=== PATIENT | female | born 1945 | race Caucasian/White ===

== ENCOUNTER 2018-09-18 11:55 | Day surgery (SDC) | payer OTHER ==
[2018-09-18] MEDS ORDERED: BUPIVACAINE 0.25% PF 30 ML VIAL ONE (12:20)
[2018-09-18] MEDS ORDERED: LIDOCAINE 2% MPF 5 ML VIAL ONE (12:20)
[2018-09-18] MEDS ORDERED: CYCLOPENTOLATE 1% OPTH 2 ML ONE (12:20)
[2018-09-18] MEDS ORDERED: TETRACAINE HCL 0.5% 2ML OPTH ONE (12:20)
[2018-09-18] MEDS ORDERED: NA CHLORIDE 0.9% 500 ML ONE (12:21)
[2018-09-18] MEDS ORDERED: PHENYLEPHRINE 10% OPTH 5ML ONE (12:21)
[2018-09-18] MEDS ORDERED: CYCLOPENTOLATE 1% OPTH 2 ML OPTH ONE ×2 (12:30→12:35)
[2018-09-18] MEDS ORDERED: PHENYLEPHRINE 10% OPTH 5ML OPTH ONE ×2 (12:30→12:35)
[2018-09-18] MEDS: BALANCED SALT IRRIG PLAIN 500 ML BTL IRR ONE ×2 (13:29→13:34)
[2018-09-18] MEDS: EPINEPHRINE/PF 1 MG/ML AMP ONE ×2 (13:29→13:34)
[2018-09-18] MEDS: DUOVISC 1 KIT OPTH ONE ×2 (13:30→13:34)
[2018-09-18] MEDS: MOXIFLOXACIN HCL 10 DROPS/ML **OR USE OPTH ONE ×2 (13:30→13:34)
--- NOTE | 2018-09-18 14:06 | P.BOP ---
Preoperative diagnosis: Nuclear sclerotic and anterior subcapsular cataract OD Postoperative diagnosis: Same Primary procedure: Phacoemulsification with IOL OD Estimated blood loss: None Anesthesia: Local (Subtenon's infusion with anesthesia for cataract surgery) Complications: None Implants: ZCB00 +22.0 Transferred to: Other (Day surgery) Condition: Good
[2018-09-18 14:16] VITALS: BP 165/77; TEMP 96.9; O2SAT 99
--- NOTE | 2018-09-19 01:32 | OP ---
Date of Procedure: 09/18/2018 Surgeon: Maureen Lancaster MD Anesthesiologist: Sol Monahan C.R.N.A. and Timoteo Reinoso M.D. Preoperative Diagnoses: Nuclear sclerotic and anterior subcapsular cataract, right eye. Operation Performed: Phacoemulsification with intraocular lens implant, right eye. Anesthesia: Per cataract surgery. Complications: None. Description Of Procedure: In day surgery, the patient was prepped with Betadine and draped. A conju nctival incision was made in the inferior nasal quadrant with Minerva scissors. A sub-Tenon block c onsisting of a 1:1 mixture of 2% Xylocaine and 0.25% bupivacaine was placed through the conjunctival incision with a blunt cannula. A Honan balloon was placed over the eye and the patient was transferr ed to the operating room. In the operating room the patient was prepped and draped in the usual sterile fashion for ophthalmic surgery. A lid speculum was placed in the right eye. Two paracentesis sites were made superiorly an d inferiorly in the limbal cornea. Viscoat was placed in the anterior chamber and a crescent blade w as used to make a corneal groove and tunnel, and a keratome was used to enter the anterior chamber. Provisc was placed in the anterior chamber and a 360 degree capsulotomy was performed with a cystitom e. The lens was hydrodissected with BSS and rotated freely. The lens was removed with a stop and ch op technique. 7.01 phaco CDE was used to remove the lens. Residual cortex was removed with the irri gation and aspiration. Provisc was placed in the capsular bag. A ZCB00 +22.0 lens was placed in the capsular bag without complications. Irrigation and aspiration were used to remove residual viscoela stic. The paracentesis sites were hydrated with BSS. The wound and paracentesis sites were inspecte d and found to be watertight. Vigamox 0.07 cc was placed intracamerally at the end of the procedure. The eye was irrigated with balanced salt solution. The eye was patched with a soft cotton patch an d Gupta metal shield. The patient was returned to day surgery in good condition. Comments: Discharge Instructions: Ms. Starks is discharged to home in good condition and is to follow up with Dr. Lancaster in the morning. JULIUS/RUTH ANN Voice ID: [id number] Report ID: [id number]
== END 2018-09-18 14:30 | disposition home or self-care (01) ==
LOC: OR 11:55
PROVIDERS: ATTEND Ophthalmology Retina Specialist
PROC: 08RJ3JZ Replacement of Right Lens with Synthetic Substitute, Percutaneous Approach (ICD-10-PCS; principal; 2018-09-18 11:45)
DX: H25.11 Age-related nuclear cataract, right eye (principal); H25.031 Anterior subcapsular polar age-related cataract, right eye; H04.123 Dry eye syndrome of bilateral lacrimal glands; I10 Essential (primary) hypertension; E78.00 Pure hypercholesterolemia, unspecified; Z79.899 Other long term (current) drug therapy
CPT/HCPCS: 66984; J0171; V2630

== ENCOUNTER 2018-10-30 06:52 | Day surgery (SDC) | payer OTHER ==
--- OUTSIDE RECORDS SUMMARY | 2018-10-30 07:01 | XMS REPORT | Clinical Summary ---
:1945 Author Organization [facility] Address [address] [place] [address] Care Team Providers Name Role Phone Brenton Holm MD Primary Care Provider Allergies No Known Allergies Medications Medication Sig Dispensed Refills Start Date End Date Status amLODIPine Take 10 mg by 0 Active (NORVASC) 10 mg mouth as needed. tablet fluticasone 2 sprays by Each 0 Active (FLONASE) 50 Nare route daily. mcg/actuation nasal spray estrogens, Take 0.625 mg by 0 Active conjugated, mouth daily. Take (PREMARIN) 0.625 MG daily for 21 days tablet then do not take for 7 days. aspirin (ECOTRIN) Take 81 mg by 0 Active 81 MG enteric mouth daily. coated tablet furosemide (LASIX) furosemide 20 mg 0 Active 20 mg tablet tablet as needed docosahexanoic Take by mouth. 0 Active acid/epa (FISH OIL ORAL) losartan (COZAAR) Take 1 tablet 90 tablet 3 10/16/2018 10/16/19 Active 100 MG (100 mg total) by 20 tabletIndications: mouth daily. Essential hypertension metoprolol Take 1 tablet 30 tablet 11 10/16/2018 10/16/19 Active succinate XL (100 mg total) by 20 (TOPROL XL) 100 mg mouth daily. 24 hr tabletIndications: Essential hypertension fenofibrate Take 1 tablet 90 tablet 3 10/16/2018 Active (TRICOR) 145 MG (145 mg total) by tablet mouth daily. metoprolol Take 1 tablet (50 90 tablet 3 10/16/2018 Active succinate XL mg total) by (TOPROL-XL) 50 mg mouth daily. 24 hr tablet ALPRAZolam (XANAX) Take 0.125 mg by 0 11/22/19 Discontinued 0.25 MG tablet mouth 2 (two) 18 times a day. cycloSPORINE 1 drop 2 (two) 0 08/08/20 Discontinued (RESTASIS) 0.05 % times a day. 18 ophthalmic emulsion irbesartan (AVAPRO) Take 300 mg by 0 11/22/19 Discontinued 300 MG tablet mouth nightly. 18 metoprolol Take 50 mg by 0 10/16/19 Discontinued succinate XL mouth daily. 19 (TOPROL-XL) 50 mg 24 hr tablet minocycline Take 100 mg by 0 11/22/19 Discontinued (MINOCIN,DYNACIN) mouth 2 (two) 18 50 MG capsule times a day. nitrofurantoin, Take 100 mg by 0 11/22/19 Discontinued macrocrystal-monohy mouth 2 (two) 18 drate, (MACROBID) times a day. 100 MG capsule torsemide (DEMADEX) Take 10 mg by 0 11/22/19 Discontinued 10 MG tablet mouth daily. 18 fenofibrate Take 130 mg by 0 10/16/19 Discontinued (TRICOR) 145 MG mouth daily. 19 tablet omega-3 acid ethyl Take 1,200 mg by 0 08/08/20 Discontinued esters (LOVAZA) 1 mouth daily. 18 gram capsule cetirizine (ZyrTEC) Take 1 tablet (5 30 tablet 0 11/23/2017 12/24/19 5 MG tablet mg total) by 18 mouth daily for 30 days. irbesartan (AVAPRO) Take 0.5 tablets 30 tablet 0 11/22/2017 12/23/19 300 MG tablet (150 mg total) by 18 mouth nightly for 30 days. guaiFENesin Take 1 tablet 60 tablet 0 11/22/2017 12/23/19 (MUCINEX) 600 mg (600 mg total) by 18 tablet extended mouth 2 (two) release 12hr times a day for 30 days. montelukast Take 1 tablet (10 30 tablet 0 11/22/2017 12/23/19 (SINGULAIR) 10 mg mg total) by 18 tablet mouth nightly for 30 days. furosemide (LASIX) Take 1 tablet (40 30 tablet 0 11/23/2017 12/24/19 40 mg tablet mg total) by 18 mouth daily for 30 days. magnesium oxide Take 1 tablet 30 tablet 0 11/23/2017 12/24/19 (MAG-OX) 400 mg (400 mg total) by 18 tablet mouth daily for 30 days. ascorbic acid, Take 3 tablets 90 tablet 0 11/22/2017 12/23/19 vitamin C, (VITAMIN (1,500 mg total) 18 C) 500 MG tablet by mouth daily for 30 days. cholecalciferol, Take 1 tablet 30 tablet 0 11/22/2017 12/23/19 vitamin D3, (2,000 Units 18 (VITAMIN D3) 2,000 total) by mouth unit tablet daily for 30 days. budesonide Take 2 mL (0.5 mg 120 mL 0 11/22/2017 12/23/19 (PULMICORT) 0.5 total) by 18 mg/2 mL nebulizer nebulization 2 solution (two) times a day for 30 days. ALPRAZolam (XANAX) Take 0.5 tablets 0 11/22/2017 12/06/19 0.25 MG tablet (0.125 mg total) 18 by mouth as needed for anxiety for up to 14 days. metoprolol Take 1 tablet 30 tablet 11 08/08/2018 10/16/19 Discontinued succinate XL (100 mg total) by 19 (TOPROL XL) 100 mg mouth daily. 24 hr tabletIndications: Essential hypertension losartan (COZAAR) Take 1 tablet 30 tablet 0 08/10/2018 09/15/20 Discontinued 100 MG (100 mg total) by 18 tabletIndications: mouth daily. Essential hypertension losartan (COZAAR) Take 1 tablet 90 tablet 0 09/15/2018 09/20/20 Discontinued 100 MG (100 mg total) by 18 tabletIndications: mouth daily. Essential hypertension losartan (COZAAR) Take 1 tablet 90 tablet 3 09/20/2018 10/16/19 Discontinued 100 MG (100 mg total) by 19 tabletIndications: mouth daily. Essential hypertension Active Problems Problem Noted Date Cardiac pacemaker in situ 08/08/2018 Carotid bruit 08/08/2018 Delirium 11/10/2017 Pancreatitis, acute 10/23/2017 Renal failure, acute 10/23/2017 Arrhythmia, sinus node 10/20/2017 Heart block 10/20/2017 Essential hypertension 10/20/2017 Fall 10/20/2017 Dizziness 10/20/2017 Cardiac dysrhythmia 10/20/2017 Complete heart block 10/20/2017 Encounters Date Type Specialty Care Team Description 10/16/2018 Orders Only Cardiology Dez Chowdhury MA Essential hypertension 09/20/2018 Telephone Cardiology Manjit [place] [facility] Refill ALVAREZ 09/15/2018 Refill Cardiology [facility] Refill ALVAREZ [place] 09/07/2018 Telephone Cardiology Gem, carotid results ALVAREZ [place] 08/10/2018 Telephone Cardiology Dez Chowdhury MA Hypertension 08/10/2018 Orders Only Cardiology Dez Chowdhury MA Essential hypertension (Primary Dx) 08/09/2018 Orders Only Cardiology Rayna Huang MD 08/08/2018 Office Visit Cardiology Rayna Huang Essential hypertension ( Primary Dx); MD Azar Carotid bruit, unspecified laterality; Complete heart block (HCC); Cardiac pacemaker in situ 11/18/2017 Surgery Procedural [facility]ign[facility] Baker Ep ppi [93081 (CPT)] Cardiology MD Kristin 11/04/2017 Anesthesia Event Cardiology Gregory Mc MD 11/04/2017 Surgery General Surgery Victor Manuel Sanchez MD CHOLECYSTECTOMY 10/20/2017 - Hospital Encounter Cardiology Digna Baker Altered mental status, unspecified altered mental status type (Primary Dx); 11/22/2017 MD Kristin Arrhythmia, sinus node; Griffin Rodríguez Acute on chronic respiratory failure with hypoxia and hypercapnia; MD Otilio Septic shock; Heart block; Essential hypertension; Dizziness; Cardiac arrhythmia, unspecified cardiac arrhythmia type; Complete heart block; Gallstone pancreatitis after 10/29/2017 Social History Tobacco Use Types Packs/Day Years Used Date Former Smoker Sex Assigned at Date Recorded Not on file Job Start Date Occupation Industry Not on file Not on file Not on file Travel History Travel Start Travel End No recent travel history available. Last Filed Vital Signs Vital Sign Reading Time Taken Blood Pressure 186/86 08/08/2018 1:07 PM CDT Pulse 80 08/08/2018 1:07 PM CDT Temperature 35.7 C (96.3 F) 11/22/2017 12:18 PM [employer] Respiratory Rate 18 11/22/2017 1:00 PM [employer] Oxygen Saturation 96% 11/22/2017 1:00 PM [employer] Inhaled Oxygen Concentration - - Weight 55.3 kg (122 lb) 08/08/2018 1:07 PM CDT Height 154.9 cm (5' 1") 08/08/2018 1:07 PM CDT Body Mass Index 23.05 08/08/2018 1:07 PM CDT Plan of Treatment Health Maintenance Due Date Last Done Comments BREAST CANCER SCREENING 1993 COLON CANCER SCREENING 1993 SHINGLES VACCINES (1 of 2) 1993 PNEUMOCOCCAL POLYSACCHARIDE VACCINE AGE 65 AND OVER 2008 PNEUMOCOCCAL-13 2008 INFLUENZA VACCINE 05/10/2018 Implants Implanted Type Area Vocational Nursing Instructor Device Shelf Model / Identifier Expiration Serial / Date Lot Pacemaker Dredge Pipe Operator Dr Macias 2chmbr W/ Is-1 Uni/Bi Conn Advisa - [id number] Cardiac N /A: [employer] 12/21/2017 [id number] / Implanted: 11/18/2017 (Quantity not on file) Pacemaker N/A CARDIAC RHYTHM [id number] / Generators DISEASE MGMT [id number] Lead, Bipolar Active Fixation Atrial Steroid Eluting 45 Cm Capsure Fix Novus System - [id number] Cardiac Pacing N/A: [employer]TR[employer]IC [facility] 08/12/2019 [id number] / Implanted: 11/18/2017 (Quantity not on file) Leads or N/A [employer] [id number] / Electrodes or [id number] Accessories Lead, Pacemaker Bipolar Fix Forming Atrial And Ventricular Steroid Eluting 52 Centimeter Capsure Fix Novus - [id number] Cardiac Pacing N/A: [employer] [facility] 08/22/2019 [id number] / Implanted: 11/18/2017 (Quantity not on file) Leads or N/A [employer] [id number] / Electrodes or [id number] Accessories Particle [facility] [place] 5gm Mph - [id number] Surgical N/A: [employer] [id number] / Implanted: Qty: 1 on 11/04/2017 by Victor Manuel Sanchez MD Implants; N/A / Expanders; Extenders; Surgical Wires Procedures Procedure Name Priority Date/Time Associated Comments Diagnosis US CAROTID DUPLEX Routine 08/29/2018 12:00 Carotid bruit, Results for this BILATERAL PM [employer] unspecified procedure are in laterality the results section. GENERAL SURGERY Routine 08/09/2018 TRANSFUSE RED BLOOD Routine 06/14/2018 5:47 CELLS PM CDT TRANSFUSE RED BLOOD Routine 06/14/2018 5:47 CELLS PM CDT XR CHEST 1 VW PORTABLE Routine 11/22/2017 9:12 Results for this AM [employer] procedure are in the results section. ZZESTIMATED GFR Routine 11/22/2017 4:00 Results for this AM [employer] procedure are in the results section. PHOSPHORUS LEVEL Routine 11/22/2017 4:00 Results for this AM [employer] procedure are in the results section. MAGNESIUM LEVEL Routine 11/22/2017 4:00 Results for this AM [employer] procedure are in the results section. BASIC METABOLIC PANEL Routine 11/22/2017 4:00 Results for this AM [employer] procedure are in the results section. RESPIRATORY PATHOGEN Routine 11/21/2017 9:35 Results for this PANEL AM [employer] procedure are in the results section. ZZESTIMATED GFR Routine 11/21/2017 4:00 Results for this AM [employer] procedure are in the results section. PHOSPHORUS LEVEL Routine 11/21/2017 4:00 Results for this AM [employer] procedure are in the results section. MAGNESIUM LEVEL Routine 11/21/2017 4:00 Results for this AM [employer] procedure are in the results section. BASIC METABOLIC PANEL Routine 11/21/2017 4:00 Results for this AM [employer] procedure are in the results section. US DUPLEX VENOUS UPPER Routine 11/20/2017 12:12 Results for this EXTREMITY LEFT PM [employer] procedure are in the results section. ZZESTIMATED GFR Routine 11/20/2017 4:00 Results for this AM [employer] procedure are in the results section. PHOSPHORUS LEVEL Routine 11/20/2017 4:00 Results for this AM [employer] procedure are in the results section. MAGNESIUM LEVEL Routine 11/20/2017 4:00 Results for this AM [employer] procedure are in the results section. BASIC METABOLIC PANEL Routine 11/20/2017 4:00 Results for this AM [employer] procedure are in the results section. ECG PRE/POST OP Routine 11/19/2017 8:53 Results for this PM [employer] procedure are in the results section. ZZESTIMATED GFR Routine 11/19/2017 4:00 Results for this AM [employer] procedure are in the results section. PHOSPHORUS LEVEL Routine 11/19/2017 4:00 Results for this AM [employer] procedure are in the results section. MAGNESIUM LEVEL Routine 11/19/2017 4:00 Results for this AM [employer] procedure are in the results section. BASIC METABOLIC PANEL Routine 11/19/2017 4:00 Results for this AM [employer] procedure are in the results section. XR CHEST 1 VW PORTABLE Routine 11/18/2017 1:06 Results for this PM [employer] procedure are in the results section. XR CHEST 1 VW PORTABLE Routine 11/18/2017 10:11 Results for this AM [employer] procedure are in the results section. ECG PRE/POST OP STAT 11/18/2017 9:28 Results for this AM [employer] procedure are in the results section. ZZ PPI Routine 11/18/2017 9:06 Results for this AM [employer] procedure are in the results section. ZZESTIMATED GFR Routine 11/18/2017 4:00 Results for this AM [employer] procedure are in the results section. PHOSPHORUS LEVEL Routine 11/18/2017 4:00 Results for this AM [employer] procedure are in the results section. MAGNESIUM LEVEL Routine 11/18/2017 4:00 Results for this AM [employer] procedure are in the results section. BASIC METABOLIC PANEL Routine 11/18/2017 4:00 Results for this AM [employer] procedure are in the results section. HC COMPLETE BLD COUNT Routine 11/17/2017 4:30 Results for this W/AUTO DIFF AM [employer] procedure are in the results section. ZZESTIMATED GFR Routine 11/17/2017 4:00 Results for this AM [employer] procedure are in the results section. PHOSPHORUS LEVEL Routine 11/17/2017 4:00 Results for this AM [employer] procedure are in the results section. MAGNESIUM LEVEL Routine 11/17/2017 4:00 Results for this AM [employer] procedure are in the results section. BASIC METABOLIC PANEL Routine 11/17/2017 4:00 Results for this AM [employer] procedure are in the results section. POC GLUCOSE Routine 11/16/2017 9:40 Results for this PM [employer] procedure are in the results section. CLOSTRIDIUM DIFFICILE Routine 11/16/2017 8:40 Results for this TOXIN PM [employer] procedure are in the results section. POC GLUCOSE Routine 11/16/2017 5:12 Results for this PM [employer] procedure are in the results section. XR CHEST 2 VW Routine 11/16/2017 3:29 Results for this PM [employer] procedure are in the results section. ZZESTIMATED GFR Routine 11/16/2017 4:00 Results for this AM [employer] procedure are in the results section. PHOSPHORUS LEVEL Routine 11/16/2017 4:00 Results for this AM [employer] procedure are in the results section. MAGNESIUM LEVEL Routine 11/16/2017 4:00 Results for this AM [employer] procedure are in the results section. BASIC METABOLIC PANEL Routine 11/16/2017 4:00 Results for this AM [employer] procedure are in the results section. POC GLUCOSE Routine 11/16/2017 3:38 Results for this AM [employer] procedure are in the results section. POC GLUCOSE Routine 11/15/2017 11:53 Results for this PM [employer] procedure are in the results section. POC GLUCOSE Routine 11/15/2017 8:41 Results for this PM [employer] procedure are in the results section. POC GLUCOSE Routine 11/15/2017 5:32 Results for this PM [employer] procedure are in the results section. POC GLUCOSE Routine 11/15/2017 1:01 Results for this PM [employer] procedure are in the results section. POC GLUCOSE Routine 11/15/2017 8:41 Results for this AM [employer] procedure are in the results section. ZZESTIMATED GFR Routine 11/15/2017 4:00 Results for this AM [employer] procedure are in the results section. PHOSPHORUS LEVEL Routine 11/15/2017 4:00 Results for this AM [employer] procedure are in the results section. MAGNESIUM LEVEL Routine 11/15/2017 4:00 Results for this AM [employer] procedure are in the results section. BASIC METABOLIC PANEL Routine 11/15/2017 4:00 Results for this AM [employer] procedure are in the results section. POC GLUCOSE Routine 11/15/2017 3:59 Results for this AM [employer] procedure are in the results section. POC GLUCOSE Routine 11/15/2017 12:13 Results for this AM [employer] procedure are in the results section. POC GLUCOSE Routine 11/14/2017 7:40 Results for this PM [employer] procedure are in the results section. POC GLUCOSE Routine 11/14/2017 5:30 Results for this AM [employer] procedure are in the results section. ZZESTIMATED GFR Routine 11/14/2017 4:00 Results for this AM [employer] procedure are in the results section. PHOSPHORUS LEVEL Routine 11/14/2017 4:00 Results for this AM [employer] procedure are in the results section. MAGNESIUM LEVEL Routine 11/14/2017 4:00 Results for this AM [employer] procedure are in the results section. BASIC METABOLIC PANEL Routine 11/14/2017 4:00 Results for this AM [employer] procedure are in the results section. POC GLUCOSE Routine 11/13/2017 11:28 Results for this PM [employer] procedure are in the results section. POC GLUCOSE Routine 11/13/2017 9:09 Results for this PM [employer] procedure are in the results section. POC GLUCOSE Routine 11/13/2017 11:07 Results for this AM [employer] procedure are in the results section. POC GLUCOSE Routine 11/13/2017 8:12 Results for this AM [employer] procedure are in the results section. POC GLUCOSE Routine 11/13/2017 4:35 Results for this AM [employer] procedure are in the results section. HC COMPLETE BLD COUNT Routine 11/13/2017 4:04 Results for this W/AUTO DIFF AM [employer] procedure are in the results section. ZZESTIMATED GFR Routine 11/13/2017 4:00 Results for this AM [employer] procedure are in the results section. PHOSPHORUS LEVEL Routine 11/13/2017 4:00 Results for this AM [employer] procedure are in the results section. MAGNESIUM LEVEL Routine 11/13/2017 4:00 Results for this AM [employer] procedure are in the results section. BASIC METABOLIC PANEL Routine 11/13/2017 4:00 Results for this AM [employer] procedure are in the results section. VANCOMYCIN LEVEL, Timed 11/13/2017 2:30 Results for this TROUGH AM [employer] procedure are in the results section. POC GLUCOSE Routine 11/13/2017 12:02 Results for this AM [employer] procedure are in the results section. POC GLUCOSE Routine 11/12/2017 7:34 Results for this PM [employer] procedure are in the results section. POC GLUCOSE Routine 11/12/2017 4:38 Results for this PM [employer] procedure are in the results section. POC GLUCOSE Routine 11/12/2017 11:34 Results for this AM [employer] procedure are in the results section. POC GLUCOSE Routine 11/12/2017 10:08 Results for this AM [employer] procedure are in the results section. POC GLUCOSE Routine 11/12/2017 8:47 Results for this AM [employer] procedure are in the results section. POC GLUCOSE Routine 11/12/2017 8:47 Results for this AM [employer] procedure are in the results section. ZZESTIMATED GFR Routine 11/12/2017 4:00 Results for this AM [employer] procedure are in the results section. PHOSPHORUS LEVEL Routine 11/12/2017 4:00 Results for this AM [employer] procedure are in the results section. MAGNESIUM LEVEL Routine 11/12/2017 4:00 Results for this AM [employer] procedure are in the results section. BASIC METABOLIC PANEL Routine 11/12/2017 4:00 Results for this AM [employer] procedure are in the results section. XR ABDOMEN AP AND STAT 11/11/2017 4:18 Results for this DECUBITUS PM [employer] procedure are in the results section. POC GLUCOSE Routine 11/11/2017 12:00 Results for this PM [employer] procedure are in the results section. XR CHEST 1 VW PORTABLE Routine 11/11/2017 11:27 Results for this AM [employer] procedure are in the results section. POC GLUCOSE Routine 11/11/2017 8:38 Results for this AM [employer] procedure are in the results section. ZZESTIMATED GFR Routine 11/11/2017 3:15 Results for this AM [employer] procedure are in the results section. PHOSPHORUS LEVEL Routine 11/11/2017 3:15 Results for this AM [employer] procedure are in the results section. MAGNESIUM LEVEL Routine 11/11/2017 3:15 Results for this AM [employer] procedure are in the results section. BASIC METABOLIC PANEL Routine 11/11/2017 3:15 Results for this AM [employer] procedure are in the results section. POC GLUCOSE Routine 11/10/2017 11:16 Results for this PM [employer] procedure are in the results section. CLOSTRIDIUM DIFFICILE Routine 11/10/2017 7:20 Results for this TOXIN PM [employer] procedure are in the results section. XR CHEST 1 VW PORTABLE Routine 11/10/2017 10:08 Results for this AM [employer] procedure are in the results section. HC COMPLETE BLD COUNT Routine 11/10/2017 4:46 Results for this W/AUTO DIFF AM [employer] procedure are in the results section. ZZESTIMATED GFR Routine 11/10/2017 4:00 Results for this AM [employer] procedure are in the results section. COMPREHENSIVE METABOLIC Routine 11/10/2017 4:00 Results for this PANEL AM [employer] procedure are in the results section. PHOSPHORUS LEVEL Routine 11/10/2017 4:00 Results for this AM [employer] procedure are in the results section. MAGNESIUM LEVEL Routine 11/10/2017 4:00 Results for this AM [employer] procedure are in the results section. XR CHEST 1 VW STAT 11/09/2017 6:16 Results for this PM [employer] procedure are in the results section. FL GI NG OR OG TUBE Routine 11/09/2017 5:57 Results for this PLACEMENT PM [employer] procedure are in the results section. XR CHEST 1 VW STAT 11/09/2017 5:44 Results for this PM [employer] procedure are in the results section. URINALYSIS, AUTOMATED Routine 11/09/2017 3:45 Results for this WITH MICROSCOPY PM [employer] procedure are in the results section. VANCOMYCIN LEVEL, STAT 11/09/2017 3:23 Results for this RANDOM PM [employer] procedure are in the results section. XR ABDOMEN 1 VW STAT 11/09/2017 2:18 Results for this PORTABLE PM [employer] procedure are in the results section. XR CHEST 1 VW PORTABLE Routine 11/09/2017 9:50 Results for this AM [employer] procedure are in the results section. HC COMPLETE BLD COUNT Routine 11/09/2017 5:40 Results for this W/AUTO DIFF AM [employer] procedure are in the results section. ZZESTIMATED GFR Routine 11/09/2017 4:00 Results for this AM [employer] procedure are in the results section. ALBUMIN LEVEL Routine 11/09/2017 4:00 Results for this AM [employer] procedure are in the results section. PHOSPHORUS LEVEL Routine 11/09/2017 4:00 Results for this AM [employer] procedure are in the results section. MAGNESIUM LEVEL Routine 11/09/2017 4:00 Results for this AM [employer] procedure are in the results section. BASIC METABOLIC PANEL Routine 11/09/2017 4:00 Results for this AM [employer] procedure are in the results section. ZZESTIMATED GFR Routine 11/08/2017 3:13 Results for this AM [employer] procedure are in the results section. PHOSPHORUS LEVEL Routine 11/08/2017 3:13 Results for this AM [employer] procedure are in the results section. MAGNESIUM LEVEL Routine 11/08/2017 3:13 Results for this AM [employer] procedure are in the results section. BASIC METABOLIC PANEL Routine 11/08/2017 3:13 Results for this AM [employer] procedure are in the results section. VANCOMYCIN LEVEL, Timed 11/08/2017 3:00 Results for this TROUGH AM [employer] procedure are in the results section. HC COMPLETE BLD COUNT Routine 11/07/2017 4:05 Results for this W/AUTO DIFF AM [employer] procedure are in the results section. ZZESTIMATED GFR Routine 11/07/2017 4:00 Results for this AM [employer] procedure are in the results section. T4, FREE Routine 11/07/2017 4:00 Results for this AM [employer] procedure are in the results section. THYROID STIMULATING Routine 11/07/2017 4:00 Results for this HORMONE AM [employer] procedure are in the results section. PHOSPHORUS LEVEL Routine 11/07/2017 4:00 Results for this AM [employer] procedure are in the results section. MAGNESIUM LEVEL Routine 11/07/2017 4:00 Results for this AM [employer] procedure are in the results section. BASIC METABOLIC PANEL Routine 11/07/2017 4:00 Results for this AM [employer] procedure are in the results section. BLOOD CULTURE, AEROBIC Routine 11/06/2017 7:02 Results for this & ANAEROBIC PM [employer] procedure are in the results section. BLOOD CULTURE, AEROBIC Routine 11/06/2017 6:50 Results for this & ANAEROBIC PM [employer] procedure are in the results section. ZZESTIMATED GFR STAT 11/06/2017 6:07 Results for this PM [employer] procedure are in the results section. BETA HYDROXYBUTYRATE STAT 11/06/2017 6:07 Results for this PM [employer] procedure are in the results section. LACTIC ACID LEVEL STAT 11/06/2017 6:07 Results for this PM [employer] procedure are in the results section. BASIC METABOLIC PANEL STAT 11/06/2017 6:07 Results for this PM [employer] procedure are in the results section. PREALBUMIN LEVEL Routine 11/06/2017 6:07 Results for this PM [employer] procedure are in the results section. PROTHROMBIN TIME WITH Routine 11/06/2017 5:00 Results for this INR AM [employer] procedure are in the results section. HC COMPLETE BLD COUNT Routine 11/06/2017 5:00 Results for this W/AUTO DIFF AM [employer] procedure are in the results section. IONIZED CALCIUM, Routine 11/06/2017 4:00 Results for this ARTERIAL AM CURTAIN WORKER procedure are in the results section. ZZESTIMATED GFR Routine 11/06/2017 4:00 Results for this AM CURTAIN WORKER procedure are in the results section. ARTERIAL BLOOD GAS Routine 11/06/2017 4:00 Results for this AM CURTAIN WORKER procedure are in the results section. PHOSPHORUS LEVEL Routine 11/06/2017 4:00 Results for this AM CURTAIN WORKER procedure are in the results section. MAGNESIUM LEVEL Routine 11/06/2017 4:00 Results for this AM CURTAIN WORKER procedure are in the results section. BASIC METABOLIC PANEL Routine 11/06/2017 4:00 Results for this AM CURTAIN WORKER procedure are in the results section. HEPATIC FUNCTION PANEL Routine 11/06/2017 4:00 Results for this AM CURTAIN WORKER procedure are in the results section. ZINC LEVEL, SERUM Routine 11/05/2017 10:05 Results for this PM CURTAIN WORKER procedure are in the results section. HEMATOCRIT Routine 11/05/2017 10:05 Results for this PM CURTAIN WORKER procedure are in the results section. HEMOGLOBIN Routine 11/05/2017 10:05 Results for this PM CURTAIN WORKER procedure are in the results section. XR CHEST 2 VW Routine 11/05/2017 9:07 Results for this PM CURTAIN WORKER procedure are in the results section. URINALYSIS SCREEN AND STAT 11/05/2017 1:30 Results for this MICROSCOPY, WITH REFLEX PM CURTAIN WORKER procedure are in TO CULTURE the results section. URINE CULTURE STAT 11/05/2017 1:30 Results for this PM CURTAIN WORKER procedure are in the results section. HEMOGLOBIN & HEMATOCRIT Routine 11/05/2017 11:51 Results for this AM CURTAIN WORKER procedure are in the results section. CT HEAD WO CONTRAST STAT 11/05/2017 8:53 Results for this AM CURTAIN WORKER procedure are in the results section. POC BLOOD GAS, ARTERIAL Routine 11/05/2017 8:36 AM CURTAIN WORKER LACTIC ACID, I-STAT, Routine 11/05/2017 8:36 Results for this ARTERIAL AM CURTAIN WORKER procedure are in the results section. ZZESTIMATED GFR STAT 11/05/2017 8:25 Results for this AM CURTAIN WORKER procedure are in the results section. PROTHROMBIN TIME WITH STAT 11/05/2017 8:25 Results for this INR AM CURTAIN WORKER procedure are in the results section. TROPONIN STAT 11/05/2017 8:25 Results for this AM CURTAIN WORKER procedure are in the results section. AMMONIA LEVEL STAT 11/05/2017 8:25 Results for this AM CURTAIN WORKER procedure are in the results section. PHOSPHORUS LEVEL STAT 11/05/2017 8:25 Results for this AM CURTAIN WORKER procedure are in the results section. MAGNESIUM LEVEL STAT 11/05/2017 8:25 Results for this AM CURTAIN WORKER procedure are in the results section. COMPREHENSIVE METABOLIC STAT 11/05/2017 8:25 Results for this PANEL AM CURTAIN WORKER procedure are in the results section. ECG 12-LEAD STAT 11/05/2017 8:07 Results for this AM CURTAIN WORKER procedure are in the results section. POC GLUCOSE Routine 11/05/2017 7:59 Results for this AM CURTAIN WORKER procedure are in the results section. ZZESTIMATED GFR Routine 11/05/2017 4:45 Results for this AM CURTAIN WORKER procedure are in the results section. VITAMIN C LEVEL, PLASMA Routine 11/05/2017 4:45 Results for this AM CURTAIN WORKER procedure are in the results section. VITAMIN B12 LEVEL Routine 11/05/2017 4:45 Results for this AM CURTAIN WORKER procedure are in the results section. IONIZED CALCIUM Routine 11/05/2017 4:45 Results for this AM CURTAIN WORKER procedure are in the results section. PROTHROMBIN TIME WITH Routine 11/05/2017 4:45 Results for this INR AM CURTAIN WORKER procedure are in the results section. HEPATIC FUNCTION PANEL Routine 11/05/2017 4:45 Results for this AM CURTAIN WORKER procedure are in the results section. CBC WITH PLATELET AND Routine 11/05/2017 4:45 Results for this DIFFERENTIAL AM CURTAIN WORKER procedure are in the results section. PHOSPHORUS LEVEL Routine 11/05/2017 4:45 Results for this AM CURTAIN WORKER procedure are in the results section. MAGNESIUM LEVEL Routine 11/05/2017 4:45 Results for this AM CURTAIN WORKER procedure are in the results section. BASIC METABOLIC PANEL Routine 11/05/2017 4:45 Results for this AM CURTAIN WORKER procedure are in the results section. HC COMPLETE BLD COUNT Timed 11/04/2017 3:00 Results for this W/AUTO DIFF PM CURTAIN WORKER procedure are in the results section. SURGICAL PATHOLOGY Routine 11/04/2017 11:26 Results for this REQUEST AM CURTAIN WORKER procedure are in the results section. MO AN ELECTIVE Routine 11/04/2017 8:26 ENDOTRACHEAL AIRWAY AM CURTAIN WORKER Procedure Note - Ken Haque CRNA - 11/04/2017 8:24 AM CURTAIN WORKER Airway Date/Time: 11/04/2017 7:48 AM Performed by: KEN HAQUE Authorized by: GREGORY MC Location: OR Urgency: Elective Difficult Airway: No Performed by: resident/CRANE HOIST OR LIFT OPERATOR/AA Preoxygenated with 100% O2: Yes C-spine Precautions Maintained Throughout: Yes Mask Ventilation: Easy mask Final Airway Type: Endotracheal airway Final Endotracheal Airway: ETT Cuffed: Yes Technique Used: Direct laryngoscopy Devices/Methods Used in Placement: Intubating stylet Insertion Site: Oral Blade Type: Julius Laryngoscope Blade/Videolaryngoscope Blade Size: 3 ETT Size (mm): 7.0 Cuff at minimum occlusion pressure: Yes Measured from: Lips ETT to Lips (cm): 21 Placement Verified by: CO2 detection, direct visualization and equal breath sounds Laryngoscopic view: Grade IIb - view of arytenoids or posterior of glottis only Rapid Sequence Induction (RSI): No Modified RSI: No Number of Attempts at Approach: 1 EYES TAPED AFTER LOC, TEETH PROTECTED. ATRAUMATIC INTUBATION BY KATIE PEMBERTON. ORAL STRUCTURES INTACT AND UNCHANGED. CHOLECYSTECTOMY, 11/04/2017 7:30 Gallstone LAPAROSCOPIC AM CURTAIN WORKER pancreatitis ZZESTIMATED GFR Routine 11/04/2017 4:00 Results for this AM CURTAIN WORKER procedure are in the results section. IONIZED CALCIUM Routine 11/04/2017 4:00 Results for this AM CURTAIN WORKER procedure are in the results section. HEPATIC FUNCTION PANEL Routine 11/04/2017 4:00 Results for this AM CURTAIN WORKER procedure are in the results section. PHOSPHORUS LEVEL Routine 11/04/2017 4:00 Results for this AM CURTAIN WORKER procedure are in the results section. MAGNESIUM LEVEL Routine 11/04/2017 4:00 Results for this AM CURTAIN WORKER procedure are in the results section. BASIC METABOLIC PANEL Routine 11/04/2017 4:00 Results for this AM CURTAIN WORKER procedure are in the results section. PREPARE RBC Timed 11/04/2017 3:30 Results for this AM CURTAIN WORKER procedure are in the results section. PROTHROMBIN TIME WITH Routine 11/04/2017 3:30 Results for this INR AM CURTAIN WORKER procedure are in the results section. HC COMPLETE BLD COUNT Routine 11/04/2017 3:30 Results for this W/AUTO DIFF AM CURTAIN WORKER procedure are in the results section. TYPE AND SCREEN Routine 11/04/2017 3:30 Results for this AM CURTAIN WORKER procedure are in the results section. ZZESTIMATED GFR Routine 11/03/2017 4:50 Results for this AM CURTAIN WORKER procedure are in the results section. LIPASE LEVEL Routine 11/03/2017 4:50 Results for this AM CURTAIN WORKER procedure are in the results section. AMYLASE LEVEL Routine 11/03/2017 4:50 Results for this AM CURTAIN WORKER procedure are in the results section. HEPATIC FUNCTION PANEL Routine 11/03/2017 4:50 Results for this AM CURTAIN WORKER procedure are in the results section. HC COMPLETE BLD COUNT Routine 11/03/2017 4:50 Results for this W/AUTO DIFF AM CURTAIN WORKER procedure are in the results section. PROTHROMBIN TIME WITH Routine 11/03/2017 4:50 Results for this INR AM CURTAIN WORKER procedure are in the results section. PHOSPHORUS LEVEL Routine 11/03/2017 4:50 Results for this AM CURTAIN WORKER procedure are in the results section. MAGNESIUM LEVEL Routine 11/03/2017 4:50 Results for this AM CURTAIN WORKER procedure are in the results section. BASIC METABOLIC PANEL Routine 11/03/2017 4:50 Results for this AM CURTAIN WORKER procedure are in the results section. XR CHEST 1 VW PORTABLE Routine 11/02/2017 4:16 Results for this PM CURTAIN WORKER procedure are in the results section. ZZESTIMATED GFR Routine 11/02/2017 4:00 Results for this AM CURTAIN WORKER procedure are in the results section. PHOSPHORUS LEVEL Routine 11/02/2017 4:00 Results for this AM CURTAIN WORKER procedure are in the results section. MAGNESIUM LEVEL Routine 11/02/2017 4:00 Results for this AM CURTAIN WORKER procedure are in the results section. BASIC METABOLIC PANEL Routine 11/02/2017 4:00 Results for this AM CURTAIN WORKER procedure are in the results section. NM MYOCARDIAL PERFUSION Routine 11/01/2017 3:01 Results for this STRESS ONLY PM CURTAIN WORKER procedure are in the results section. CV STRESS TEST NUCLEAR Routine 11/01/2017 3:01 Results for this CARDIO PM CURTAIN WORKER procedure are in the results section. CBC WITH PLATELET AND Routine 11/01/2017 5:40 Results for this DIFFERENTIAL AM CURTAIN WORKER procedure are in the results section. LIPASE LEVEL Routine 11/01/2017 5:40 Results for this AM CURTAIN WORKER procedure are in the results section. AMYLASE LEVEL Routine 11/01/2017 5:40 Results for this AM CURTAIN WORKER procedure are in the results section. HEPATIC FUNCTION PANEL Routine 11/01/2017 5:40 Results for this AM CURTAIN WORKER procedure are in the results section. ZZESTIMATED GFR Routine 11/01/2017 5:40 Results for this AM CURTAIN WORKER procedure are in the results section. PHOSPHORUS LEVEL Routine 11/01/2017 5:40 Results for this AM CURTAIN WORKER procedure are in the results section. MAGNESIUM LEVEL Routine 11/01/2017 5:40 Results for this AM CURTAIN WORKER procedure are in the results section. BASIC METABOLIC PANEL Routine 11/01/2017 5:40 Results for this AM CURTAIN WORKER procedure are in the results section. ZZESTIMATED GFR STAT 10/31/2017 10:48 Results for this AM CURTAIN WORKER procedure are in the results section. PHOSPHORUS LEVEL STAT 10/31/2017 10:48 Results for this AM CURTAIN WORKER procedure are in the results section. MAGNESIUM LEVEL STAT 10/31/2017 10:48 Results for this AM CURTAIN WORKER procedure are in the results section. BASIC METABOLIC PANEL STAT 10/31/2017 10:48 Results for this AM CURTAIN WORKER procedure are in the results section. URIC ACID LEVEL Routine 10/30/2017 11:48 Results for this AM CURTAIN WORKER procedure are in the results section. ZZESTIMATED GFR Routine 10/30/2017 4:00 Results for this AM CURTAIN WORKER procedure are in the results section. PHOSPHORUS LEVEL Routine 10/30/2017 4:00 Results for this AM CURTAIN WORKER procedure are in the results section. MAGNESIUM LEVEL Routine 10/30/2017 4:00 Results for this AM CURTAIN WORKER procedure are in the results section. BASIC METABOLIC PANEL Routine 10/30/2017 4:00 Results for this AM CURTAIN WORKER procedure are in the results section. ZZESTIMATED GFR Routine 10/29/2017 4:00 Results for this AM CURTAIN WORKER procedure are in the results section. PHOSPHORUS LEVEL Routine 10/29/2017 4:00 Results for this AM CURTAIN WORKER procedure are in the results section. MAGNESIUM LEVEL Routine 10/29/2017 4:00 Results for this AM CURTAIN WORKER procedure are in the results section. BASIC METABOLIC PANEL Routine 10/29/2017 4:00 Results for this AM CURTAIN WORKER procedure are in the results section. after 10/29/2017 Results Us carotid duplex (08/29/2018 12:00 PM CURTAIN WORKER) Narrative Performed At [facility] Carotid Artery Ultrasound Report Pat.Name:Kyaw KAMINSKI.ID:[id number] .Date: 08/29/2018Refer.MD:RAYNA HUANG MD Exam Time: 11:15:00 AM Study Type:Carotid DOBAge:1945,73YSex: FEMALE Sonogrphr: Danielle Leroy RVT Pat. Stat.:[facility] - 4: 30060 Echo Event ID:[id number] Order ID:[id number] Reason for Study:Carotid bruit, PMH of complete heart block, Arrythmia, S/P pacemaker placement, Essential HTN. Procedures:Colorflow, Grayscale/2D, Pulsed wave Doppler Race:C SUMMARY: PHYSICAL ASSESSMENT BloodPulsesCarotid Pressure Carotid TemporalBruit Right 167/78 ++0 Left 162/72 ++0 CAROTID ARTERY SCAN RIGHT:There is smooth intimal lining in the common carotid ,bulb, internal and external carotid artery. Colorflow is normal. LEFT:There is smooth intimal lining in the common carotid artery. There is hardplaque noted in the bulb. The internal and external carotid artery is clear. Colorflow is normal. PRELIMINARY FINDINGS 1. Normal carotid duplex exam on the right. 2. Non stenotic minimal hard plaque seen in the left carotid bulb. 3. Vertebral artery is antegrade, bilaterally. PHYSICIAN INTERPRETATION Bilateral carotid artery duplex exam demonstrates minimal atherosclerotic plaque changes in the left bulb with <50% stenosis. Normal on the right. Vertebral artery is antegrade, bilaterally. Triphasic Doppler signals noted in the subclavian artery, bilaterally. Carotid Findings:RightLeft Verteb.Flw AntegradeAntegrade Subclavian TriphasicTriphasic MEASUREMENTS: DOPPLER Right CCA Dist CCA Dist PSV77.2 cm/sCCA Dist EDV17.6 cm/s Right CCA Mid CCA Mid PSV 65.6 cm/sCCA Mid EDV 13.1 cm/s Right CCA Prox CCA Prox PSV75.5 cm/sCCA Prox EDV13.1 cm/s Right Bulb Bulb PSV65 cm/sBulb EDV14.4 cm/s Right ECA ECA PSV 78.4 cm/sECA EDV 7.22 cm/s Right ICA Dist ICA Dist PSV74.6 cm/Randy Dist EDV16.6 cm/s Right ICA Mid ICA Mid PSV 85.3 cm/Randy Mid EDV 23 cm/s Right ICA Prox ICA Prox PSV68.9 cm/Randy Prox EDV14.2 cm/s Right Subclavian Subclavian PSV68.7 cm/s Left CCA Dist CCA Dist PSV72.7 cm/sCCA Dist EDV13.9 cm/s Left CCA Mid CCA Mid PSV 86.6 cm/sCCA Mid EDV 15.5 cm/s Left CCA Prox CCA Prox PSV 107 cm/sCCA Prox EDV12.4 cm/s Left Bulb Bulb PSV60.3 cm/sBulb EDV12.4 cm/s Left ECA ECA PSV 60.3 cm/sECA EDV 7.74 cm/s Left ICA Dist ICA Dist PSV98.3 cm/Randy Dist EDV21.5 cm/s Left ICA Mid ICA Mid PSV 74.3 cm/Randy Mid EDV 20.1 cm/s Left ICA Prox ICA Prox PSV82 cm/Randy Prox EDV12.4 cm/s Left Subclavian Subclavian PSV 101 cm/s Left Vertebral Vertebral PSV 86 cm/sVertebral EDV 16.9 cm/s Right ICA/CCA Ratio ICA/CCA PSV 1.05 Left ICA/CCA Ratio ICA/CCA PSV0.947 Right ECA Prox ECA Prox PSV78 cm/sECA Prox EDV 7 cm/s Left ECA Prox ECA Prox PSV60 cm/sECA Prox EDV 8 cm/s Right Vertebral Vertebral PSV 39 cm/s Signed 09/03/2018 06:03 PM Rayna Huang MD Procedure Note Interface, Radiology Results In - 09/03/2018 6:04 PM CURTAIN WORKER [facility] Carotid Artery Ultrasound Report Pat.Name: GENEVA KAMINSKI Pat.ID: [id number] St.Date: 08/29/2018 Refer.MD: RAYNA HUANG MD Exam Time: 11:15:00 AM Study Type:Carotid Age: 8 1945,73Y Sex: FEMALE Sonogrphr: Danielle Leroy RVT Pat. Stat.:Outpatient Room: [facility] Vol: SD, CPT - 4: 05204 Echo Event ID:[id number] Order ID: [id number] Reason for Study:Carotid bruit, PMH of complete heart block, Arrythmia, S/P pacemaker placement, Essential HTN. Procedures:Colorflow, Grayscale/2D, Pulsed wave Doppler Race: C SUMMARY: PHYSICAL ASSESSMENT Blood Pulses Carotid Pressure Carotid Temporal Bruit Right 167/78 + + 0 Left 162/72 + + 0 CAROTID ARTERY SCAN RIGHT: There is smooth intimal lining in the common carotid ,bulb, internal and external carotid artery. Colorflow is normal. LEFT: There is smooth intimal lining in the common carotid artery. There is hardplaque noted in the bulb. The internal and external carotid artery is clear. Colorflow is normal. PRELIMINARY FINDINGS 1. Normal carotid duplex exam on the right. 2. Non stenotic minimal hard plaque seen in the left carotid bulb. 3. Vertebral artery is antegrade, bilaterally. PHYSICIAN INTERPRETATION Bilateral carotid artery duplex exam demonstrates minimal atherosclerotic plaque changes in the left bulb with <50% stenosis. Normal on the right. Vertebral artery is antegrade, bilaterally. Triphasic Doppler signals noted in the subclavian artery, bilaterally. Carotid Findings: Right Left Verteb.Flw Antegrade Antegrade Subclavian Triphasic Triphasic MEASUREMENTS: DOPPLER Right CCA Dist CCA Dist PSV 77.2 cm/s CCA Dist EDV 17.6 cm/s Right CCA Mid CCA Mid PSV 65.6 cm/s CCA Mid EDV 13.1 cm/s Right CCA Prox CCA Prox PSV 75.5 cm/s CCA Prox EDV 13.1 cm/s Right Bulb Bulb PSV 65 cm/s Bulb EDV 14.4 cm/s Right ECA ECA PSV 78.4 cm/s ECA EDV 7.22 cm/s Right ICA Dist ICA Dist PSV 74.6 cm/s ICA Dist EDV 16.6 cm/s Right ICA Mid ICA Mid PSV 85.3 cm/s ICA Mid EDV 23 cm/s Right ICA Prox ICA Prox PSV 68.9 cm/s ICA Prox EDV 14.2 cm/s Right Subclavian Subclavian PSV 68.7 cm/s Left CCA Dist CCA Dist PSV 72.7 cm/s CCA Dist EDV 13.9 cm/s Left CCA Mid CCA Mid PSV 86.6 cm/s CCA Mid EDV 15.5 cm/s Left CCA Prox CCA Prox PSV 107 cm/s CCA Prox EDV 12.4 cm/s Left Bulb Bulb PSV 60.3 cm/s Bulb EDV 12.4 cm/s Left ECA ECA PSV 60.3 cm/s ECA EDV 7.74 cm/s Left ICA Dist ICA Dist PSV 98.3 cm/s ICA Dist EDV 21.5 cm/s Left ICA Mid ICA Mid PSV 74.3 cm/s ICA Mid EDV 20.1 cm/s Left ICA Prox ICA Prox PSV 82 cm/s ICA Prox EDV 12.4 cm/s Left Subclavian Subclavian PSV 101 cm/s Left Vertebral Vertebral PSV 86 cm/s Vertebral EDV 16.9 cm/s Right ICA/CCA Ratio ICA/CCA PSV 1.05 Left ICA/CCA Ratio ICA/CCA PSV 0.947 Right ECA Prox ECA Prox PSV 78 cm/s ECA Prox EDV 7 cm/s Left ECA Prox ECA Prox PSV 60 cm/s ECA Prox EDV 8 cm/s Right Vertebral Vertebral PSV 39 cm/s Signed 09/03/2018 06:03 PM Rayna Huang MD Performing Organization Address [facility] Phone Number [facility] [id number] [place] [address] General surgery (08/09/2018) Narrative Performed At [facility] (06/14/2018 5:47 PM CDT)Only the most recent of2 resultswithin the time period is included.XR Chest 1 Vw Portable (11/22/2017 9:12 AM CURTAIN WORKER) Only the most recent of7 resultswithin the time period is included. Narrative Performed At EXAMINATION:XR CHEST 1 VW PORTABLE [facility] CLINICAL HISTORY:SHORTNESS OF BREATH COMPARISON:Most Recent IMPRESSION: Support lines and device again noted. Heart and mediastinum stable. Pulmonary vascular congestion and small left effusion with basilar atelectasis again noted, compatible with edema. [facility]-[id number] Procedure Note Interface, Radiology Results Incoming - 11/22/2017 9:26 AM CURTAIN WORKER EXAMINATION: XR CHEST 1 VW PORTABLE CLINICAL HISTORY: SHORTNESS OF BREATH COMPARISON: Most Recent IMPRESSION: Support lines and device again noted. Heart and mediastinum stable. Pulmonary vascular congestion and small left effusion with basilar atelectasis again noted, compatible with edema. [id number] Performing Organization Address [facility]ode Phone Number [facility] [address] [place] [address] Estimated GFR (11/22/2017 4:00 AM CURTAIN WORKER)Only the most recent of27 resultswithin the time period is included. GFR Non Af Amer 40 (A) mL/min/1.73 m2 [facility] DEPARTMENT OF PATHOLOGY AND GENOMIC MEDICINE GFR Af Amer 48 (A) mL/min/1.73 m2 [facility] DEPARTMENT OF Comment: PATHOLOGY AND GENOMIC Chronic kidney disease: <60 mL/min/1.73m2 MEDICINE Kidney failure: <15 mL/min/1.73m2 The estimated GFR is calculated from the IDMS-traceable Modification of Diet in Renal Disease Equation. The accuracy of the calculation is poor when the creatinine is normal. Calculated values >90 mL/min/1.73m2 are not reported. This equation has not been validated in children (<18 years), women, the elderly (>70 years), or ethnic groups other than Caucasians and Americans. Specimen Plasma specimen Performing Organization Address City/State/Zipcode Phone Number [facility] DEPARTMENT OF PATHOLOGY AND [address] [place] [address] Phosphorus level (11/22/2017 4:00 AM CURTAIN WORKER)Only the most recent of26 resultswithin the time period is included. Phosphorus 4.5 2.4 - 4.5 mg/dL [facility] DEPARTMENT OF PATHOLOGY AND GENOMIC MEDICINE Specimen Plasma specimen Performing Organization Address City/[facility] Cent[facility]ode Phone Number [facility] DEPARTMENT OF PATHOLOGY AND [address] [place] [address] Magnesium level (11/22/2017 4:00 AM CURTAIN WORKER)Only the most recent of26 resultswithin the time period is included. Magnesium 2.4 1.6 - 2.4 mg/dL [facility] DEPARTMENT OF PATHOLOGY AND GENOMIC MEDICINE Specimen Plasma specimen Performing Organization Address City/[facility] Phone Number [facility] DEPARTMENT OF PATHOLOGY AND [address] [place] [address] Basic metabolic panel (11/22/2017 4:00 AM CURTAIN WORKER)Only the most recent of25 resultswithin the time period is included. Sodium 143 135 - 148 mEq/L [facility] DEPARTMENT OF PATHOLOGY AND GENOMIC MEDICINE Potassium 3.9 3.5 - 5.0 mEq/L [facility] DEPARTMENT OF PATHOLOGY AND GENOMIC MEDICINE Chloride 102 98 - 112 mEq/L [facility] DEPARTMENT OF PATHOLOGY AND GENOMIC MEDICINE CO2 27 24 - 31 mEq/L [facility] DEPARTMENT OF PATHOLOGY AND GENOMIC MEDICINE Anion gap 14 7 - 15 mEq/L [facility] DEPARTMENT OF PATHOLOGY Comment: AND [facility] Starting from January , anion gap calculation no longer incorporates potassium. Please note the change. BUN 17 8 - 23 mg/dL [facility] DEPARTMENT OF PATHOLOGY AND GENOMIC MEDICINE Creatinine 1.3 (H) 0.5 - 0.9 mg/dL [facility] DEPARTMENT OF PATHOLOGY AND GENOMIC MEDICINE Glucose 58 (L) 65 - 99 mg/dL [facility] DEPARTMENT OF PATHOLOGY AND GENOMIC MEDICINE Calcium 9.9 8.8 - 10.2 mg/dL [facility] DEPARTMENT OF PATHOLOGY AND GENOMIC MEDICINE Specimen Plasma specimen Performing Organization Address [facility] Phone Number [facility] DEPARTMENT OF PATHOLOGY AND [address] [place] [address] MEDICINE Respiratory pathogen panel (11/21/2017 9:35 AM CURTAIN WORKER) Respiratory pathogen Negative for all pathogens tested: [facility] DEPARTMENT OF panel Negative for Adenovirus PATHOLOGY AND GENOMIC Negative for Coronavirus HKU1 MEDICINE Negative for Coronavirus NL63 Negative for Coronavirus 229E Negative for Coronavirus OC43 Negative for Human Metapneumovirus Negative for Rhinovirus/Enterovirus Negative for Influenza A Negative for Influenza A/H1 Negative for Influenza A/H3 Negative for Influenza A/H1-2009 Negative for Influenza B Negative for Parainfluenza Virus 1 Negative for Parainfluenza Virus 2 Negative for Parainfluenza Virus 3 Negative for Parainfluenza Virus 4 Negative for Respiratory Syncytial Virus Negative for Bordetella pertussis Negative for Chlamydophila pneumoniae Negative for Mycoplasma pneumoniae This real-time PCR assay detects the presence of nucleic acids (RNA or DNA) for the respiratory pathogens listed. A result of "Not-detected" does not exclude the possibility of the presence of one or more pathogens at concentrations less than the detectable limits of the assay. Comment: Specimen Information Specimen Source: Nares Specimen Site: Not specified Specimen Nares - Not specified Performing Organization Address [facility] Phone Number [facility] DEPARTMENT OF PATHOLOGY AND [address] [place] [address] Pv duplex venous upper extremity (11/20/2017 12:12 PM CURTAIN WORKER) Narrative Performed At [facility] Vascular Ultrasound Laboratory Upper Extremity Venous Report [address] [place] [address].Name:Kyaw KAMINSKI.ID:[id number] .Date: 11/20/2017 Refer.MD:DIGNA BAKER MD Exam Time: 11:48:00 AM Study Type:UE Venous DOBAge:1945,72YSex: FEMALE Sonogrphr: Ruiz Vi, RVTPat. Stat.:Inpatient Room:[id number] TapeVol: , CPT - 4: 69884 Echo Event ID:[id number] Order ID:[id number] Reason for Study:Left arm pain and swelling. History of arrhythmia, fall, dizziness, complete heart block. Race:C SUMMARY: DUPLEX SCAN OBSERVATIONS Right Left IJ Normal SubclavianNormal Normal Axillary Normal Brachial Normal Basilic Normal Cephalic Normal RIGHT: There is normal compressibility and no evidence of echogenic material noted within the lumen of the subclavian vein. Colorflow and Doppler signals are normal. There is a catheter seen in the subclavian vein. LEFT: There is normal compressibility and no evidence of echogenic material noted within the lumen of the visualized veins. Colorflow and Doppler signals are normal. There is a pacemaker wire seen in the subclavian vein. PRELIMINARY FINDINGS 1. No evidence of venous thrombosis seen in the visualized veins. PHYSICIAN INTERPRETATION Venous examination of the left upper extremity and neck demonstrated no evidence of venous thrombosis. Wires/catherters seen in the subclavian veins bilaterally. Signed 11/20/2017 02:42 PM Mitul Jenkins MD, RPVI Procedure Note Interface, Radiology Results In - 11/20/2017 2:44 PM [facility] Vascular Ultrasound Laboratory Upper Extremity Venous Report [address] [place] [address] Pat.Name: GENEVA KAMINSKI Pat.ID: [id number] .Date: 11/20/2017 Refer.MD: DIGNA BAKER MD Exam Time: 11:48:00 AM Study Type:UE Venous Age: 8 1945,72Y Sex: FEMALE Sonogrphr: Joseph Ibanez RVT Pat. Stat.:Inpatient Room: J26G-7143-N Tape Vol: , CPT - 4: 15999 Echo Event ID:[id number] Order ID: [id number] Reason for Study:Left arm pain and swelling. History of arrhythmia, fall, dizziness, complete heart block. Race: C SUMMARY: DUPLEX SCAN OBSERVATIONS Right Left IJ Normal Subclavian Normal Normal Axillary Normal Brachial Normal Basilic Normal Cephalic Normal RIGHT: There is normal compressibility and no evidence of echogenic material noted within the lumen of the subclavian vein. Colorflow and Doppler signals are normal. There is a catheter seen in the subclavian vein. LEFT: There is normal compressibility and no evidence of echogenic material noted within the lumen of the visualized veins. Colorflow and Doppler signals are normal. There is a pacemaker wire seen in the subclavian vein. PRELIMINARY FINDINGS 1. No evidence of venous thrombosis seen in the visualized veins. PHYSICIAN INTERPRETATION Venous examination of the left upper extremity and neck demonstrated no evidence of venous thrombosis. Wires/catherters seen in the subclavian veins bilaterally. Signed 11/20/2017 02:42 PM Mitul Jenkins MD, RPVI Performing Organization Address [facility] Phone Number [facility] [address] [place] [address] ECG Pre/Post Op-Tomorrow (11/19/2017 8:53 PM CURTAIN WORKER)Only the most recent of2 resultswithin the time period is included. Ventricular rate 88 [facility] Atrial rate 88 [facility] MO interval 214 [facility] QRSD interval 70 [facility] QT interval 384 [facility] QTC interval 464 [facility] P axis 1 46 [facility] QRS axis 1 37 [facility] T wave axis 114 [facility] EKG impression Sinus rhythm with 1st degree AV block-Nonspecific T wave abnormality-Abnormal ECG-In automated comparison with ECG of 18-NOV-2017 09:28,- premature atrial complexes are no longer present-QT has lengthene [facility]USE d- Performing Organization Address [facility] Phone Number [facility] MUSE [address] [place] [address] Cv electrophysiology procedure (11/18/2017 9:06 AM CURTAIN WORKER) Narrative Performed At TITLE OF THE PROCEDURE: HM CANDIID Dual chamber pacemaker placement. PREOPERATIVE DIAGNOSES: 1.Sinus node arrest. 2.Pauses, multiple longest 12 seconds. 3.Possible obstructive sleep apnea. 4.Symptomatic sinus bradycardia. 5.Recent cholecystectomy. 6.Recent pancreatitis. PROCEDURES PERFORMED: 1.Insertion of dual chamber pacemaker. 2.Left upper extremity venogram. 3.Cardiac fluoroscopy. 4.IV conscious sedation. BRIEF HISTORY AND CLINICAL BACKGROUND: This is a 72-year-old woman who is originally transferred to [facility] for ongoing treatment of multiple medical problems including acute pancreatitis. When she was at the transferring institution, she also had documented severe sinus node dysfunction and pauses.When she came to [facility], we assessed those telemetries and initially believed that this could have been due to obstructive sleep apnea as most of the pauses were nocturnal.During her at time here at [facility], she has been on continuous telemetry and we have noted her to have periods of sinus node dysfunction with sinus arrest often occurring at night, but other times occurring during the day, but we could not confirm When during thesse pauses and periods of bradycardia whether the patient was asleep or not.Recent continuous oxygen monitoring did not reveal specific correlation between oxygen desaturation and the pauses.The night before last, she had a pause of approximately 12 seconds in duration.Yesterday morning, she had severe sinus bradycardia at approximately 7:50 a.m. but she did not recall if she was wake or sleep, but she does admit to be chronically tired, fatigued, and occasionally dizzy. Consequent to the inability to make specific correlation and given the severity of her pauses both at night, during the daytime and unable to correlate whether these are occurred during sleep, but in association with chronic fatigue and dizziness (which may be multifactorial).I clothing pattern preparer that it is in her best medical interest to receive a pacemaker to avoid these prolong pauses and significant bradycardia as well as to avoid the potential for bradycardia dependant lethal ventricular arrhythmias.I have discussed this in detail with the patient as well as her daughter.The patient has consented and now comes for the procedure. PROCEDURE IN DETAIL: Informed consent was obtained.Intravenous antibiotics were infused appropriately.The chest was prepped and draped in the usual sterile fashion and local anesthesia was achieved with 1% lidocaine.An upper extremity venogram was performed to identify the location of the axillary and subclavian vein and access was achieved.Guide wires were introduced under fluoroscopic guidance and advanced into the inferior vena cava. Using a sharp knife, cautery, and blunt dissection, a pocket was formed below the plane of the pectoralis fascia.The RV and atrial leads were placed into the venous system using standard technique.The RV pace/sense lead was placed into the RV apex and tested.After the thresholds were deemed adequate the lead was anchored in place.Maximum output pacing was performed to ensure that there was no diaphragmatic stimulation, and none was seen.The lead was anchored in place using 0-Ethibond sutures around the lead collar. A bipolar screw-in lead was affixed into the right atrium.Sensing and pacing thresholds were then performed.After they were found to be adequate, maximum output pacing was performed to ensure that there was no diaphragmatic stimulation, and none was seen.The lead was anchored in place using 0-Ethibond sutures around the lead collar. Fluoroscopy was repeated to ensure proper lead placement.The pacemaker pocket was visually, manually, and radiographically inspected to ensure there were no gauze or sponges in the pocket.It was then washed using antibiotic solution. Gloves and drapes were changed as needed.The pacemaker generator packet was then opened and was attached to the leads and the set screws were tightened. Each lead was gently tugged upon to ensure it was affixed within the header. After proper pacemaker function was confirmed, the lead slack and pacemaker were placed in the pocket.The pacemaker was anchored to the pectoralis muscle using 0-Ethibond suture.The skin incision was then closed in layers using 0-Vicryl sutures.Final skin closure was achieved with stainless steel shellie and skin adhesive. COMPLICATIONS: None. FINDINGS: 1.The right ventricular apical pacing lead is a Medtronic 5076, serial #[id number].Measured R-wave 5 mV, pacing threshold 1.2 V, impedance 874 ohms. 2.The atrial lead is a Medtronic 5076, serial #[id number].Measured P-wave 2.8 mV, pacing threshold 0.6 V, impedance 614 ohms. 3.The pacemaker is a Medtronic Advisa, model A2DR01, serial #[id number]. 4.Estimated blood loss than 10 mL. CONCLUSIONS: Successful dual chamber pacemaker placement. RECOMMENDATIONS: Transferred the patient [place] [facility] to observation for postanesthesia eval and then to [place] [address] for post-pacemaker implant management. Performing Organization Address City/State/Zipcode Phone Number [facility] [address] [place] [address] CBC with platelet and differential (11/17/2017 4:30 AM CURTAIN WORKER)Only the most recent of11 resultswithin the time period is included. WBC 6.16 4.50 - 11.00 k/uL [facility] DEPARTMENT OF PATHOLOGY AND GENOMIC MEDICINE RBC 3.25 (L) 4.20 - 5.50 m/uL [facility] DEPARTMENT OF PATHOLOGY AND GENOMIC MEDICINE HGB 9.4 (L) 12.0 - 16.0 g/dL [facility] DEPARTMENT OF PATHOLOGY AND GENOMIC MEDICINE HCT 29.5 (L) 37.0 - 47.0 % [facility] DEPARTMENT OF PATHOLOGY AND GENOMIC MEDICINE MCV 90.8 82.0 - 100.0 fL [facility] DEPARTMENT OF PATHOLOGY AND GENOMIC MEDICINE MCH 28.9 27.0 - 34.0 pg [facility] DEPARTMENT OF PATHOLOGY AND GENOMIC MEDICINE MCHC 31.9 31.0 - 37.0 g/dL [facility] DEPARTMENT OF PATHOLOGY AND GENOMIC MEDICINE RDW - SD 57.2 (H) 37.0 - 55.0 fL [facility] DEPARTMENT OF PATHOLOGY AND GENOMIC MEDICINE MPV 13.2 8.8 - 13.2 fL [facility] DEPARTMENT OF PATHOLOGY AND GENOMIC MEDICINE Platelet count 132 (L) 150 - 400 k/uL [facility] DEPARTMENT OF PATHOLOGY AND GENOMIC MEDICINE Nucleated RBC 0.50 /100 WBC [facility] DEPARTMENT OF PATHOLOGY AND GENOMIC MEDICINE Neutrophils 61.3 39.0 - 69.0 % [facility] DEPARTMENT OF PATHOLOGY AND GENOMIC MEDICINE Lymphocytes 22.6 (L) 25.0 - 45.0 % [facility] DEPARTMENT OF PATHOLOGY AND GENOMIC MEDICINE Monocytes 10.1 (H) 0.0 - 10.0 % [facility] DEPARTMENT OF PATHOLOGY AND GENOMIC MEDICINE Eosinophils 4.4 0.0 - 5.0 % [facility] DEPARTMENT OF PATHOLOGY AND GENOMIC MEDICINE Basophils 1.0 0.0 - 1.0 % [facility] DEPARTMENT OF PATHOLOGY AND GENOMIC MEDICINE Immature granulocytes 0.6Comment: 0.0 - 1.0 % [facility] DEPARTMENT OF "Immature PATHOLOGY AND GENOMIC granulocytes" MEDICINE (promyelocytes, myelocytes, metamyelocytes) Specimen Blood Performing Organization Address City/State/Zipcode Phone Number [facility] DEPARTMENT OF PATHOLOGY AND [address] [place] [address] POC glucose (11/16/2017 9:40 PM CURTAIN WORKER)Only the most recent of28 resultswithin the time period is included. POC glucose 70 65 - 99 mg/dL [facility] DEPARTMENT OF PATHOLOGY AND Comment: [facility] Notified RN Meter ID: [id number] Accounting Auditor: James Mirlandeyair Performing Organization Address City/[facility] Phone Number [facility] DEPARTMENT OF PATHOLOGY AND [address] [place] [address] C difficile toxin (11/16/2017 8:40 PM CURTAIN WORKER)Only the most recent of2 resultswithin the time period is included. Clostridium difficile No Clostridium difficle toxin present [facility] DEPARTMENT OF toxin Comment: PATHOLOGY AND GENOMIC Specimen Information MEDICINE Specimen Source: Stool Specimen Site: Nonpreserved Specimen Stool - Nonpreserved Performing Organization Address City/[facility] Phone Number [facility] DEPARTMENT OF PATHOLOGY AND [address] [place] [address] XR Chest 2 Vw (11/16/2017 3:29 PM CURTAIN WORKER)Only the most recent of2 resultswithin the time period is included. Narrative Performed At Examination:XR CHEST 2 VW [facility] Clinical History: Pleural Effusions Comparison: November 11, 2017 Technique: Frontal and lateral views of the chest Impression: Small to moderate bilateral pleural effusions, left slightly greater than right, are probably slightly improved from prior. There is likely underlying atelectasis in the lung bases. Perihilar vascular congestion similar to prior. The heart is within normal in size. Right PICC line and Dobbhoff tube are in place. NG tube has been removed. [id number] Procedure Note Hm Interface, Radiology Results Incoming - 11/16/2017 3:39 PM CURTAIN WORKER Examination: XR CHEST 2 VW Clinical History: Pleural Effusions Comparison: November 11, 2017 Technique: Frontal and lateral views of the chest Impression: Small to moderate bilateral pleural effusions, left slightly greater than right , are probably slightly improved from prior. There is likely underlying atelectasis in the lung bases. Perihilar vascular congestion similar to prior. The heart is within normal in size. Right PICC line and Dobbhoff tube are in place. NG tube has been removed. [id number] Performing Organization Address [facility] Cent[facility] Phone Number [facility] [address] [place] [address] Vancomycin level, trough (11/13/2017 2:30 AM CURTAIN WORKER)Only the most recent of2 resultswithin the time period is included. Vancomycin, trough 18.4 10.0 - 20.0 ug/mL [facility] DEPARTMENT OF Comment: PATHOLOGY AND GENOMIC Therapeutic Ranges: MEDICINE Peak 30.0 - 40.0 ug/mL Lqmfoo67.0 - 20.0 ug/mL Specimen Serum Performing Organization Address [facility] Phone Number [facility] DEPARTMENT OF PATHOLOGY AND [address] [place] [address] GENOMIC MEDICINE XR Abdomen Ap And Decubitus (11/11/2017 4:18 PM CURTAIN WORKER) Narrative Performed At EXAMINATION:XR ABDOMEN AP AND DECUBITUS [facility] CLINICAL HISTORY:Distention COMPARISON:Abdomen plain films 11/09/2017 FINDINGS: The bowel gas pattern is nonspecific. No pathologic masses or calcifications are identified. There is fluid and atelectasis in the retrocardiac region. Regional skeletal structures are within normal limits. IMPRESSION: A Dobbhoff catheter tip is located in the mid left jejunum. A second transesophageal gastric tube is located in the body of the stomach. Hemostasis clips are located in the region of the gallbladder. There is no free air on the decubitus view. [facility]-[id number] Procedure Note Interface, Radiology Results Incoming - 11/11/2017 4:44 PM CURTAIN WORKER EXAMINATION: XR ABDOMEN AP AND DECUBITUS CLINICAL HISTORY: Distention COMPARISON: Abdomen plain films 11/09/2017 FINDINGS: The bowel gas pattern is nonspecific. No pathologic masses or calcifications are identified. There is fluid and atelectasis in the retrocardiac region. Regional skeletal structures are within normal limits. IMPRESSION: A Dobbhoff catheter tip is located in the mid left jejunum. A second transesophageal gastric tube is located in the body of the stomach. Hemostasis clips are located in the region of the gallbladder. There is no free air on the decubitus view. [facility]-[id number] Performing Organization Address [facility] Cent[facility] Phone Number [facility] [address] [place] [address] Comprehensive metabolic panel (11/10/2017 4:00 AM CURTAIN WORKER)Only the most recent of2 resultswithin the time period is included. Sodium 147 135 - 148 mEq/L [facility] DEPARTMENT OF PATHOLOGY AND GENOMIC MEDICINE Potassium 3.4 (L) 3.5 - 5.0 mEq/L [facility] DEPARTMENT OF PATHOLOGY AND GENOMIC MEDICINE Chloride 110 98 - 112 mEq/L [facility] DEPARTMENT OF PATHOLOGY AND GENOMIC MEDICINE CO2 20 (L) 24 - 31 mEq/L [facility] DEPARTMENT OF PATHOLOGY AND GENOMIC MEDICINE Anion gap 17 (H) 7 - 15 mEq/L [facility] DEPARTMENT OF Comment: PATHOLOGY AND GENOMIC Starting from January , anion gap calculation MEDICINE no longer incorporates potassium. Please note the change. BUN 17 8 - 23 mg/dL [facility] DEPARTMENT OF PATHOLOGY AND GENOMIC MEDICINE Creatinine 1.9 (H) 0.5 - 0.9 mg/dL [facility] DEPARTMENT OF PATHOLOGY AND GENOMIC MEDICINE Glucose 150 (H) 65 - 99 mg/dL [facility] DEPARTMENT OF PATHOLOGY AND GENOMIC MEDICINE Calcium 8.8 8.8 - 10.2 mg/dL [facility] DEPARTMENT OF PATHOLOGY AND GENOMIC MEDICINE Protein 5.4 (L) 6.3 - 8.3 g/dL [facility] DEPARTMENT OF Comment: PATHOLOGY AND GENOMIC [place] 4.6-7.0 g/dL MEDICINE 1 week 4.4-7.6 g/dL 7 months-1year5.1-7.3 g/dL 1-2 years5.6-7.5 g/dL >3 years6.0-8.0 g/dL 18-150 6.3-8.3 g/dL Albumin 2.4 (L) 3.5 - 5.0 g/dL [facility] DEPARTMENT OF PATHOLOGY AND GENOMIC MEDICINE A/G ratio 0.8 0.7 - 3.8 [facility] DEPARTMENT OF PATHOLOGY AND GENOMIC MEDICINE Alkaline phosphatase 90 35 - 104 U/L [facility] DEPARTMENT OF PATHOLOGY AND GENOMIC MEDICINE AST 23 10 - 35 U/L [facility] DEPARTMENT OF PATHOLOGY AND GENOMIC MEDICINE ALT 9 5 - 50 U/L [facility] DEPARTMENT OF PATHOLOGY AND GENOMIC MEDICINE Total bilirubin 0.3 0.0 - 1.2 mg/dL [facility] DEPARTMENT OF PATHOLOGY AND GENOMIC MEDICINE Specimen Plasma specimen Performing Organization Address City/State/Zipcode Phone Number [facility] DEPARTMENT OF PATHOLOGY AND [address] [place] [address] [employer] MEDICINE XR Chest 1 Vw (11/09/2017 6:16 PM CURTAIN WORKER)Only the most recent of2 resultswithin the time period is included. Narrative Performed At EXAMINATION:XR CHEST 1 VW [facility] CLINICAL HISTORY:72 years Female post feeding tube repositioning [facility] COMPARISON:11/09/2017 IMPRESSION: 1.Right-sided PICC line remains in satisfactory position. Nasogastric tube terminates in the expected region of the cardia of the stomach. Its side port is probably in the distal esophagus. It could be advanced slightly. Dobbhoff tube has been repositioned and now goes below the level of the diaphragms. 2.There are bibasilar opacities, slightly increased suggestive of small effusions with bibasilar atelectasis and/or consolidation. No pneumothorax, but follow-up is recommended. 3.Cardiomediastinal silhouette is stable. Central vasculature is normal [facility]-[id number] Procedure Note Interface, Radiology Results Incoming - 11/09/2017 6:23 PM CURTAIN WORKER EXAMINATION: XR CHEST 1 VW CLINICAL HISTORY:72 years Female post feeding tube repositioning [facility] COMPARISON: 11/09/2017 IMPRESSION: 1. Right-sided PICC line remains in satisfactory position. Nasogastric tube terminates in the expected region of the cardia of the stomach. Its side port is probably in the distal esophagus. It could be advanced slightly. Dobbhoff tube has been repositioned and now goes below the level of the diaphragms. 2. There are bibasilar opacities, slightly increased suggestive of small effusions with bibasilar atelectasis and/or consolidation. No pneumothorax, but follow-up is recommended. 3. Cardiomediastinal silhouette is stable. Central vasculature is normal [facility]-[id number] Performing Organization Address City/State/Zipcode Phone Number [facility] [address] [place] [address] [place] GI NG or OG Tube Placement (11/09/2017 5:57 PM CURTAIN WORKER) Narrative Performed At Study:FL GI NG OR OG TUBE PLACEMENT [facility] History:feeding to prevent aspiration risk COMPARISON:Chest x-ray same date IMPRESSION: Initial fluoroscopy of the chest shows the prior placed Dobbhoff tube enters the right mainstem bronchus loops in the distal lung and tip in the right midlung. Under fluoroscopy, this Dobbhoff tube was gently withdrawn until tip was in the pharynx. Under fluoroscopy, the tip was then gently advanced into the esophagus, stomach, and into the proximal jejunum. The wire was then removed and a small amount of Gastrografin contrast was injected into the Dobbhoff tube confirming the location of the tip in the proximal jejunum. The tube was then flushed with normal saline and secured to the nose with tape. The patient tolerated the procedure well without any immediate complications. The Dobbhoff tube is ready for use. Fluoroscopy time 4.4 minutes, 1 image obtained. [facility]-[id number] Procedure Note Interface, Radiology Results Incoming - 11/09/2017 6:14 PM CURTAIN WORKER Study:FL GI NG OR OG TUBE PLACEMENT History:feeding to prevent aspiration risk COMPARISON:Chest x-ray same date IMPRESSION: Initial fluoroscopy of the chest shows the prior placed Dobbhoff tube enters the right mainstem bronchus loops in the distal lung and tip in the right midlung. Under fluoroscopy, this Dobbhoff tube was gently withdrawn until tip was in the pharynx. Under fluoroscopy, the tip was then gently advanced into the esophagus, stomach, and into the proximal jejunum. The wire was then removed and a small amount of Gastrografin contrast was injected into the Dobbhoff tube confirming the location of the tip in the proximal jejunum. The tube was then flushed with normal saline and secured to the nose with tape. The patient tolerated the procedure well without any immediate complications. The Dobbhoff tube is ready for use. Fluoroscopy time 4.4 minutes, 1 image obtained. [facility]-[id number] Performing Organization Address City/State/Zipcode Phone Number [facility] [address] [place] [address] Urinalysis, automated with microscopy (11/09/2017 3:45 PM CURTAIN WORKER) Color, UA Yellow [facility] DEPARTMENT OF PATHOLOGY AND GENOMIC MEDICINE Appearance, UA Hazy [facility] DEPARTMENT OF PATHOLOGY AND GENOMIC MEDICINE Specific gravity, UA 1.017 1.001 - 1.035 [facility] DEPARTMENT OF PATHOLOGY AND GENOMIC MEDICINE pH, UA 5.0 5.0 - 8.5 [facility] DEPARTMENT OF PATHOLOGY AND GENOMIC MEDICINE Protein, UA Negative Negative [facility] DEPARTMENT OF PATHOLOGY AND GENOMIC MEDICINE Glucose, UA Negative Negative [facility] DEPARTMENT OF PATHOLOGY AND GENOMIC MEDICINE Ketones, UA Trace (A) Negative [facility] DEPARTMENT OF PATHOLOGY AND GENOMIC MEDICINE Bilirubin, UA Negative Negative [facility] DEPARTMENT OF PATHOLOGY AND GENOMIC MEDICINE Blood, UA Small (A) Negative [facility] DEPARTMENT OF PATHOLOGY AND GENOMIC MEDICINE Nitrite, UA Negative Negative [facility] DEPARTMENT OF PATHOLOGY AND GENOMIC MEDICINE Urobilinogen, UA <2.0 <2.0 [facility] DEPARTMENT OF PATHOLOGY AND GENOMIC MEDICINE Leukocyte esterase, UA Small (A) Negative [facility] DEPARTMENT OF PATHOLOGY AND GENOMIC MEDICINE Epithelial cells, UA 2 /HPF [facility] DEPARTMENT OF PATHOLOGY AND GENOMIC MEDICINE WBC, UA 10 (H) 0 - 4 /HPF [facility] DEPARTMENT OF PATHOLOGY AND GENOMIC MEDICINE RBC, UA 5 (H) 0 - 2 /HPF [facility] DEPARTMENT OF PATHOLOGY AND GENOMIC MEDICINE Bacteria, UA Few None seen [facility] DEPARTMENT OF PATHOLOGY AND GENOMIC MEDICINE Hyaline casts, UA 3 /LPF [facility] DEPARTMENT OF PATHOLOGY AND GENOMIC MEDICINE Yeast, UA Few (A) [facility] DEPARTMENT OF PATHOLOGY AND GENOMIC MEDICINE Yeast with pseudohyphae, UA None seen [facility] DEPARTMENT OF PATHOLOGY AND GENOMIC MEDICINE Specimen Urine Performing Organization Address City/State/Zipcode Phone Number [facility] DEPARTMENT OF PATHOLOGY AND [address] [place] [address] Vancomycin level, random (11/09/2017 3:23 PM CURTAIN WORKER) Vancomycin, random 17.8 ug/mL [facility] DEPARTMENT OF PATHOLOGY AND GENOMIC MEDICINE Specimen Serum Performing Organization Address City/State/Zipcode Phone Number [facility] DEPARTMENT OF PATHOLOGY AND [address] [place], [place] [id number] [facility] XR Abdomen 1 Vw Portable (11/09/2017 2:18 PM CURTAIN WORKER) Narrative Performed At EXAMINATION:XR ABDOMEN 1 VW PORTABLE [facility] CLINICAL HISTORY:Check dobhoff placement COMPARISON:To a previous examination from 10/24/2017. FINDINGS: Surgical clips are present in the right upper quadrant. A feeding tube is present in the lower thoracic esophagus. This should be repositioned further distally. No bowel distention is appreciated. IMPRESSION: Unremarkable abdominal radiograph. [facility]-[id number] Procedure Note Hm Interface, Radiology Results Incoming - 11/09/2017 2:29 PM CURTAIN WORKER EXAMINATION: XR ABDOMEN 1 VW PORTABLE CLINICAL HISTORY: Check dobhoff placement COMPARISON: To a previous examination from 10/24/2017. FINDINGS: Surgical clips are present in the right upper quadrant. A feeding tube is present in the lower thoracic esophagus. This should be repositioned further distally. No bowel distention is appreciated. IMPRESSION: Unremarkable abdominal radiograph. [facility]-[id number] Performing Organization Address [facility]/Zipcode Phone Number [facility] [address] [place] [phone] Albumin level (11/09/2017 4:00 AM CURTAIN WORKER) Albumin 2.5 (L) 3.5 - 5.0 g/dL [facility] DEPARTMENT OF PATHOLOGY AND GENOMIC MEDICINE Specimen Plasma specimen Performing Organization Address [facility] Phone Number [facility] DEPARTMENT OF PATHOLOGY AND [address] [place] [address] Thyroid stimulating hormone (11/07/2017 4:00 AM CURTAIN WORKER) TSH 6.09 (H) 0.27 - 4.20 uIU/mL [facility] DEPARTMENT OF PATHOLOGY AND GENOMIC MEDICINE Specimen Plasma specimen Performing Organization Address [facility] Phone Number [facility] DEPARTMENT OF PATHOLOGY AND [address] [place] [address] T4, free (11/07/2017 4:00 AM CURTAIN WORKER) T4, free 0.9 0.9 - 1.7 ng/dL [facility] DEPARTMENT OF PATHOLOGY AND GENOMIC MEDICINE Specimen Plasma specimen Performing Organization Address [facility] Phone Number [facility] DEPARTMENT OF PATHOLOGY AND [address] [place] [address] Blood culture, aerobic & anaerobic (11/06/2017 7:02 PM CURTAIN WORKER)Only the most recent of2 resultswithin the time period is included. Blood culture isolate No growth after 5 days of incubation. [facility] DEPARTMENT OF Comment: PATHOLOGY AND GENOMIC Specimen Information MEDICINE Specimen Source: Blood Specimen Site: Peripheral Forearm Left Specimen Blood Performing Organization Address [facility] Phone Number [facility] DEPARTMENT OF PATHOLOGY AND [address] [place] [address] Beta hydroxybutyrate (11/06/2017 6:07 PM CURTAIN WORKER) Beta hydroxybutyrate 0.33 (H) 0.02 - 0.27 mmol/L [facility] DEPARTMENT OF PATHOLOGY AND GENOMIC MEDICINE Specimen Serum Performing Organization Address [facility] Phone Number [facility] DEPARTMENT OF PATHOLOGY AND [address] [place], [place] [phone] [facility] Prealbumin level (11/06/2017 6:07 PM CURTAIN WORKER) Prealbumin 13 (L) 16 - 32 mg/dL [facility] DEPARTMENT OF PATHOLOGY AND GENOMIC MEDICINE Specimen Serum Performing Organization Address [facility] Phone Number [facility] DEPARTMENT OF PATHOLOGY AND [address] [place] [address] Lactic acid level (11/06/2017 6:07 PM CURTAIN WORKER) Lactic acid 1.2 0.5 - 2.2 mmol/L [facility] DEPARTMENT OF PATHOLOGY AND GENOMIC MEDICINE Specimen Plasma specimen Performing Organization Address [facility] Phone Number [facility] DEPARTMENT OF PATHOLOGY AND [address] [place] [address] Prothrombin time with INR (11/06/2017 5:00 AM CURTAIN WORKER)Only the most recent of5 resultswithin the time period is included. Prothrombin time 16.7 (H) 12.0 - 15.0 sec [facility] DEPARTMENT OF PATHOLOGY AND GENOMIC MEDICINE INR 1.3 [facility] DEPARTMENT OF Comment: PATHOLOGY AND GENOMIC The International Normalized Ratio (INR) is a therapeutic MEDICINE monitoring tool for patients who are stable on oral anticoagulant therapy. An INR of 2.0-3.0 is suggested for deep vein thrombosis/pulmonary embolism. Specimen Blood Performing Organization Address [facility] Phone Number [facility] DEPARTMENT OF PATHOLOGY AND [address] [place] [address] Ionized calcium, arterial (11/06/2017 4:00 AM CURTAIN WORKER) Ionized calcium, arterial 1.10 (L) 1.11 - 1.32 mmol/L [facility] DEPARTMENT OF PATHOLOGY AND GENOMIC MEDICINE Specimen Blood Performing Organization Address [facility] Phone Number [facility] DEPARTMENT OF PATHOLOGY AND [address] [place] [address] Arterial blood gas (11/06/2017 4:00 AM CURTAIN WORKER) pH, arterial 7.42 7.35 - 7.45 [facility] DEPARTMENT OF PATHOLOGY AND GENOMIC MEDICINE pCO2, arterial 34 (L) 35 - 45 mmHg [facility] DEPARTMENT OF PATHOLOGY AND GENOMIC MEDICINE pO2, arterial 71 (L) 80 - 90 mmHg [facility] DEPARTMENT OF PATHOLOGY AND GENOMIC MEDICINE Bicarbonate, arterial 21.8 21.0 - 28.0 mmol/L [facility] DEPARTMENT OF PATHOLOGY AND GENOMIC MEDICINE Base excess, arterial -2 -2 - 2 mEq/L [facility] DEPARTMENT OF PATHOLOGY AND GENOMIC MEDICINE O2 saturation, arterial 94 (L) 95 - 100 % [facility] DEPARTMENT OF PATHOLOGY AND GENOMIC MEDICINE Specimen Blood Performing Organization Address [facility] Phone Number [facility] DEPARTMENT OF PATHOLOGY AND [address] [place] [address] [facility] MEDICINE Hepatic function panel (11/06/2017 4:00 AM CURTAIN WORKER)Only the most recent of5 resultswithin the time period is included. Albumin 2.0 (L) 3.5 - 5.0 g/dL [facility] DEPARTMENT OF PATHOLOGY AND GENOMIC MEDICINE Total bilirubin <0.2 0.0 - 1.2 mg/dL [facility] DEPARTMENT OF PATHOLOGY AND GENOMIC MEDICINE Bilirubin direct <0.2 0.0 - 0.3 mg/dL [facility] DEPARTMENT OF PATHOLOGY AND GENOMIC MEDICINE Alkaline phosphatase 115 (H) 35 - 104 U/L [facility] DEPARTMENT OF PATHOLOGY AND GENOMIC MEDICINE Protein 4.8 (L) 6.3 - 8.3 g/dL [facility] DEPARTMENT OF Comment: PATHOLOGY AND GENOMIC [place] 4.6-7.0 g/dL MEDICINE 1 week 4.4-7.6 g/dL 7 months-1year5.1-7.3 g/dL 1-2 years5.6-7.5 g/dL >3 years6.0-8.0 g/dL 18-150 6.3-8.3 g/dL ALT 15 5 - 50 U/L [facility] DEPARTMENT OF PATHOLOGY AND GENOMIC MEDICINE AST 50 (H) 10 - 35 U/L [facility] DEPARTMENT OF PATHOLOGY AND GENOMIC MEDICINE Specimen Plasma specimen Performing Organization Address City/[facility] Centercode Phone Number [facility] DEPARTMENT OF PATHOLOGY AND [address] [place] [address] [facility] Zinc level, serum (11/05/2017 10:05 PM CURTAIN WORKER) Zinc 83 60 - 120 ug/dL [facility] Comment: INTERPRETIVE INFORMATION: Zinc, Serum or Plasma Circulating zinc concentrations are dependent on albumin status and are depressed with malnutrition. Zinc may also be lowered with infection, inflammation, stress, oral contraceptives, and . Zinc may be elevated with zinc supplementation or fasting. Elevated zinc concentrations may interfere with copper absorption. Test developed and characteristics determined by [facility]. See Compliance Statement B: [employer]/CS Performed by [facility], [address] [place] [id number] www.[facility] Jose A Nieves MD - Lab. Director Specimen Blood Performing Organization Address City/State/Zipcode Phone Number [facility] [address] [place] [address] Hemoglobin (11/05/2017 10:05 PM CURTAIN WORKER) HGB 10.6 (L) 12.0 - 16.0 g/dL [facility] DEPARTMENT OF PATHOLOGY AND GENOMIC MEDICINE Performing Organization Address City/[facility]/Zipcode Phone Number [facility] DEPARTMENT OF PATHOLOGY AND [address] [place] [address] [facility] Hematocrit (11/05/2017 10:05 PM CURTAIN WORKER) HCT 31.8 (L) 37.0 - 47.0 % [facility] DEPARTMENT PATHOLOGY AND GENOMIC MEDICINE Performing Organization Address City/[facility] Centercode Phone Number [facility] DEPARTMENT OF PATHOLOGY AND [address] [place] [phone] [facility] Urinalysis screen and microscopy, with reflex to culture (11/05/2017 1:30 PM CURTAIN WORKER) Specimen site Clean catch [facility] DEPARTMENT OF PATHOLOGY AND GENOMIC MEDICINE Color, UA Yellow [facility] DEPARTMENT OF PATHOLOGY AND GENOMIC MEDICINE Appearance, UA Clear [facility] DEPARTMENT OF PATHOLOGY AND GENOMIC MEDICINE Specific gravity, UA 1.006 1.001 - 1.035 [facility] DEPARTMENT OF PATHOLOGY AND GENOMIC MEDICINE pH, UA 5.0 5.0 - 8.5 [facility] DEPARTMENT OF PATHOLOGY AND GENOMIC MEDICINE Protein, UA Negative Negative [facility] DEPARTMENT OF PATHOLOGY AND GENOMIC MEDICINE Glucose, UA Negative Negative [facility] DEPARTMENT OF PATHOLOGY AND GENOMIC MEDICINE Ketones, UA Negative Negative [facility] DEPARTMENT OF PATHOLOGY AND GENOMIC MEDICINE Bilirubin, UA Negative Negative [facility] DEPARTMENT OF PATHOLOGY AND GENOMIC MEDICINE Blood, UA Negative Negative [facility] DEPARTMENT OF PATHOLOGY AND GENOMIC MEDICINE Nitrite, UA Negative Negative [facility] DEPARTMENT OF PATHOLOGY AND GENOMIC MEDICINE Urobilinogen, UA <2.0 <2.0 [facility] DEPARTMENT OF PATHOLOGY AND GENOMIC MEDICINE Leukocyte esterase, UA Negative Negative [facility] DEPARTMENT OF PATHOLOGY AND GENOMIC MEDICINE Round epithelial cells, UA 1 0 - 1 /HPF [facility] DEPARTMENT OF PATHOLOGY AND GENOMIC MEDICINE WBC, UA <1 0 - 4 /HPF [facility] DEPARTMENT OF PATHOLOGY AND GENOMIC MEDICINE RBC, UA <1 0 - 2 /HPF [facility] DEPARTMENT OF PATHOLOGY AND GENOMIC MEDICINE Bacteria, UA Few None seen [facility] DEPARTMENT OF PATHOLOGY AND GENOMIC MEDICINE Yeast, UA None seen [facility] DEPARTMENT OF PATHOLOGY AND GENOMIC MEDICINE Yeast with pseudohyphae, UA None seen [facility] DEPARTMENT OF PATHOLOGY AND GENOMIC MEDICINE Hyaline casts, UA 6 /LPF [facility] DEPARTMENT OF PATHOLOGY AND GENOMIC MEDICINE Specimen Urine Performing Organization Address [facility] Phone Number [facility] DEPARTMENT OF PATHOLOGY AND [address] [place], [place] [phone] [facility] Urine culture (11/05/2017 1:30 PM CURTAIN WORKER) Urine culture SEE COMMENTComment: Bacteriuria [facility] DEPARTMENT OF PATHOLOGY screen negative. AND GENOMIC MEDICINE Performing Organization Address [facility] Centercode Phone Number [facility] DEPARTMENT OF PATHOLOGY AND [address] [place] [address] Hemoglobin & hematocrit (11/05/2017 11:51 AM CURTAIN WORKER) HGB 7.1 (L) 12.0 - 16.0 g/dL [facility] DEPARTMENT OF PATHOLOGY AND GENOMIC MEDICINE HCT 21.5 (L) 37.0 - 47.0 % [facility] DEPARTMENT OF PATHOLOGY AND GENOMIC MEDICINE Specimen Blood Performing Organization Address [facility] Phone Number [facility] DEPARTMENT OF PATHOLOGY AND [address] [place] [address] CT Head Wo Contrast (11/05/2017 8:53 AM CURTAIN WORKER) Narrative Performed At EXAMINATION:CT HEAD WO CONTRAST [facility] CLINICAL HISTORY:rule out acute stroke COMPARISON:October 22, 2017 TECHNIQUE: CT imaging was performed with iterative reconstruction technique and/or automated exposure control to reduce radiation dose. Findings: No intracranial hemorrhage, acute transcortical ischemia, extra-axial fluid collections or parenchymal mass lesions. No skull fractures or aggressive bony lesions. Mild to moderate chronic ischemic small vessel white matter changes. Intracranial vascular calcifications. Visualized paranasal sinuses and mastoid air cells are clear. IMPRESSION: No acute intracranial abnormalities. [facility]-[id number] Procedure Note Hm Interface, Radiology Results Incoming - 11/05/2017 9:11 AM CURTAIN WORKER EXAMINATION: CT HEAD WO CONTRAST CLINICAL HISTORY: rule out acute stroke COMPARISON: October 22, 2017 TECHNIQUE: CT imaging was performed with iterative reconstruction technique and /or automated exposure control to reduce radiation dose. Findings: No intracranial hemorrhage, acute transcortical ischemia, extra-axial fluid collections or parenchymal mass lesions. No skull fractures or aggressive bony lesions. Mild to moderate chronic ischemic small vessel white matter changes. Intracranial vascular calcifications. Visualized paranasal sinuses and mastoid air cells are clear. IMPRESSION: No acute intracranial abnormalities. [facility]-[id number] Performing Organization Address [facility]/Zipcode Phone Number [facility] [address] [place] [phone] Lactic acid, I-Stat, arterial (11/05/2017 8:36 AM CURTAIN WORKER) Lactic acid, I-Stat, arterial 0.63 0.36 - 1.25 mmol/L [facility] DEPARTMENT OF PATHOLOGY AND GENOMIC MEDICINE Specimen Blood Performing Organization Address [facility]/Zipcode Phone Number [facility] DEPARTMENT OF PATHOLOGY AND [address] [place] [address] Troponin (11/05/2017 8:25 AM CURTAIN WORKER) Troponin <0.30 0.00 - 0.30 ng/mL [facility] DEPARTMENT OF PATHOLOGY Comment: AND GENOMIC MEDICINE 0.30 - 1.49 ng/mlMay indicate increased risk of acute coronary syndrome. >=1.5 ng/mlConsistent with acute myocardial infarction. The diagnostic value of a single normal or non-diagnostic result is questionable.Serial samples at 2-6 hour intervals are required to rule out acute myocardial injury. Specimen Plasma specimen Performing Organization Address [facility] Phone Number [facility] DEPARTMENT OF PATHOLOGY AND [address] [place] [address] Ammonia level (11/05/2017 8:25 AM CURTAIN WORKER) Ammonia <10 (L) 11 - 51 umol/L [facility] DEPARTMENT OF PATHOLOGY AND GENOMIC MEDICINE Specimen Blood Performing Organization Address [facility] Phone Number [facility] DEPARTMENT OF PATHOLOGY AND [address] [place] [address] ECG 12 lead (11/05/2017 8:07 AM CURTAIN WORKER) Ventricular rate 97 [facility] Atrial rate 97 [facility] MUSE MO interval 180 [facility] QRSD interval 86 [facility] QT interval 380 [facility] QTC interval 482 [facility] MUSE P axis 1 25 [facility] QRS axis 1 43 [facility] T wave axis 65 [facility] EKG impression Sinus rhythm with premature atrial complexes-Nonspecific ST abnormality-Abnormal ECG-In automated comparison with ECG of 20-OCT-2017 22:17,- premature atrial complexes are now present-ST no longer depressed in Inferior leads-ST no longer depressed in [facility] MUSE Anterolateral leads-T wave inversion no longer evident in Inferior leads-T wave inversion no longer evident in Anterolateral leads-QT has lengthened- Performing Organization Address City/[facility]/Zipcode Phone Number [facility] MUSE [address] [place] [address] Vitamin C level, plasma (11/05/2017 4:45 AM CURTAIN WORKER) Vitamin C, plasma <5 (L) 23 - 114 umol/L [facility] Comment: INTERPRETIVE DATA: Vitamin C (Ascorbic Acid), Plasma Vitamin C concentrations lower than 11 umol/L indicate deficiency. Concentrations between 11 and 23 umol/L are consistent with a moderate risk of deficiency due to inadequate tissue stores. Vitamin C concentration is reported as micromoles per liter (umol/L). To convert concentration to milligrams per deciliter (mg/dL), multiply the result by 0.0176. Test developed and characteristics determined by [facility]. See Compliance Statement B: [employer] [facility] [employer]CS Performed by [facility], [address] [place] [address] www.[facility] Jose A Nieves MD - Lab. Director Specimen Plasma specimen Performing Organization Address [facility] Centercode Phone Number [facility] [address] [place] [address] Vitamin B12 level (11/05/2017 4:45 AM CURTAIN WORKER) Vitamin B12 >1600 (H) 211 - 946 pg/mL [facility] DEPARTMENT OF PATHOLOGY Comment: AND GENOMIC MEDICINE Significant overlap exists between normal and deficiency states. However, most patients with deficiencies will have Serum B12 <200 pg/mL. Specimen Serum Performing Organization Address [facility] Centercode Phone Number [facility] DEPARTMENT OF PATHOLOGY AND [address] [place] [phone] [facility] Ionized calcium (11/05/2017 4:45 AM CURTAIN WORKER)Only the most recent of2 resultswithin the time period is included. pH 7.36 [facility] DEPARTMENT OF PATHOLOGY AND GENOMIC MEDICINE Ionized calcium 1.24 1.11 - 1.32 mmol/L [facility] DEPARTMENT OF PATHOLOGY AND GENOMIC MEDICINE Specimen Plasma specimen Performing Organization Address City/[facility]/Zipcode Phone Number [facility] DEPARTMENT OF PATHOLOGY AND [address] [place] [phone] [facility] MEDICINE Surgical pathology request (11/04/2017 11:26 AM CURTAIN WORKER) [facility] DEPARTMENT OF PATHOLOGY AND GENOMIC MEDICINE Surgical pathology report See link below for PDF [facility] DEPARTMENT OF Lab Report PATHOLOGY AND GENOMIC MEDICINE Result status This is Final Report to [facility] DEPARTMENT OF [id number] PATHOLOGY AND GENOMIC MEDICINE Performing Organization Address City/[facility] Phone Number [facility] DEPARTMENT OF PATHOLOGY AND [address] [place] [address] [employer] [facility] Prepare RBC, 2 Units (11/04/2017 3:30 AM CURTAIN WORKER) Product name Red Blood Cells -1, [facility] DEPARTMENT OF Leukored PATHOLOGY AND GENOMIC MEDICINE Unit number [id number] [facility] DEPARTMENT OF PATHOLOGY AND GENOMIC MEDICINE Product code [id number] [facility] DEPARTMENT OF PATHOLOGY AND GENOMIC MEDICINE Dispense status Transfused [facility] DEPARTMENT OF PATHOLOGY AND GENOMIC MEDICINE Blood expiration date [id number] [facility] DEPARTMENT OF PATHOLOGY AND GENOMIC MEDICINE Blood type code 5100 [facility] DEPARTMENT OF PATHOLOGY AND GENOMIC MEDICINE Blood type O POSITIVE [facility] DEPARTMENT OF PATHOLOGY AND GENOMIC MEDICINE Product name Apheresis Red Cell AS3 #2 [facility] DEPARTMENT OF LR PATHOLOGY AND GENOMIC MEDICINE Unit number [id number] [facility] DEPARTMENT OF PATHOLOGY AND GENOMIC MEDICINE Product code [id number] [facility] DEPARTMENT OF PATHOLOGY AND GENOMIC MEDICINE Dispense status Transfused [facility] DEPARTMENT OF PATHOLOGY AND GENOMIC MEDICINE Blood expiration date [id number] [facility] DEPARTMENT OF PATHOLOGY AND GENOMIC MEDICINE Blood type code 5100 [facility] DEPARTMENT OF PATHOLOGY AND GENOMIC MEDICINE Blood type O POSITIVE [facility] DEPARTMENT OF PATHOLOGY AND GENOMIC MEDICINE Performing Organization Address [facility] Phone Number [facility] DEPARTMENT OF PATHOLOGY AND [address] [place] [address] GENOMIC MEDICINE Type and screen (11/04/2017 3:30 AM CURTAIN WORKER) ABO grouping O [facility] DEPARTMENT OF PATHOLOGY AND GENOMIC MEDICINE Rh type POS [facility] DEPARTMENT OF PATHOLOGY AND GENOMIC MEDICINE Antibody screen (gel) NEG [facility] DEPARTMENT OF PATHOLOGY AND GENOMIC MEDICINE Specimen Blood Performing Organization Address City/[facility]/Zipcode Phone Number [facility] DEPARTMENT OF PATHOLOGY AND [address] [place] [address] GENOMIC MEDICINE Lipase level (11/03/2017 4:50 AM CURTAIN WORKER)Only the most recent of2 resultswithin the time period is included. Lipase 163 (H) 13 - 60 U/L [facility] DEPARTMENT OF PATHOLOGY AND GENOMIC MEDICINE Specimen Plasma specimen Performing Organization Address [facility] Phone Number [facility] DEPARTMENT OF PATHOLOGY AND [address] Amylase level (11/03/2017 4:50 AM CURTAIN WORKER)Only the most recent of2 resultswithin the time period is included. Amylase 98 28 - 100 U/L [facility] DEPARTMENT OF PATHOLOGY AND [facility] Specimen Plasma specimen Performing Organization Address [facility] Phone Number [facility] DEPARTMENT OF PATHOLOGY AND [address] [place] [address] CV stress test (11/01/2017 3:01 PM CURTAIN WORKER) Resting HR 90 [facility] MUSE Resting BP 158 [facility] MUSE Peak MET Achieved 1.0 [facility] [facility] Protocol Name [facility] Time in Exercise Phase 00:01:00 [facility] Max Systolic BP 173 [facility] Max Diastolic BP 85 [facility] Max Heart Rate 115 [facility] Max Predicted Heart Rate 146 [facility] Target HR Formula (220 - Age)*100% [facility] Test Indication Pre-Op Evaluation [facility] Stress Test Impression -Waveform interpreted in report [facility] associated with image study. No interpretation is provided as part of this Stress ECG report.-Electronically Signed By Alexsander VILLAGOMEZ, David Corral ([id number]), purchasing expeditor David Wisdom ([id number]) on 11/01/2017 1:50:58 PM Target HR 124.10 bpm [facility] Performing Organization Address [facility] Phone Number [facility] [address] [place] [address] Cv myocardial perfusion (11/01/2017 3:01 PM CURTAIN WORKER) Narrative Performed At [facility] Nuclear Cardiology and Cardiac CT [address] [place] [address] Myocardial Perfusion Imaging Report Stress ECG tracings are available in MUSE, EPIC and CV Web All ECG interpretations are included in this report Pat.Name:Kyaw KAMINSKI.ID:[id number] .Date: 11/01/2017 Refer.MD:DIGNA BAKER MD Exam Time: 1:38:00 PM Study Type:Myocardial Perfusion Imaging Height:61inWeight: 129lb BSA: 1.57 m2 DOBAge:1945,72Y Sex: FEMALEBP:158/96 HR:90 bpmHCT: 27.6 % Nuclear Tech:TAISHA Caldwell/ TAISHA Oliveira, ARRT Pat. Stat.:Inpatient Room:[id number] Event ID:[id number] Order ID:[id number] Reason for Study:Pre-op, CHD risk History / Clinical:Hypertension, Renal insufficiency/failure, Family History of CAD and Heat attack, CVA Procedures:Stress only Race: Risk Factors:Cardiovascular Disease, Hypertension, Family history of cardiovascular disease, History of CVA Clinical Symptoms:Regadenoson Physical Exam:S1, S2 Surgery: Serum K+ Date,40.0 on 11/01/17/, Troponin I Date, 1)Negative on 10/20/17/ 2)/ 3)/, Other pertinent lab results, Hgb 9.2 on 11/01/17 Medications:Flagyl, Zosyn, K phos, Protonix, Lasix SUMMARY: SCINTIGRAPHIC RESULTS Perfusion Defect Size (% LV) 0 % Total 0 % Ischemia 0 % Scar Left Ventricular Perfusion Results There is normal tracer distribution throughout the myocardium during stress and prone imaging. Gated SPECT Results The post-stress left ventricular ejection fraction is 86 % with normal regional wall motion and left ventricular thickening.Left ventricular end-diastolic volume is 56 ml; end-systolic volume is8 ml. The left ventricle is of normal size at stress.The right ventricle is of normal size with normal wall motion. Conclusion Normal regadenoson Tc-99m tetrofosmin myocardial perfusion study. The left ventricular ejection fraction is normal. Comments Patients with a normal stress myocardial perfusion study have a low (< 1%) annual risk of cardiac or nonfatal myocardial infarction. Study Quality/Artifacts The study quality is good. The mild reduction in inferoapical wall counts is probably due to breast attenuation artifact rather than coronary artery disease which resolves with prone imaging. Comparison to Previous Study None available. STRESS: Baseline Vital Signs:Intervention: Regadenoson 0.4mg/5ml IV over 10 seconds followed by radiotracer injection and 5ml saline flush ECG: Normal Sinus Rhythm HR:90 BP:158/96 Rhythm:ST/T abnormality, non-specific Stress Test Results: Target HR: 124 Symptoms and Complications: Arrhythmias: None Terminated: As per Regadenoson protocol Symptoms:Shortness of breath Complications: None Conclusions: Normal heart rate response to pharmacological stress, Normal blood pressure response to pharmacological stress Stress ECG Interp: No ischemic ST segment change occurred with stress. Signed 11/02/2017 01:11 PM David Beltre MD Procedure Note Interface, Radiology Results In - 11/02/2017 1:12 PM [facility] Nuclear Cardiology and Cardiac CT [address] [place] [address] Myocardial Perfusion Imaging Report Stress ECG tracings are available in [employer], [employer] and [employer] All ECG interpretations are included in this report Pat.Name: GENEVA KAMINSKI Pat.ID: [id number] St.Date: 11/01/2017 Refer.MD: DIGNA BAKER MD Exam Time: 1:38:00 PM Study Type:Myocardial Perfusion Imaging Height: 61in Weight: 129lb BSA: 1.57 m2 Age: 8 1945,72Y Sex: FEMALE BP: 158/96 HR: 90 bpm HCT: 27.6 % Nuclear Tech:TAISHA Caldwell/ TAISHA Oliveira, ARRT Pat. Stat.:Inpatient Room: [id number] Nuclear Event ID:[id number] Order ID: [id number] Reason for Study:Pre-op, CHD risk History / Clinical:Hypertension, Renal insufficiency/failure, Family History of CAD and Heat attack, CVA Procedures:Stress only Race: Risk Factors:Cardiovascular Disease, Hypertension, Family history of cardiovascular disease, History of CVA Clinical Symptoms:Regadenoson Physical Exam:S1, S2 Surgery: Serum K+ Date, 40.0 on 11/01/17/, Troponin I Date, 1)Negative on 10/20/17/ 2)/ 3)/, Other pertinent lab results, Hgb 9.2 on 11/01/17 Medications:Flagyl, Zosyn, K phos, Protonix, Lasix SUMMARY: SCINTIGRAPHIC RESULTS Perfusion Defect Size (% LV) 0 % Total 0 % Ischemia 0 % Scar Left Ventricular Perfusion Results There is normal tracer distribution throughout the myocardium during stress and prone imaging. Gated SPECT Results The post-stress left ventricular ejection fraction is 86 % with normal regional wall motion and left ventricular thickening. Left ventricular end-diastolic volume is 56 ml; end-systolic volume is 8 ml. The left ventricle is of normal size at stress. The right ventricle is of normal size with normal wall motion. Conclusion Normal regadenoson Tc-99m tetrofosmin myocardial perfusion study. The left ventricular ejection fraction is normal. Comments Patients with a normal stress myocardial perfusion study have a low (< 1%) annual risk of cardiac or nonfatal myocardial infarction. Study Quality/Artifacts The study quality is good. The mild reduction in inferoapical wall counts is probably due to breast attenuation artifact rather than coronary artery disease which resolves with prone imaging. Comparison to Previous Study None available. STRESS: Baseline Vital Signs: Intervention: Regadenoson 0.4mg/5ml IV over 10 seconds followed by radiotracer injection and 5ml saline flush ECG: Normal Sinus Rhythm HR: 90 BP: 158/96 Rhythm: ST/T abnormality, non-specific Stress Test Results: Target HR: 124 Symptoms and Complications: Arrhythmias: None Terminated: As per Regadenoson protocol Symptoms: Shortness of breath Complications: None Conclusions: Normal heart rate response to pharmacological stress, Normal blood pressure response to pharmacological stress Stress ECG Interp: No ischemic ST segment change occurred with stress. Signed 11/02/2017 01:11 PM David Beltre MD Performing Organization Address City/[facility]/Zipcode Phone Number [facility] [address] [place] [address] Uric acid level (10/30/2017 11:48 AM CURTAIN WORKER) Uric acid 3.4 2.4 - 5.7 mg/dL [facility] DEPARTMENT OF PATHOLOGY AND GENOMIC MEDICINE Specimen Plasma specimen Performing Organization Address [facility] Phone Number [facility] DEPARTMENT OF PATHOLOGY AND [address] [place] [address] GENOMIC MEDICINE after 10/29/2017 Insurance Payer Benefit Plan / Group Subscriber ID Type Phone Address HUMANA MEDICARE HUMANA MEDICARE PPO/PFFS/ERS MCR xxxxxxxxx PPO Advance Directives Patient has advance care planning documents, and code status on file. For more information, please contact:Krishan [address] [place] [address] Code Status Date Activated Date Inactivated Comments Full Code 10/20/2017 8:58 PM 11/22/2017 8:14 PM Code Status decision reached by: Patient Full Code 10/20/2017 8:36 PM 10/20/2017 8:58 PM Code Status decision reached by: Patient
[2018-10-30] MEDS ORDERED: BUPIVACAINE 0.25% PF 10 ML VIAL ONE (07:25)
[2018-10-30] MEDS ORDERED: LIDOCAINE 2% MPF 5 ML VIAL ONE ×2 (07:25→08:27)
[2018-10-30] MEDS ORDERED: TETRACAINE HCL 0.5% 2ML OPTH ONE (07:25)
[2018-10-30] MEDS ORDERED: NA CHLORIDE 0.9% 500 ML ONE (07:26)
[2018-10-30] MEDS: PHENYLEPHRINE 10% OPTH 5ML ONE ×3 (07:30→07:40)
[2018-10-30] MEDS: CYCLOPENTOLATE 1% OPTH 2 ML ONE ×3 (07:30→07:40)
[2018-10-30] MEDS ORDERED: EPINEPHRINE/PF 1 MG/ML AMP ONE (08:18)
[2018-10-30] MEDS ORDERED: NS 0.9% VIAL 10 ML ONE (08:18)
[2018-10-30] MEDS ORDERED: BALANCED SALT IRRIG PLAIN 500 ML BTL IRR ONE (08:19)
[2018-10-30] MEDS ORDERED: DUOVISC 1 KIT OPTH ONE (08:20)
[2018-10-30] MEDS ORDERED: MOXIFLOXACIN HCL 10 DROPS/ML **OR USE OPTH ONE (08:20)
[2018-10-30] MEDS ORDERED: PROPOFOL 200 MG/20 ML VIAL IV ONE (08:27)
--- NOTE | 2018-10-30 09:04 | P.BOP ---
Preoperative diagnosis: Nuclear sclerotic and anterior subcapsular cataract OS Postoperative diagnosis: Same Primary procedure: Phacoemulsification with IOL OS Estimated blood loss: None Anesthesia: Local (Subtenon's infusion with anesthesia for cataract surgery) Complications: None Implants: ZCB00 +22.5 Transferred to: Other (Day surgery) Condition: Good
[2018-10-30 09:17] VITALS: BP 175/73; TEMP 96.9; O2SAT 98
--- NOTE | 2018-10-30 20:41 | OP ---
Date of Procedure: 10/30/2018 Surgeon: Maureen Lancaster MD Anesthesiologist: Dr. Sandy Diop CRNA and Ronnie Jones MD. Preoperative Diagnosis: Nuclear sclerotic and anterior subcapsular cataract OS (left eye). Operation Performed: Phacoemulsification with intraocular lens implant, dilated left eye. Anesthesia: Per cataract surgery. Complications: None. Description Of Procedure: In day surgery, the patient was prepped with Betadine and draped. A conju nctival incision was made in the inferior nasal quadrant with Minerva scissors. A sub-Tenon block c onsisting of a 1:1 mixture of 2% Xylocaine and 0.25% bupivacaine was placed through the conjunctival incision with a blunt cannula. A Honan balloon was placed over the eye and the patient was transferr ed to the operating room. In the operating room the patient was prepped and draped in the usual sterile fashion for ophthalmic surgery. A lid speculum was placed in the left eye. Two paracentesis sites were made superiorly and inferiorly in the limbal cornea. Viscoat was placed in the anterior chamber and a crescent blade wa s used to make a corneal groove and tunnel, and a keratome was used to enter the anterior chamber. P rovisc was placed in the anterior chamber and a 360 degree capsulotomy was performed with a cystitome . The lens was hydrodissected with BSS and rotated freely. The lens was removed with a stop and cho p technique. A 5.06 Phaco CDE was used to remove the lens. Residual cortex was removed with the irr igation and aspiration. Provisc was placed in the capsular bag. A ZCB00 +22.5 lens was placed in th e capsular bag without complications. Irrigation and aspiration was used to remove residual viscoela stic. The paracentesis sites were hydrated with BSS. The wound and paracentesis sites were inspecte d and found to be watertight. Vigamox 0.07 cc was placed intracamerally at the end of the procedure. The eye was irrigated with balanced salt solution. The eye was patched with a soft cotton patch an d Gupta metal shield. The patient was returned to day surgery in good condition. Discharge Instructions: Ms. Starks was discharged to home in good condition and is to follow with Dr Francis Lancaster in the morning. JULIUS/MODL Voice ID: [id number] Report ID: [id number]
== END 2018-10-30 09:41 | disposition home or self-care (01) ==
LOC: OR 06:52
PROVIDERS: ATTEND Ophthalmology Retina Specialist
PROC: 08RK3JZ Replacement of Left Lens with Synthetic Substitute, Percutaneous Approach (ICD-10-PCS; principal; 2018-10-30 08:30)
DX: H25.12 Age-related nuclear cataract, left eye (principal); H25.032 Anterior subcapsular polar age-related cataract, left eye; I10 Essential (primary) hypertension; E78.00 Pure hypercholesterolemia, unspecified; Z88.6 Allergy status to analgesic agent; Z80.9 Family history of malignant neoplasm, unspecified
CPT/HCPCS: 66984; J0171; J2704

== ENCOUNTER 2020-09-28 01:53 | Inpatient (IN) | payer OTHER ==
--- OUTSIDE RECORDS SUMMARY | 2020-09-28 01:55 | XMS REPORT | Clinical Summary ---
:1945 Author Organization [facility] Address [address] [place] [address] Care Team Providers Name Role Phone Brenton Holm MD Primary Care Provider Allergies No Known Active Allergies Medications Medication Sig Dispensed Refills Start End Date Status Date amLODIPine Take 10 mg by 0 Activ e (NORVASC) 10 mg mouth as tablet needed. estrogens, Take 0.625 mg 0 Activ e conjugated, by mouth daily. (PREMARIN) 0.625 MG Take daily for tablet 21 days then do not take for 7 days. aspirin (ECOTRIN) Take 81 mg by 0 Active 81 MG enteric mouth daily. coated tablet furosemide (LASIX) furosemide 20 0 Active 20 mg tablet mg tablet as needed metoprolol Take 1 tablet 90 tablet 3 Activ e succinate XL (50 mg total) 9 (TOPROL-XL) 50 mg by mouth daily. 24 hr tablet fenofibrate TAKE 1 90 tablet 3 Active (TRICOR) 145 MG TABLET(145 MG) 0 tablet BY MOUTH DAILY metoprolol TAKE 1 30 tablet 11 Active succinate XL TABLET(100 MG) 0 (TOPROL-XL) 100 mg BY MOUTH DAILY 24 hr tabletIndications: Essential hypertension losartan (COZAAR) TAKE 1 TABLET 90 tablet 0 Active 100 MG BY MOUTH DAILY 0 tabletIndications: Essential hypertension metoprolol Take 1 tablet 30 tablet 11 10/26/19 Disco ntinued succinate XL (100 mg total) 9 20 (TOPROL XL) 100 mg by mouth daily. 24 hr tabletIndications: Essential hypertension fenofibrate Take 1 tablet 90 tablet 3 10/15/19 Disc ontinued (TRICOR) 145 MG (145 mg total) 9 20 tablet by mouth daily. losartan (COZAAR) Take 1 tablet 90 tablet 0 12/10/19 Discontinued 100 MG (100 mg total) 9 20 tabletIndications: by mouth daily. Essential hypertension spironolactone Take 1 tablet 90 tablet 0 11/02/19 D iscontinued (ALDACTONE) 25 MG (25 mg total) 9 20 tablet by mouth daily. spironolactone TAKE 1 90 tablet 0 01/28/20 Disco ntinued (ALDACTONE) 25 MG TABLET(25 MG) 0 20 tablet BY MOUTH DAILY losartan (COZAAR) TAKE 1 TABLET 90 tablet 0 03/04/20 Discontinued 100 MG BY MOUTH DAILY 0 20 tabletIndications: Essential hypertension spironolactone TAKE 1 90 tablet 0 04/21/20 Disco ntinued (ALDACTONE) 25 MG TABLET(25 MG) 0 20 tablet BY MOUTH DAILY losartan (COZAAR) TAKE 1 TABLET 90 tablet 0 06/02/20 Discontinued 100 MG BY MOUTH DAILY 0 20 tabletIndications: Essential hypertension spironolactone TAKE 1 90 tablet 0 06/10/20 Disco ntinued (ALDACTONE) 25 MG TABLET(25 MG) 0 20 (Formulary tablet BY MOUTH DAILY flores juliet) Active Problems Problem Noted Date Cardiac pacemaker in situ 08/08/2018 Carotid bruit 08/08/2018 Delirium 11/10/2017 Pancreatitis, acute 10/23/2017 Renal failure, acute 10/23/2017 Arrhythmia, sinus node 10/20/2017 Heart block 10/20/2017 Essential hypertension 10/20/2017 Fall 10/20/2017 Dizziness 10/20/2017 Cardiac dysrhythmia 10/20/2017 Complete heart block 10/20/2017 Encounters Date Type Specialty Care Team Description 06/10/2020 Office Visit Cardiology Yossi Dominguez MD [facility] l hypertension (Primary Dx); Cardiac pacemak er in situ 06/10/2020 Travel 06/02/2020 Refill Cardiology Yossi Dominguez MD [facility] 05/19/2020 Travel 04/19/2020 Refill Cardiology Yossi Dominguez MD Med Refi ll 03/03/2020 Refill Cardiology Yossi Dominguez MD Med Refi ll 01/28/2020 Refill Cardiology Yossi oDminguez MD Med Refi ll 12/09/2019 Refill Cardiology Yossi Dominguez MD Med Refi ll 11/02/2019 Refill Cardiology Yossi Dominguez MD Med Refi ll 10/26/2019 Refill Cardiology Yossi Dominguez MD Med Refi ll 10/13/2019 Refill Cardiology Yossi Dominguez MD Med Refi ll after 09/28/2019 Surgical History Surgery Date Site/Laterality Comments CHOLECYSTECTOMY, LAPAROSCOPIC 11/04/2017 Abdomen/N/A Pr ocedure: LAPAROSCOPIC CHOLECYSTECTOMY; Surgeon: Victor Manuel henry MD; Location: [facility] OR; Service: General ; Laterality: N/A; Medical devices from this surgery are in t he Implants section. CARDIAC ELECTROPHYSIOLOGY 11/18/2017 N/A Proced ure: Ep ppi; PROCEDURE Surgeon: Tasneem tidwell Jr., MD; Location: [facility] Equipment Operator Invasive Locatio n; Service: Cardiov ascular; Laterality: N/A; Medical devices from this surgery are in t he Implants section. INSERT / REPLACE / REMOVE Medtro renee PACEMAKER Medical History Medical History Date Comments Hypertension Renal insufficiency Stroke (HCC) Pacemaker Medtronic Social History Tobacco Use Types Packs/Day Years Used Date Former Smoker Sex Assigned at Date Recorded Not on file Last Filed Vital Signs Vital Sign Reading Time Taken Comments Blood Pressure 147/65 06/10/2020 3:03 PM CDT Pulse 80 06/10/2020 3:03 PM CDT Temperature - - Respiratory Rate - - Oxygen Saturation - - Inhaled Oxygen Concentration - - Weight 57.6 kg (127 lb) 06/10/2020 3:03 PM CDT Height - - Body Mass Index 24 07/10/2019 2:14 PM CDT Plan of Treatment Date Type Specialty Care Team Description 06/09/2021 Office Visit [facility]iology [facility] [address] [place], [place] [address] [phone] Health Maintenance Due Date Last Done Comments COVID-19 VACCINE (#1) 1959 SHINGLES VACCINES (#1) 1993 65+ PNEUMOCOCCAL VACCINE (1 of 1 - PPSV23) 2008 INFLUENZA VACCINE 05/10/2020 Implants Implanted Type Area Histology Teacher Device Shelf Model / Identifier Expiration Serial / Date Lot Pacemaker Convention Services Manager Dr Macias 2chmbr W/ Is-1 Uni/Bi Conn Advisa - [id number] Cardiac N/A: MEDTRONIC 12/21/2017 [id number] / Implanted: 11/18/2017 at [facility] (Quantity not on file) Pac emaker N/A CARDIAC RHYTHM [id number] / Generators DISEASE MGMT [id number] Lead, Bipolar Active Fixation Atrial Abimael roid Eluting 45 Cm Capsure Fix Novus System - [id number] Cardiac Pacing N/A: MEDTRONIC [facility] 9 [id number] / Implanted: 11/18/2017 at [facility] (Quantity not on file) Sandy ds or N/A [employer] [id number] / Electrodes or [id number] Accessories Lead, Pacemaker Bipolar Fix Forming Atri al And Ventricular Steroid Eluting 52 Centimeter Capsure Fix Novus - [id number] Cardiac Pacing N/A: [employer] [facility] 08/22/2019 [id number] / Implanted: 11/18/2017 at [facility] (Quantity not on file) Sandy ds or N/A [employer] [id number] / Electrodes or [id number] Accessories Particle [facility] Absrbl Wero 5gm Mph - [id number] Surgical N/A: M EDAFOR [id number] / Implanted: Qty: 1 on 11/04/2017 by Victor Manuel Sanchez MD at [facility] Implants; N/A / Expanders; Extenders; Surgical Wires Procedures Procedure Name Priority Date/Time Associated Diagnosis Comme nts ECG 12-LEAD Routine 06/10/2020 2:00 PM Essential hypertensio n Results for this CDT procedure are i n the results section. after 09/28/2019 Results ECG 12 lead (06/10/2020 2:00 PM CDT) Pathologist Sig nature Ventricular rate 72 [facility] Atrial rate 72 [facility] VA interval 210 [facility] QRSD interval 80 [facility] QT interval 360 [facility] QTC interval 394 [facility] P axis 1 37 [facility] QRS axis 1 63 [facility] T wave axis 82 [facility] EKG impression Sinus rhythm with 1st degree AV block-Otherwise normal ECG-In automated comparison with ECG of 19-NOV-2017 20:53,-Nonspecific T wave abnormality no longer evident in Inferior leads-Nonspecific T wave ab [facility] MUSE normality, improved in Anterolateral leads-QT has shortened-Electronically Sig jo-ann By Daisy VILLAGOMEZ, Keiko ([id number]) on 06/10/2020 6:08:30 PM Specimen Narrative Performed At This result has an attachment that is no t available. Performing Organization Address City/State/ZIP Code Phon e Number [facility] MUSE [address] [place] [address] after 09/28/2019 Insurance Payer Benefit Plan / Subscriber ID Effective Dates Phone Addre ss Type Group HUMANA MEDICARE HUMANA MEDICARE [id number] 2016-Present PPO PPO/PFFS/ERS [facility] Advance Directives For more information, please contact: [phone] Type Date Recorded Patient Tariff Expert Explanati on Advance Directives, Living Will and Medical Power of Outside Machinist Supervisor Code Status Date Activated Date Inactivated Comments Full Code 10/20/2017 8:58 PM 11/22/2017 8:14 PM Code Status decision reached by: Patient Full Code 10/20/2017 8:36 PM 10/20/2017 8:58 PM Code Status decision reached by: Patient
--- OUTSIDE RECORDS SUMMARY | 2020-09-28 01:56 | XMS REPORT | Continuity of Care Document ---
:1945 Author Organization [facility] [place] Information Exchange Care Team Providers Name Role Phone [facility] Information Exchange Unavailable Un available Problems Problem Status Onset Classification Date Comments Sourc e Date Reported [facility]ED [facility] HYPERKALEMIA, Active [facility] NEAR SYNCOPE 0 [facility] SY[facility] AND Active [facility] COLLAPSE [place] Medications Medication Details Route Status Patient Ordering Order Source Instructions Provider Date [facility] Notes: (Same No Longer as: Norvasc) Active 2019 [place] metoprolol Notes: (Same Inactive tartrate as: Lopressor) 2019 [place] amLODIPine 5 mg 10 mg = 2 tab, Active H oral tablet PO, Daily, # 60 2019 [place] tab, 0 Refill(s), Pharmacy: [facility] #[id number], 152.4, cm, 05/17/20 18:35:00 CDT, Height, 60.085, kg, 05/17/20 18:35:00 CDT, Weight cephalexin 250 mg 250 mg = 1 cap, Active oral capsule PO, BID, X 3 2019, # 6 cap, 0 Refill(s), Pharmacy: [facility] #[id number], 152.4, cm, 05/17/20 18:35:00 CDT, Height, 60.085, kg, 05/17/20 18:35:00 CDT, Weight Estrogens, 0.625 mg = 1 Active Conjugated (ALF) tab, PO, Daily, 2019 [place] 0.625 MG Oral # 30 tab, 0 Tablet [Premarin] Refill(s) metoprolol 150 mg = 1.5 Active succinate 100 mg cap, PO, Daily, 2019 [place] oral capsule, 0 Refill(s) extended release Water 1000 MG/ML Notes: (sodium No Longer Injectable bicarb 8.4% (1 Active 2019 [place] Solution mEq/ml) 50 ml VL) montelukast Notes: (Same No Longer as:Singulair) Active 2020 [place] Mupirocin 0.02 1 appl, Route: No Longer MG/MG Topical TOP, TID, Drug Active 2019 [place] Ointment form: OINT, Start date: 05/17/20 17:00:00 CDT, Duration: 30 day, Stop date: 06/16/20 13:00:00 CDT, 0 [place] Notes: (Same No Longer Sulfadiazine 10 as: Silvadene) Active 2019 [place] MG/ML Topical WASTE: F/P - Cream Black; E - Municipal Trash Bin Cephalexin Notes: Take on No Longer empty stomach. Active 2020 [place] (Same As: Keflex) NS 1,000 mL 1,000 mL, Rate: Inactive 75 ml/hr, 2020 [place] Infuse over: 13.3 hr, Route: IV, Dosing Weight 58.636 kg, Total Volume: 1,000, Start date: 05/17/20 15:40:00 CDT, Duration: 30 day, Stop date: 06/16/20 15:39:00 CDT, 1.68, m2, 0 Dextrose 50% 12.5 gm, 25 mL, No Longer /08/ H Syringe (D50W) Route: IVP, Active 2019 [place] and Drug Form: INJ, Dosing Weight 58.636, kg, PRN, PRN Blood Glucose Results, Start date: 05/17/20 15:39:00 CDT, Duration: 30 day, Stop date: 06/16/20 15:38:00 CDT, 0 Glucagon 1 mg, Route: No Longer IM, Drug form: Active 2020 [place] PDR/INJ, PRN, Dosing Weight 58.636, kg, PRN Blood Glucose Results, Start date: 05/17/20 15:39:00 CDT, Duration: 30 day, Stop date: 06/16/20 15:38:00 CDT, 0 Acetaminophen Notes: Do not No Longer exceed 4 Active 2020 [place] gm/day. (Same as: Tylenol) Silver 1 appl, TOP, Active Sulfadiazine 10 BID, # 20 gm, 0 2020 [place] MG/ML Topical Refill(s) Cream [SSD] Fenofibrate 145 MG 145 mg = 1 tab, No Longer Oral Tablet PO, Daily, # 30 Active 2020 [place] tab, 0 Refill(s) spironolactone 25 25 mg = 1 tab, No Longer 05/17 mg oral tablet PO, Daily, # 30 Active 2020 [place] tab, 3 Refill(s) Metoprolol 100 mg = 1 tab, No Longer Succinate ER 100 PO, Daily, # 30 Active 2020 [place] mg oral tablet, tab, 0 extended release Refill(s) losartan 100 mg 100 mg = 1 tab, No Longer oral tablet PO, Daily, # 30 Active 2020 [place] tab, 0 Refill(s) Sulfamethoxazole 1 tab, PO, BID, No Longer 05/17 800 MG / # 6 tab, 0 Active 2020 [place] Trimethoprim 160 Refill(s) MG Oral Tablet montelukast 10 mg 10 mg = 1 tab, Active oral tablet PO, Bedtime, # 2020 [place] and 30 tab, 0 Refill(s) Mupirocin 0.02 1 appl, TOP, Active MG/MG Topical TID, # 15 gm, 0 2020 [place] Ointment Refill(s) NS (Bolus) IV 1,000 mL, 1,000 Inactive H ml/hr, Infuse 2020 [place] Over: 1 hr, Route: IV, 1,000, Drug form: INJ, ONCE, Priority: STAT, Dosing Weight 58.636 kg, Start date: 05/17/20 14:59:00 CDT, Stop date: 05/17/20 14:59:00 CDT, 0 Albuterol 0.83 Notes: SEE RT Inactive MG/ML Inhalant DOCUMENTATION 2019 [place] Solution (Same as: Proventil) Kayexalate Notes: (sodium Inactive polystyrene 2020 [place] sulfonate 15 gm/60 ml ALICIA) Shake well before use. (Same as: Kayexalate, SPS) Dextrose 50% 25 gm, 50 mL, Inactive Syringe (D50W) Route: IVP, 2020 [place] and Drug Form: INJ, Dosing Weight 58.636, kg, ONCE, STAT, Start date: 05/17/20 14:57:00 CDT, Stop date: 05/17/20 14:57:00 CDT, 0 Insulin regular Notes: (Same Inactive as: Humulin R) 2019 [place] Roll in palms of hands gently; Do not shake vigorously. WASTE: F/P - Black; E - Municipal Trash Bin Stable for 31 days at room temperature Expires in days from D ate Calcium Gluconate Notes: WASTE: Inactive F/P - Sink; E - 2019 [place] [facility] Saline Flush 0.9% Notes: No Longer preservative Active 2019 [place] free. Sodium Chloride 1,000 mL, 1000 Inactive 0.9% (Bolus) IV ml/hr, Infuse 2020 [facility] Over: 1 hr, Route: IV, 1,000, Drug form: INJ, ONCE, Priority: STAT, Dosing Weight 58.636 kg, Start date: 05/17/20 12:53:00 CDT, Stop date: 05/17/20 12:53:00 CDT, 0 Allergies, Adverse Reactions, Alerts Substance Category Reaction Severity Reaction Status Date Comments S ource type Reported No Known Assertion Drug MH Medication allergy [place] and Allergies Immunizations No Data Provided for This Section Results Order Name Results Value Reference Date Interpretation Comments Nerissa rce Range CARDIAC Troponin-I <0.02 0.00 - 08 ENZYMES 0.40 [place] CARDIAC Troponin-I <0.02 0.00 - 05/18 ENZYMES 0.40 [place] CHEM PANEL Glucose Lvl 96 70 - 99 05/18 [place] CHEM PANEL BUN 27 7 - 22 05/18 [place] CHEM PANEL Creatinine 1.58 0.50 - 08 Lvl 1.40 [place] CHEM PANEL Sodium Lvl 139 135 - 145 05/18 [place] CHEM PANEL Potassium 4.8 3.5 - 5.1 08/09 MH Lvl /2020 [place] CHEM PANEL Chloride Lvl 116 95 - 109 08/09 MH /2020 [place] CHEM PANEL CO2 16 24 - 32 08/09 MH /2020 [place] CHEM PANEL AGAP 11.8 10.0 - 08/09 MH 20.0 /2020 [place] CHEM PANEL Calcium Lvl 9.1 8.5 - 10.5 08/09 MH /2020 [place] CHEM PANEL B/C Ratio 17 6 - 25 08/09 MH /2020 [place] CHEM PANEL Total 5.8 6.4 - 8.4 08/09 MH Protein /2020 [place] CHEM PANEL Albumin Lvl 2.5 3.5 - 5.0 08/09 MH /2020 [place] CHEM PANEL Globulin 3.3 2.7 - 4.2 08/09 MH /2020 [place] CHEM PANEL A/G Ratio 0.8 0.7 - 1.6 08/09 MH /2020 [place] CHEM PANEL ALT 17 0 - 65 08/09 MH /2020 [place] CHEM PANEL AST 25 0 - 37 08/09 MH /2020 [place] CHEM PANEL Alk Phos 45 39 - 136 08/09 MH /2020 [place] CHEM PANEL Bili Total 0.1 0.2 - 1.3 08/09 MH /2020 [place] CHEM PANEL eGFR 31 08/09 Result Comment: The [place] eGFR is calculated using the CKD-EPI formula. In most young, healthy individuals the eGFR will be >90 mL/min/1.73m2 . The eGFR declines with age. An eGFR of 60-89 may be normal in some populations, particularly the elderly, for whom the CKD-EPI formula has not been extensively validated. Use of the eGFR is not recommended in the following populations:< br/>
[place] viduals with unstable creatinine concentration s, including patients and those with serious co-morbid conditions.<b r/>
Patie nts with extremes in muscle mass or diet.

The data above are obtained from the National Kidney Disease Education Program (NKDEP) which additionally recommends that when the eGFR is used in patients with extremes of body mass index for purposes of drug dosing, the eGFR should be multiplied by the estimated BMI. ELECTROLYTE Potassium 4.8 3.5 - 5.1 08/09 MH S Lvl /2020 [place] CHEM PANEL Glucose Lvl 138 70 - 99 08/09 MH /2020 [place] CHEM PANEL BUN 30 7 - 22 05/18 [place] CHEM PANEL Creatinine 1.77 0.50 - 05/18 MH Lvl 1.40 [place] CHEM PANEL Sodium Lvl 140 135 - 145 05/18 [place] CHEM PANEL Potassium 4.9 3.5 - 5.1 / MH Lvl /2019 [place] CHEM PANEL Chloride Lvl 116 95 - 109 05/18 [place] CHEM PANEL CO2 17 24 - 32 05/18 [place] CHEM PANEL AGAP 11.9 10.0 - 08 MH 20.0 [place] CHEM PANEL Calcium Lvl 9.6 8.5 - 10.5 05/18 [place] CHEM PANEL eGFR 27 05/18 Result Comment: The [place] eGFR is calculated using the CKD-EPI formula. In most young, healthy individuals the eGFR will be >90 mL/min/1.73m2 . The eGFR declines with age. An eGFR of 60-89 may be normal in some populations, particularly the elderly, for whom the CKD-EPI formula has not been extensively validated. Use of the eGFR is not recommended in the following populations:< br/>
[place] viduals with unstable creatinine concentration s, including patients and those with serious co-morbid conditions.<b r/>
Patie nts with extremes in muscle mass or diet.

The data above are obtained from the National Kidney Disease Education Program (NKDEP) which additionally recommends that when the eGFR is used in patients with extremes of body mass index for purposes of drug dosing, the eGFR should be multiplied by the estimated BMI. URINE AND UA Color Yellow Yellow 05/17 STOOL *NA* /2019 [place] (05/17/20 3:29 PM) URINE AND UA Turbidity Slight Clear 05/17 STOOL *ABN* [place] (05/17/20 3:29 PM) URINE AND UA Spec Grav 1.014 <=1.030 05/17 STOOL /2019 [place] URINE AND UA pH 5.0 5.0 - 8.0 05/17 STOOL [place] URINE AND UA Protein Negative Negative 05/17 STOOL mg/dL mg/dL [place] URINE AND UA Glucose Negative Negative 05/17 STOOL mg/dL mg/dL [place] URINE AND UA Ketones Negative Negative 05/17 STOOL mg/dL mg/dL [place] URINE AND UA Bili Negative Negative 05/17 STOOL *NA* /2019 [place] (05/17/20 3:29 PM) URINE AND UA Blood Negative Negative 05/17 STOOL (05/17/20 3:29 PM) [place] URINE AND UA Nitrite Negative Negative 05/17 STOOL (05/17/20 3:29 PM) /2019 [place] URINE AND UA Leuk Est Negative Negative 05/17 STOOL (05/17/20 3:29 PM) /2019 [place] URINE AND UA Sq Epi Few /LPF Few /LPF 05/17 STOOL /2019 [place] URINE AND UA WBC <1 0 - 5 05/17 STOOL /2019 [place] URINE AND UA RBC <1 0 - 2 05/17 STOOL /2019 [place] URINE AND UA Bacteria Occasional None Seen 05/17 STOOL /HPF /HPF [place] URINE AND UA Mucus Few /LPF None Seen 05/17 MH STOOL /LPF /2019 [place] URINE AND UA Hyal Cast 3 0 - 2 05/17 STOOL /2019 [place] URINE AND UA Browning Yeast Occasional None Seen 05/17 STOOL /HPF /HPF [place] URINE AND UA <=1.0 0.1 - 1.0 05/17 STOOL Urobilinogen mg/dL [place] BLOOD BANK ABO/Rh O POS 05/17 RESULTS /2019 [place] BLOOD BANK Antibody Negative 05/17 RESULTS Scrn (05/17/20 1:33 PM) /2019 [place] CARDIAC Troponin-I <0.02 0.00 - 05/17 ENZYMES 0.40 [place] CHEM PANEL Glucose Lvl 94 70 - 99 05/17 [place] CHEM PANEL BUN 40 7 - 22 05/17 [place] CHEM PANEL Creatinine 2.43 0.50 - 05/17 Lvl 1.40 [place] CHEM PANEL Sodium Lvl 134 135 - 145 05/17 [place] CHEM PANEL Chloride Lvl 109 95 - 109 05/17 [place] CHEM PANEL CO2 17 24 - 32 05/17 [place] CHEM PANEL AGAP 14.5 10.0 - 08 MH 20.0 /2019 [place] CHEM PANEL Calcium Lvl 9.5 8.5 - 10.5 08/ [place] CHEM PANEL eGFR 19 08/08 Result Comment: The [place] eGFR is calculated using the CKD-EPI formula. In most young, healthy individuals the eGFR will be >90 mL/min/1.73m2 . The eGFR declines with age. An eGFR of 60-89 may be normal in some populations, particularly the elderly, for whom the CKD-EPI formula has not been extensively validated. Use of the eGFR is not recommended in the following populations:< br/>
[place] viduals with unstable creatinine concentration s, including patients and those with serious co-morbid conditions.<b r/>
Patie nts with extremes in muscle mass or diet.

The data above are obtained from the National Kidney Disease Education Program (NKDEP) which additionally recommends that when the eGFR is used in patients with extremes of body mass index for purposes of drug dosing, the eGFR should be multiplied by the estimated BMI. HEMATOLOGY WBC 8.7 3.7 - 10.4 08/08 MH /2019 [place] HEMATOLOGY RBC 3.54 4.20 - 08/08 MH 5.40 /2019 [place] HEMATOLOGY Hgb 9.2 12.0 - 08/08 MH 16.0 [place] HEMATOLOGY Hct 29.4 36.0 - 08/08 MH 48.0 [place] HEMATOLOGY MCV 82.9 80.0 - 08/08 MH 98.0 [place] HEMATOLOGY MCH 26.1 27.0 - 08/08 MH 31.0 [place] HEMATOLOGY MCHC 31.5 32.0 - 08/08 MH 36.0 [place] HEMATOLOGY RDW 16.1 11.5 - 08/08 MH 14.5 [place] HEMATOLOGY Platelet 304 133 - 450 08/08 MH [place] HEMATOLOGY MPV 8.9 7.4 - 10.4 08/08 MH /2019 [place] HEMATOLOGY PT 13.4 12.0 - 08/08 MH 14.7 [place] HEMATOLOGY INR 1.02 0.85 - 08/08 MH 1.17 [place] HEMATOLOGY PTT 28.1 22.9 - 08/08 MH 35.8 [place] HEMATOLOGY Segs 78.5 45.0 - 08/08 MH 75.0 /2020 [place] HEMATOLOGY Lymphocytes 14.2 20.0 - 08/08 MH 40.0 /2020 [place] HEMATOLOGY Monocytes 5.8 2.0 - 12.0 08/08 MH /2019 [place] HEMATOLOGY Eosinophils 1.1 0.0 - 4.0 08/08 MH /2019 [place] HEMATOLOGY Basophils 0.4 0.0 - 1.0 08/08 MH /2019 [place] HEMATOLOGY Neutrophils 6.8 1.5 - 8.1 08/08 MH # /2020 [place] HEMATOLOGY Lymphocytes 1.2 1.0 - 5.5 08/08 MH # /2020 [place] HEMATOLOGY Monocytes # 0.5 0.0 - 0.8 08/08 MH /2019 [place] HEMATOLOGY Eosinophils 0.1 0.0 - 0.5 08/08 MH # /2019 [place] Pathology Reports No Data Provided for This Section Diagnostic Reports Report Value Date Source Chest 1view DX PROCEDURE INFORMATION: 05/17/2020 [facility] Exam: XR Chest, 1 View Exam date and time: 05/17/2020 12:58 PM Age: 75 years old Clinical indication: /near syncope TECHNIQUE: Imaging protocol: XR of the chest Views: 1 view. COMPARISON: No relevant prior studies available. FINDINGS: Lungs: Mild decreased lung volumes. No consolida tion. Pleural space: Unremarkable. No pleural effusion . No pneumothorax. Heart/Mediastinum: Heart size is mildly enlarged . Calcification of mitral annulus. Vasculature is unre markable. Left pectoral implantable cardiac device. Bones/joints: Unremarkable. IMPRESSION: Mild cardiomegaly without acute decompensation. Merrill Kent MD On 05/17/2020 13:25:48; [facility] [id number] Consultation Notes No Data Provided for This Section Discharge Summaries No Data Provided for This Section History and Physicals No Data Provided for This Section Vital Signs Vital Sign Value Date Comments Source Temperature Oral (F) 97.8 F 05/18/2020 [facility] Heart Rate 87 05/18/2020 [facility] Respitory Rate 16 05/18/2020 [facility] Systolic (mm Hg) 164 05/18/2020 [facility] Diastolic (mm Hg) 89 05/18/2020 [facility] d Temperature Oral (F) 97.3 F 05/18/2020 [facility] Heart Rate 83 05/18/2020 [facility] Respitory Rate 16 05/18/2020 [facility] Systolic (mm Hg) 140 05/18/2020 [facility] Diastolic (mm Hg) 72 05/18/2020 [place] Temperature Oral (F) 97.4 F 05/18/2020 [facility] Heart Rate 97 05/18/2020 [facility] Respitory Rate 16 05/18/2020 [facility] Systolic (mm Hg) 140 05/18/2020 [facility] Diastolic (mm Hg) 74 05/18/2020 [place] Height 152.4 cm 05/17/2020 [facility] Weight 60.085 05/17/2020 [facility] BMI Calculated 25.87 05/17/2020 [facility] Height 172.72 cm 05/17/2020 [facility] BMI Calculated 19.66 05/17/2020 [facility] Weight 58.636 05/17/2020 [facility] Encounters Location Location Encounter Encounter Reason Attending ADM DC Stat us Source Details Type Number For Provider Date Date Visit [facility] Inpatient [id number] Earle 05/17 05/18 [place] Phelps /2019 [facility] Procedures No Data Provided for This Section Assessment and Plan Assessment and Plan Date Source Extracted from:Title: History and Physical 05/18/2020 [facility] Author: Earle Bond MD Date: 05/17/20 1.Syncope(R55) Likely secondary to arrhythmiafrom hyper kalemia with possible component of dehydration Correct potassium Echo, cardiac enzymes to rule out cardiac etiology Ordered: Admit/Condition, 05/17/20 15:14:00 CDT, Status: Inpatient, Telemetry Capable Location, Expected LOS: 2 Midnights, Earle Bond MD, uEsebio [facility] Review/Approve Yes, Hyperkalemia | Near syncope 2.Hyperkalemia(E87.5) Likely secondary to polypharmacy from Bactrim, losartan, spi ronolactone DC all the above-mentioned medication She received albuterol, calciumgluconate, insulin D50 in ER Repeat potassium level and consult nephrology if hyperkalemi a persists Ordered: Admit/Condition, 05/17/20 15:14:00 CDT, Status: Inpatient, Telemetry Capable Location, Expected LOS: 2 Midnights, Earle Bond MD, Eusebio VILLAGOME[facility] Review/Approve Yes, Hyperkalemia | Near syncope 3.DAVIE (acute kidney injury)(N17.9) Likely prerenal IV fluids 4.HTN (hypertension)(I10) Blood pressure stable now Start Norvasc if she becomes hypertensive 5.Dyslipidemia(E78.5) Resume fenofibrate once DAVIE resolves SCDs, no chemical prophylaxis till hyperkalemia resolves expect 1-2 midnight stay for now Plan of Care No Data Provided for This Section Social History Social History Date Source Social History TypeResponse 05/17/2020 [facility] Smoking Status Former smoker; Exposure to Tobacco Smoke None; Cigarette Smoking Last 365 Days No; Reg Smoking Cessation Counseling No entered on: 05/17/20 Family History No Data Provided for This Section Advance Directives No Data Provided for This Section Functional Status No Data Provided for This Section"
--- OUTSIDE RECORDS SUMMARY | 2020-09-28 01:57 | XMS REPORT | Continuity of Care Document ---
:1945 Author Organization [facility] t Address [address] [place] [address] Care Team Providers Name Role Phone Mihai VILLAGOMEZ Primary Care Physician Azar Dominguez MD Attending Clinician Varun Attending Clinician Varun Admitting Clinician Payers Payer Name Policy Type Policy Effective Date Expiration Date Sour ce Number HUMANA [id number] 2016 [facility] MEDICAREHUMANA 00:00:00 [facility] MEDICARE PPO/PFFS/ERS [id number] 2016 -PresentPPO Problems Condition Condition Condition Status Onset Resolution Last Treating Co mments Source Name Details Category Date Date Treatment Clinician Date FAINTED Diagnosis Active 2020-05-17 Me moria 05-17 13:13:00 l FAINTED 00:00: Randall 00 Active 05/17/2020 [facility] HYPERKALEM Diagnosis Active 2020-05-19 Memoria [place], NEAR 05-17 10:52:00 l SYNCOPE 00:00: [place] HYPERKALEM 00 IA, NEAR SYNCOPE Active 05/17/2020 [facility] Cardiac Cardiac Disease Active 2017-10 [facility] pacemaker pacemaker 0-30 Meth [place]ret in situ in situ 00:00: st 00 Carotid Carotid Disease Active 2017-10 Amasa bruit bruit 0-30 Methodi 00:00: st 00 Delirium Delirium Disease Active [place] 11-10 Methodi 00:00: st 00 Pancreatit Pancreatit Disease Active [place] is, acute is, acute 1-14 Meth garret 00:00: st 00 Renal Renal Disease Active [facility]asa failure, failure, 14 Method i acute acute 00:00: st 00 Arrhythmia Arrhythmia Disease Active [place] , sinus , sinus 10-20 Methodi node node 00:00: st 00 Heart Heart Disease Active Amasa block block 10-20 Methodi 00:00: st 00 Essential Essential Disease Active Christopher gutierrez hypertensi hypertensi -11 Me thodi on on 00:00: st 00 Fall Fall Disease Active [place] 11 Methodi 00:00: st 00 Dizziness Dizziness Disease Active Christopher ston 10-20 Methodi 00:00: st 00 Cardiac Cardiac Disease Active Amasa dysrhythmi dysrhythmi 10-20 Me thodi a a 00:00: st 00 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 10-20 Methodi block block 00:00: st 00 HYPERKALEM Diagnosis Active 2020-05-19 Memoria IA 10:52:00 l [place] HYPERKALEM IA Active [facility] SYNCOPE Diagnosis Active 2020-05-19 Me moria AND 10:52:00 l COLLAPSE SYNCOPE Jasmin nn AND COLLAPSE Active [facility] Allergies, Adverse Reactions, Alerts Allergy Allergy Status Severity Reaction(s) Onset Inactive Treating Comm ents Source Name Type Date Date Clinician No Known No Known Active Memori a Medicati Medicati l on on [place] Allergie Allergie s s Social History Social Habit Start Date Stop Date Quantity Comments Source Sex Assigned At Christopher [place] Smoking Status Start Date Stop Date Source Social History 2020-05-17 17:30:11 2020-05-17 17:30:11 [facility] Medications Ordered Filled Start Stop Current Ordering Indication Dosage Frequency Signature Comments Components Source Medication Medication Date Date Medication? Clinician (SIG) Name Name losartan Yes Essential TAKE 1 Ho saumya (COZAAR) 8-24 hypertensio TABLET BY Methodi 100 MG 00:00: n MOUTH st tablet 00 DAILY Norvasc No Notes: Memoria 8-10 (Same as: l 14:00: Norvasc) metoprolol No Notes: Memor ia tartrate 8-10 (Same as: l 02:00: Lopressor) amLODIPine Yes 10 mg = 2 Me moria 5 mg oral 09 tab, PO, l tablet 16:46: Daily, # Randall 00 60 tab, 0 Refill(s), Pharmacy: [facility] #[id number], 152.4, cm, 05/17/20 18:35:00 CDT, Height, 60.085, kg, 05/17/20 18:35:00 CDT, Weight cephalexin Yes 250 mg = 1 M emoria 250 mg oral 05-18 cap, PO, l capsule 16:46: BID, X 3 Ricco n 00 day, # 6 cap, 0 Refill(s), Pharmacy: [facility] #[id number], 152.4, cm, 05/17/20 18:35:00 CDT, Height, 60.085, kg, 05/17/20 18:35:00 CDT, Weight Estrogens, 0 Yes 0.625 mg = M emoria Conjugated 05-18 1 tab, PO, l (FPC) 0.625 15:24: Daily, # He rmann MG Oral 00 30 tab, 0 Tablet Refill(s) [Premarin] metoprolol Yes 150 mg = Mem oria succinate 05-18 1.5 cap, l 100 mg oral 15:23: PO, Daily, [place] capsule, 00 0 extended Refill(s) release Water 1000 No Notes: Memor ia MG/ML 05-18 (sodium l Injectable 03:45: bicarb Jasmin nn Solution 00 8.4% (1 mEq/ml) 50 ml VL) montelukast 0 No Notes: Delano chavez 05-18 (Same l 02:00: as:Singula Randall 00 ir) Mupirocin No 1 appl, Memor ia 0.02 MG/MG 05-17 Route: l Topical 22:00: TOP, TID, Jasmin nn Ointment 00 Drug form: OINT, Start date: 05/17/20 17:00:00 CDT, Duration: 30 day, Stop date: 06/16/20 13:00:00 CDT, 0 Silver 2019-0 No Notes: Memoria Sulfadiazin 05-17 (Same as: l e 10 MG/ML 22:00: Silvadene) H erm Topical WASTE: Cream F/P - Black; E - Municipal Trash Bin Cephalexin 2019-0 No Notes: Memor ia 05-17 Take on l 22:00: empty stomach. (Same As: Keflex) NS 1,000 mL 2020-0 No 1,000 mL, Umesh emoria 05-17 Rate: 75 l 20:40: ml/hr, Infuse over: 13.3 hr, Route: IV, Dosing Weight 58.636 kg, Total Volume: 1,000, Start date: 05/17/20 15:40:00 CDT, Duration: 30 day, Stop date: 06/16/20 15:39:00 CDT, 1.68, m2, 0 Dextrose 2020-0 No 12.5 gm, Memor ia 50% Syringe 05-17 25 mL, l (D50W) 20:39: Route: IVP, Drug Form: INJ, Dosing Weight 58.636, kg, PRN, PRN Blood Glucose Results, Start date: 05/17/20 15:39:00 CDT, Duration: 30 day, Stop date: 06/16/20 15:38:00 CDT, 0 Glucagon 2020-0 No 1 mg, Memoria 05-17 Route: IM, l 20:39: Drug form: PDR/INJ, PRN, Dosing Weight 58.636, kg, PRN Blood Glucose Results, Start date: 05/17/20 15:39:00 CDT, Duration: 30 day, Stop date: 06/16/20 15:38:00 CDT, 0 Acetaminoph 2020-0 No Notes: Do Umesh emoria en 05-17 not exceed l 20:39: 4 gm/day. (Same as: Tylenol) Silver 2019-0 Yes 1 appl, Memoria Sulfadiazin 05-17 TOP, BID, l e 10 MG/ML 20:36: # 20 gm, 0 H erm Topical Refill(s) Cream [SSD] Fenofibrate 2020-0 No 145 mg = 1 Memoria 145 MG Oral 05-17 tab, PO, l Tablet 20:36: Daily, # 30 tab, 0 Refill(s) spironolact 2020-0 No 25 mg = 1 M emoria one 25 mg 8-08 tab, PO, l oral tablet 20:36: Daily, # He rmann 00 30 tab, 3 Refill(s) Metoprolol 2020-0 No 100 mg = 1 M emoria Succinate 8-08 tab, PO, l ER 100 mg 20:36: Daily, # Herm isma oral 00 30 tab, 0 tablet, Refill(s) extended release losartan 20200 No 100 mg = 1 Mem oria 100 mg oral 8-08 tab, PO, l tablet 20:36: Daily, # Randall 00 30 tab, 0 Refill(s) Sulfamethox 2020-0 No 1 tab, PO, Memoria azole 800 8-08 BID, # 6 l MG / 20:36: tab, 0 [place] Trimethopri 00 Refill(s) m 160 MG Oral Tablet montelukast 0 Yes 10 mg = 1 M emoria 10 mg oral 05-17 tab, PO, l tablet 20:36: Bedtime, # Jasmin nn 00 30 tab, 0 Refill(s) Mupirocin 0 Yes 1 appl, Memor ia 0.02 MG/MG 05-17 TOP, TID, l Topical 20:36: # 15 gm, 0 Herm isma Ointment 00 Refill(s) NS (Bolus) 0 No 1,000 mL, Me moria IV 05-17 1,000 l 19:59: ml/hr, Randall 00 Infuse Over: 1 hr, Route: IV, 1,000, Drug form: INJ, ONCE, Priority: STAT, Dosing Weight 58.636 kg, Start date: 05/17/20 14:59:00 CDT, Stop date: 05/17/20 14:59:00 CDT, 0 Albuterol 2019-0 No Notes: SEE Me moria 0.83 MG/ML 05-17 RT l Inhalant 19:58: DOCUMENTAT Her dale Solution 00 ION (Same as: Proventil) Kayexalate 0 No Notes: Memor ia 05-17 (sodium l 19:58: polystyren [place] 00 e sulfonate 15 gm/60 ml ALICIA) Shake well before use. (Same as: Kayexalate , SPS) Dextrose 2019-0 No 25 gm, 50 Delano chavez 50% Syringe 8-08 mL, Route: l (D50W) 19:57: IVP, Drug Ricco n 00 Form: INJ, Dosing Weight 58.636, kg, ONCE, STAT, Start date: 05/17/20 14:57:00 CDT, Stop date: 05/17/20 14:57:00 CDT, 0 Insulin 2020-0 No Notes: Memoria regular 05-17 (Same as: l 19:57: Humulin R) Randall 00 Roll in palms of hands gently; Do not shake vigorously . WASTE: F/P - Black; E - Municipal Trash Bin Stable for 31 days at room temperatur e Expires in days from ____Date Calcium 2019-0 No Notes: Memoria Gluconate 05-17 WASTE: F/P l 19:57: - Sink; E [place] 00 - Municipal Trash Bin Saline No Notes: Memoria Flush 0.9% 05-17 preservati l 17:53: ve free. Randall 00 Sodium 2019-0 No 1,000 mL, Memori a Chloride 05-17 1000 l 0.9% 17:53: ml/hr, Randall (Bolus) IV 00 Infuse Over: 1 hr, Route: IV, 1,000, Drug form: INJ, ONCE, Priority: STAT, Dosing Weight 58.636 kg, Start date: 05/17/20 12:53:00 CDT, Stop date: 05/17/20 12:53:00 CDT, 0 spironolact 2019-0 2020- No TAKE 1 Christopher ston one 7-13 09- TABLET(25 [facility]i (ALDACTONE) 00:00: 00:00 MG) BY st 25 MG 00 :00 MOUTH tablet DAILY losartan 2019-0 2020- No Essential TAKE 1 [place] (COZAAR) 5-26 08-24 hypertensio TABLET BY Methodi 100 MG 00:00: 00:[address] tablet 00 :00 DAILY spironolact 2019-0 2020- No TAKE 1 Christopher ston one 4-20 07-13 TABLET(25 [facility] (ALDACTONE) 00:00: 00:00 MG) BY st 25 MG 00 :00 MOUTH tablet DAILY losartan 2019-0 2020- No Essential TAKE 1 [place] (COZAAR) 3- 05-26 hypertensio TABLET BY Methodi 100 MG 00:00: 00:[address] tablet 00 :00 DAILY spironolact 2019- No TAKE 1 Christopher ston one 1-24 04-20 TABLET(25 [facility] (ALDACTONE) 00:00: 00:00 MG) BY st 25 MG 00 :00 MOUTH tablet DAILY metoprolol Yes Essential TAKE 1 [place] succinate 1-17 hypertensio TABLET(100 Methodi XL 00:00: n MG) BY st (TOPROL-XL) 00 MOUTH 100 mg 24 DAILY hr tablet fenofibrate Yes TAKE 1 [place] (TRICOR) 1-06 TABLET(145 Metho di 145 MG 00:00: MG) BY st tablet 00 MOUTH DAILY spironolact 2018-10 2020- No 25mg QD Take 1 Christopher ston one 0-31 01-24 tablet (25 [facility] (ALDACTONE) 00:00: 00:00 mg total) st 25 MG 00 :00 by mouth tablet daily. amLODIPine 2018-10 Yes 10mg Take 10 mg [place] (NORVASC) 0-01 by mouth Method i 10 mg 14:16: as needed. st tablet 50 estrogens, 2018-10 Yes .625mg QD Take 0.625 [place] conjugated, 0-01 mg by [facility] (PREMARIN) 14:16: mouth st 0.625 MG 50 daily. tablet Take daily for 21 days then do not take for 7 days. aspirin 2018-10 Yes 81mg QD Take 81 mg [place] (ECOTRIN) 0-01 by mouth Method i 81 MG 14:16: daily. st enteric 50 coated tablet furosemide 2018-10 Yes furosemide [place] (LASIX) 20 0-01 20 mg [facility] mg tablet 14:16: tablet as st 50 needed losartan 2019- No Essential 100mg QD Take 1 [place] (COZAAR) 6 03-02 hypertensio tablet M ethodi 100 MG 00:00: 00:00 n ([address] tablet 00 :00 total) by mouth daily. metoprolol Yes 50mg QD Take 1 [place] succinate 1-07 tablet (50 Meth [place] XL 00:00: mg total) st (TOPROL-XL) 00 by mouth 50 mg 24 hr daily. tablet metoprolol 2019- No Essential 100mg QD Take 1 [place] succinate 10-16 hypertensio tablet Methodi XL (TOPROL 00:00: 00:00 n ([address] XL) 100 mg 00 :00 total) by 24 hr mouth tablet daily. fenofibrate 2019- No 145mg QD Take 1 Nikc kerns (TRICOR) 10-16 tablet Methodi 145 MG 00:00: 00:00 ([address] tablet 00 :00 total) by mouth daily. Vital Signs Vital Name Observation Time Observation Value Comments Source Systolic blood 2020-06-10 15:03:00 147 mm[Hg] Jadto n [facility] pressure Diastolic blood 2020-06-10 15:03:00 65 mm[Hg] Ghislaine on [facility] pressure Heart rate 2020-06-10 15:03:00 80 /min [facility] Body weight 2020-06-10 15:03:[address] [facility] BMI 2020-06-10 15:03:00 24.00 kg/m2 [facility] Temperature Oral (F) 2020-05-18 13:00:00 97.8 F [facility] [place] Heart Rate 2020-05-18 13:00:00 [facility] [place] Respitory Rate 2020-05-18 13:00:00 Memori al [place] Systolic (mm Hg) 2020-05-18 13:00:00 Delano rial [place] Diastolic (mm Hg) 2020-05-18 13:00:00 Mem orial [place] Temperature Oral (F) 2020-05-18 09:00:00 97.3 F [facility] [place] Heart Rate 2020-05-18 09:00:00 [facility] [place] Respitory Rate 2020-05-18 09:00:00 Memori al [place] Systolic (mm Hg) 2020-05-18 09:00:00 Delano rial [place] Diastolic (mm Hg) 2020-05-18 09:00:00 Mem orial [place] Temperature Oral (F) 2020-05-18 05:00:00 97.4 F [facility] [place] Heart Rate 2020-05-18 05:00:00 [facility] [place] Respitory Rate 2020-05-18 05:00:00 Memori al [place] Systolic (mm Hg) 2020-05-18 05:00:00 Delano rial [place] Diastolic (mm Hg) 2020-05-18 05:00:00 Mem orial [place] Height 2020-05-17 23:35:00 152.4 cm [facility] [place] Weight 2020-05-17 23:35:00 [facility] [place] BMI Calculated 2020-05-17 23:35:00 Suman al [place] Height 2020-05-17 17:15:00 172.72 cm [facility] [place] BMI Calculated 2020-05-17 17:15:00 Suman al [place] Weight 2020-05-17 17:15:00 [facility] Procedures Procedure Date / Time Performed Performing Clinician Sourc e ECG 12-LEAD 2020-06-10 14:00:04 Rayna Dominguez Meth odist Plan of Care Planned Activity Planned Date Details Comments Source Future Scheduled 2020-05-10 INFLUENZA VACCINE [place] [facility] Test 00:00:00 [code = INFLUENZA VACCINE] Future Scheduled 2008 65+ PNEUMOCOCCAL [place] [facility] Test 00:00:00 VACCINE (1 of 1 - PPSV23) [code = 65+ PNEUMOCOCCAL VACCINE (1 of 1 - PPSV23)] Future Scheduled 1993 SHINGLES VACCINES (#1) [place] [facility] Test 00:00:00 [code = SHINGLES VACCINES (#1)] Future Scheduled 1959 COVID-19 VACCINE (#1) [place] [facility] Test 00:00:00 [code = COVID-19 VACCINE (#1)] Encounters Start End Encounter Admission Attending Care Care Encounter Source Date/Time Date/Time Type Type Clinicians Facility Department ID 2020-06-10 2020-06-10 Outpatient REINA [facility] [id number] 006 Krishan 00:00:00 00:00:00 RAYNA [address] 2020-05-17 2020-05-18 Outpatient Sajja, [facility] [id number] 975 12:13:02 13:30:00 Earle 00 2020-05-17 2020-05-17 Inpatient E [facility]BL MED 7500 [facility]BL 15:14:00 12:13:00 Results Test Description Test Time Test Comments Results Result Comments Source ECG 12 lead 2020-06-10 18:08:32 Test Item Value Reference Range Interpretation Comme nts Ventricular rate (test code = 253) 72 Atrial rate (test code = 255) 72 FL interval (test code = 266) 210 QRSD interval (test code = 260) 80 QT interval (test code = 264) 360 QTC interval (test code = 265) 394 P axis 1 (test code = 267) 37 QRS axis 1 (test code = 268) 63 T wave axis (test code = 270) 82 EKG impression (test code = 273) Sinus rhythm with 1st degree AV block-Otherwise normal ECG-In automated comparison with ECG of 19-NOV-2017 20:53,-Nonspecific T wave abnormality no longer evident in Inferior leads-Nonspecific T wave abnormality, improved in Anterolateral leads-QT has shortened- [facility]asa MethodistCARDIAC [id number] 13:09:00<0.02[facility] CARDIAC [id number] 07:33:00<0.02[facility] HermannCHEM [id number] 07:33:0096[facility]annCHEM [id number] 07:33:0027[facility] HermannCHEM [id number] 07:33:001.58[facility]annCHEM [id number] 07:33:69569 [facility] [id number] 07:33:004.8[facility] HermannCHEM PANEL 2020-05-18 07:33:11909Beeyrmsm HermannCHEM [id number] 07:33:0016[facility] HermannCHEM [id number] 07:33:0011.8[facility]annCHEM [id number] 07:33:009.1[facility]annCHEM [id number] 07:33:00 Test Item Value Reference Range Interpretation Comments B/C Ratio (test code = B/C Ratio) 17 1 6-25 [facility]annCHEM [id number] 07:33:005.8[facility] HermannCHEM PANEL 2020-05-18 07:33:002.5[facility]annCHEM [id number] 07:33:003.3[facility]annCHEM [id number] 07:33:00 Test Item Value Reference Range Interpretation Comments A/G Ratio (test code = A/G Ratio) 0.8 1 0.7-1.6 [facility]CHE[facility] [id number] 07:33:0017[facility] HermannCHEM PANEL 2020-05-18 07:33:0025[facility] HermannCHEM [id number] 07:33:0045[facility] HermannCHEM [id number] 07:33:000.1[facility]annCHEM [id number] 07:33:0031[facility] PvmsrodOSHJGMHPRJNU5697-72-51 07:33:004.8[facility] HermannCHEM [id number] 03:01:14944Ujuiupdh HermannCHEM [id number] 03:01:0030 [facility] [id number] 03:01:001.77[facility] HermannCHEM PANEL 2020-05-18 03:01:74281Vtnfhaee HermannCHEM [id number] 03:01:004.9[facility]annCHEM [id number] 03:01:35130Owgjlggh HermannCHEM [id number] 03:01:0017[facility]annCHEM [id number] 03:01:0011.9[facility]annCHEM [id number] 03:01:009.6[facility]annCHEM [id number] 03:01:0027 [facility] AND [id number] 20:29:00Yellow *NA*(05/17/20 3:29 PM) [facility] [id number] 20:29:00Slight *ABN*(05/17/20 3:29 PM) [facility] [id number] 20:29:00 Test Item Value Reference Range Interpretation Comments UA Spec Grav (test code = UA Spec 1.014 1 Grav) [facility] [id number] 20:29:00 Test Item Value Reference Range Interpretation Comments UA pH (test code = UA pH) 5.0 1 5.0-8.0 [facility] [id number] 20:29:00Negative *NA*(05/17/20 3:29 PM) [facility] [id number] 20:29:00Negative (05/17/20 3:29 PM) [facility] [id number] 20:29:00Negative (05/17/20 3:29 PM) [facility] [id number] 20:29:00Negative (05/17/20 3:29 PM) [facility] [id number] 20:29:00<1[facility] AND [id number] 20:29:00<1[facility] AND [id number] 20:29:003 [facility]annBLOOD BANK [id number] 18:33:00Negative (05/17/20 1:33 PM) [facility]annCARDIAC [id number] 18:33:00<0.02[facility] HermannCHEM [id number] 18:33:0094[facility] HermannCHEM [id number] 18:33:0040 [facility]annCHEM [id number] 18:33:002.43[facility] HermannCHEM PANEL 2020-05-17 18:33:40005Zwmworfr HermannCHEM [id number] 18:33:00774Uafnrxbi HermannCHEM [id number] 18:33:0017[facility] HermannCHEM [id number] 18:33:0014.5[facility] HermannCHEM [id number] 18:33:009.5[facility] HermannCHEM [id number] 18:33:0019[facility] HyzsdrdHFRZCJIQXT0642-53-56 18:33:008.7 Memorial CdvtvbqNXGFCIRYRE6560-34-48 18:33:003.54[facility] HermannHEMATOLOGY 2020-05-17 18:33:009.2[facility] [id number] 18:33:0029.4[facility] IduqmgvFCLAVKDQIS0184-34-07 18:33:0082.9[facility] [id number] 18:33:00 Test Item Value Reference Range Interpretation Comments MCH (test code = MCH) 26.1 pg 27.0-31.0 Memorial [id number] 18:33:0031.5[facility] HermannHEMATOLOGY 2020-05-17 18:33:0016.1[facility] XdpwwamQUTPSQQWCW7424-48-22 18:33:97897Hrbfxfnr KohopfnGFRBNIECDF9055-18-08 18:33:008.9[facility] QpvvksbAIVGZBZXAZ7569-01-36 18:33:00 Test Item Value Reference Range Interpretation Comments PT (test code = PT) 13.4 s 12.0-14.7 Memorial VrdsdmxRRPDYMWLBV9547-29-10 18:33:00 Test Item Value Reference Range Interpretation Comments INR (test code = INR) 1.02 1 0.85-1.17 Memorial [id number] 18:33:00 Test Item Value Reference Range Interpretation Comments PTT (test code = PTT) 28.1 s 22.9-35.8 [facility] [id number] 18:33:0078.5[facility] HermannHEMATOLOGY 2020-05-17 18:33:0014.2[facility] FwvttyiUCCWQDSOWS9764-24-74 18:33:005.8[facility] InkjijhEACJHFKBJN8379-76-84 18:33:001.1[facility] JfaqwciILYVTCIXZX1562-49-87 18:33:000.4[facility] LkmdwlpPOPVNDHXOD9895-57-61 18:33:006.8[facility] [place] [id number] 18:33:001.2[facility] ElehadgSMQBEFKNSZ5926-12-52 18:33:000.5 [facility] GsyrsziNRZNDLDWTB3324-43-49 18:33:000.1[facility] [place]
[2020-09-28] MEDS ORDERED: MORPHINE 2 MG/ML SYR ONE ×2 (02:57→07:06)
[2020-09-28] MEDS ORDERED: FAMOTIDINE 20 MG/2 ML VIAL IV ONE (02:57)
[2020-09-28] MEDS ORDERED: ONDANSETRON 4 MG/2 ML VIAL ONE ×2 (02:57→05:06)
[2020-09-28] MEDS ORDERED: NA CHLORIDE 0.9% 1,000 ML ONE ×3 (02:57→12:17)
[2020-09-28 03:28] LABS: Absolute Lymphocytes (CBC) 0.4 K/uL (0.7-4.9); Basophils % 0.1 % (0-1.3); Hematocrit 27.8 % (36.0-45.0); Lymphocytes % 3.3 % (15.3-44.8); MPV 9.8 fL (7.6-11.3); RBC Red Blood Cell Count 3.91 M/uL (3.86-4.86)
[2020-09-28 04:01] LABS: ALT/SGPT 30 U/L (12-78); AST/SGOT 46 U/L (15-37); Albumin 3.1 g/dL (3.4-5.0); Alkaline Phosphatase 84 U/L (45-117); BUN Blood Urea Nitrogen 39 mg/dL (7-18); Bicarbonate 23 mmol/L (21-32); Bilirubin Direct < 0.1 mg/dL (0-0.2); Bilirubin Total 0.3 mg/dL (0.2-1.0); Glucose Level 152 mg/dL (74-106); Lipase 23098 U/L (73-393); Potassium 4.1 mmol/L (3.5-5.1); Protein, Total 6.9 g/dL (6.4-8.2); Sodium Level 143 mmol/L (136-145)
--- NOTE | 2020-09-28 05:14 | ER ---
Nurse's Notes [facility] Name: Geneva Starks Age: 75 yrs Sex: Female : 1945 Arrival Date: 09/28/2020 Time: 01:55 Bed 7 Private MD: Diagnosis: Acute Pancreatitis Presentation: 09/28 02:18 Chief complaint: Patient states: abdominal pain and vomiting started about 1000 dm5 09/27/20, pt states that pain is rated at 10/10 and that she has vomited x 6. Coronavirus screen: Client denies travel out of the [place] in the last 14 days. nausea, vomiting. Client presents with at least one sign or symptom that may indicate coronavirus-19. Standard/surgical mask placed on the client. Ebola Screen: Patient negative for fever greater than or equal to 101.5 degrees Fahrenheit, and additional compatible Ebola Virus Disease symptoms Patient denies exposure to infectious person. Patient denies travel to an Ebola-affected area in the 21 days before illness onset. No symptoms or risks identified at this time. Initial Sepsis Screen: Does the patient meet any 2 criteria? No. Patient's initial sepsis screen is negative. Does the patient have a suspected source of infection? Yes: Acute abdominal pain. Risk Assessment: Do you want to hurt yourself or someone else? Patient reports no desire to harm self or others. Onset of symptoms was September 27, 2020. 02:18 Method Of Arrival: Ambulatory dm5 02:18 Acuity: ROSALIND 3 dm5 Historical: - Allergies: 02:24 Spironolactone; dm5 - Home Meds: 02:24 amlodipine 5 mg oral tab [Active]; fenofibrate 145 mg Oral [Active]; metoprolol dm5 succinate 150 mg Oral Tb24 [Active]; Premarin 0.625 mg Oral tab [Active]; montelukast 10 mg oral tab [Active]; furosemide 20 mg oral tab [Active]; - PMHx: 02:24 Hypertension; dm5 - Immunization history:: Adult Immunizations up to date. - Social history:: Smoking status: Patient denies any tobacco usage or history of. Screenin:24 Abuse screen: Denies threats or abuse. Denies injuries from another. Nutritional lp1 screening: No deficits noted. Tuberculosis screening: No symptoms or risk factors identified. Fall Risk Total Mckeon Fall Scale indicates High Risk Score (45 or more points). Fall prevention measures have been instituted. Side Rails Up X 2 Family Present and informed to notify staff if the need to leave the bedside As available patient and family educated on Fall Prevention Program and Strategies. Assessment: 02:23 General: Appears uncomfortable, Behavior is appropriate for age. Pain: Complains of lp1 pain in epigastric area and umbilical area Pain currently is 10 out of 10 on a pain scale. Quality of pain is described as aching. Neuro: Level of Consciousness is awake, alert, obeys commands, Oriented to person, place, time, situation. Cardiovascular: Patient's skin is warm and dry. Respiratory: Respiratory effort is even, unlabored. GI: Abdomen is non-distended, Bowel sounds present X 4 quads. Abdomen is tender to palpation in umbilical area Reports nausea, vomiting, Patient currently denies diarrhea. : Denies burning with urination. EENT: No signs and/or symptoms were reported regarding the EENT system. Derm: Skin is fragile, is thin, Skin is dry, Skin is flushed. Musculoskeletal: No deficits noted. 04:15 Reassessment: Patient reports continued nausea at this time. lp1 04:45 Reassessment: Dr. Vogt at bedside to discuss plan of care with patient. lp1 04:53 Reassessment: Verbal order per Provider for Zofran 4mg IV now, and NS 1 L bolus IV. lp1 05:07 Reassessment: amylase > 1302 candy from laboratory called, ED provider aware. rr5 05:10 Reassessment: Dr. Newman at bedside to discuss plan of care with patient and lp1 patient's daughter. 06:15 Reassessment: Patient and daughter aware of waiting for COVID results prior to transfer lp1 to floor; reports decreased nausea at this time. 06:50 Reassessment: Patient reports abdominal pain increased at this time; Aware of COVID lp1 negative results. 07:10 Reassessment: Attempted to call report, nurse unavailable. sv Vital Signs: 02:18 BP 144 / 69; Pulse 66; Resp 22; Pulse Ox 99% on R/A; Weight 56.7 kg; Height 5 ft. 1 in. dm5 (154.94 cm); Pain 10/10; 03:00 BP 129 / 77; Pulse 66; Resp 16; Temp 96.8(TE); Pulse Ox 100% on R/A; lp1 03:45 BP 140 / 76; Pulse 65; Resp 15; Pulse Ox 98% on R/A; lp1 04:30 BP 156 / 72; Pulse 65; Resp 16; Pulse Ox 96% on R/A; lp1 05:15 BP 148 / 68; Pulse 65; Resp 16; Pulse Ox 97% on R/A; lp1 06:00 BP 136 / 80; Pulse 67; Resp 15; Pulse Ox 97% on R/A; lp1 07:02 BP 120 / 72; Pulse 72; Resp 16; Pulse Ox 95% on R/A; Pain 9/10; lp1 02:18 Body Mass Index 23.62 (56.70 kg, 154.94 cm) dm5 02:18 tried oral temp and it would not take, will retake temp. pt states that she normally dm5 runs around 97.0 ED Course: 01:55 Patient arrived in ED. cl3 02:13 Ester Pickett, RN is Primary Nurse. lp1 02:16 Tae Vogt MD is Attending Physician. mh7 02:22 Triage completed. dm5 02:24 Arm band placed on Patient placed on a stretcher. dm5 02:45 Patient has correct armband on for positive identification. Placed in gown. Bed in low lp1 position. Call light in reach. nuclear monitoring technician on. Pulse ox on. NIBP on. 03:00 Initial lab(s) drawn, by [facility], sent to lab. Inserted saline lock: 20 gauge in right lp1 antecubital area, using aseptic technique. Blood collected. 04:26 CT Abd/Pelvis - IV Contrast Only In Process Unspecified. EDMS 04:50 No provider procedures requiring assistance completed. lp1 05:12 Anurag Newman MD is Hospitalizing Provider. mh7 05:18 Patient admitted, IV remains in place. lp1 06:00 COVID swab sent to lab. mg2 07:27 Primary Nurse role handed off by Ester Pickett, RN lp1 Administered Medications: 03:00 Drug: morphine 2 mg Route: IVP; Site: right antecubital; lp1 04:00 Follow up: Response: No adverse reaction lp1 03:00 Drug: Zofran (Ondansetron) 4 mg Route: IVP; Site: right antecubital; lp1 04:30 Follow up: Response: Nausea unchanged lp1 03:00 Drug: Pepcid 20 mg Route: IVP; Site: right wrist; lp1 04:00 Follow up: Response: No adverse reaction lp1 03:00 Drug: NS 0.9% 1000 ml Route: IV; Rate: 1000 ml; Site: right antecubital; lp1 05:00 Follow up: IV Status: Completed infusion; IV Intake: 1000ml lp1 04:59 Drug: NS 0.9% 1000 ml Route: IV; Rate: 1000 ml; Site: right antecubital; lp1 05:00 Drug: Zofran (Ondansetron) 4 mg Route: IVP; Site: right antecubital; lp1 06:28 Follow up: Response: Nausea is decreased lp1 06:54 Drug: morphine 2 mg Route: IVP; Site: right antecubital; lp1 07:30 Follow up: Response: No adverse reaction; RASS: Alert and Calm (0) sv Intake: 05:00 IV: 1000ml; Total: 1000ml. lp1 Outcome: 05:13 Decision to Hospitalize by Provider. [facility] [place] 05:18 Condition: stable lp1 05:18 Instructed on the need for admit. 07:46 Admitted to Med/surg accompanied by tech, via wheelchair, room 204, Report called to henry Dutton RN 07:52 Patient left the ED. Signatures: Dispatcher [employer] EDFL Lolis Chinchilla RN RN dm5 Verde, Stephanie, RN RN sv Pena, Laura, RN RN lp1 Cedric Ortiz, Dariusz Ayers RN, RN RN [id number] Ellen Rousseau3 Tae Vogt MD MD [facility] [place]
--- NOTE | 2020-09-28 05:14 | EDPHYS ---
Physician Documentation [facility] Name: Geneva Starks Age: 75 yrs Sex: Female : 1945 Arrival Date: 09/28/2020 Time: 01:55 Bed 7 Private MD: ED Physician Tae Vogt HPI: 09/28 03:04 This 75 yrs old Female presents to ER via Ambulatory with complaints of mh7 Abdominal Pain, Vomiting. 03:04 The patient presents with abdominal pain in the upper abdomen. Onset: The mh7 symptoms/episode began/occurred yesterday. The symptoms do not radiate. Associated signs and symptoms: Pertinent positives: nausea and vomiting, Pertinent negatives: anorexia, blood in stools, chest pain, constipation, diarrhea, dysuria, fever, headache, hematuria, palpitations, shortness of breath, vaginal discharge, vomiting blood. The symptoms are described as intermittent, vague, waxing/waning. Modifying factors: The symptoms are alleviated by nothing, the symptoms are aggravated by nothing. Severity of pain: At its worst the pain was moderate yesterday, in the emergency department the pain is unchanged. Historical: - Allergies: 02:24 Spironolactone; dm5 - Home Meds: 02:24 amlodipine 5 mg oral tab [Active]; fenofibrate 145 mg Oral [Active]; metoprolol dm5 succinate 150 mg Oral Tb24 [Active]; Premarin 0.625 mg Oral tab [Active]; montelukast 10 mg oral tab [Active]; furosemide 20 mg oral tab [Active]; - PMHx: 02:24 Hypertension; dm5 - Immunization history:: Adult Immunizations up to date. - Social history:: Smoking status: Patient denies any tobacco usage or history of. ROS: 03:04 Constitutional: Negative for fever, chills, and weight loss, Eyes: Negative for injury, mh7 pain, redness, and discharge, ENT: Negative for injury, pain, and discharge, Neck: Negative for injury, pain, and swelling, Cardiovascular: Negative for chest pain, palpitations, and edema, Respiratory: Negative for shortness of breath, cough, wheezing, and pleuritic chest pain, Back: Negative for injury and pain, : Negative for injury, bleeding, discharge, and swelling, MS/Extremity: Negative for injury and deformity, Skin: Negative for injury, rash, and discoloration, Neuro: Negative for headache, weakness, numbness, tingling, and seizure, Psych: Negative for depression, anxiety, suicide ideation, homicidal ideation, and hallucinations, Allergy/Immunology: Negative for hives, rash, and allergies, Endocrine: Negative for neck swelling, polydipsia, polyuria, polyphagia, and marked weight changes, Hematologic/Lymphatic: Negative for swollen nodes, abnormal bleeding, and unusual bruising. Exam: 03:04 Head/Face: Normocephalic, atraumatic. Eyes: Pupils equal round and reactive to light, mh7 extra-ocular motions intact. Lids and lashes normal. Conjunctiva and sclera are non-icteric and not injected. Cornea within normal limits. Periorbital areas with no swelling, redness, or edema. Neck: Trachea midline, no thyromegaly or masses palpated, and no cervical lymphadenopathy. Supple, full range of motion without nuchal rigidity, or vertebral point tenderness. No Meningismus. Chest/axilla: Normal chest wall appearance and motion. Nontender with no deformity. No lesions are appreciated. Cardiovascular: Regular rate and rhythm with a normal S1 and S2. No gallops, murmurs, or rubs. Normal PMI, no JVD. No pulse deficits. Respiratory: Lungs have equal breath sounds bilaterally, clear to auscultation and percussion. No rales, rhonchi or wheezes noted. No increased work of breathing, no retractions or nasal flaring. 03:04 Back: No spinal tenderness. No costovertebral tenderness. Full range of motion. Skin: Warm, dry with normal turgor. Normal color with no rashes, no lesions, and no evidence of cellulitis. MS/ Extremity: Pulses equal, no cyanosis. Neurovascular intact. Full, normal range of motion. Neuro: Awake and alert, GCS 15, oriented to person, place, time, and situation. Cranial nerves II-XII grossly intact. Motor strength 5/5 in all extremities. Sensory grossly intact. Cerebellar exam normal. Normal gait. Psych: Awake, alert, with orientation to person, place and time. Behavior, mood, and affect are within normal limits. 03:04 Constitutional: The patient appears in no acute distress, alert, awake, uncomfortable. 03:04 Abdomen/GI: Inspection: abdomen appears normal, Bowel sounds: normal, in all quadrants, Palpation: moderate abdominal tenderness, in all quadrants, Rectal exam: the exam is deferred, because of patient request, Indicators: McBurney's point is not tender, Hough's sign is negative, Rovsing's sign is negative, Obturator sign is negative, Psoas sign is negative, Liver: no appreciated palpable abnormalities, Hernia: not appreciated. Vital Signs: 02:18 BP 144 / 69; Pulse 66; Resp 22; Pulse Ox 99% on R/A; Weight 56.7 kg; Height 5 ft. 1 in. dm5 (154.94 cm); Pain 10/10; 03:00 BP 129 / 77; Pulse 66; Resp 16; Temp 96.8(TE); Pulse Ox 100% on R/A; lp1 03:45 BP 140 / 76; Pulse 65; Resp 15; Pulse Ox 98% on R/A; lp1 04:30 BP 156 / 72; Pulse 65; Resp 16; Pulse Ox 96% on R/A; lp1 05:15 BP 148 / 68; Pulse 65; Resp 16; Pulse Ox 97% on R/A; lp1 06:00 BP 136 / 80; Pulse 67; Resp 15; Pulse Ox 97% on R/A; lp1 07:02 BP 120 / 72; Pulse 72; Resp 16; Pulse Ox 95% on R/A; Pain 9/10; lp1 02:18 Body Mass Index 23.62 (56.70 kg, 154.94 cm) dm5 02:18 tried oral temp and it would not take, will retake temp. pt states that she normally dm5 runs around 97.0 MDM: 05:10 Differential diagnosis: appendicitis, bowel obstruction, diverticulitis, gastritis, mh7 gastroesophageal reflux disease, non-specific abd pain, pancreatitis, Peptic Ulcer Disease. Data reviewed: vital signs, nurses notes, old medical records, lab test result(s), CBC, electrolytes, urinalysis, EKG, radiologic studies, CT scan. Data interpreted: Pulse oximetry: on room air is 99 %. Interpretation: normal. Counseling: I had a detailed discussion with the patient and/or guardian regarding: the historical points, exam findings, and any diagnostic results supporting the discharge/admit diagnosis, the presence of at least one elevated blood pressure reading (>120/80) during this emergency department visit, lab results, radiology results, the need for further work-up and treatment in the hospital. Response to treatment: the patient's symptoms have mildly improved after treatment. Physician consultation: Brenton Holm MD regarding patient's condition, would like admission per Dr. Anurag Newman MD. 05:13 Patient medically screened. [facility] 09/28 02:39 Order name: Basic Metabolic Panel; Complete Time: 04:02 [facility] 09/28 02:39 Order name: CBC with Diff; Complete Time: 03:45 [facility] 09/28 02:39 Order name: Hepatic Function; Complete Time: 04:02 [facility] 09/28 02:39 Order name: Lipase; Complete Time: 04:02 [facility] 09/28 04:02 Order name: Amylase, Serum [facility] 09/28 05:30 Order name: Lipid Profile [facility] 09/28 05:31 Order name: CBC with Automated Diff [facility] 09/28 05:31 Order name: CBC with Automated Diff [facility] 09/28 05:31 Order name: Comprehensive Metabolic Panel [facility] 09/28 05:31 Order name: Comprehensive Metabolic Panel [facility] 09/28 05:31 Order name: Lipase [facility] 09/28 05:31 Order name: Lipase [facility] 09/28 05:44 Order name: COVID-19 mg2 09/28 05:54 Order name: CORONAVIRUS [facility] 09/28 02:39 Order name: IV Saline Lock; Complete Time: 03:18 [facility] 09/28 02:39 Order name: Labs collected and sent; Complete Time: 03:18 [facility] 09/28 02:39 Order name: EKG - Nurse/Tech; Complete Time: 03:46 [facility] 09/28 02:40 Order name: CT Abd/Pelvis - IV Contrast Only [facility] 09/28 05:30 Order name: CONS Pharmacy Consult [facility] 09/28 05:30 Order name: CONS Physician Consult [facility] 09/28 05:30 Order name: CONS Physician Consult [facility] 09/28 05:30 Order name: NPO [facility] 09/28 06:47 Order name: SARS-COV-2 RT PCR EDMS Administered Medications: 03:00 Drug: morphine 2 mg Route: IVP; Site: right antecubital; lp1 04:00 Follow up: Response: No adverse reaction lp1 03:00 Drug: Zofran (Ondansetron) 4 mg Route: IVP; Site: right antecubital; lp1 04:30 Follow up: Response: Nausea unchanged lp1 03:00 Drug: Pepcid 20 mg Route: IVP; Site: right wrist; lp1 04:00 Follow up: Response: No adverse reaction lp1 03:00 Drug: NS 0.9% 1000 ml Route: IV; Rate: 1000 ml; Site: right antecubital; lp1 05:00 Follow up: IV Status: Completed infusion; IV Intake: 1000ml lp1 04:59 Drug: NS 0.9% 1000 ml Route: IV; Rate: 1000 ml; Site: right antecubital; lp1 05:00 Drug: Zofran (Ondansetron) 4 mg Route: IVP; Site: right antecubital; lp1 06:28 Follow up: Response: Nausea is decreased lp1 06:54 Drug: morphine 2 mg Route: IVP; Site: right antecubital; lp1 07:30 Follow up: Response: No adverse reaction; RASS: Alert and Calm (0) sv Disposition: 09/28/20 05:13 Hospitalization ordered by Anurag Newman for Observation. Preliminary diagnosis is Acute Pancreatitis. - Bed requested for Telemetry/MedSurg (observation). - Status is Observation. sv - Condition is Stable. - Problem is an acute exacerbation. - Symptoms have improved. Signatures: Dispatcher [employer] EDMS Lolis Chinchilla RN RN dm5 Verde, Stephanie, RN RN sv Webb, Martha, RN RN mw Pena, Laura, RN RN 1 Tae Vogt MD MD 7 Corrections: (The following items were deleted from the chart) 05:43 05:13 Hospitalization Ordered by Anurag Newman MD for Observation. Preliminary mw diagnosis is Acute Pancreatitis. Bed requested for Telemetry/MedSurg (observation). Status is Observation. Condition is Stable. Problem is an acute exacerbation. Symptoms have improved. mh7 07:52 05:43 09/28/2020 05:13 Hospitalization Ordered by Anurag Newman MD for Observation. sv Preliminary diagnosis is Acute Pancreatitis. Bed requested for Telemetry/MedSurg (observation). Status is Observation. Condition is Stable. Problem is an acute exacerbation. Symptoms have improved. mw
[2020-09-28] MEDS ORDERED: ONDANSETRON 4 MG/2 ML VIAL IV PRN (05:24)
[2020-09-28] MEDS ORDERED: MORPHINE 2 MG/ML SYR IV PRN (05:24)
[2020-09-28] MEDS ORDERED: HYDRALAZINE HCL 20 MG/ML VIAL IV PRN (05:26)
[2020-09-28] MEDS ORDERED: ALBUTEROL 2.5 MG/3 ML NEB SOL NEB PRN ×2 (05:26→12:00)
--- NOTE | 2020-09-28 05:37 | P.HP ---
Certification for Inpatient With expected LOS: >2 Midnights Patient will require the following post-hospital care: None Practitioner: I am a practitioner with admitting privileges, knowledge of patient current condition, hospital course, and medical plan of care. Services: Services provided to patient in accordance with Admission requirements found in Title 42 Section 412.3 of the Code of Federal Regulations Patient History Date of Service: 09/28/20 Reason for admission: abdominal pain History of Present Illness: 75 yr old female with HTN , prior history of acute pancreatitis complicated with acute resp failure requiring transfer from here to [facility] , intubation and vent use , cardiac arrhythmias requiring pacemaker placement and subsequent cholecystectomy past extubation 3 years ago, Fluid retention ? diastolic CHF requiring daily diuretics- previously on spironolactone but changed to Lasix qod after hyperkalemia 4 months ago : presented today for recurrent nausea, vomiting and abdominal pain . Her pain is located in epigastric area, crampy , unable to keep liquids down . No diarrhea , no fever or chills, She admit to transient headache that has resolved now In the ER , CT abdomen shows acute pancreatitis without cyst or necrosis , also noted cholecystectomy with no evidence of cholelithiasis.No hx of alcohol use , no recent meds change .Daughter at bedside helping with history Allergies morphine Adverse Reaction (Verified 10/27/18 11:12) Nausea/Vomiting Home Medications: Fenofibrate,Micronized [Antara] 130 mg PO DAILY 05/21/15 Fish Oil/Dha/Epa [Fish Oil 1,200 mg Fish Oil] 1 each PO DAILY 05/21/15 Metoprolol Succinate [Toprol Xl*] 150 mg PO [id number] 05/21/15 Cyclosporine [Restasis] 1 drop EACH EYE BID 10/18/17 Aspirin [Aspirin EC 81 MG] 81 mg PO DAILY 09/15/18 Estrogens, Conjugated [Premarin] 0.625 mg PO DAILY 09/15/18 Furosemide [Lasix*] 20 mg PO EVERY 3RD DAY PRN 09/15/18 Losartan Potassium 100 mg PO [id number] 09/15/18 - Past Medical/Surgical History Diabetic: No -: HTN -: small CVA -: bladder suspension -: hysterectomy -: cholecystectomy -: PPM placement - Family History Father -: Hypertension Notes: [place], HTN Mother -: Cancer Notes: ovarian cancer - Social History Smoking Status: Never smoker Smoking therapy provided: No Patient receptive to therapy: No Alcohol use: No Caffeine use: Yes Place of Residence: Home Review of Systems 10-point ROS is otherwise unremarkable Physical Examination - Physical Exam General: Alert, Oriented x3, Cooperative, Obese HEENT: Atraumatic, Normocephalic Neck: Supple, 2+ carotid pulse no bruit, JVD not distended Respiratory: Clear to auscultation bilaterally, Normal air movement Cardiovascular: No edema, Normal pulses, Regular rate/rhythm, Normal S1 S2 Gastrointestinal: Normal bowel sounds, Soft and benign, Non-distended, No rebound, No guarding, Tenderness Musculoskeletal: No clubbing, No swelling Neurological: Normal gait, Normal speech, Normal strength at 5/5 x4 extr - Studies Laboratory Data (last 24 hrs) 09/28/20 03:00: Amylase > 1302 H* 09/28/20 03:00: WBC 12.6 H, Hgb 8.3 L, Hct 27.8 L, Plt Count 281 09/28/20 03:00: Sodium 143, Potassium 4.1, BUN 39 H, Creatinine 1.58 H, Glucose 152 H, Total Bilirubin 0.3, AST 46 H, ALT 30, Alkaline Phosphatase 84, Lipase 52767 H Assessment and Plan - Problems (Diagnosis) (1) Acute pancreatitis Current Visit: Yes Status: Acute (2) HTN (hypertension) Current Visit: Yes Status: Acute (3) Acute kidney failure Onset Date: 10/19/17 Current Visit: No Status: Acute - Advance Directives Does patient have a Living Will: No Does patient have a Durable POA for Healthcare: No Physician Review: Patient Assessed, Agree with Above Assessment and Plan Physician Review Additional Text: # Acute Pancreatitis - likely severe given marked elevated lipase of > 23 k - will place on NPO -GI consult - will start IV zofran for antiemitics and pain regime - gentle IVF with D5NS -start insulin slidin scale - will cover with empirical abx with meropenem since prior sever pancreatitis with complicated course -trend lipase levels daily -obtain lipid penal -Hold fenofibrate for now #ARF - may be due to above - hold diuretics - Renal eval - renally dose all meds #HTN - resume Toprol - follow telemetry # s/p PPM - in sinus rhthym now , follow #DVT prop- sc heparin # Advance directive - discussed , pt and daugter wishes full code # Dispo- possible > 72 hrs Time Spent Managing Pts Care (In Minutes): 70
[2020-09-28] MEDS ORDERED: D5 0.9 NS 1,000 ML IV SCH (06:00)
[2020-09-28] MEDS: INSULIN -REGULAR HUMAN 50 UNIT/0.5 ML ML SQ SCH ×4 (07:30→20:54)
[2020-09-28 08:30] VITALS: BMI 23.6
[2020-09-28] MEDS: [UNRECOGNIZED DRUG - OTHER] OPTH SCH ×2 (08:48→21:00)
[2020-09-28] MEDS: CYCLOSPORINE OPTH SCH ×2 (08:48→21:00)
[2020-09-28] MEDS: ASPIRIN EC 81 MG TAB PO SCH (08:59)
[2020-09-28] MEDS ORDERED: Meropenem 500 MG VIAL IV SCH (09:00)
[2020-09-28] MEDS: HEPARIN 5000 UNIT/ML 1 ML VIAL SQ SCH ×2 (09:00→20:54)
[2020-09-28] MEDS: METOPROLOL XL 100 MG TAB PO SCH (09:00)
[2020-09-28] MEDS: Meropenem 500 MG in NA CHLORIDE 0.9% 100 ML IV SCH ×3 (09:00→16:34)
[2020-09-28] MEDS: FAMOTIDINE 20 MG/2 ML VIAL IV SCH ×2 (09:01→20:54)
[2020-09-28] MEDS: NA CHLORIDE 0.9% 1,000 ML IV SCH ×2 (12:02→22:00)
[2020-09-28] MEDS ORDERED: SODIUM CHLORIDE 0.9% 10ML INJ IV PRN (12:55)
[2020-09-28] MEDS: PANTOPRAZOLE 40 MG INJ IVP SCH ×2 (13:01→20:54)
--- NOTE | 2020-09-28 18:10 | RAD REPORT ---
EXAM DESCRIPTION: CT Abdomen and Pelvis With Intravenous Contrast CLINICAL HISTORY: The patient is 75 years old and is Female; ABD PAIN TECHNIQUE: Axial computed tomography images of the abdomen and pelvis with intravenous contrast. S agittal and coronal reformatted images were created and reviewed. This CT exam was performed using one or more of the following dose reduction techniques: automated exposure control, adjustment of t he mA and/or kV according to patient size, and/or use of iterative reconstruction technique. COMPARISON: CT abdomen and pelvis without contrast October 19, 2017. FINDINGS: Lung bases: Unremarkable. No mass. No consolidation. Mediastinum: Moderately sized hiatal hernia. ABDOMEN: Liver: 2.8 cm hypodense lesion in the posterior medial right hepatic lobe. Hounsfield units are c onsistent with cyst. No follow-up imaging recommended. Gallbladder and bile ducts: Cholecystectomy without choledocholithiasis visualized. No ductal dilation. Pancreas: Pancreatic edema with peripancreatic fluid. No pancreatic duct dilatation. Spleen: Unremarkable. No splenomegaly. Adrenals: Unremarkable. No mass. Kidneys and ureters: No nephrolithiasis, hydronephrosis or ureter stone. Stomach and bowel: Colonic diverticulosis. No small bowel dilatation or obstruction. No mucosal thickening. PELVIS: Appendix: No findings to suggest acute appendicitis. Bladder: Unremarkable. No mass. Reproductive: Hysterectomy. ABDOMEN and PELVIS: Intraperitoneal space: Unremarkable. No free air. No significant fluid collection. Bones/joints: Degenerative changes in the spine. Scoliosis with concavity to the left. No acute fracture. No dislocation. Soft tissues: Unremarkable. Vasculature: Unremarkable. No abdominal aortic aneurysm. Lymph nodes: No pathologically enlarged lymph nodes. Tubes, lines and devices: Intracardiac pacer leads. IMPRESSION: 1. Findings are consistent with acute pancreatitis. 2. Cholecystectomy without choledocholithiasis visualized. 3. Colonic diverticulosis. 4. Moderately sized hiatal hernia. 5. Additional non-emergent findings as above. 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 The interpreting radiologist is fully responsible for the content of the report.
--- NOTE | 2020-09-28 18:57 | CON ---
Date of Consultation: 09/28/2020 Reason For Consultation: Acute pancreatitis. History Of Present Illness: The patient is a 75-year-old white female with history of hypertension, stroke, pacemaker placement, congestive heart failure, bladder suspension, cholecystectomy. The messi ent presented to the hospital due to severe generalized abdominal pain, 10/10 maximum, now down to 5/ 10 with p.r.n. pain medicines and antiemetics. The patient also reported nausea, vomiting, chills, b ut denied any fever, change in bowel habits, melena, hematochezia. CT scan revealed pancreatitis wit h a lipase level of 23,098 and lipase greater than 1302, AST slightly elevated at 46, ALT normal at 3 0, alkaline phosphatase 84, triglycerides normal at 207. Of note, the patient has a history of it ap pears a pancreatitis with a laparoscopic cholecystectomy in the past in the [facility] where she presented with a history of pancreatitis with acute respiratory failure requiring transfer to the [facility] where she was intubated with mechanical ventilation, cardiac arrhythmias requiring pacema ker placement, subsequent cholecystectomy after extubation, and this all occurred about 3 years ago. She is unsure if she had ERCP at that time. Past Medical History: Significant for pancreatitis in the past leading to acute respiratory failure, transferred to [facility] with mechanical ventilation and cardiac arrhythmias, requiring pacemak er placement, cholecystectomy. Possible diastolic congestive heart failure by chart review, hyperten april, stroke, pacemaker placement, bladder resuspension, hysterectomy, cholecystectomy. Medicines: Include Antara, fish oil, Toprol, Restasis, aspirin, Premarin, Lasix, losartan. Allergies: MORPHINE. Social History: She is a . Two children. No tobacco. No alcohol. Family History: Father in a water accident in the [place] in [place]. He had hypertension and po ssible silent [place] during this water accident. Mother of ovarian cancer. Review of Systems: The patient has generalized abdominal pain, 10/10, now down to 5/10; nausea; vomiting; chills. She d enies any fever, change in bowel habits, melena, hematochezia, hematemesis, coffee-grounds emesis, se izure, syncope, muscle aches, joint aches, backaches, depression, anxiety, or joint aches. Physical Examination: Vital Signs: The patient is 5 feet 1 inches, 125 pounds, BMI 23.6 kg/m2. Temperature 95.8 degrees F ahrenheit, pulse 60, respirations 17, blood pressure 150/70, O2 saturation 97%. General: She is an elderly female, lying in bed, in no acute distress. HEENT: Normocephalic, atraumatic. Anicteric. Pupils equal, round, and reactive to light. Extraocu lar movements are intact. Oropharynx is clear. Neck: Supple. No masses. Respirations: Clear to auscultation bilaterally. Cardiac: Regular rate and rhythm. No gallops or rubs. Abdomen: Positive bowel sounds. Soft, nondistended. Some tenderness is generalized. No peritoneal or Hough sign. Mild guarding. Extremities: No clubbing or cyanosis. Maybe some slight edema in lower extremities. Neurologic: Alert and oriented to time, person, place. She is able to move all extremities well. Laboratory Data: The patient has a sodium of 143, potassium 4.1, chloride 110, bicarb 23, BUN of 39, creatinine of 1.58, glucose 152, calcium 9.9, total bilirubin 0.3, direct bilirubin less than 0.1, A ST 46, ALT 30, alkaline phosphatase 84, total protein 6.0, albumin 3.1, triglycerides 207, cholestero l 123, LDL is 228, HDL 54, amylase greater than 1302, lipase 82802. White count of 12.6 with polys o f 90%, lymphocytes 3%, monocytes 7%, hemoglobin 8.3, hematocrit 27.8, MCV of 71, platelet count 281. COVID test is negative. CT abdomen and pelvis reveals an acute pancreatitis by verbal report, final reports not in computer. Impression: 1.Acute pancreatitis. She has abdominal pain, 10/10, now down to 5/10 with p.r.n. pain medications and antiemetics. The patient has a history of nausea, vomiting, and chills, but no fever, melena, he matochezia, change in bowel habits, or other. CT scan reveals pancreatitis by verbal report. Lipase is elevated at 23,098, amylase elevated greater than 1302, AST is slightly elevated at 46 with jacobo l AST of 30, alkaline phosphatase of 84, triglycerides slightly elevated at 207. 2.Sepsis, white count of 12.6, probably associated with pancreatitis. Need chest x-ray if not done and urinalysis with elevated white count. Recommendations: 1.Continue IV fluids. 2.Continue p.r.n. pain medications and antiemetics. 3.Monitor labs. 4.Try to obtain prior pancreatitis and surgery records for possible ERCP done at that time. 5.Check chest x-ray and urinalysis with white count elevated at 12.6. SHILPA/RUTH ANN Voice ID: [id number] Report ID: [id number]
--- NOTE | 2020-09-28 20:15 | RAD REPORT ---
EXAM DESCRIPTION: RAD - Chest Single View - 09/28/2020 6:52 pm CLINICAL HISTORY: sepsis unexplained Chest pain. COMPARISON: Chest Single View dated 10/18/2017; Chest Single View dated 08/07/2017; Chest Pa And Lat ( 2 Views) dated 11/24/2016; CHEST PA AND LAT 2 VIEW dated 05/01/2014; Abdomen Pelvis W Contrast dated 09/28/2020 FINDINGS: Portable technique limits examination quality. The lungs are grossly clear. Moderate hiatal hernia suspected. The heart is mildly prominent with siomara l lead pacer device. No displaced fractures. IMPRESSION: No acute intrathoracic process suspected.
--- NOTE | 2020-09-28 22:48 | CON ---
Date of Consultation: 09/28/2020 Chief Complaint: Acute on chronic kidney injury secondary to renal hypoperfusion, non-oliguric ATN in setting of acute pancreatitis and hypovolemia. History Of Present Illness: The patient has multiple medical problems. She is 75-year-old female with history of hypertension, CVA, pacemaker replacement, congestive heart failure, bladder suspension, cholecystectomy, previous history of acute pancreatitis. The patient presented to the hospital due to severe generalized abdominal pain, maximum of 10/10, improved to 5/10 with p.r.n. medication and antiemetics. The patient was complaining of nausea, vomiting, chills, but denied fever. She denied melena, hematuria or dysuria. The patient previously was treated with laparoscopic cholecystectomy when she developed acute pancreatitis. She was transferred to [facility]. The patient at this time was intubated, on mechanical ventilation. Had cardiac arrhythmias and required pacemaker placement. Subsequently, she has cholecystectomy done previously. Review of Systems: Constitutional: Denies PND, orthopnea. Eyes: Denies vision changes. Ears, Nose, Mouth and Throat: Denies sore throat, earache. Respiratory: Denies cough, hemoptysis. GI: Was complaining of abdominal pain. Denies melena, hematemesis. She had vomiting, had chills. Denies fever. All other systems reviewed and all are negative. Past Medical History: Acute pancreatitis, acute respiratory failure, mechanical ventilation for acute respiratory failure, cardiac arrhythmia, congestive heart failure, diastolic dysfunction, hypertension, CVA, pacemaker, cholecystectomy, hysterectomy, bladder suspension, chronic kidney stage 3. Family History: Father because of water accident, hypertension and possible silent [place] in her father. Mother of ovarian cancer. Social History: Denies tobacco, alcohol, illicit drugs. Physical Examination: General: The patient is awake, alert, follows commands. She is somewhat confused. Vital Signs: Blood pressure 150/70, O2 saturation 97, heart rate 60. Eyes: Anicteric sclerae. EOMI. Ears, Nose and Throat: Oral mucosa moist. No pallor. Neck: Supple. No bruits. Lungs: Diminished breath sounds at bases. Heart: S1, S2. No pericardial friction rub. ABDOMEN: Soft, generalized tenderness. No rebound. No guarding. Extremities: No cyanosis. No clubbing. Neurologic: Moving extremities. Cranial nerves intact. Laboratory Data: Sodium 143, potassium 4.1, chloride 110, bicarbonate 23, BUN 39, creatinine 1.58, glucose 152, calcium 9.9, total [place] 0[place] [address]. White count 12.6, hemoglobin 8.3. CT of the abdomen and pelvis without contrast reveal acute pancreatitis. There is no hydronephrosis. No ureteral stone. No nephrolithiasis. Impression: 1. Acute on chronic kidney injury secondary to prerenal azotemia, non-oliguric acute tubular necrosis. The patient was started on IV fluids. Continue to monitor fluid balance. 2. Hypertension. Avoid angiotensin receptor roxana in view of acute kidney injury. 3. Severe leukocytosis secondary to pancreatitis. Cultures were obtained and pending. 4. Benign nephrosclerosis. Avoid nephrotoxic medication. 5. Anemia. Workup per primary team. 6. Acute on chronic kidney injury secondary to acute pancreatitis. The patient previously underwent cholecystectomy. The patient may need ERCP and this will be addressed by Gastroenterology. RUTHANN/RUTH ANN Voice ID: [id number] Report ID: [id number] YESI
[2020-09-29] MEDS: NA CHLORIDE 0.9% 1,000 ML IV SCH ×4 (00:01→17:49)
[2020-09-29] MEDS: Meropenem 500 MG in NA CHLORIDE 0.9% 100 ML IV SCH ×3 (00:02→16:04)
[2020-09-29 05:53] LABS: Absolute Lymphocytes (CBC) 0.7 K/uL (0.7-4.9); Basophils % 0.3 % (0-1.3); Lymphocytes % 8.4 % (15.3-44.8); MPV 9.6 fL (7.6-11.3)
[2020-09-29] MEDS: METOPROLOL XL 100 MG TAB PO SCH (05:59)
[2020-09-29 06:10] LABS: Albumin 2.8 g/dL (3.4-5.0); Bilirubin Total 0.2 mg/dL (0.2-1.0); Potassium 4.8 mmol/L (3.5-5.1); Protein, Total 5.7 g/dL (6.4-8.2)
[2020-09-29 07:19] LABS: Anisocytosis 1+; Blood Morphology Comment NOTED (NOT SEEN); Hypochromasia 1+; Platelet Estimate ADEQ; White Blood Cell Scan OK (OK)
[2020-09-29] MEDS: INSULIN -REGULAR HUMAN 50 UNIT/0.5 ML ML SQ SCH ×4 (07:30→21:00)
[2020-09-29] MEDS: ASPIRIN EC 81 MG TAB PO SCH (08:24)
[2020-09-29] MEDS: PANTOPRAZOLE 40 MG INJ IVP SCH ×2 (08:24→20:31)
[2020-09-29] MEDS: FAMOTIDINE 20 MG/2 ML VIAL IV SCH ×2 (08:24→20:31)
[2020-09-29] MEDS: CYCLOSPORINE OPTH SCH ×2 (08:25→21:00)
[2020-09-29] MEDS: [UNRECOGNIZED DRUG - OTHER] OPTH SCH ×2 (08:25→21:00)
[2020-09-29] MEDS: HEPARIN 5000 UNIT/ML 1 ML VIAL SQ SCH ×2 (08:26→20:31)
[2020-09-29 12:32] LABS: Ferritin 21.8 ng/mL (8-388)
[2020-09-29 12:47] LABS: Hematocrit 25.2 % (36.0-45.0)
--- NOTE | 2020-09-29 16:22 | P.PN ---
Subjective Date of Service: 09/29/20 Chief Complaint: general abdominal pain, pancreatitis Subjective: Improving (Lipase is decreasing from 23K to 13K. She has h/o pancreatitis with anemia, resp failure / mech vent, ARF in past with lap eh in [place], [place]. Unclear if prior ERCP or if gallstones present in past. CT now negative for biliary dilatation / stones; unable to do MRCP due to pacemaker.) Physical Examination - Vital Signs Temperature: 96.2 F Blood Pressure: 138/72 Pulse: 66 Respirations: 18 Pulse Ox (%): 93 Assessment And Plan - Current Problems (Diagnosis) (1) Acute pancreatitis Current Visit: Yes Status: Acute (2) Acute kidney failure Onset Date: 10/19/17 Current Visit: No Status: Acute (3) Generalized abdominal pain Current Visit: Yes Status: Acute (4) Nausea & vomiting Current Visit: Yes Status: Acute (5) HTN (hypertension) Current Visit: Yes Status: Acute (6) Dehydration Onset Date: 10/19/17 Current Visit: No Status: Acute - Plan REC: 1) continue IVFs 2) continue prn pain medications & anti-emetics 3) check U/S abdomen to better evaluate biliary system 4) monitor labs Physician Review: Patient Assessed, Agree with Above Assessment and Plan Physician Review Additional Text: # Acute Pancreatitis - likely severe given marked elevated lipase of > 23 k - will place on NPO -GI consult - will start IV zofran for antiemitics and pain regime - gentle IVF with D5NS -start insulin slidin scale - will cover with empirical abx with meropenem since prior sever pancreatitis with complicated course -trend lipase levels daily -obtain lipid penal -Hold fenofibrate for now #ARF - may be due to above - hold diuretics - Renal eval - renally dose all meds #HTN - resume Toprol - follow telemetry # s/p PPM - in sinus rhthym now , follow #DVT prop- sc heparin # Advance directive - discussed , pt and daugter wishes full code # Dispo- possible > 72 hrs
[2020-09-29] MEDS ORDERED: NA CHLORIDE 0.9% 250 ML ONE (17:10)
--- NOTE | 2020-09-29 18:25 | PN ---
Date of Progress Note: 09/29/2020 The patient states she is not having any pain at present. On physical exam, her abdomen is soft and nontender. Her lipase has dropped almost half in 25,000 and 12,000 range. Remainder of her blood wo rk is at baseline for her with slightly elevated creatinine. Her intake has been minimal. However, her hemoglobin has dropped to 7.5. In view of this, I feel it is being justified in giving her at le ast 1 unit of blood. This is somewhat of a similar pattern of 3 or 4 years ago; however, the last ti me, she developed pneumonitis and actually had to be intubated. She also required a pacemaker. This illness does not seem quite as severe and the sudden onset and the presentation is not toxic. She i s still slightly confused, however. We will discuss further with Dr. Quinones in regard to an ERCP. I have no indication that she has had this in the past. In fact between the episodes, she has done qu ite well with a hospitalization approximately 6 months ago for a potassium problem, which has been re solved. Continue present regimen in addition of the blood and depending on the pathway of her pancre atitis, determine the next treatment scenario in regard to her ERCP. HR/MODL Voice ID: [id number] Report ID: [id number]
[2020-09-29 18:42] LABS: Urine Appearance CLEAR; Urine Bilirubin NEGATIVE (NEG); Urine Blood NEGATIVE (NEG); Urine Color YELLOW; Urine Glucose NEGATIVE (NEG); Urine Protein 1+ (NEG); Urine Urobilinogen 0.2 mg/dL (0.2-1.0); Urine pH 5.5 (5.0-7.0)
--- NOTE | 2020-09-29 18:53 | RAD REPORT ---
EXAM DESCRIPTION: US - Abdomen Exam Limited - 09/29/2020 6:34 pm CLINICAL HISTORY: possible stone in biliary tree Abdominal pain COMPARISON: Renal Ultrasound-Complete dated 08/19/2017 FINDINGS: The gallbladder is surgically absent. The common bile duct is mildly enlarged measuring 8 mm. The liver demonstrates no findings of intrahepatic biliary dilatation. IMPRESSION: Common bile duct is enlarged measuring 8 mm without visible stone. If there is continue d concern for choledocholithiasis, consider followup MRCP.
[2020-09-29 19:15] LABS: Urine Bacteria <20 /HPF (<20); Urine Microscopic Reflex ORDER UMIC; Urine RBC <5 /HPF (NONE SEEN)
[2020-09-29 19:16] LABS: Urine Mucus 1+ /HPF (NONE SEEN)
--- NOTE | 2020-09-29 21:40 | PN ---
Date of Progress Note: 09/29/2020 Chief Complaint: Acute on chronic kidney injury secondary to renal hypoperfusion, non-oliguric ATN in the setting of acute pancreatitis and hypovolemia. History Of Present Illness: Patient has had poor p.o. intake. Patient developed acute pancreatitis. Previously, she was transferred to [facility] for cholecystectomy when she had acute pancreatitis bout. Patient has multiple medical problems including CVA, pacemaker, congestive heart failure, bladder suspension, and hypertension. Patient was complaining of abdominal pain. On admission today, she denied pain, although her p.o. intake has not improved. She does not have appetite. She is on IV fluids to prevent renal hypoperfusion to treat hypokalemia. Review of Systems: Denies PND, orthopnea. Physical Examination: Lungs: Diminished breath sounds at bases. Heart: S1, S2. Abdomen: Soft, benign. Extremities: No edema. Impression And Plan: Acute on chronic kidney injury secondary to non-oliguric acute tubular necrosis. Continue IV fluids to prevent renal hypoperfusion. Patient had severe pancreatitis. Lipase level was 23,098. Patient was found to have leukocytosis, likely secondary to pancreatitis. Cultures pending. Patient has chronic kidney disease with benign nephrosclerosis. Plan is to continue IV hydration and monitor fluid balance. Avoid nephrotoxic medication. Monitor blood pressure and avoid angiotensin receptor roxana. I spent total 36 min including 24 min to coordinate care plan. RUTHANN/RUTH ANN Voice ID: [id number] Report ID: [id number] YESI
[2020-09-29 23:39] LABS: Hematocrit 30.3 % (36.0-45.0)
[2020-09-30] MEDS: Meropenem 500 MG in NA CHLORIDE 0.9% 100 ML IV SCH ×2 (00:21→10:59)
[2020-09-30] MEDS: NA CHLORIDE 0.9% 1,000 ML IV SCH ×2 (04:00→11:01)
[2020-09-30 04:36] LABS: Absolute Lymphocytes (CBC) 0.8 K/uL (0.7-4.9); Basophils % 0.4 % (0-1.3); Hematocrit 30.1 % (36.0-45.0); Lymphocytes % 6.7 % (15.3-44.8); MPV 9.6 fL (7.6-11.3); RBC Red Blood Cell Count 4.11 M/uL (3.86-4.86)
[2020-09-30 05:15] LABS: Albumin 2.6 g/dL (3.4-5.0); Bilirubin Total 0.2 mg/dL (0.2-1.0); Potassium 4.4 mmol/L (3.5-5.1); Protein, Total 6.2 g/dL (6.4-8.2)
[2020-09-30] MEDS: METOPROLOL XL 100 MG TAB PO SCH (06:00)
[2020-09-30] MEDS: INSULIN -REGULAR HUMAN 50 UNIT/0.5 ML ML SQ SCH ×4 (07:30→21:00)
[2020-09-30] MEDS ORDERED: D50W 25 GM/50 ML SYRINGE IV PRN (07:44)
[2020-09-30] MEDS: [UNRECOGNIZED DRUG - OTHER] OPTH SCH ×2 (09:00→19:57)
[2020-09-30] MEDS: CYCLOSPORINE OPTH SCH ×2 (09:00→19:57)
[2020-09-30] MEDS: FAMOTIDINE 20 MG/2 ML VIAL IV SCH ×2 (10:02→19:58)
[2020-09-30] MEDS: HEPARIN 5000 UNIT/ML 1 ML VIAL SQ SCH ×2 (10:02→19:57)
[2020-09-30] MEDS: ASPIRIN EC 81 MG TAB PO SCH (10:02)
[2020-09-30] MEDS: PANTOPRAZOLE 40 MG INJ IVP SCH ×2 (11:05→19:57)
[2020-09-30] MEDS ORDERED: NA CHLORIDE 0.9% 1,000 ML IV SCH (11:38)
--- NOTE | 2020-09-30 11:51 | P.PN ---
Subjective Date of Service: 09/30/20 Chief Complaint: general abdominal pain, pancreatitis Subjective Pt with Hx of pancreatisit , CHF S/P AICD , pt hax of pancreatitis in the past and was transferred for cholecystecomy Today wheezing, will reduce IVF and order CXR will start IV iron lipase trending down Physical exam general: Awake and alert , NAD Neck; Supple, No elevated JVD hear: RRR, normal S1,2 no murmur or rub Chest: diffuse wheezes Abdomen: Soft , Nt Extremities trace edema, A/P DAVIE cr stable now renal dose meds will reduce IVF rate ACute pancreatitis lipase trending down liquid diet GI on Board DI will start IV Iron Hx of CHF with AICD off diuretics will order CXR cont to hold diuretics total time spent 25min Physical Examination - Vital Signs Temperature: 95.8 F Blood Pressure: 177/83 Pulse: 75 Respirations: 20 Pulse Ox (%): 92 Assessment And Plan Physician Review: Patient Assessed, Agree with Above Assessment and Plan
--- NOTE | 2020-09-30 13:26 | RAD REPORT ---
EXAM DESCRIPTION: Shiv Single View09/30/2020 1:14 pm CLINICAL HISTORY: Chest pain COMPARISON: September 2020 FINDINGS: The lungs appear clear of acute infiltrate. The heart is mildly enlarged. A moderate hiatal hernia. Pacemaker leads in place
[2020-09-30] MEDS ORDERED: D5 0.9 NS 1,000 ML IV SCH (15:00)
[2020-09-30] MEDS: SOD FERRIC GLUC COMPLX/SUCROSE 125 MG in NA CHLORIDE 0.9% 100 ML IV SCH (15:51)
[2020-09-30] MEDS: AMLODIPINE 5 MG TAB PO SCH (15:52)
[2020-09-30] MEDS: ALBUTEROL 2.5 MG/3 ML NEB SOL NEB SCH ×2 (16:14→20:00)
[2020-09-30 16:30] LABS: Hematocrit 31.2 % (36.0-45.0)
--- NOTE | 2020-09-30 17:10 | RAD REPORT ---
EXAM DESCRIPTION: CT - Head Brain Wo Cont - 09/30/2020 4:48 pm CLINICAL HISTORY: altered mental status COMPARISON: Head Brain Wo Cont dated 08/07/2017 TECHNIQUE: Axial 5 mm thick images of the head were obtained without IV contrast. All CT scans are performed using dose optimization technique as appropriate and may include automated exposure control or mA/KV adjustment according to patient size. FINDINGS: No intracranial hemorrhage, mass, edema or shift of mid-line structures. No acute infarcti on changes seen. No cortical edema or sulcal effacement. Moderate atrophy and moderate chronic ischem ic changes are present matching prior study. Ventricles are in proportion to volume loss. Mastoid air cells and visualized portions of the paranasal sinuses are clear. No acute bony findings. IMPRESSION: Negative non-contrast CT head examination for acute finding. Atrophy chronic ischemic changes are present matching 2017 imaging.
--- NOTE | 2020-09-30 18:32 | P.PN ---
Subjective Date of Service: 09/30/20 Chief Complaint: general abdominal pain, pancreatitis Subjective: Improving (Lipase continues to decline from 13k to 5k today. Hgb 7.5 to 9.7 after PRBCs. No blood seen by patient / family / RNs.) Physical Examination - Vital Signs Temperature: 96.4 F Blood Pressure: 168/86 Pulse: 73 Respirations: 20 Pulse Ox (%): 93 Assessment And Plan - Current Problems (Diagnosis) (1) Acute pancreatitis Current Visit: Yes Status: Acute (2) Acute kidney failure Onset Date: 10/19/17 Current Visit: No Status: Acute (3) Generalized abdominal pain Current Visit: Yes Status: Acute (4) Nausea & vomiting Current Visit: Yes Status: Acute (5) HTN (hypertension) Current Visit: Yes Status: Acute (6) Dehydration Onset Date: 10/19/17 Current Visit: No Status: Acute (7) Anemia Current Visit: Yes Status: Acute - Plan REC: 1) continue IVFs 2) continue prn pain medications & anti-emetics 3) check U/S abdomen to better evaluate biliary system 4) monitor labs Physician Review: Patient Assessed, Agree with Above Assessment and Plan Physician Review Additional Text: # Acute Pancreatitis - likely severe given marked elevated lipase of > 23 k - will place on NPO -GI consult - will start IV zofran for antiemitics and pain regime - gentle IVF with D5NS -start insulin slidin scale - will cover with empirical abx with meropenem since prior sever pancreatitis with complicated course -trend lipase levels daily -obtain lipid penal -Hold fenofibrate for now #ARF - may be due to above - hold diuretics - Renal eval - renally dose all meds #HTN - resume Toprol - follow telemetry # s/p PPM - in sinus rhthym now , follow #DVT prop- sc heparin # Advance directive - discussed , pt and daugter wishes full code # Dispo- possible > 72 hrs
[2020-10-01] MEDS: METOPROLOL XL 100 MG TAB PO SCH (06:00)
[2020-10-01 06:33] LABS: Absolute Lymphocytes (CBC) 0.7 K/uL (0.7-4.9); Basophils % 0.3 % (0-1.3); Lymphocytes % 4.9 % (15.3-44.8); MPV 9.5 fL (7.6-11.3); RBC Red Blood Cell Count 4.15 M/uL (3.86-4.86)
[2020-10-01 06:56] LABS: Albumin 2.6 g/dL (3.4-5.0); Bilirubin Total 0.2 mg/dL (0.2-1.0); Magnesium 2.2 mg/dL (1.8-2.4); Protein, Total 6.2 g/dL (6.4-8.2)
[2020-10-01] MEDS: INSULIN -REGULAR HUMAN 50 UNIT/0.5 ML ML SQ SCH ×4 (07:30→21:00)
[2020-10-01] MEDS ORDERED: FUROSEMIDE 20 MG/ 2ML VIAL IV ONE (07:41)
[2020-10-01] MEDS: ALBUTEROL 2.5 MG/3 ML NEB SOL NEB SCH ×4 (08:26→19:45)
[2020-10-01 08:36] LABS: Platelet Estimate ADEQ
[2020-10-01 08:37] LABS: Anisocytosis 2+; Blood Morphology Comment NOTED (NOT SEEN); Hypochromasia 1+
[2020-10-01] MEDS: [UNRECOGNIZED DRUG - OTHER] OPTH SCH ×2 (09:00→21:00)
[2020-10-01] MEDS: CYCLOSPORINE OPTH SCH ×2 (09:00→21:00)
[2020-10-01] MEDS ORDERED: SOD FERRIC GLUC COMPLX/SUCROSE 125 MG in NA CHLORIDE 0.9% 100 ML IV SCH (09:00)
[2020-10-01] MEDS: PANTOPRAZOLE 40 MG INJ IVP SCH ×2 (09:09→21:24)
[2020-10-01] MEDS: AMLODIPINE 5 MG TAB PO SCH (09:09)
[2020-10-01] MEDS: HEPARIN 5000 UNIT/ML 1 ML VIAL SQ SCH ×2 (09:09→21:21)
[2020-10-01] MEDS: ASPIRIN EC 81 MG TAB PO SCH (09:09)
[2020-10-01] MEDS: FAMOTIDINE 20 MG/2 ML VIAL IV SCH ×2 (09:09→21:21)
[2020-10-01] MEDS: SOD FERRIC GLUC COMPLX/SUCROSE 125 MG in NA CHLORIDE 0.9% 100 ML IV SCH (10:18)
--- NOTE | 2020-10-01 10:35 | RAD REPORT ---
EXAM DESCRIPTION: CT - , shortness of breath - 10/01/2020 9:43 am CLINICAL HISTORY: r/o pe COMPARISON: Abdomen Pelvis W Contrast dated 09/28/2020; Chest Single View dated 09/30/2020 TECHNIQUE: Dynamically enhanced 3 mm thick images of the chest were obtained during administration o f approximately 150mL Isovue 370 IV contrast. Coronal and oblique MIP reconstruction images were gene rated and reviewed. Exam utilizes a protocol to evaluate the pulmonary arterial tree. All CT scans are performed using dose optimization technique as appropriate and may include automated exposure control or mA/KV adjustment according to patient size. FINDINGS: No pulmonary emboli are identified. The aorta as imaged shows no acute or suspicious finding. No pericardial thickening or effusion. Moderately large bilateral pleural effusions are present with partial atelectasis of each lower lobe. Very minimal amounts of ground-glass opacification present in the upper lobes favored to be atelecta sis or edema. No pneumothorax. No pleural based mass. No mediastinal or hilar suspicious masses. No chest wall masses or abnormal axillary lymphadenopathy. IMPRESSION: No pulmonary emboli identified. Moderately large bilateral pleural effusions with partial atelectasis of each lower lobe.
--- NOTE | 2020-10-01 11:35 | P.PN ---
Subjective Date of Service: 10/01/20 Chief Complaint: general abdominal pain, pancreatitis Subjective Pt with Hx of pancreatisit , CHF S/P AICD , pt hax of pancreatitis in the past and was transferred for cholecystecomy Today Chest CT with moderate B/l effusion agree to change fluid to D5w will give extra lasix will start inhaler will consider to DC IVF tomorrow if lipase <1000 Physical exam general: Awake and alert , NAD Neck; Supple, No elevated JVD hear: RRR, normal S1,2 no murmur or rub Chest: diffuse wheezes Abdomen: Soft , Nt Extremities trace edema, A/P DAVIE normalized renal dose meds cont gentle hydration ACute pancreatitis lipase trending down liquid diet GI on Board DI cont IV Iron Hx of CHF AICD now have B/l effusion will start inhlaers lasix X1 today will consider to Dc IVF by tomorrow total time spent 25min Physical Examination - Vital Signs Temperature: 96.9 F Blood Pressure: 146/68 Pulse: 86 Respirations: 22 Pulse Ox (%): 94 Assessment And Plan Physician Review: Patient Assessed, Agree with Above Assessment and Plan
[2020-10-01] MEDS: D5W 1,000 ML IV SCH (13:47)
[2020-10-01] MEDS ORDERED: FUROSEMIDE 40 MG/4 ML VIAL IV ONE (14:00)
--- NOTE | 2020-10-01 14:44 | P.CNS ---
Date of Consult: 10/01/20 Reason for Consult: Acute pancreatitis wheezing Chief Complaint: Shortness of breath History of Present Illness: Patient is 75 years of age admitted with acute pancreatitis the she developed some confusion altered mental status in the past 2 days daughter at the bedside prior to that she is very independent patient in lives by herself history of pancreatitis she develops see this complications including respiratory distress and had to be placed on a ventilator status post cholecystectomy no prior history of cardiopulmonary problems does have a pacemaker in place Allergies No Known Allergies Allergy (Unverified 09/28/20 15:57) Home Medications: Metoprolol Succinate [Toprol Xl*] 150 mg PO LDCLN3PH 05/21/15 Estrogens, Conjugated [Premarin] 0.625 mg PO DAILY 09/15/18 Furosemide [Lasix*] 20 mg PO DIRECTED PRN 09/15/18 Amlodipine [Norvasc] 10 mg PO DAILY 09/28/20 Fenofibrate [Tricor] 145 mg PO DAILY 09/28/20 Levocetirizine Dihydrochloride [Xyzal] 5 mg PO DAILY 09/28/20 Montelukast [Singulair] 10 mg PO DAILY PRN 09/28/20 - Past Medical/Surgical History Diabetic: No -: HTN -: small CVA -: pacemaker (medtronic) -: History of pancreatitis -: bladder suspension -: hysterectomy -: cholecystectomy -: PPM placement - Family History Father Medical History: Hypertension Notes: [place], HTN Mother Medical History: Cancer Notes: ovarian cancer - Social History Alcohol use: No CD- Drugs: No Caffeine use: Yes Place of Residence: Home Review of Systems is unable to be obtained Physical Examination Temp Pulse Resp BP Pulse Ox 96.7 F L 88 24 H 179/77 H 97 10/01/20 12:00 10/01/20 13:45 10/01/20 12:00 10/01/20 13:45 10/01/20 12:00 General: Unresponsive Respiratory: Clear to auscultation bilaterally Cardiovascular: No edema, Normal S1 S2 Gastrointestinal: Normal bowel sounds, Soft and benign - Problems (1) Shortness of breath Current Visit: Yes Status: Acute Plan: Patient is 35 years of age admitted with acute pancreatitis with lipase over 25,000 status post cholecystectomy in common bile duct was mildly dilated probably induced by gallstones he then developed altered mental status and some wheezing CT scan no pulmonary embolus she does have bilateral pleural effusions patient's lipase is declined to 1274 at count is mildly elevated patient's blood pressure is elevated most likely she has acute lung injury from her pancreatitis labs ordered for tomorrow continue with breathing treatments
[2020-10-01] MEDS ORDERED: HALOPERIDOL LACT 5 MG/ML INJ IV PRN (14:47)
--- NOTE | 2020-10-01 17:10 | CON ---
Reason For Consultation: Consultation called because of altered mental status. History Of Present Illness: Ms. Starks is a 75-year-old right-handed patient with hyperten apirl, who is admitted to [facility] with acute pancreatitis and was treated for that by prim barbara team. The patient's daughter was in the room and provided information. She said her mother has no cognitive issues, no confusion, no problems with regard to her thoughts and language, and after co brennon in to [facility], she reportedly received antibiotic and shortly after became disorient ed, would not answer questions appropriately, appeared to stare off, but she did not have any tonic o r clonic activity, and no asymmetry of the face, arm, or leg. This occurred yesterday. There was a code stroke called. Patient did have a CT scan that was negative for any acute ischemic or hemorrhag ic change. There was diffuse atrophy, which was matching the study from 2017. Her blood work showed an elevated white count of now 14.7 with neutrophils 86.6, hemoglobin slightly low at 9.3. It shoul d be noted that on the , she did have a hemoglobin down to 7.5, received 1 unit of packed red blo od cells, and hemoglobin increased to 9.3. Liver function studies are essentially unremarkable, exce pt AST elevated at 47, glucose range 70 to 121, creatinine 1.14. Her urinalysis was negative. Her c hest and thorax CT angiogram showed moderate to large bilateral pleural effusions and partial atelect asis of each lower lobe. At the time of my evaluation on the , patient was actually asleep, havi ng an EEG done. She did arouse and was appropriate for hospital, for the month and year, did not kno w the exact hospital floor. She followed instructions even across the midline from right to left [place]. Past Medical History: As indicated, in addition to hypertension, myocardial infarction, and stroke w ith good recovery. Past Surgical History: Bladder suspension, hysterectomy, cholecystectomy. Family History: Positive for hypertension, myocardial infarction in father. Ovarian cancer in mothe r. Social History: No alcohol, tobacco, or IV drug use, and she occasionally drinks coffee. Allergies: MORPHINE. Home Medications: 1.Antara 130 mg daily. 2.Fish oil 1200 mg daily. 3.Toprol 150 mg daily. 4.Restasis 1 drop each eye twice daily. 5.Aspirin 81 mg daily. 6.Premarin 0.625 mg daily. 7.Lasix 20 mg every third day as needed. 8.Losartan potassium 100 mg daily. Review of Systems: Aside from mentioned, she had no fevers or chills. No nausea or vomiting until prior to hospitalizat ion. No myalgias or arthralgias. No significant rash, headache, or other systemic complaints aside from mentioned and it should be noted that she did have some GI related complaints, which are for jeffy gnosis of acute pancreatitis. Physical Examination: Vital Signs: Blood pressure 160/70, pulse 88, respiratory rate 16 to 20, temperature 97, oxygen satu ration 93% on 2 L to 3 L of oxygen via nasal cannula. General: Ms. Starks is resting in bed, having an EEG done. HEENT: She is normocephalic, atraumatic. Sclerae are anicteric. Oropharynx is moist. Neck: Supple. Chest: Clear. Heart: Regular. Extremities: Show no edema, cyanosis, or clubbing. Neurological: She is alert and oriented to person, situation, and place. She follows commands witho ut difficulty. Cranial nerves show no deficits on 2 through 12. Motor examination: She is symmetri c in upper and lower extremities. Mild diffuse weakness around 4+/5 with no asymmetry. Coordination : Intact in upper and lower extremities. Reflexes: Depressed at 1 with trace in the upper and lowe r extremities. Gait: She will be evaluated by Physical Therapy with gait belt and a walker. Laboratory Data: Her EEG is currently being done. The preliminary review of the EEG shows a diffuse ly slow background, around 7 to 8 hertz with a poorly reactive occipital dominant rhythm; however, loki logan does have a good driving response and photic stimulation was done with eyes closed. She was mo stly asleep throughout the study with 3.5 to 4 hertz activity mixed with 6 to 7 hertz diffusely expre ssed. Assessment: Ms. Starks is a 75-year-old patient with likely multifactorial reasons for encephalopath y, which perhaps include mild vascular dementia, on top of metabolic derangements that would cause me tabolic encephalopathy. She has a negative COVID test. Blood cultures are pending. She is afebrile . She does have a slightly elevated neutrophil count of 86.6 with white blood cell count elevated to 14.7. Her chest and thorax CT angiogram suggest large bilateral pleural effusions and her oxygen sa turation done actually with an ABG to determine if there was mild hypoxia and hypercapnia. Plan: As indicated, an ABG to help determine if improved ventilation is required to help the patient as she likely has a mixed etiology for encephalopathy. At this point, there is no evidence of centr al nervous system infection, but there is a possibility of a pneumonia with elevated white count, lar ge pleural effusions, and neutrophils. We recommend continuing the aspirin 81 mg daily for stroke ri sk reduction. Continue DVT prophylaxis with heparin. Continue with antihypertensive medications. S he will likely benefit from physical, occupational, and speech therapy. DASH/RUTH ANN Voice ID: [id number] Report ID: [id number]
[2020-10-02] MEDS: D5W 1,000 ML IV SCH (04:00)
[2020-10-02] MEDS: METOPROLOL XL 100 MG TAB PO SCH (05:38)
[2020-10-02 06:20] LABS: Absolute Lymphocytes (CBC) 0.7 K/uL (0.7-4.9); Basophils % 0.3 % (0-1.3); Hematocrit 30.6 % (36.0-45.0); MPV 10.4 fL (7.6-11.3); RBC Red Blood Cell Count 4.29 M/uL (3.86-4.86)
[2020-10-02 06:39] LABS: Albumin 2.4 g/dL (3.4-5.0); Bilirubin Total 0.3 mg/dL (0.2-1.0); Potassium 3.2 mmol/L (3.5-5.1); Protein, Total 6.5 g/dL (6.4-8.2)
[2020-10-02] MEDS: INSULIN -REGULAR HUMAN 50 UNIT/0.5 ML ML SQ SCH ×4 (07:30→20:32)
[2020-10-02] MEDS: CYCLOSPORINE OPTH SCH ×2 (09:00→20:32)
[2020-10-02] MEDS: [UNRECOGNIZED DRUG - OTHER] OPTH SCH ×2 (09:00→20:32)
[2020-10-02] MEDS ORDERED: POTASSIUM CL SA 10 MEQ TAB PO ONE (09:00)
[2020-10-02] MEDS: ALBUTEROL 2.5 MG/3 ML NEB SOL NEB SCH (09:31)
[2020-10-02] MEDS: PANTOPRAZOLE 40 MG INJ IVP SCH (10:15)
[2020-10-02] MEDS: SOD FERRIC GLUC COMPLX/SUCROSE 125 MG in NA CHLORIDE 0.9% 100 ML IV SCH (10:16)
[2020-10-02] MEDS: HEPARIN 5000 UNIT/ML 1 ML VIAL SQ SCH ×2 (10:16→20:31)
[2020-10-02] MEDS: AMLODIPINE 5 MG TAB PO SCH (10:17)
[2020-10-02] MEDS: FAMOTIDINE 20 MG/2 ML VIAL IV SCH ×2 (10:17→20:32)
[2020-10-02] MEDS: ASPIRIN EC 81 MG TAB PO SCH (10:17)
--- NOTE | 2020-10-02 11:39 | P.PN ---
Subjective Date of Service: 10/02/20 Chief Complaint: Pancreatitis, general abdominal pain, shortness of breath Subjective: New changes (SOB improved from yesterday but has moderate b/pleural effusions. Mental status improved today as per daughter at bedside. Tolerating po diet without abdominal pain, N/V.) Review of Systems General: Weakness, Malaise Neurological: Weakness, Confusion (Improved. ) Physical Examination - Vital Signs Temperature: 97.2 F Blood Pressure: 162/91 Pulse: 91 Respirations: 16 Pulse Ox (%): 95 - Physical Exam General: Alert, In no apparent distress, Oriented x3, Cooperative HEENT: Atraumatic, Normocephalic, PERRLA, EOMI Neck: Supple Respiratory: Diminished, Crackles/rales, Inspiratory wheezes (SOB) Cardiovascular: Normal pulses Gastrointestinal: Soft and benign, No tenderness, No rebound, No guarding Neurological: Normal speech Assessment And Plan - Current Problems (Diagnosis) (1) Acute pancreatitis Current Visit: Yes Status: Acute (2) Acute kidney failure Onset Date: 10/19/17 Current Visit: No Status: Acute (3) Generalized abdominal pain Current Visit: Yes Status: Acute (4) Nausea & vomiting Current Visit: Yes Status: Acute (5) HTN (hypertension) Current Visit: Yes Status: Acute (6) Dehydration Onset Date: 10/19/17 Current Visit: No Status: Acute (7) Anemia Current Visit: Yes Status: Acute (8) Sepsis Current Visit: Yes Status: Acute (9) Shortness of breath Current Visit: Yes Status: Acute - Plan REC: 1) check CXR and U/A 2) continue prn pain medications & anti-emetics 3) antibiotics 4) monitor labs Physician Review: Patient Assessed, Agree with Above Assessment and Plan Physician Review Additional Text: # Acute Pancreatitis - likely severe given marked elevated lipase of > 23 k - will place on NPO -GI consult - will start IV zofran for antiemitics and pain regime - gentle IVF with D5NS -start insulin slidin scale - will cover with empirical abx with meropenem since prior sever pancreatitis with complicated course -trend lipase levels daily -obtain lipid penal -Hold fenofibrate for now #ARF - may be due to above - hold diuretics - Renal eval - renally dose all meds #HTN - resume Toprol - follow telemetry # s/p PPM - in sinus rhthym now , follow #DVT prop- sc heparin # Advance directive - discussed , pt and daugter wishes full code # Dispo- possible > 72 hrs
[2020-10-02] MEDS ORDERED: ALBUTEROL 2.5 MG/3 ML NEB SOL NEB PRN (11:43)
--- NOTE | 2020-10-02 11:50 | P.PN ---
Subjective Date of Service: 10/02/20 Chief Complaint: Pancreatitis Subjective: Improving (Patient is doing better abdominal pain has resolved for alert responsive) Review of Systems General: Weakness Physical Examination - Vital Signs Temperature: 97.2 F Blood Pressure: 162/91 Pulse: 91 Respirations: 16 Pulse Ox (%): 95 - Physical Exam General: Alert, Oriented x3 Respiratory: Clear to auscultation bilaterally Gastrointestinal: Normal bowel sounds, Soft and benign, Non-distended Assessment & Plan - Problems (Diagnosis) (1) Shortness of breath Current Visit: Yes Status: Acute Plan: Patient probably has acute lung injury from severe pancreatitis (2) Pancreatitis Current Visit: Yes Status: Acute Plan: Patient's lipase is increased slightly abdominal pain has resolved seen by a GI on antibiotics may be side effect of try cor which niece to be stopped continue with liquid diet blood pressure elevated add amlodipine Qualifiers: Chronicity: acute Pancreatitis type: biliary Physician Review: Patient Assessed, Agree with Above Assessment and Plan Physician Review Additional Text: # Acute Pancreatitis - likely severe given marked elevated lipase of > 23 k - will place on NPO -GI consult - will start IV zofran for antiemitics and pain regime - gentle IVF with D5NS -start insulin slidin scale - will cover with empirical abx with meropenem since prior sever pancreatitis with complicated course -trend lipase levels daily -obtain lipid penal -Hold fenofibrate for now #ARF - may be due to above - hold diuretics - Renal eval - renally dose all meds #HTN - resume Toprol - follow telemetry # s/p PPM - in sinus rhthym now , follow #DVT prop- sc heparin # Advance directive - discussed , pt and daugter wishes full code # Dispo- possible > 72 hrs
--- NOTE | 2020-10-02 13:05 | EEG ---
CHART: [id number] TEST ID#: [id number] DATE OF STUDY: 10/01/2020 THE EEG WAS RECORDED PORTABLE IN THE PATIENT'S ROOM ON A 17 CHANNEL MACHINE. ELECTRODES WERE APPLIED IN THE USUAL MANNER USING THE INTERNATIONAL 10-20 SYSTEM. THE WAKING BACKGROUND RHYTHM IN THIS RECORD CONSISTS OF FAIRLY WELL DEVELOPED AND FAIRLY WELL ORGANIZED WAVES OF 6-7 HZ., IN A WIDE DISTRIBUTION WHICH ATTENUATE POORLY WITH EYE OPENING. MODERATE VOLTAGE 1.5-3 HZ MIXED WITH 4-6 HZ ACTIVITY IS EXPRESSED IN THE FRONTAL AND CENTRAL REGIONS. LOW-VOLTAGE 15-18 HZ ACTIVITY IS EXPRESSEDTHROUGHOUT. THERE ARE NO FOCAL OR LATERALIZING FEATURES. NO EPILEPTIFORM ACTIVITY APPEARS. SLEEP OCCURRED NATURALLY. IN ADDITION NORMAL SLEEP PATTERNS ARE PRESENT. HYPERVENTILATION WAS NOT PERFORMED. PHOTIC STIMULATION PRODUCED FAIR DRIVING BILATERALLY. IMPRESSION: THIS IS A MILD TO MODERATELY ABNORMAL EEG DUE TO A MILD TO MODERATE SLOW BACKGROUND. THIS IS A NON-SPECIFIC FINDING INDICATING THE PRESENCE OF A MILD TO MODERATE DIFFUSE DYSFUNCTION IN VEREBRAL ACTIVITY.
--- NOTE | 2020-10-02 13:45 | RAD REPORT ---
EXAM DESCRIPTION: RAD - Chest Single View - 10/02/2020 1:38 pm CLINICAL HISTORY: cough and sepsis Chest pain. COMPARISON: Chest Single View dated 09/30/2020; Chest Single View dated 09/28/2020; Chest Single Vie w dated 10/18/2017; Chest Single View dated 08/07/2017; Chest For Pe Angio dated 10/01/2020 FINDINGS: Portable technique limits examination quality. Mild hazy opacities are present in both lung bases, slightly greater than on 09/30/2020 study. The he art is upper limit normal in size with dual lead pacer device present. Small hiatal hernia is present . IMPRESSION: Slight worsening in lung aeration is seen in the lung bases since prior study.
--- NOTE | 2020-10-02 13:52 | P.PN ---
Subjective Date of Service: 10/02/20 Chief Complaint: Pancreatitis Subjective Pt with Hx of pancreatisit , CHF S/P AICD , pt hax of pancreatitis in the past and was transferred for cholecystecomy Today Still wheezing, CXr with worsening findings started on inhalers will start on lasix IV Bid replace potassium as needed Physical exam general: Awake and alert , NAD Neck; Supple, No elevated JVD hear: RRR, normal S1,2 no murmur or rub Chest: expiratory wheezes Abdomen: Soft , Nt Extremities trace edema, A/P DAVIE likely due to vascular volume depletion +/- ATN normalized renal dose meds now pt with fluid overload , will start in lasix ACute pancreatitis lipase trending down liquid diet GI on Board DI cont IV Iron hypokalemia due to poor oral intake and lasix will replace as needed Hx of CHF AICD now have B/l effusion Cont inhlaers will start lasix total time spent 25min Physical Examination - Vital Signs Temperature: 97.2 F Blood Pressure: 162/91 Pulse: 91 Respirations: 16 Pulse Ox (%): 95 Assessment And Plan Physician Review: Patient Assessed, Agree with Above Assessment and Plan
[2020-10-02] MEDS: CEFEPIME/SWI 2gm 2 GM/20 ML SYR IV SCH (15:00)
--- NOTE | 2020-10-02 15:47 | PN ---
Date of Progress Note: 10/01/2020 The patient is still confused and disorientated. However, she is no longer restless. I feel this wa s probably secondary to the meropenem. Slight increase in white blood count. Chest x-ray shows bila teral pleural effusion, fairly significant, possibly the cause of the increased white count. Lipase continues to drop and appetite is still somewhat diminished. Encouraged fluids with Lasix to diurese considerably. Still has some facial edema. This has improved some since the Lasix was given. CT f or PE was negative, but did reveal bilateral pleural effusions. She was seen by GI and Pulmonary. W e will continue present regimen. I think it is going to be another few days before the patient pamela ates fluids enough to consider discharge. HR/MODL Voice ID: [id number] Report ID: [id number]
[2020-10-02] MEDS: FUROSEMIDE 40 MG/4 ML VIAL IV SCH ×2 (15:49→21:46)
--- NOTE | 2020-10-02 15:53 | PN ---
Date of Progress Note: 10/02/2020 The patient is much clearer mentally today, although some degree of confusion still persists. She is not near as agitated. However, white count has still gone up in a few 1000. We will therefore add a different antibiotic empirically in the form of cefepime. She does have some cough nonproductive fo r the most part. Denies shortness of breath. We will repeat the chest x-ray. Her appetite is still decreased. Encouraged fluids. Facial edema is back to baseline. We will continue to monitor in re derick to doing the ERCP. After talking to gastroenterology, I feels this should be placed on at least temporary hold. Her prior records were obtained from 2018 at which time, an MRCP was done obviously prior to the pacemaker and did reveal multiple stones in the gallbladder and mention any stones in t he duct, however, this is obviously a possibility. The other question is relationship to [employer]. The patient has been on this for a number of years, although will not be restarted. I think most likely possibility is still ductal disease and/or passed stone. HR/MODL Voice ID: [id number] Report ID: [id number]
[2020-10-02] MEDS: AMLODIPINE 10 MG TAB PO SCH (15:55)
[2020-10-02 16:08] LABS: Urine Appearance CLEAR; Urine Bilirubin NEGATIVE (NEG); Urine Blood NEGATIVE (NEG); Urine Color YELLOW; Urine Glucose NEGATIVE (NEG); Urine Protein 1+ (NEG); Urine Urobilinogen 0.2 mg/dL (0.2-1.0)
[2020-10-02 16:56] LABS: Urine Microscopic Reflex ORDER UMIC
[2020-10-02 17:46] LABS: Urine Bacteria <20 /HPF (<20); Urine RBC <5 /HPF (NONE SEEN); Urine Yeast PRESENT (NONE SEEN)
[2020-10-02] MEDS ORDERED: CEFEPIME 1 GM/VIAL IV SCH (21:00)
[2020-10-03] MEDS: METOPROLOL XL 100 MG TAB PO SCH (05:07)
[2020-10-03 06:02] LABS: Absolute Lymphocytes (CBC) 1.8 K/uL (0.7-4.9); Basophils % 0.5 % (0-1.3); Hematocrit 34.1 % (36.0-45.0); Lymphocytes % 12.3 % (15.3-44.8); MPV 10.1 fL (7.6-11.3); RBC Red Blood Cell Count 4.67 M/uL (3.86-4.86)
[2020-10-03 07:24] LABS: Albumin 2.2 g/dL (3.4-5.0); Bilirubin Total 0.3 mg/dL (0.2-1.0); Magnesium 1.8 mg/dL (1.8-2.4); Potassium 3.4 mmol/L (3.5-5.1); Protein, Total 6.4 g/dL (6.4-8.2); Thyroid Stimulating Hormone 3.58 uIU/mL (0.360-3.740)
[2020-10-03] MEDS: INSULIN -REGULAR HUMAN 50 UNIT/0.5 ML ML SQ SCH ×4 (07:30→20:51)
[2020-10-03] MEDS: ASPIRIN EC 81 MG TAB PO SCH (09:00)
[2020-10-03] MEDS: [UNRECOGNIZED DRUG - OTHER] OPTH SCH ×2 (09:00→20:51)
[2020-10-03] MEDS: HEPARIN 5000 UNIT/ML 1 ML VIAL SQ SCH ×2 (09:00→20:50)
[2020-10-03] MEDS: CYCLOSPORINE OPTH SCH ×2 (09:00→20:51)
[2020-10-03] MEDS: AMLODIPINE 10 MG TAB PO SCH (09:00)
[2020-10-03] MEDS: FUROSEMIDE 40 MG/4 ML VIAL IV SCH ×2 (09:00→20:50)
[2020-10-03] MEDS: FAMOTIDINE 20 MG/2 ML VIAL IV SCH ×2 (09:00→20:50)
[2020-10-03] MEDS: SOD FERRIC GLUC COMPLX/SUCROSE 125 MG in NA CHLORIDE 0.9% 100 ML IV SCH (09:00)
--- NOTE | 2020-10-03 10:57 | P.PN ---
Subjective Date of Service: 10/03/20 Chief Complaint: Pancreatitis Subjective Pt with Hx of pancreatisit , CHF S/P AICD , pt hax of pancreatitis in the past and was transferred for cholecystecomy Today not wheezes, participating in PT Amylase trending up will cont lasix Bid for today and reduce to once daily tomorrow replace potassium as needed Physical exam general: Awake and alert , NAD Neck; Supple, No elevated JVD hear: RRR, normal S1,2 no murmur or rub Chest: decreased air entry , no wheezes Abdomen: Soft , Nt Extremities trace edema, A/P DAVIE likely due to vascular volume depletion +/- ATN normalized renal dose meds cont lasix bis , will reduce to once daily tomorrow ACute pancreatitis monitor amylase liquid diet GI on Board DI cont IV Iron hypokalemia due to poor oral intake and lasix will replace as needed Hx of CHF AICD now have B/l effusion Cont inhlaers will start lasix total time spent 25min Physical Examination - Vital Signs Temperature: 97.6 F Blood Pressure: 128/72 Pulse: 80 Respirations: 18 Pulse Ox (%): 96 Assessment And Plan Physician Review: Patient Assessed, Agree with Above Assessment and Plan
[2020-10-03] MEDS: ALBUTEROL 2.5 MG/3 ML NEB SOL NEB SCH ×3 (12:48→20:05)
--- NOTE | 2020-10-03 12:50 | ECHO ---
HEIGHT: 5 ft 1 in WEIGHT: 125 lb 0 oz DATE OF STUDY: 10/01/[address]: Brenton Holm MD 2-DIMENSIONAL: YES M.MODE: YES DOPPLER: YES COLOR FLOW: YES TDS: YES PORTABLE: DEFINITY: BUBBLE STUDY: DIAGNOSIS: INCREASED WHEEZING, CONGESTIVE HEART FALIURE CARDIAC HISTORY: CATHERIZATION: NO SURGERY: NO PROSTHETIC VALVE: NO PACEMAKER: YES MEASUREMENTS (cm) DIASTOLIC (NORMALS) SYSTOLIC (NORMALS) IVSd 0.8 (0.6-1.2) LA Diam 3.2 (1.9-4.0) LVEF 86% LVIDd 4.3 (3.5-5.7) LVIDs 1.9 (2.0-3.5) %FS 56% LVPWd 0.9 (0.6-1.2) Ao Diam 2.5 (2.0-3.7) 2 DIMENSIONAL ASSESSMENT: RIGHT ATRIUM: NORMAL LEFT ATRIUM: NORMAL RIGHT VENTRICLE: NORMAL LEFT VENTRICLE: NORMAL TRICUSPID VALVE: MODERATE TO SEVERE TRICUSPID REGURGITATION MITRAL VALVE: NORMAL PULMONIC VALVE: NORMAL AORTIC VALVE: NORMAL PERICARDIAL EFFUSION: NONE AORTIC ROOT: NORMAL LEFT VENTRICULAR WALL MOTION: NORMAL DOPPLER/COLOR FLOW: COMMENTS: NORMAL LEFT VENTRICULAR EJECTION FRACTION 55-60% WITH NORMAL WALL MOTION. MODERATE TO SEVERE TRICUSPID REGURGITATION. PACEMAKER WIRE IN THE RIGHT VENTRICLE. PULMONARY HYPERTENSION WITH RIGHT VENTRICULAR SYSTOLIC PRESSURE OF 40-45 mmHg (MILD). TECHNOLOGIST: NATHALIE SUAREZ
--- NOTE | 2020-10-03 13:54 | PN ---
Date of Progress Note: 10/03/2020 The patient seems significantly better mentally today and orientation, slight confusion. However, he r lipase level since she started eating yesterday, which according to her daughter was not very much to begin with. She was therefore made n.p.o. She was seen by Pulmonology and Renal Services and oth erwise, we will keep her on the same regimen. However, chest x-ray did show decrease in aeration, so therefore her breathing treatments were placed on schedule and spirometry was also ordered. She was kept n.p.o. except for ice chips and will be re-evaluated as far as her diet is concerned depending o n the results of the blood test. HR/MODL Voice ID: [id number] Report ID: [id number]
[2020-10-03] MEDS: CEFEPIME/SWI 2gm 2 GM/20 ML SYR IV SCH (15:29)
[2020-10-03] MEDS: D5W 1,000 ML IV SCH ×2 (20:00)
[2020-10-04] MEDS: METOPROLOL XL 100 MG TAB PO SCH (05:45)
[2020-10-04] MEDS: INSULIN -REGULAR HUMAN 50 UNIT/0.5 ML ML SQ SCH ×3 (06:00→18:00)
[2020-10-04 07:29] LABS: Absolute Lymphocytes (CBC) 1.2 K/uL (0.7-4.9); Basophils % 0.4 % (0-1.3); MPV 9.9 fL (7.6-11.3); RBC Red Blood Cell Count 4.65 M/uL (3.86-4.86)
[2020-10-04 07:38] LABS: Albumin 2.3 g/dL (3.4-5.0); Bilirubin Total 0.3 mg/dL (0.2-1.0); Potassium 3.1 mmol/L (3.5-5.1); Protein, Total 6.7 g/dL (6.4-8.2)
[2020-10-04] MEDS: CYCLOSPORINE OPTH SCH ×2 (09:00→21:00)
[2020-10-04] MEDS: [UNRECOGNIZED DRUG - OTHER] OPTH SCH ×2 (09:00→21:00)
[2020-10-04] MEDS: ALBUTEROL 2.5 MG/3 ML NEB SOL NEB SCH ×4 (09:45→19:42)
[2020-10-04 09:49] LABS: Blood Morphology Comment NOTED (NOT SEEN); Platelet Estimate ADEQ; Platelets, Giant MODERATE; White Blood Cell Scan OK (OK)
[2020-10-04] MEDS: FUROSEMIDE 40 MG/4 ML VIAL IV SCH ×2 (10:11→17:17)
[2020-10-04] MEDS: ASPIRIN EC 81 MG TAB PO SCH (10:12)
[2020-10-04] MEDS: AMLODIPINE 10 MG TAB PO SCH (10:12)
[2020-10-04] MEDS: FAMOTIDINE 20 MG/2 ML VIAL IV SCH ×2 (10:13→21:20)
[2020-10-04] MEDS: D5W 1,000 ML IV SCH (10:13)
[2020-10-04] MEDS: SOD FERRIC GLUC COMPLX/SUCROSE 125 MG in NA CHLORIDE 0.9% 100 ML IV SCH (10:13)
[2020-10-04] MEDS: HEPARIN 5000 UNIT/ML 1 ML VIAL SQ SCH (10:14)
[2020-10-04] MEDS ORDERED: POTASSIUM CL SA 10 MEQ TAB PO ONE ×3 (14:00→21:32)
[2020-10-04] MEDS: D5 0.9 NS 1,000 ML IV SCH (14:16)
[2020-10-04] MEDS: CEFEPIME/SWI 2gm 2 GM/20 ML SYR IV SCH (14:18)
--- NOTE | 2020-10-04 14:44 | P.PN ---
Subjective Date of Service: 10/04/20 Chief Complaint: Pancreatitis Subjective Pt with Hx of pancreatisit , CHF S/P AICD , pt hax of pancreatitis in the past and was transferred for cholecystecomy Today Lipase trending up will change fluid to D5NS pt schedule for Abd/pelvic CT with contrast , IVF as above will consider TPN Physical exam general: Awake and alert , NAD Neck; Supple, No elevated JVD hear: RRR, normal S1,2 no murmur or rub Chest: decreased air entry , no wheezes Abdomen: Soft , Nt Extremities trace edema, A/P DAVIE likely due to vascular volume depletion +/- ATN normalized renal dose meds cont lasix bid ACute pancreatitis monitor amylase liquid diet GI on Board Lipase trending up will change fluid to D5NS pt schedule for Abd/pelvic CT with contrast , IVF as above DI cont IV Iron hypokalemia due to poor oral intake and lasix will replace as needed Hx of CHF AICD now have B/l effusion Cont inhlaers will start lasix total time spent 25min Physical Examination - Vital Signs Temperature: 97.3 F Blood Pressure: 132/63 Pulse: 84 Respirations: 18 Pulse Ox (%): 95 Assessment And Plan Physician Review: Patient Assessed, Agree with Above Assessment and Plan
--- NOTE | 2020-10-04 17:29 | RAD REPORT ---
EXAM DESCRIPTION: CTAbdomen Pelvis W Contrast - 10/04/2020 4:37 pm CLINICAL HISTORY: Abdominal pain. pancreatitis COMPARISON: Abdomen Pelvis W Contrast dated 09/28/2020 TECHNIQUE: Biphasic CT imaging of the abdomen and pelvis was performed with 100 ml non-ionic IV cont rast. All CT scans are performed using dose optimization technique as appropriate and may include automated exposure control or mA/KV adjustment according to patient size. FINDINGS: Small bilateral pleural effusions with atelectasis in both lung bases.Moderate hiatal hannah ia is present. The liver contains benign-appearing cysts, largest measuring 33 mm in the right lobe liver posteriorl y. No intra or extrahepatic biliary tree dilatation. Cholecystectomy clips. The spleen adrenal glands and kidneys are within normal limits. Mild inflammation is seen about the peripancreatic fat suggesting acute pancreatitis. No pseudocyst o r evidence of pancreatic necrosis. No bowel obstruction, free air, free fluid or abscess. Moderate stool is present throughout the colo n. Sigmoid diverticulosis coli without diverticulitis. No evidence of significant lymphadenopathy. Small air bubble is present in the urinary bladder. IMPRESSION: Peripancreatic fat is mildly inflamed suggesting acute pancreatitis. No pseudocyst or pa ncreatic necrosis. The gallbladder surgically absent. Small air bubble is present in the urinary bladder suggesting infection or prior instrumentation. Small bilateral pleural effusions with atelectasis in both lung bases.
--- NOTE | 2020-10-04 18:00 | PN ---
Date of Progress Note: 10/04/2020 Patient's mental status is stable. Slightly disorientated, but not back to normal as yet. However, no agitation. She is tolerating the antibiotic well. White count has gone down slightly. However, a lipase continues to increase somewhat. It has gone from the close in the 3000 to just over 5000 to day despite being n.p.o. within the last 12 hours or so. Therefore, we will repeat the CT scan for f urther evaluation. Depending on the results, further steps may be necessary. We will keep her on ic e chips until repeat of the enzymes tomorrow and the results of the CAT scan as well. Potassium will also be replaced in the protocol. LFTs and creatinine are back to normal level. HR/MODL Voice ID: [id number] Report ID: [id number]
[2020-10-04 21:06] LABS: Protime INR 1.11
[2020-10-05 05:43] LABS: Absolute Lymphocytes (CBC) 1.1 K/uL (0.7-4.9); Basophils % 0.3 % (0-1.3); Hematocrit 32.6 % (36.0-45.0); Lymphocytes % 8.1 % (15.3-44.8); MPV 9.5 fL (7.6-11.3); RBC Red Blood Cell Count 4.53 M/uL (3.86-4.86)
[2020-10-05] MEDS: INSULIN -REGULAR HUMAN 50 UNIT/0.5 ML ML SQ SCH ×4 (06:00→18:00)
[2020-10-05 06:01] LABS: Potassium 3.4 mmol/L (3.5-5.1)
[2020-10-05] MEDS: METOPROLOL XL 100 MG TAB PO SCH (06:20)
[2020-10-05] MEDS: D5 0.9 NS 1,000 ML IV SCH ×2 (06:20→11:28)
[2020-10-05] MEDS ORDERED: POTASSIUM CL SA 10 MEQ TAB PO ONE ×2 (08:00→21:00)
[2020-10-05] MEDS: ALBUTEROL 2.5 MG/3 ML NEB SOL NEB SCH ×4 (08:00→19:35)
[2020-10-05] MEDS: CYCLOSPORINE OPTH SCH ×2 (09:00→20:43)
[2020-10-05] MEDS: SOD FERRIC GLUC COMPLX/SUCROSE 125 MG in NA CHLORIDE 0.9% 100 ML IV SCH (09:00)
[2020-10-05] MEDS: [UNRECOGNIZED DRUG - OTHER] OPTH SCH ×2 (09:00→20:43)
[2020-10-05] MEDS: AMLODIPINE 10 MG TAB PO SCH (09:26)
[2020-10-05] MEDS: FAMOTIDINE 20 MG/2 ML VIAL IV SCH ×2 (09:26→20:42)
[2020-10-05] MEDS: ASPIRIN EC 81 MG TAB PO SCH (09:26)
[2020-10-05] MEDS: FUROSEMIDE 40 MG/4 ML VIAL IV SCH ×2 (09:26→16:38)
[2020-10-05 10:19] LABS: Blood Morphology Comment NOTED (NOT SEEN); Platelet Estimate ADEQ
[2020-10-05 10:20] LABS: Anisocytosis 1+
--- NOTE | 2020-10-05 11:16 | P.PN ---
Subjective Date of Service: 10/05/20 Chief Complaint: Pancreatitis Subjective: Improving (She denies abdominal pain, N/V, F/C. She is hungry and wants to eat. She refuses Dobhoff tube. WBC is down from 15k to 13K. Lipase is down from ~ 4k to 3K. CT abdomen/pelvis revealed pancreatitis again, no biliary duct abnormality, improved b/ pleural effusions, and possible cystitis.) Review of Systems General: Weakness (Improved.), Malaise (Improved.) Neurological: Confusion (Improved. None today.) Physical Examination - Vital Signs Temperature: 98.3 F Blood Pressure: 141/66 Pulse: 84 Respirations: 18 Pulse Ox (%): 96 - Physical Exam General: Alert, In no apparent distress, Oriented x3, Cooperative HEENT: Atraumatic, Normocephalic, PERRLA, EOMI Neck: Supple Respiratory: Diminished Cardiovascular: Normal pulses Gastrointestinal: Soft and benign, No tenderness, No rebound, No guarding Neurological: Normal speech Assessment And Plan - Current Problems (Diagnosis) (1) Acute pancreatitis Current Visit: Yes Status: Acute (2) Acute kidney failure Onset Date: 10/19/17 Current Visit: No Status: Acute (3) Generalized abdominal pain Current Visit: Yes Status: Acute Comment: None today. (4) Nausea & vomiting Current Visit: Yes Status: Acute Comment: None. (5) HTN (hypertension) Current Visit: Yes Status: Acute (6) Dehydration Onset Date: 10/19/17 Current Visit: No Status: Acute Comment: Improved. (7) Anemia Current Visit: Yes Status: Acute Comment: Improved. (8) Sepsis Current Visit: Yes Status: Acute Comment: Improved. (9) Shortness of breath Current Visit: Yes Status: Acute Comment: Improved. None today nor coughing. - Plan REC: 1) pancreatic enzymes po qac/qhs 2) full liquid diet 3) continue antibiotics 4) monitor labs 5) consider ERCP (but normal liver #s) Physician Review: Patient Assessed, Agree with Above Assessment and Plan Physician Review Additional Text: # Acute Pancreatitis - likely severe given marked elevated lipase of > 23 k - will place on NPO -GI consult - will start IV zofran for antiemitics and pain regime - gentle IVF with D5NS -start insulin slidin scale - will cover with empirical abx with meropenem since prior sever pancreatitis with complicated course -trend lipase levels daily -obtain lipid penal -Hold fenofibrate for now #ARF - may be due to above - hold diuretics - Renal eval - renally dose all meds #HTN - resume Toprol - follow telemetry # s/p PPM - in sinus rhthym now , follow #DVT prop- sc heparin # Advance directive - discussed , pt and daugter wishes full code # Dispo- possible > 72 hrs
--- NOTE | 2020-10-05 11:25 | P.PN ---
Subjective Date of Service: 10/05/20 Chief Complaint: Pancreatitis Subjective Pt with Hx of pancreatisit , CHF S/P AICD , pt hax of pancreatitis in the past and was transferred for cholecystecomy pt had DAVIE, improved on IVF, but pt developed large pleural effusion, now started on lasix and tolerating, she is also contined on IVF for pancreatitis Today Lipase improved today, will reduce IVF S/P CT with contrast Cont lasix , will consider to DC IVF tomorrow CT reviewed , pleural effusion much improved Physical exam general: Awake and alert , NAD Neck; Supple, No elevated JVD hear: RRR, normal S1,2 no murmur or rub Chest: decreased air entry , no wheezes Abdomen: Soft , Nt Extremities trace edema, A/P DAVIE likely due to vascular volume depletion +/- ATN normalized renal dose meds cont lasix bid ACute pancreatitis monitor amylase liquid diet GI on Board started on liquid diet today DI cont IV Iron hypokalemia due to poor oral intake and lasix will replace as needed Hx of CHF AICD B/l effusion Cont inhlaers cont lasix total time spent 25min Physical Examination - Vital Signs Temperature: 98.3 F Blood Pressure: 141/66 Pulse: 84 Respirations: 18 Pulse Ox (%): 96 Assessment And Plan Physician Review: Patient Assessed, Agree with Above Assessment and Plan
[2020-10-05] MEDS: AMYLASE/LIPASE/PROTEASE CAP PO SCH ×3 (11:27→20:42)
[2020-10-05] MEDS: CEFEPIME/SWI 2gm 2 GM/20 ML SYR IV SCH (15:32)
--- NOTE | 2020-10-05 15:38 | PN ---
Date of Progress Note: 10/05/2020 The patient states she feels hungry; however, was not comfortable with the food she was given, which is liquids. She states she has had some diarrhea when she drinks. Her CT scan did not show any necr osis or cirrhosis; however, continues to show pancreatitis. However, enzyme dropped in the 5000 to 3 000 range and if in fact, it continues with this drop, we may be advance her diet. Otherwise, there is a consideration for either feeding tube and/or PICC line. Encouraged to mobilize as well. Chemis tries are much better. Vital signs stable. HR/MODL Voice ID: [id number] Report ID: [id number]
[2020-10-06] MEDS: METOPROLOL XL 100 MG TAB PO SCH (05:29)
[2020-10-06] MEDS: INSULIN -REGULAR HUMAN 50 UNIT/0.5 ML ML SQ SCH ×2 (06:00)
[2020-10-06 06:03] LABS: Absolute Lymphocytes (CBC) 1.3 K/uL (0.7-4.9); Basophils % 0.5 % (0-1.3); Hematocrit 33.2 % (36.0-45.0); Lymphocytes % 7.9 % (15.3-44.8); MPV 9.4 fL (7.6-11.3)
[2020-10-06 06:29] LABS: ALT/SGPT 18 U/L (12-78); AST/SGOT 30 U/L (15-37); Albumin 2.2 g/dL (3.4-5.0); Alkaline Phosphatase 138 U/L (45-117); BUN Blood Urea Nitrogen 15 mg/dL (7-18); Bicarbonate 26 mmol/L (21-32); Bilirubin Direct < 0.1 mg/dL (0-0.2); Bilirubin Total 0.3 mg/dL (0.2-1.0); Glucose Level 106 mg/dL (74-106); Lipase 2386 U/L (73-393); Magnesium 1.6 mg/dL (1.8-2.4); Phosphorus 2.8 mg/dL (2.5-4.9); Potassium 3.7 mmol/L (3.5-5.1); Protein, Total 6.5 g/dL (6.4-8.2); Sodium Level 139 mmol/L (136-145)
[2020-10-06] MEDS: D5 0.9 NS 1,000 ML IV SCH ×2 (06:33→16:23)
[2020-10-06] MEDS: AMYLASE/LIPASE/PROTEASE CAP PO SCH ×4 (07:57→21:14)
[2020-10-06] MEDS: ASPIRIN EC 81 MG TAB PO SCH (07:57)
[2020-10-06] MEDS: AMLODIPINE 10 MG TAB PO SCH (07:58)
[2020-10-06] MEDS: FUROSEMIDE 40 MG/4 ML VIAL IV SCH ×2 (07:58→16:23)
[2020-10-06] MEDS: [UNRECOGNIZED DRUG - OTHER] OPTH SCH ×2 (07:59→21:00)
[2020-10-06] MEDS: CYCLOSPORINE OPTH SCH ×2 (07:59→21:00)
[2020-10-06] MEDS: FAMOTIDINE 20 MG/2 ML VIAL IV SCH ×2 (07:59→21:15)
[2020-10-06] MEDS: ALBUTEROL 2.5 MG/3 ML NEB SOL NEB SCH (08:00)
[2020-10-06] MEDS ORDERED: ALBUTEROL 2.5 MG/3 ML NEB SOL NEB PRN (08:01)
[2020-10-06] MEDS ORDERED: POTASSIUM 25 MEQ EFFERV TAB PO ONE (09:00)
[2020-10-06] MEDS: SOD FERRIC GLUC COMPLX/SUCROSE 125 MG in NA CHLORIDE 0.9% 100 ML IV SCH (09:24)
[2020-10-06 09:39] LABS: Anisocytosis 2+; Blood Morphology Comment NOTED (NOT SEEN); Platelet Estimate ADEQ
--- NOTE | 2020-10-06 13:24 | PN ---
Date of Progress Note: 10/06/2020 Subjective: The patient is much more alert today. She is eating a little bit more. States her appe tite seems to be coming back. Her lipase has dropped down into the 2300 range. We will advance her diet and if tolerated, perhaps could go home in the next day or so. HR/MODL Voice ID: [id number] Report ID: [id number]
[2020-10-06] MEDS ORDERED: ACETAMINOPHEN 500 MG TAB PO PRN (13:44)
[2020-10-06] MEDS: CEFEPIME/SWI 2gm 2 GM/20 ML SYR IV SCH (15:09)
[2020-10-06] MEDS ORDERED: MAGNESIUM SULFATE 1 gm IVPB 1 GM/100 ML BAG IV ONE (18:43)
--- NOTE | 2020-10-06 18:52 | CON ---
Date of Consultation: 10/06/2020 Reason For Consultation: CHF. History Of Present Illness: A 75-year-old female with history of hypertension, who presented to the hospital for hypertension, diastolic heart failure, presented to the hospital with some shortness of breath and was found to have acute pancreatitis, treated as such and the patient had an echocardiogra m showed normal ejection fraction. Evaluated by bedside, she is comfortable. No orthopnea. No lowe r extremity edema. No shortness of breath or chest pain. Past Medical History: As outlined above in the HPI. Medications: Refer to reconciliation sheet for detailed list. Allergies: NO KNOWN DRUG ALLERGIES. Family History: No premature coronary artery disease or cancer. Social History: Does not smoke or drink. Does not use any drugs. Review of Systems: All systems reviewed and they were negative except what mentioned in the HPI. Physical Examination: Vital Signs: Temperature is 98.5, pulse 89, breathing at 18, blood pressure is 116/61, saturating 96 % on room air. General: Pleasant, elderly female, in no apparent distress. Head and Neck: Pupils are equal, react to light. Intact eye movements. No JVD. No cervical lympha denopathy. Neck: Supple. Thyroid is not enlarged. Lungs: Clear to auscultation bilaterally. No rhonchi, rales, or crackles. No accessory muscle use. Heart: Regular rate and rhythm. No extra sounds. Abdomen: Soft, nontender. Bowel sounds positive. No organomegaly. No masses or hernia. No rigidi ty or rebound. Extremities: No edema, clubbing, or cyanosis. Intact pulses. SKIN: No rash noted. Neurologic: Alert, awake, oriented x3. No acute focal deficits appreciated. Investigations: Labs were reviewed. Echo showed normal EF with moderate to severe tricuspid valve r egurgitation with a pacemaker wire in place. Assessment And Plan: Diastolic congestive heart failure. She seems to be euvolemic at this point. Continue Lasix, at this point probably can be switched to oral 40 mg q.12 hours, and monitor clinical ly. Echo images were reviewed and the ejection fraction was normal with diastolic dysfunction and RV SP 40-45. SR/MODL Voice ID: [id number] Report ID: [id number]
--- NOTE | 2020-10-06 23:06 | PN ---
Date of Progress Note: 10/06/2020 Chief Complaint: Acute on chronic kidney injury, congestive heart failure, chronic cardiorenal syndrome, status post AICD. The patient previously had episode of severe pancreatitis. At that time, she required transfer to [facility] for cholecystectomy and complicated pancreatitis. During this admission, the patient was found to have pancreatitis and acute kidney injury and responded to IV fluids. Patient although developed left pleural effusion and is started currently on Lasix. The patient developed peripheral edema and IV fluids were tapered off. CT scan was done as well for further evaluation of acute pancreatitis. Review of Systems: Patient is feeling better. Physical Examination: Lungs: Diminished breath sounds at bases. Heart: S1, S2. Abdomen: Soft, benign. Extremities: No edema. Impression And Plan: 1. Acute kidney injury. Renal function is stabilizing. 2. History of congestive heart failure with automated implantable cardioverter-defibrillator. Continue Lasix and monitor fluid balance. 3. Hypertension. Blood pressure is currently controlled. 4. Acute pancreatitis, status post CT scan. Monitor renal panel. RUTHANN/RUTH ANN Voice ID: [id number] Report ID: [id number] YESI
[2020-10-07] MEDS: METOPROLOL XL 100 MG TAB PO SCH (05:31)
[2020-10-07 05:56] LABS: Potassium 3.5 mmol/L (3.5-5.1)
[2020-10-07 06:58] LABS: Magnesium 2.1 mg/dL (1.8-2.4)
[2020-10-07] MEDS: AMYLASE/LIPASE/PROTEASE CAP PO SCH ×4 (08:31→20:51)
[2020-10-07] MEDS: AMLODIPINE 10 MG TAB PO SCH (08:32)
[2020-10-07] MEDS: FUROSEMIDE 40 MG/4 ML VIAL IV SCH ×2 (08:32→16:51)
[2020-10-07] MEDS: FAMOTIDINE 20 MG/2 ML VIAL IV SCH ×2 (08:32→20:52)
[2020-10-07] MEDS: CYCLOSPORINE OPTH SCH ×2 (08:32→21:00)
[2020-10-07] MEDS: ASPIRIN EC 81 MG TAB PO SCH (08:32)
[2020-10-07] MEDS: [UNRECOGNIZED DRUG - OTHER] OPTH SCH ×2 (08:32→21:00)
[2020-10-07] MEDS ORDERED: POTASSIUM 25 MEQ EFFERV TAB PO ONE (09:00)
[2020-10-07] MEDS: SOD FERRIC GLUC COMPLX/SUCROSE 125 MG in NA CHLORIDE 0.9% 100 ML IV SCH (09:51)
--- NOTE | 2020-10-07 12:24 | P.PN ---
Subjective Date of Service: 10/07/20 Chief Complaint: Pancreatitis Subjective Pt with Hx of pancreatisit , CHF S/P AICD , pt hax of pancreatitis in the past and was transferred for cholecystecomy pt had DAVIE, improved on IVF, but pt developed large pleural effusion, now started on lasix and tolerating, she is also contined on IVF for pancreatitis Today Lipase trending down tolerating diet will dc IVF can be discharged from nephrology point of view Physical exam general: Awake and alert , NAD Neck; Supple, No elevated JVD hear: RRR, normal S1,2 no murmur or rub Chest: decreased air entry to the Rt base, Lt clear , no wheezes Abdomen: Soft , Nt Extremities trace edema, A/P DAVIE likely due to vascular volume depletion +/- ATN normalized renal dose meds cont lasix bid ACute pancreatitis monitor amylase liquid diet GI on Board started on liquid diet today DI cont IV Iron hypokalemia due to poor oral intake and lasix will replace as needed Hx of CHF AICD B/l effusion Cont inhlaers cont lasix total time spent 25min Physical Examination - Vital Signs Temperature: 97.0 F Blood Pressure: 144/68 Pulse: 79 Respirations: 18 Pulse Ox (%): 96 Assessment And Plan Physician Review: Patient Assessed, Agree with Above Assessment and Plan
[2020-10-07] MEDS: CEFEPIME/SWI 2gm 2 GM/20 ML SYR IV SCH (14:12)
--- NOTE | 2020-10-07 14:42 | PN ---
Date of Progress Note: 10/07/2020 Subjective: The patient seems better today both physically and mentally. She has been up some. [place] of a little discomfort in the right upper quadrant. Appetite is better. Tolerating most of h er fluids. She is eating a little more in the way of solids. Her lipase has dropped another couple of 100 points, however, still over 1999. I will discontinue the antibiotic IV and put her on full li quids for supper, repeat the blood work and then start her once again on her soft diet. If in fact s he handles this okay, her white count is okay, probably could be discharged tomorrow afternoon. HR/MODL Voice ID: [id number] Report ID: [id number]
--- NOTE | 2020-10-07 19:07 | P.PN ---
Subjective Date of Service: 10/07/20 Chief Complaint: Pancreatitis Subjective: Improving (Lipase decreasing to 2008 now. Tolerating FLs well. Had some GI upset / discomfort with GI soft diet. + stools.) Review of Systems 10-point ROS is otherwise unremarkable General: Weakness (Improved. ) Physical Examination - Vital Signs Temperature: 97.8 F Blood Pressure: 144/68 Pulse: 79 Respirations: 18 Pulse Ox (%): 98 - Physical Exam General: Alert, In no apparent distress, Oriented x3, Cooperative HEENT: Atraumatic, Normocephalic, EOMI Neck: Supple Respiratory: Diminished Cardiovascular: Normal pulses Gastrointestinal: No ascites, No rebound, No guarding, Tenderness (mild) Neurological: Normal speech Assessment And Plan - Current Problems (Diagnosis) (1) Acute pancreatitis Current Visit: Yes Status: Acute (2) Acute kidney failure Onset Date: 10/19/17 Current Visit: No Status: Acute (3) Generalized abdominal pain Current Visit: Yes Status: Acute (4) Nausea & vomiting Current Visit: Yes Status: Acute Comment: None. (5) HTN (hypertension) Current Visit: Yes Status: Acute (6) Dehydration Onset Date: 10/19/17 Current Visit: No Status: Acute Comment: Improved. (7) Anemia Current Visit: Yes Status: Acute Comment: Improved. (8) Sepsis Current Visit: Yes Status: Acute (9) Shortness of breath Current Visit: Yes Status: Acute Comment: Improved. None today nor coughing. - Plan REC: 1) pancreatic enzymes po qac/qhs 2) full liquid diet to low fat / low cholesterol diet 3) continue antibiotics 4) monitor labs 5) GI clinic f/u Physician Review: Patient Assessed, Agree with Above Assessment and Plan Physician Review Additional Text: # Acute Pancreatitis - likely severe given marked elevated lipase of > 23 k - will place on NPO -GI consult - will start IV zofran for antiemitics and pain regime - gentle IVF with D5NS -start insulin slidin scale - will cover with empirical abx with meropenem since prior sever pancreatitis with complicated course -trend lipase levels daily -obtain lipid penal -Hold fenofibrate for now #ARF - may be due to above - hold diuretics - Renal eval - renally dose all meds #HTN - resume Toprol - follow telemetry # s/p PPM - in sinus rhthym now , follow #DVT prop- sc heparin # Advance directive - discussed , pt and daugter wishes full code # Dispo- possible > 72 hrs
[2020-10-08] MEDS: METOPROLOL XL 100 MG TAB PO SCH (05:53)
[2020-10-08 06:04] LABS: Absolute Lymphocytes (CBC) 1.7 K/uL (0.7-4.9); Basophils % 0.7 % (0-1.3); Hematocrit 33.6 % (36.0-45.0); Lymphocytes % 12.5 % (15.3-44.8); MPV 9.4 fL (7.6-11.3); RBC Red Blood Cell Count 4.63 M/uL (3.86-4.86)
[2020-10-08 06:25] LABS: Albumin 2.1 g/dL (3.4-5.0); Bilirubin Total 0.3 mg/dL (0.2-1.0); Protein, Total 6.5 g/dL (6.4-8.2)
[2020-10-08 06:26] LABS: Potassium 3.6 mmol/L (3.5-5.1)
[2020-10-08] MEDS: ASPIRIN EC 81 MG TAB PO SCH (08:27)
[2020-10-08] MEDS: AMYLASE/LIPASE/PROTEASE CAP PO SCH ×2 (08:28→11:42)
[2020-10-08] MEDS: AMLODIPINE 10 MG TAB PO SCH (08:28)
[2020-10-08] MEDS: FAMOTIDINE 20 MG/2 ML VIAL IV SCH (08:28)
[2020-10-08] MEDS: FUROSEMIDE 40 MG/4 ML VIAL IV SCH (08:28)
[2020-10-08] MEDS: CYCLOSPORINE OPTH SCH (08:29)
[2020-10-08] MEDS: [UNRECOGNIZED DRUG - OTHER] OPTH SCH (08:29)
[2020-10-08 08:31] VITALS: BP 130/70
[2020-10-08 11:00] VITALS: TEMP 97.7
--- NOTE | 2020-10-08 12:02 | PN ---
Subjective: Mr. Bean has been followed for acute on chronic diastolic congestive heart failure. S he also has a history of hypertension. She was admitted with acute pancreatitis. Echocardiogram sarina wed she has moderate to severe tricuspid regurgitation with right ventricular systolic pressure of 40 to 45 mmHg. Echocardiogram was done on 10/01/2020. On 10/07/2020, she was seen. Her blood pressur e was 144/68. Her pulse was 79, sinus rhythm. She was afebrile with a respiratory rate of 18. Her I's and O's were adequate, 97% room air O2 saturations. Last white count was 14,000. Last creatinin e 1.08. She remains being treated mostly for acute pancreatitis. No cardiac issues at this point. I would continue her present regimen including the amlodipine, aspirin, furosemide, and metoprolol. We will sign off her case. We will be available for questions if the need arises. AYAD/RUTH ANN Voice ID: [id number] Report ID: [id number]
--- NOTE | 2020-10-08 13:56 | P.PN ---
Subjective Date of Service: 10/08/20 Chief Complaint: Pancreatitis Subjective: Improving (Lipase down to 1450 and less abdominal discomfort. She says she feels better and is ready to go home. Tolerating diet.) Review of Systems 10-point ROS is otherwise unremarkable General: Weakness (Improved.), Malaise (Improved.) Gastrointestinal: Abdominal Pain (Improved.) Physical Examination - Vital Signs Temperature: 97.7 F Blood Pressure: 130/70 Pulse: 90 Respirations: 18 Pulse Ox (%): 96 - Physical Exam General: Alert, In no apparent distress, Oriented x3 HEENT: Atraumatic, Normocephalic, PERRLA, EOMI Neck: Supple Respiratory: Diminished Cardiovascular: Normal pulses Gastrointestinal: No rebound, No guarding, Tenderness (Improved.) Neurological: Normal speech Assessment And Plan - Current Problems (Diagnosis) (1) Acute pancreatitis Current Visit: Yes Status: Acute (2) Acute kidney failure Onset Date: 10/19/17 Current Visit: No Status: Acute (3) Generalized abdominal pain Current Visit: Yes Status: Acute Comment: Improved. (4) Nausea & vomiting Current Visit: Yes Status: Acute Comment: None. (5) HTN (hypertension) Current Visit: Yes Status: Acute (6) Dehydration Onset Date: 10/19/17 Current Visit: No Status: Acute Comment: Improved. (7) Anemia Current Visit: Yes Status: Acute Comment: Improved. (8) Sepsis Current Visit: Yes Status: Acute (9) Shortness of breath Current Visit: Yes Status: Acute Comment: Improved. None today nor coughing. - Plan REC: 1) pancreatic enzymes po qac/qhs 2) full liquid diet to low fat / low cholesterol diet 3) continue antibiotics 4) monitor labs 5) GI clinic f/u Physician Review: Patient Assessed, Agree with Above Assessment and Plan Physician Review Additional Text: # Acute Pancreatitis - likely severe given marked elevated lipase of > 23 k - will place on NPO -GI consult - will start IV zofran for antiemitics and pain regime - gentle IVF with D5NS -start insulin slidin scale - will cover with empirical abx with meropenem since prior sever pancreatitis with complicated course -trend lipase levels daily -obtain lipid penal -Hold fenofibrate for now #ARF - may be due to above - hold diuretics - Renal eval - renally dose all meds #HTN - resume Toprol - follow telemetry # s/p PPM - in sinus rhthym now , follow #DVT prop- sc heparin # Advance directive - discussed , pt and daugter wishes full code # Dispo- possible > 72 hrs
--- NOTE | 2020-10-08 15:11 | PN ---
Date of Progress Note: 10/08/2020 Subjective: The patient continues to improve. Lipase continues to improve under 1500 now. Complain t of discomfort in the subcostal area on the right, probable secondary to pleural effusion. Tolerati ng fluids and diet. I think she could be discharged safely to continue on dietary restrictions and r epeat the lipase in the a.m. Still has a slightly elevated white count, however, down from past 2 da ys. Abdominal exam is negative. Should be followed up next week with her mentioned above blood test in the morning. Difference in the medication has been the Lasix on a regular basis rather than p.r. n., withholding the fenofibrate as well. HR/MODL Voice ID: [id number] Report ID: [id number]
[2020-10-08 15:22] VITALS: O2SAT 97
--- NOTE | 2020-10-08 22:38 | PN ---
Date of Progress Note: 10/08/2020 Chief Complaint: Acute kidney injury. History Of Present Illness: Patient has history of acute pancreatitis, history of congestive heart failure, cardiorenal syndrome, chronic kidney disease stage 3, status post AICD. Patient is admitted for pancreatitis. P.o. intake is improving. Previously, she developed severe pancreatitis, required cholecystectomy. During this admission, IV fluids were used to control hypovolemia and does provide treatment with IV fluids given pancreatitis. Review of Systems: patient denies PND or orthopnea. Physical Examination: LUNGS: Diminished breath sounds. HEART: S1, S2. ABDOMEN: Soft, benign. EXTREMITIES: Trace edema. Impression And Plan: 1. Acute kidney injury secondary to acute tubular necrosis, volume depletion. Renal function has improved to baseline. Continue Lasix twice a day. 2. Congestive heart failure, cardiorenal syndrome. 3. Acute pancreatitis. Monitor amylase. Patient is started on p.o. intake. Continue to monitor fluid balance. 4. Hypokalemia, replacement was ordered. Monitor potassium when patient is taking Lasix. 5. History of congestive heart failure, cardiorenal syndrome. Patient has had automatic implantable cardioverter-defibrillator. The patient will follow up with Logistics Director. 6. Bilateral pleural effusion was found and patient is started on Lasix. Continue low-sodium diet. EB/MODL Voice ID: [id number] Report ID: [id number] YESI
== END 2020-10-08 16:19 | disposition home or self-care (01) | DRG 438 ==
LOC: ER 01:53 → ERHOLD 05:35 → 2ND 07:42
PROVIDERS: ADMIT Family Medicine; ATTEND Family Medicine
DX: K85.10 Biliary acute pancreatitis without necrosis or infection (principal); I50.33 Acute on chronic diastolic (congestive) heart failure; N17.0 Acute kidney failure with tubular necrosis; G93.41 Metabolic encephalopathy; I13.0 Hypertensive heart and chronic kidney disease with heart failure and stage 1 through stage 4 chronic kidney disease, or unspecified chronic kidney disease; N18.30 Chronic kidney disease, stage 3 unspecified; E86.0 Dehydration; D50.9 Iron deficiency anemia, unspecified; F01.50 Vascular dementia, unspecified severity, without behavioral disturbance, psychotic disturbance, mood disturbance, and anxiety; E87.6 Hypokalemia; I25.2 Old myocardial infarction; Z88.8 Allergy status to other drugs, medicaments and biological substances; Z79.899 Other long term (current) drug therapy; Z90.49 Acquired absence of other specified parts of digestive tract; Z88.5 Allergy status to narcotic agent; Z79.82 Long term (current) use of aspirin; Z86.73 Personal history of transient ischemic attack (TIA), and cerebral infarction without residual deficits; Z90.710 Acquired absence of both cervix and uterus; Z95.0 Presence of cardiac pacemaker; Z20.828 Contact with and (suspected) exposure to other viral communicable diseases
CPT/HCPCS: 36415; 70450; 71045; 71275; 74177; 76705; 80048; 80053; 80061; 80076; 81003; 81015; 82150; 82728; 82947; 83540; 83690; 83735; 84100; 84132; 84443; 84466; 85014; 85018; 85025; 85610; 85730; 86301; 86850; 86900; 86901; 87040; 93005; 93306; 94010; 94640; 95819; 97112; 97116; 97161; 97530; 99285; C9113; J0692; J1644; J1940; J2270; J2405; J2916; J3475; J7030; J7042; J7050; P9016; Q9967; U0003

== ENCOUNTER 2020-12-11 17:45 | Inpatient (IN) | payer OTHER ==
--- OUTSIDE RECORDS SUMMARY | 2020-12-11 17:49 | XMS REPORT | Continuity of Care Document ---
:1945 Author Organization [facility] t Address [address] [place] [address] Care Team Providers Name Role Phone Mihai VILLAGOMEZ Primary Care Physician Azar Dominguez MD Attending Clinician Varun Attending Clinician Varun Admitting Clinician Payers Payer Name Policy Type Policy Effective Date Expiration Date Sour ce Number HUMANA [id number] 2016 [place] MEDICAREHUMANA 00:00:00 [employer] MEDICARE PPO/PFFS/ERS [id number] 2016 -PresentPPO Problems Condition Condition Condition Status Onset Resolution Last Treating Co mments Source Name Details Category Date Date Treatment Clinician Date FAINTED Diagnosis Active 2020-05-17 Me moria 05-17 13:13:00 l FAINTED 00:00: Randall 00 Active 05/17/2020 [facility] HYPERKALEM Diagnosis Active 2020-05-19 Memoria [place], NEAR 05-17 10:52:00 l SYNCOPE 00:00: Douglas HYPERKALEM 00 IA, NEAR SYNCOPE Active 05/17/2020 [facility] Cardiac Cardiac Disease Active 2017-10 [place] pacemaker pacemaker 0-30 Meth garret in situ in situ 00:00: st 00 Carotid Carotid Disease Active 2017-10 [place] bruit bruit 0-30 Methodi 00:00: st 00 Delirium Delirium Disease Active [place] 11-10 Methodi 00:00: st 00 Pancreatit Pancreatit Disease Active [place] is, acute is, acute 1-14 Meth garret 00:00: st 00 Renal Renal Disease Active [place] failure, failure, 14 Method i acute acute 00:00: st 00 Arrhythmia Arrhythmia Disease Active [place] , sinus , sinus 10-20 Method[facility] node node 00:00: st 00 Heart Heart Disease Active [place] block block 10-20 Methodi 00:00: st 00 Essential Essential Disease Active Christopher gutierrez hypertensi hypertensi 10-20 Me thodi on on 00:00: st 00 Fall Fall Disease Active [place] 10-20 Methodi 00:00: st 00 Dizziness Dizziness Disease Active Christopher ston 10-20 Methodi 00:00: st 00 Cardiac Cardiac Disease Active [place] dysrhythmi dysrhythmi 10-20 Me thodi a a 00:00: st 00 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 SYNCOPE Diagnosis Active 2020-05-19 Me moria AND 10:52:00 l COLLAPSE SYNCOPE Jasmin nn AND COLLAPSE Active [facility] Allergies, Adverse Reactions, Alerts Allergy Allergy Status Severity Reaction(s) Onset Inactive Treating Comm ents Source Name Type Date Date Clinician No Known No Known Active Memori a Medicati Medicati l on on Randall Allergie Allergie s s Social History Social Habit Start Date Stop Date Quantity Comments Source Sex Assigned At Christopher [place] Smoking Status Start Date Stop Date Source Former smoker 2018-08-08 00:00:2018-08-08 00:00:00 Krishan [place] Medications Ordered Filled Start Stop Current Ordering Indication Dosage Frequency Signature Comments Components Source Medication Medication Date Date Medication? Clinician (SIG) Name Name metoprolol Yes Essential TAKE 1 [place] succinate 10-13 hypertensio TABLET BY Methodi XL 00:00: n MOUTH st (TOPROL-XL) 00 EVERY DAY. 100 mg 24 hr tablet fenofibrate 2019-10 Yes TAKE 1 [place] (TRICOR) 2-24 TABLET(145 Metho di 145 MG 00:00: MG) BY st tablet 00 MOUTH DAILY losartan Yes Essential TAKE 1 [place] (COZAAR) 8-24 hypertensio TABLET BY Method[facility] 100 MG 00:00: n MOUTH st tablet 00 DAILY Norvasc No Notes: Memoria 05-19 (Same as: l 14:00: Norvasc) metoprolol No Notes: Memor ia tartrate 05-19 (Same as: l 02:00: Lopressor) amLODIPine Yes 10 mg = 2 Me moria 5 mg oral 05-18 tab, PO, l tablet 16:46: Daily, # Douglas 00 60 tab, 0 Refill(s), Pharmacy: [facility] #[id number], 152.4, cm, 05/17/20 18:35:00 CDT, Height, 60.085, kg, 05/17/20 18:35:00 CDT, Weight cephalexin Yes 250 mg = 1 M emoria 250 mg oral 05-18 cap, PO, l capsule 16:46: BID, X 3 Ricco n day, # 6 cap, 0 Refill(s), Pharmacy: [facility] #[id number], 152.4, cm, 05/17/20 18:35:00 CDT, Height, 60.085, kg, 05/17/20 18:35:00 CDT, Weight Estrogens, Yes 0.625 mg = M emoria Conjugated 05-18 1 tab, PO, l (LONGTERM) 0.625 15:24: Daily, # He rmann MG Oral 00 30 tab, 0 Tablet Refill(s) [Premarin] metoprolol Yes 150 mg = Mem oria succinate 05-18 1.5 cap, l 100 mg oral 15:23: PO, Daily, Randall capsule, 00 0 extended Refill(s) release Water 1000 No Notes: Memor ia MG/ML 05-18 (sodium l Injectable 03:45: bicarb Jasmin nn Solution 00 8.4% (1 mEq/ml) 50 ml VL) montelukast No Notes: Delano chavez 05-18 (Same l 02:00: as:Singula Douglas 00 ir) Mupirocin No 1 appl, Memor ia 0.02 MG/MG 05-17 Route: l Topical 22:00: TOP, TID, Jasmin nn Ointment 00 Drug form: OINT, Start date: 05/17/20 17:00:00 CDT, Duration: 30 day, Stop date: 06/16/20 13:00:00 CDT, 0 Silver 2020-0 No Notes: Memoria Sulfadiazin 05-17 (Same as: l e 10 MG/ML 22:00: Silvadene) [place] Topical WASTE: Cream F/P - Black; E - Municipal Trash Bin Cephalexin 2019-0 No Notes: Memor ia 05-17 Take on l 22:00: empty stomach. (Same As: Keflex) NS 1,000 mL 2020-0 No 1,000 mL, M emoria 05-17 Rate: 75 l 20:40: ml/hr, [...] CDT, 0 Acetaminoph 2020-0 No Notes: Do M emoria en 05-17 not exceed l 20:39: 4 gm/day. (Same as: Tylenol) Silver 2020-0 Yes 1 appl, Memoria Sulfadiazin 8-08 TOP, BID, l e 10 MG/ML 20:36: # 20 gm, 0 H [place] Topical 00 Refill(s) Cream [SSD] Fenofibrate 2020-0 No 145 mg = 1 Memoria 145 MG Oral 8-08 tab, PO, l Tablet 20:36: Daily, # Randall 00 30 tab, 0 Refill(s) spironolact 2020-0 No [...] tab, 0 tablet, Refill(s) extended release losartan 2020-0 No 100 mg = 1 Mem oria 100 mg oral 8-08 tab, PO, l tablet 20:36: Daily, # Douglas 00 30 tab, 0 Refill(s) Sulfamethox 2020-0 No 1 tab, PO, Memoria azole 800 8-08 BID, # 6 l MG / 20:36: tab, 0 Douglas Trimethopri 00 Refill(s) m 160 MG Oral Tablet montelukast 2020-0 Yes 10 mg = 1 M emoria 10 mg oral 8-08 tab, PO, l tablet 20:36: Bedtime, # Jasmin nn 00 30 tab, 0 Refill(s) Mupirocin 2020-0 Yes 1 appl, Memor ia 0.02 MG/MG 05-17 TOP, TID, l Topical 20:36: # 15 gm, 0 Herm isma Ointment 00 Refill(s) NS (Bolus) 2020-0 No 1,000 mL, Me moria IV 05-17 1,000 l 19:59: ml/hr, Douglas 00 Infuse Over: 1 hr, Route: IV, 1,000, Drug form: INJ, ONCE, Priority: STAT, Dosing Weight 58.636 kg, Start date: 05/17/20 14:59:00 CDT, Stop date: 05/17/20 14:59:00 CDT, 0 Albuterol 2020-0 No Notes: SEE Me moria 0.83 MG/ML 05-17 RT l Inhalant 19:58: DOCUMENTAT Her dale Solution 00 ION (Same as: Proventil) Kayexalate No Notes: Memor ia 05-17 (sodium l 19:58: polystyren Douglas 00 e sulfonate 15 gm/60 ml ALICIA) Shake well before use. (Same as: Kayexalate , SPS) Dextrose No 25 gm, 50 Delano chavez 50% Syringe 05-17 mL, Route: l (D50W) 19:57: IVP, Drug Ricco n 00 Form: INJ, Dosing Weight 58.636, kg, ONCE, STAT, Start date: 05/17/20 14:57:00 CDT, Stop date: 05/17/20 14:57:00 CDT, 0 Insulin No Notes: Memoria regular 05-17 (Same as: l 19:57: Humulin R) Randall 00 Roll in palms of hands gently; Do not shake vigorously . WASTE: F/P - Black; E - Municipal Trash Bin Stable for 31 days at room temperatur e Expires in days from ____Date Calcium No Notes: Memoria Gluconate 05-17 WASTE: F/P l 19:57: - Sink; E Randall 00 - Municipal Trash Bin Saline No Notes: Memoria Flush 0.9% 05-17 preservati l 17:53: ve free. Randall Sodium No 1,000 mL, Memori a Chloride 05-17 1000 l 0.9% 17:53: ml/hr, Randall (Bolus) IV 00 Infuse Over: 1 hr, Route: IV, 1,000, Drug form: INJ, ONCE, Priority: STAT, Dosing Weight 58.636 kg, Start date: 05/17/20 12:53:00 CDT, Stop date: 05/17/20 12:53:00 CDT, 0 spironolact 2020- No TAKE 1 Christopher ston one 04-21 TABLET(25 Methodi (ALDACTONE) 00:00: 00:00 MG) BY st 25 MG 00 :00 MOUTH tablet DAILY losartan 2020- No Essential TAKE 1 [place] (COZAAR) 5-26 08-24 hypertensio TABLET BY [facility] 100 MG 00:00: 00:[address] tablet 00 :00 DAILY spironolact 2019- No TAKE 1 Christopher ston one -20 07-13 TABLET(25 [facility] (ALDACTONE) 00:00: 00:00 MG) BY st 25 MG 00 :00 MOUTH tablet DAILY losartan 2019- No Essential TAKE 1 [place] (COZAAR) 12-09 05-26 hypertensio TABLET BY [facility] 100 MG 00:00: 00:[address] tablet 00 :00 DAILY spironolact 2019- No TAKE 1 Christopher ston one 24 04-20 TABLET(25 [facility] (ALDACTONE) 00:00: 00:00 MG) BY st 25 MG 00 :00 MOUTH tablet DAILY metoprolol 2020- No Essential TAKE 1 [place] succinate 17 01-04 hypertensio TABLET(100 [facility] XL 00:00: 00:00 n MG) BY st (TOPROL-XL) 00 :00 MOUTH 100 mg 24 DAILY hr tablet fenofibrate 2019- No TAKE 1 Christopher ston (TRICOR) 106 12-24 TABLET(145 Meth garret 145 MG 00:00: 00:00 MG) BY st tablet 00 :00 MOUTH DAILY amLODIPine 2018-10 Yes 10mg Take 10 mg [...] tablet 14:16: tablet as st 50 needed metoprolol Yes 50mg QD Take 1 [place] succinate 10-16 tablet (50 Meth [place]ret XL 00:00: mg total) st (TOPROL-XL) 00 by mouth 50 mg 24 hr daily. tablet Vital Signs Vital Name Observation Time Observation Value Comments Source Systolic blood 2020-06-10 15:03:00 147 mm[Hg] Jadto n [facility] pressure Diastolic blood 2020-06-10 15:03:00 65 mm[Hg] [place] on [facility] pressure Heart rate 2020-06-10 15:03:00 80 /min [place] [employer] Body weight 2020-06-10 15:03:00 57.607 kg [place] [employer] BMI 2020-06-10 15:03:00 24.00 kg/m2 [place] [employer] Temperature Oral (F) 2020-05-18 13:00:00 97.8 F [facility] Heart Rate 2020-05-18 13:00:00 [facility] Respitory Rate 2020-05-18 13:00:00 Memori al [place] Systolic (mm Hg) 2020-05-18 13:00:00 Delano rial Douglas Diastolic (mm Hg) 2020-05-18 13:00:00 Mem orial Douglas Temperature Oral (F) 2020-05-18 09:00:00 97.3 F [facility] Heart Rate 2020-05-18 09:00:00 [facility] Respitory Rate 2020-05-18 09:00:00 Memori al [place] Systolic (mm Hg) 2020-05-18 09:00:00 Delano rial Randall Diastolic (mm Hg) 2020-05-18 09:00:00 Mem orial [place] Temperature Oral (F) 2020-05-18 05:00:00 97.4 F [facility] Heart Rate 2020-05-18 05:00:00 [facility] Respitory Rate 2020-05-18 05:00:00 Memori al [place] Systolic (mm Hg) 2020-05-18 05:00:00 Delano rial Randall Diastolic (mm Hg) 2020-05-18 05:00:00 Mem orial Randall Height 2020-05-17 23:35:00 152.4 cm [facility] Weight 2020-05-17 23:35:00 [facility] BMI Calculated 2020-05-17 23:35:00 Memori al Randall Height 2020-05-17 17:15:00 172.72 cm [facility] BMI Calculated 2020-05-17 17:15:00 Memori al [place] Weight 2020-05-17 17:15:00 [facility] Procedures Procedure Date / Time Performed Performing Clinician [facility] e ECG 12-LEAD 2020-06-10 14:00:04 Rayna Dominguez Meth odist Plan of Care Planned Activity Planned Date Details Comments Source Future Scheduled 2020-05-10 INFLUENZA VACCINE [place] [facility] Test 00:00:00 [code = INFLUENZA VACCINE] Future Scheduled 2008 65+ PNEUMOCOCCAL [place] [facility] Test 00:00:00 VACCINE (1 of 1 - PPSV23) [code = 65+ PNEUMOCOCCAL VACCINE (1 of 1 - PPSV23)] Future Scheduled 1993 SHINGLES VACCINES (#1) [place] [facility] Test 00:00:00 [code = SHINGLES VACCINES (#1)] Future Scheduled 1961 Hepatitis C screening [facility] Test 00:00:00 (procedure) [code = 511885948] Future Scheduled 1959 COVID-19 VACCINE (1 of [place] [facility] Test 00:00:00 2) [code = COVID-19 VACCINE (1 of 2)] Encounters Start End Encounter Admission Attending Care Care Encounter Source Date/Time Date/Time Type Type Clinicians Facility Department ID 2020-06-10 2020-06-10 Outpatient REINA [facility] [id number] 006 Krishan 00:00:00 00:00:00 RAYNA [address] 2020-05-17 2020-05-18 Outpatient BARRON Bond [facility] [id number] 12:13:02 13:30:00 Earle 00 2020-05-17 2020-05-17 Inpatient E [facility] MED [id number] [facility] 15:14:00 12:13:00 Results Test Description Test Time Test Comments Results Result Comments Source ECG 12 lead 2020-06-10 18:08:32 Test Item Value Reference Range Interpretation Comme nts Ventricular rate (test code = 253) 72 Atrial rate (test code = 255) 72 WA interval (test code = 266) 210 QRSD [...] abnormality, improved in Anterolateral leads-QT has shortened- [place] [facility]ARD[facility] [id number] 13:09:00<0.02[facility] CARDIAC [id number] 07:33:00<0.02[facility]annCHEM [id number] 07:33:0096[facility]annCHEM [id number] 07:33:0027[facility]annCHEM [id number] 07:33:001.58[facility]annCHEM [id number] 07:33:43033 [facility]annCHE[facility] [id number] 07:33:004.8[facility] HermannCHEM PANEL 2020-05-18 07:33:30453Qkrhktgb HermannCHEM [id number] 07:33:0016[facility] HermannCHEM [id number] 07:33:0011.8[facility]annCHEM [id number] 07:33:009.1[facility]annCHEM [id number] 07:33:00 Test Item Value Reference Range Interpretation Comments B/C Ratio (test code = B/C Ratio) 17 1 6-25 [facility]annCHE[facility] [id number] 07:33:005.8[facility] HermannCHEM PANEL 2020-05-18 07:33:002.5[facility] HermannCHEM [id number] 07:33:003.3[facility]annCHEM [id number] 07:33:00 Test Item Value Reference Range Interpretation Comments A/G Ratio (test code = A/G Ratio) 0.8 1 0.7-1.6 [facility]annCHE[facility] [id number] 07:33:0017[facility] HermannCHEM PANEL 2020-05-18 07:33:0025[facility] HermannCHEM [id number] 07:33:0045[facility]annCHEM [id number] 07:33:000.1[facility]annCHEM [id number] 07:33:0031[facility] TgprwllQLCCQWRCZMNL9130-66-91 07:33:004.8[facility] HermannCHEM [id number] 03:01:70504Coexuekq HermannCHEM [id number] 03:01:0030 [facility]annCHE[facility] [id number] 03:01:001.77[facility] HermannCHEM PANEL 2020-05-18 03:01:93606Lyxtxxck HermannCHEM [id number] 03:01:004.9[facility] HermannCHEM [id number] 03:01:38308Glwkbcpg HermannCHEM [id number] 03:01:0017[facility]annCHEM [id number] 03:01:0011.9[facility] HermannCHEM [id number] 03:01:009.6[facility]annCHEM [id number] 03:01:0027 [facility]ann[facility] AND [id number] 20:29:00Yellow *NA*(05/17/20 3:29 PM) [facility] [id number] 20:29:00Slight *ABN*(05/17/20 3:29 PM) [facility] [id number] 20:29:00 Test Item Value Reference Range Interpretation Comments UA Spec Grav (test code = UA Spec 1.014 1 Grav) [facility] [id number] 20:29:00 Test Item Value Reference Range Interpretation Comments UA pH (test code = UA pH) 5.0 1 5.0-8.0 [facility] [id number] 20:29:00Negative *NA*(05/17/20 3:29 PM) [facility] [id number] 20:29:00Negative (05/17/20 3:29 PM) [facility] [id number] 20:29:00Negative (05/17/20 3:29 PM) [facility] [id number] 20:29:00Negative (05/17/20 3:29 PM) [facility] [id number] 20:29:00<1[facility] AND [id number] 20:29:00<1[facility] AND [id number] 20:29:003 [facility]annCHEM [id number] 18:33:0014.5[facility] HermannCHEM PANEL 2020-05-17 18:33:009.5[facility] HermannCHEM [id number] 18:33:0019[facility] WdvbykrCXSWCNPTYJ0110-65-96 18:33:008.7[facility] ZyqltuoVAFDFRYMRW3134-19-77 18:33:003.54[facility] JitabweGMACHQYXTZ1073-72-22 18:33:009.2[facility] [id number] 18:33:0029.4[facility] MpbkeraZCWHFUNPNE0951-91-61 18:33:00 82.9[facility] EgbndfiBHXGACOYLY2868-06-49 18:33:00 Test Item Value Reference Range Interpretation Comments MCH (test code = MCH) 26.1 pg 27.0-31.0 [facility] KalsgaiVLXSKQMRSL0498-42-81 18:33:0031.5[facility] HermannHEMATOLOGY 2020-05-17 18:33:0016.1[facility] RadjoevPLQKCFNJAU0387-62-61 18:33:35859Iwldeagm CwzogooQEOIKMVRHW9966-48-07 18:33:008.9[facility] XidlgotUQIWKMCKLE0464-76-04 18:33:00 Test Item Value Reference Range Interpretation Comments PT (test code = PT) 13.4 s 12.0-14.7 [facility] CbyauujABTEVYTTUU3484-25-07 18:33:00 Test Item Value Reference Range Interpretation Comments INR (test code = INR) 1.02 1 0.85-1.17 Memorial FxhlvagGZBFSCBGLJ2996-56-07 18:33:00 Test Item Value Reference Range Interpretation Comments PTT (test code = PTT) 28.1 s 22.9-35.8 Memorial RmfrgetTDGFMZNFLW9902-26-74 18:33:0078.5[facility] HermannHEMATOLOGY 2020-05-17 18:33:0014.2[facility] BuauotpRSJGHGNXFV4939-83-87 18:33:005.8[facility] MmmjcifVNGXMOHMUQ8402-08-60 18:33:001.1[facility] YqzmytgJFCJHYAMDZ5889-87-96 18:33:000.4[facility] QynvkweSJQJLEFJKH1058-88-18 18:33:006.8[facility] [id number] 18:33:001.2[facility] BxmakmsSNNAVIBWUU6355-84-44 18:33:000.5 Memorial QvqovieHOLMUPTCQM2253-73-35 18:33:000.1[facility] HermannBLOOD BANK [id number] 18:33:00Negative (05/17/20 1:33 PM)[facility] HermannCARDIAC [id number] 18:33:00<0.02[facility] HermannCHEM [id number] 18:33:00 94[facility] HermannCHEM [id number] 18:33:0040[facility] HermannCHEM PANEL 2020-05-17 18:33:002.43[facility] HermannCHEM [id number] 18:33:03752Sjveanys HermannCHEM [id number] 18:33:54209Rivawdee HermannCHEM [id number] 18:33:0017[facility]
[2020-12-11 19:19] LABS: Urine Blood NEGATIVE (NEG); Urine Glucose NEGATIVE (NEG); Urine Protein NEGATIVE (NEG)
[2020-12-11 19:22] LABS: Urine Bacteria NONE SEEN /HPF (<20); Urine RBC <5 /HPF (NONE SEEN)
[2020-12-11 19:24] LABS: Absolute Lymphocytes (CBC) 0.9 K/uL (0.7-4.9); Basophils % 0.2 % (0-1.3); Hematocrit 36.1 % (36.0-45.0); Lymphocytes % 20.7 % (15.3-44.8); MPV 9.2 fL (7.6-11.3); RBC Red Blood Cell Count 4.29 M/uL (3.86-4.86)
[2020-12-11 19:39] LABS: ALT/SGPT 90 U/L (12-78); AST/SGOT 58 U/L (15-37); Albumin 3.6 g/dL (3.4-5.0); Alkaline Phosphatase 181 U/L (45-117); BUN Blood Urea Nitrogen 52 mg/dL (7-18); Bicarbonate 19 mmol/L (21-32); Bilirubin Direct < 0.1 mg/dL (0-0.2); Bilirubin Total 0.2 mg/dL (0.2-1.0); Glucose Level 79 mg/dL (74-106); Lipase 9598 U/L (73-393); Potassium 4.9 mmol/L (3.5-5.1); Protein, Total 7.3 g/dL (6.4-8.2); Sodium Level 143 mmol/L (136-145)
[2020-12-11] MEDS ORDERED: NA CHLORIDE 0.9% 500 ML ONE ×2 (20:06→23:21)
--- NOTE | 2020-12-11 20:41 | RAD REPORT ---
EXAM DESCRIPTION: CT - Abdomen Pelvis Wo Contrast - 12/11/2020 8:22 pm CLINICAL HISTORY: Abdominal pain. EPIGASTRIC PAIN COMPARISON: No comparisons TECHNIQUE: CT imaging of the abdomen and pelvis was performed without contrast. Solid organ, bowel a nd vascular assessment is limited due to lack of IV and oral contrast. All CT scans are performed using dose optimization technique as appropriate and may include automated exposure control or mA/KV adjustment according to patient size. FINDINGS: The lower lung mcmullen are clear.Small hiatal hernia noted. Pacemaker wires are present. The liver demonstrates several low-density lesions which are incompletely assessed but likely benign. Mild inflammatory changes are seen surrounding the pancreas and duodenum. Both adrenal glands, pancre as and kidneys are within normal limits. No bowel obstruction, free air, free fluid or abscess. Sigmoid diverticulosis coli is present without diverticulitis. The appendix is not identified as a discrete structure, however, no secondary findin gs of appendicitis are identified. Degenerative changes are present lower lumbar spine mild degenerative retrolisthesis of L3 on 4. IMPRESSION: A mild to moderate acute pancreatitis is suspected. Correlation with amylase and lipase levels suggested. A limited non-contrast examination was performed as detailed.
--- NOTE | 2020-12-11 20:57 | RAD REPORT ---
EXAM DESCRIPTION: US - Abdomen Exam Limited - 12/11/2020 8:13 pm CLINICAL HISTORY: EPIGASTRIC PAIN COMPARISON: Abdomen Pelvis Wo Contrast dated 12/11/2020 FINDINGS: The gallbladder surgically absent. The common bile duct is normal measuring 4 mm. The liver demonstrates no findings of intrahepatic biliary dilatation. IMPRESSION: Unremarkable study status post cholecystectomy.
--- NOTE | 2020-12-11 21:11 | EDPHYS ---
Physician Documentation [facility] Name: Geneva Starks Age: 75 yrs Sex: Female : 1945 Arrival Date: 12/11/2020 Time: 17:48 Bed 16 Private MD: Brenton Holm ED Physician Chris Vazquez HPI: 12/11 18:45 This 75 yrs old Female presents to ER via Ambulatory with complaints of cp Abnormal Lab Results. 18:45 The patient presents with abdominal pain in the epigastric area. cp 18:45 Onset: The symptoms/episode began/occurred 4 day(s) ago. cp 18:45 The symptoms do not radiate. Associated signs and symptoms: Pertinent negatives: blood cp in stools, chest pain, constipation, diarrhea, dysuria, fever, vomiting. Severity of pain: in the emergency department the pain very mild. Patient reports she was referred to ED for elevated lipase after having blood work drawn at office of DR Holm. Patient reports history of pancreatitis in the past. Historical: - Allergies: 18:05 No Known Allergies; ll1 - PMHx: 18:05 Pancreatitis; Hypertension; ll1 - PSHx: 18:05 Bladder suspension; Cholecystectomy; pacemaker; Hysterectomy; ll1 - Immunization history:: Flu vaccine is up to date. - Social history:: Smoking status: Patient denies any tobacco usage or history of. ROS: 19:00 Eyes: Negative for injury, pain, redness, and discharge. cp 19:00 Constitutional: Negative for body aches, chills, fever, poor PO intake. 19:00 ENT: Negative for ear pain, sore throat, difficulty swallowing, difficulty handling secretions. 19:00 Cardiovascular: Negative for chest pain, edema, palpitations. 19:00 Respiratory: Negative for cough, shortness of breath, wheezing. 19:00 Abdomen/GI: Positive for abdominal pain, of the epigastric area, Negative for vomiting, diarrhea, constipation, black/tarry stool, rectal bleeding. 19:00 Back: Negative for radiated pain. 19:00 : Negative for urinary symptoms. 19:00 Neuro: Negative for altered mental status, headache, weakness. 19:00 All other systems are negative. Exam: 19:05 Head/Face: Normocephalic, atraumatic. cp 19:05 Constitutional: The patient appears in no acute distress, alert, awake, comfortable, non-diaphoretic, non-toxic, well developed, well nourished. 19:05 Eyes: Periorbital structures: appear normal, Conjunctiva: normal, no exudate, no injection, Sclera: no appreciated abnormality, Lids and lashes: appear normal, bilaterally. 19:05 ENT: External ear(s): are unremarkable, Nose: is normal, Mouth: Lips: moist, Oral mucosa: moist, Posterior pharynx: is normal, airway is patent, no erythema, no exudate. 19:05 Chest/axilla: Inspection: normal, Palpation: is normal, no crepitus, no tenderness. 19:05 Cardiovascular: Rate: normal, Rhythm: regular. 19:05 Respiratory: the patient does not display signs of respiratory distress, Respirations: normal, no use of accessory muscles, no retractions, labored breathing, is not present, Breath sounds: are clear throughout, no decreased breath sounds. 19:05 Abdomen/GI: Inspection: abdomen appears normal, Bowel sounds: active, all quadrants, Palpation: soft, in all quadrants, mild abdominal tenderness, in the epigastric area, rebound tenderness, is not appreciated, voluntary guarding, is not appreciated, involuntary guarding, is not appreciated. 19:05 Back: pain, is absent, ROM is normal. Vital Signs: 18:01 BP 108 / 72; Pulse 70; Resp 16; Temp 97.0; Pulse Ox 98% on R/A; Weight 53.52 kg; Height ll1 5 ft. 1 in. (154.94 cm); Pain 0/10; 20:41 BP 114 / 76; Pulse 62; Resp 18; Pulse Ox 96% on R/A; em 23:00 BP 112 / 77; Pulse 59; Resp 18; Pulse Ox 99% on R/A; Pain 0/10; em 0305 00:00 BP 114 / 65; Pulse 58; Resp 18; Pulse Ox 97% on R/A; em 01:00 BP 100 / 63; Pulse 59; Resp 18; Pulse Ox 97% on R/A; em 12/11 18:01 Body Mass Index 22.30 (53.52 kg, 154.94 cm) ll1 MDM: 12/11 18:22 Patient medically screened. cp 20:00 Differential diagnosis: bowel obstruction, gastritis, pancreatitis, Peptic Ulcer cp Disease, Perf. Duodenal Ulcer, Perf. Gastric Ulcer. 21:00 Data reviewed: vital signs, nurses notes, lab test result(s), radiologic studies, CT cp scan, ultrasound. 21:00 Counseling: I had a detailed discussion with the patient and/or guardian regarding: the cp historical points, exam findings, and any diagnostic results supporting the discharge/admit diagnosis, lab results, radiology results, the need for further work-up and treatment in the hospital. Physician consultation: Brenton Holm MD was contacted at 21:00, regarding admission, to the medical/surgical unit. patient's condition, would like consultation with Dr. Quinones. 12/11 18:40 Order name: Basic Metabolic Panel; Complete Time: 19:44 cp 12/11 18:40 Order name: CBC with Diff; Complete Time: 19:44 cp 12/11 20:11 Interpretation: Normal except: HGB 11.7; PLT 101; RDW 31.9; MPV 9.2. cp 12/11 18:40 Order name: Hepatic Function; Complete Time: 19:44 cp 12/11 18:40 Order name: Lipase; Complete Time: 19:44 cp 12/11 18:40 Order name: Urine Microscopic Only; Complete Time: 19:44 cp 12/11 19:14 Order name: Urine Dipstick--Ancillary (enter results); Complete Time: 19:44 tt3 12/11 19:46 Order name: Lactate cp 12/11 19:46 Order name: Procalcitonin cp 12/11 19:46 Order name: Blood Culture Adult (2) cp 12/11 21:17 Order name: Lipid Profile bb 12/11 21:18 Order name: Lipid Profile; Complete Time: 22:28 EDMS 12/11 21:29 Order name: Basic Metabolic Panel ED[facility] 12/11 21:29 Order name: Basic Metabolic Panel [facility] 12/11 21:30 Order name: Lipase [facility] 12/11 18:40 Order name: IV Saline Lock; Complete Time: 19:24 cp 12/11 19:46 Order name: CT Abd/Pelvis - Without Contrast: RUQ/epigastric area; Complete Time: 20:46 cp 12/11 19:46 Order name: US Abdomen Limited; Complete Time: 20:59 cp 12/11 21:27 Order name: CONS Physician Consult [facility] 12/11 21:29 Order name: NPO [facility] 12/11 21:30 Order name: Lipase [facility] 12/11 21:30 Order name: Liver (Hepatic) Function [facility] 12/11 21:30 Order name: Liver (Hepatic) Function [facility] 12/11 21:30 Order name: CBC with Automated Diff [facility] 12/11 21:30 Order name: CBC with Automated Diff [facility] 12/11 21:50 Order name: COVID-19 : Document "Date of Symptom Onset" if Symptomatic. tt3 12/11 21:51 Order name: CORONAVIRUS [facility] 12/12 00:21 Order name: SARS-COV-2 RT PCR [facility] 12/11 18:40 Order name: Labs collected and sent; Complete Time: 19:24 cp 12/11 18:40 Order name: Urine Dipstick-Ancillary (obtain specimen); Complete Time: 19:11 cp 12/11 19:46 Order name: NPO; Complete Time: 20:05 cp Administered Medications: 20:52 Drug: NS 0.9% 500 ml Route: IV; Rate: bolus; Site: left forearm; em 21:59 Drug: NS 0.9% 500 ml Route: IV; Rate: bolus; Site: left forearm; em 12/12 01:27 Follow up: IV Status: Completed infusion; IV Intake: 500ml em Disposition: 12/11/20 21:10 Hospitalization ordered by Brenton Holm for Inpatient Admission. Preliminary diagnosis is Acute pancreatitis. - Bed requested for Telemetry/MedSurg (Inpatient). - Status is Inpatient Admission. em - Condition is Stable. - Problem is new. - Symptoms have improved. Addendum: 12/13/2020 06:50 Co-signature as Attending Physician, Chris Vazquez MD I agree with the assessment and c mcdonald plan of care. Signatures: Dispatcher [employer] [facility] Chris Vazquez MD MD cha Munoz, Edgar, RN RN em To Orozco, PATHOLOGY SPECIALIST-C PATHOLOGY SPECIALIST-Cla1 Chris Bryant PA PA cp Garcia, Cindy, ROLO RN Lizeth Rousseau RN RN ll1 Corrections: (The following items were deleted from the chart) 12/11 20:06 19:27 Abdomen Pelvis W Con+CT.RAD.BRZ ordered. [facility] 12/12 01:10 12/11 21:10 Hospitalization Ordered by Brenton Holm MD for Inpatient Admission. cg Preliminary diagnosis is Acute pancreatitis. Bed requested for Telemetry/MedSurg (Inpatient). Status is Inpatient Admission. Condition is Stable. Problem is new. Symptoms have improved. cp 12/12 01:58 01:10 12/11/2020 21:10 Hospitalization Ordered by Brenton Holm MD for Inpatient em Admission. Preliminary diagnosis is Acute pancreatitis. Bed requested for Telemetry/MedSurg (Inpatient). Status is Inpatient Admission. Condition is Stable. Problem is new. Symptoms have improved. cg 12/14 99:12/12 19:00 Constitutional: Negative for body aches, chills, fever, poor PO intake, cp cp 12/14 99:12/12 19:00 Eyes: Negative for injury, pain, redness, and discharge, cp cp 12/14 99:12/12 19:00 ENT: Negative for ear pain, sore throat, difficulty swallowing, difficulty cp handling secretions, cp 12/14 99:12/12 19:00 Cardiovascular: Negative for chest pain, edema, palpitations, cp cp 12/14 99:12/12 19:00 Respiratory: Negative for cough, shortness of breath, wheezing, cp cp 12/14 99:12/12 19:00 Abdomen/GI: Positive for abdominal pain, of the epigastric area, Negative cp for vomiting, diarrhea, constipation, black/tarry stool, rectal bleeding, cp 12/14 99:12/12 19:00 Back: Negative for radiated pain, cp cp 12/14 99:12/12 19:00 : Negative for urinary symptoms, cp cp 12/14 99:12/12 19:00 Neuro: Negative for altered mental status, headache, weakness, cp cp 12/14 99:12/12 19:00 All other systems are negative, cp cp 12/14 99:12/12 19:00 Constitutional: The patient appears in no acute distress, alert, awake, cp comfortable, non-diaphoretic, non-toxic, well developed, well nourished, cp 12/14 99:12/12 19:00 Head/Face: Normocephalic, atraumatic. cp cp 12/14 99:39 12/12 19:00 Eyes: Periorbital structures: appear normal, Conjunctiva: normal, no cp exudate, no injection, Sclera: no appreciated abnormality, Lids and lashes: appear normal, bilaterally, cp 12/14 99:12/12 19:00 ENT: External ear(s): are unremarkable, Nose: is normal, Mouth: Lips: cp moist, Oral mucosa: moist, Posterior pharynx: is normal, airway is patent, no erythema, no exudate, cp 12/14 99:12/12 19:00 Chest/axilla: Inspection: normal, Palpation: is normal, no crepitus, no cp tenderness, cp 12/14 99:12/12 19:00 Cardiovascular: Rate: normal, Rhythm: regular, cp cp 12/14 99:12/12 19:00 Respiratory: the patient does not display signs of respiratory distress, cp Respirations: normal, no use of accessory muscles, no retractions, labored breathing, is not present, Breath sounds: are clear throughout, no decreased breath sounds, cp 12/14 99:12/12 19:00 Abdomen/GI: Inspection: abdomen appears normal, Bowel sounds: active, all cp quadrants, Palpation: soft, in all quadrants, mild abdominal tenderness, in the epigastric area, rebound tenderness, is not appreciated, voluntary guarding, is not appreciated, involuntary guarding, is not appreciated, cp 12/14 99:12/12 19:00 Back: pain, is absent, ROM is normal, cp cp
--- NOTE | 2020-12-11 21:11 | ER ---
Nurse's Notes [facility] Name: Geneva Starks Age: 75 yrs Sex: Female : 1945 Arrival Date: 12/11/2020 Time: 17:48 Bed 16 Private MD: Brenton Holm Diagnosis: Acute pancreatitis Presentation: 12/11 18:01 Chief complaint: Patient states: Sent by Dr. Holm. Had blood drawn today, and was ll1 sent in for eval. of pancreatitis. Possible admission. No fever. Coronavirus screen: Client denies travel out of the [place] in the last 14 days. At this time, the client does not indicate any symptoms associated with coronavirus-19. Ebola Screen: Patient denies travel to an Ebola-affected area in the 21 days before illness onset. Initial Sepsis Screen: Does the patient meet any 2 criteria? No. Patient's initial sepsis screen is negative. Does the patient have a suspected source of infection? Yes: Acute abdominal pain. Risk Assessment: Do you want to hurt yourself or someone else? Patient reports no desire to harm self or others. Onset of symptoms was December 11, 2020. 18:01 Method Of Arrival: Ambulatory ll1 18:01 Acuity: ROSALIND 3 ll1 Historical: - Allergies: 18:05 No Known Allergies; ll1 - PMHx: 18:05 Pancreatitis; Hypertension; ll1 - PSHx: 18:05 Bladder suspension; Cholecystectomy; pacemaker; Hysterectomy; ll1 - Immunization history:: Flu vaccine is up to date. - Social history:: Smoking status: Patient denies any tobacco usage or history of. Screenin:28 Abuse screen: Denies threats or abuse. Nutritional screening: No deficits noted. em Tuberculosis screening: No symptoms or risk factors identified. Fall Risk None identified. Assessment: 19:10 General: Appears in no apparent distress. comfortable, Behavior is calm, cooperative, em appropriate for age. Pain: Denies pain. Neuro: Level of Consciousness is awake, alert, obeys commands, Oriented to person, place, time, situation, Appropriate for age. Cardiovascular: Capillary refill < 3 seconds Patient's skin is warm and dry. Respiratory: Airway is patent Respiratory effort is even, unlabored, Respiratory pattern is regular, symmetrical. GI: Patient currently denies abdominal pain, nausea, vomiting. Derm: Skin is intact, is healthy with good turgor, Skin is pink, warm \T\ dry. Musculoskeletal: Capillary refill < 3 seconds, Range of motion: intact in all extremities. 19:30 Reassessment: Patient appears in no apparent distress at this time. Patient and/or em family updated on plan of care and expected duration. Pain level reassessed. Patient is alert, oriented x 3, equal unlabored respirations, skin warm/dry/pink. 21:00 Reassessment: Patient appears in no apparent distress at this time. Patient and/or em family updated on plan of care and expected duration. Pain level reassessed. Patient is alert, oriented x 3, equal unlabored respirations, skin warm/dry/pink. 23:00 Reassessment: Patient appears in no apparent distress at this time. Patient and/or em family updated on plan of care and expected duration. Pain level reassessed. Patient is alert, oriented x 3, equal unlabored respirations, skin warm/dry/pink. 12/12 00:00 Reassessment: Patient appears in no apparent distress at this time. Patient and/or em family updated on plan of care and expected duration. Pain level reassessed. Patient is alert, oriented x 3, equal unlabored respirations, skin warm/dry/pink. 01:21 Reassessment: Patient appears in no apparent distress at this time. Patient and/or em family updated on plan of care and expected duration. Pain level reassessed. Patient is alert, oriented x 3, equal unlabored respirations, skin warm/dry/pink. Vital Signs: 12/11 18:01 BP 108 / 72; Pulse 70; Resp 16; Temp 97.0; Pulse Ox 98% on R/A; Weight 53.52 kg; Height ll1 5 ft. 1 in. (154.94 cm); Pain 0/10; 20:41 BP 114 / 76; Pulse 62; Resp 18; Pulse Ox 96% on R/A; em 23:00 BP 112 / 77; Pulse 59; Resp 18; Pulse Ox 99% on R/A; Pain 0/10; em 12/12 00:00 BP 114 / 65; Pulse 58; Resp 18; Pulse Ox 97% on R/A; em 01:00 BP 100 / 63; Pulse 59; Resp 18; Pulse Ox 97% on R/A; em 12/11 18:01 Body Mass Index 22.30 (53.52 kg, 154.94 cm) ll1 ED Course: 12/11 17:48 Patient arrived in ED. as 17:48 Brenton Holm MD is Private Physician. as 18:04 Triage completed. ll1 18:05 Arm band placed on Patient placed in an exam room, on a stretcher. ll1 18:18 Chris Bryant PA is PHCP. cp 18:18 Rajiv Pemberton MD is Attending Physician. cp 18:32 Ramez Blood RN is Primary Nurse. jl7 19:00 Patient has correct armband on for positive identification. Placed in gown. Bed in low em position. Call light in reach. Pulse ox on. NIBP on. 19:10 Initial lab(s) drawn, by me, sent to lab. Inserted saline lock: 20 gauge in left em forearm, using aseptic technique. Blood collected. 20:13 US Abdomen Limited In Process Unspecified. EDMS 20:23 CT Abd/Pelvis - Without Contrast: RUQ/epigastric area In Process Unspecified. EDMS 20:46 Chris Vazquez MD is Attending Physician. cp 21:09 Brenton Holm MD is Hospitalizing Provider. cp 12/12 01:25 No provider procedures requiring assistance completed. Patient admitted, IV remains in em place. Administered Medications: 12/11 20:52 Drug: NS 0.9% 500 ml Route: IV; Rate: bolus; Site: left forearm; em 21:59 Drug: NS 0.9% 500 ml Route: IV; Rate: bolus; Site: left forearm; em 12/12 01:27 Follow up: IV Status: Completed infusion; IV Intake: 500ml em Intake: 01:27 IV: 500ml; Total: 500ml. em Outcome: 12/11 21:10 Decision to Hospitalize by Provider. cp 12/12 01:25 Admitted to Med/surg accompanied by tech, via wheelchair, room 223, with chart, Report em called to ROLO Mahmood Condition: good Instructed on the need for admit, Demonstrated understanding of instructions. 01:58 Patient left the ED. em Signatures: Dispatcher [employer] EDNE Clifford Becker RN RN em Mignon Ceballos as Chris Bryant PA PA cp Ramez Blood RN RN jl7 Lizeth Rousseau, RN RN ll1
[2020-12-11] MEDS ORDERED: ONDANSETRON 4 MG/2 ML VIAL IV PRN (21:27)
[2020-12-11] MEDS ORDERED: MORPHINE 4 MG/ML SYR IV PRN (21:27)
[2020-12-11] MEDS ORDERED: NA CHLORIDE 0.9% 1,000 ML IV SCH (22:00)
[2020-12-12 04:12] LABS: Absolute Lymphocytes (CBC) 0.9 K/uL (0.7-4.9); Basophils % 0.3 % (0-1.3); Lymphocytes % 26.8 % (15.3-44.8); MPV 9.4 fL (7.6-11.3); RBC Red Blood Cell Count 3.77 M/uL (3.86-4.86)
[2020-12-12 04:15] VITALS: BMI 22.8
[2020-12-12 05:39] LABS: Anisocytosis 3+; Blood Morphology Comment NOTED (NOT SEEN); Hypochromasia 2+; Macrocytosis 1+; Platelet Estimate ADEQ; White Blood Cell Scan OK (OK)
[2020-12-12 05:54] LABS: ALT/SGPT 82 U/L (12-78); AST/SGOT 61 U/L (15-37); Albumin 3.1 g/dL (3.4-5.0); Alkaline Phosphatase 182 U/L (45-117); BUN Blood Urea Nitrogen 45 mg/dL (7-18); Bicarbonate 17 mmol/L (21-32); Bilirubin Direct < 0.1 mg/dL (0-0.2); Bilirubin Total 0.2 mg/dL (0.2-1.0); Glucose Level 63 mg/dL (74-106); Lipase 5763 U/L (73-393); Potassium 4.5 mmol/L (3.5-5.1); Protein, Total 6.1 g/dL (6.4-8.2); Sodium Level 146 mmol/L (136-145)
[2020-12-12] MEDS: D5 0.9 NS 1,000 ML IV SCH ×2 (07:00→17:00)
[2020-12-12] MEDS ORDERED: D50W 25 GM/50 ML SYRINGE IV PRN (07:03)
[2020-12-12] MEDS ORDERED: D50W 25 GM/50 ML VIAL IV PRN (17:41)
[2020-12-12] MEDS: Ringers Lactate 1,000 ML IV SCH (18:23)
--- NOTE | 2020-12-12 20:10 | PN ---
Date of Progress Note: 12/12/2020 The patient states she feels better today. She is hungry. Her enzymes, lipase dropped almost half d own to 5763. Abdomen is nontender. Complains of no pain. Discussed further with Dr. Garcia. Jerri lly increase her diet and went back to baseline. We will discharge. Probably will need ERCP if mini mal over the next few weeks. HR/MODL Voice ID: [id number] Report ID: [id number]
--- NOTE | 2020-12-12 21:55 | CON ---
Date of Consultation: 12/12/2020 Reason For Consultation: Recurrent idiopathic acute pancreatitis. History Of Present Illness: The patient is a 75-year-old white female with history of recurrent idiopathic pancreatitis. The patient states that this is her third time having pancreatitis. The first time was 4 years ago with a left cholecystectomy performed at [facility]. Unsure if she has stones, but thinks she may have, with daughter at bedside today. There is no MRCP or ERCP done. The patient has a pacemaker and cannot have MRCP. She denies any abdominal pain, nausea, vomiting with this event, though she has had abdominal pain with pancreatitis in the past. She was having slurring word and feeling shaky, and daughter took her to her primary care doctor, who checked some labs and found that her lipase was elevated and was brought to the hospital. She also notes diarrhea recently, which is not resolved and it is unclear why she has this diarrhea she states. Past Medical History: Significant for hypertension, cervical cancer, lymphoma in the past. Medications: At home, she says are hypertension medicine. Medications here in the hospital include IV fluids, morphine, and Zofran. Allergies: ERTAPENEM. Social History: She is a . Two children. No tobacco. No alcohol. Family History: Father of myocardial infarction at age 75. Mother of ovarian cancer at age 62. Review of Systems: The patient has slurring words and shakiness, which is resolved since being in the hospital. She continues to have some diarrhea, but she denies abdominal pain, nausea, vomiting, fevers, chills, night sweats, heat or cold intolerance, chest pain, shortness of breath, seizure, syncope, lower extremity edema, muscle aches, joint aches, backaches, depression or anxiety. Physical Examination: Vital Signs: Temperature 96.3 degrees Fahrenheit, pulse 60, respirations 16, blood pressure 112/59, O2 saturation of 97% on room air. She is 5 feet 1 inch, 120 pounds, BMI 22 kg/m2. HEENT: Normocephalic, atraumatic. Anicteric. Pupils equal, round, and reactive to light. Extraocular movements intact. Oropharynx is clear. Neck: Supple. No masses. General: She is an elderly female, lying in bed, in no acute distress. Respirations: Clear to auscultation bilaterally. Cardiac: Regular rate and rhythm. No gallops or rubs. Gastrointestinal: Positive bowel sounds. Soft, nontender, nondistended. No hepatosplenomegaly. No peritoneal or Hough sign. No rebound or guarding. Extremities: No clubbing, cyanosis, or edema. 2+ pulses. Neurologic: Alert and oriented x3. Grossly nonfocal. 5/5 motor sensation intact to light touch. Data: The patient has a white count of 3.4, hemoglobin of 10.3, hematocrit 32.3, MCV of 85, platelet count of 82, polys of 66%, lymphocytes 27%, monocytes 6%, eosinophils 1%. The patient has sodium 146, potassium 4.5, chloride 119, BUN 45, creatinine of 1.4, calcium 8.7, total bilirubin 0.2, direct bilirubin less than 0.1, AST 61, ALT 82, alkaline phosphatase 182, total protein 6.1, albumin 3.1, globulin 3.0, triglycerides 254, cholesterol 157, LDL 62, HDL of 44, lipase 5763, down from 9598 yesterday. UA was negative. COVID-[address] abdomen and pelvis revealed mild to moderate acute pancreatitis with inflammatory changes surrounding the pancreas and duodenum. CT scan otherwise negative and ultrasound were unremarkable. Impression: 1. Acute recurrent idiopathic pancreatitis, first episode 4 years ago. Laparoscopic cholecystectomy performed that time at [facility]. No MRCP is done on the last pancreatitis, due to her pacemaker. In this event of pancreatitis, she denies any abdominal pain, nausea, or vomiting. She only has slurred speech and feeling shaky. Her daughter brought her to her PCP and lipase of 9598 was noted and has gone down to 5263 overnight, decreasing by approximately 4000 almost there. 2. She also has some chronic diarrhea since last admission as well. Needs to investigate with stool studies. 3. Thrombocytopenia with platelets down to 82,000, unclear etiology as to still why she has thrombocytopenia. We will need to have that investigated. 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 4. History of hypertension, cervical cancer, and lymphoma. Plan: 1. Increase IV fluids. 2. Monitor lipase and electrolytes. 3. Check CA-19-9 and hemoglobin A1c. 4. Keep n.p.o. and slowly advanced to clear liquids and then on to full liquids, and then a low-fat and low-cholesterol diet. 5. Check stool studies now. 6. Will consider outpatient EUS (endoscopic ultrasound) with possible ERCP WS/RUTH ANN Voice ID: [id number] Report ID: [id number] MTDD
[2020-12-13] MEDS: Ringers Lactate 1,000 ML IV SCH ×2 (02:06→08:54)
[2020-12-13 05:25] LABS: Absolute Lymphocytes (CBC) 0.6 K/uL (0.7-4.9); Basophils % 0.2 % (0-1.3); Hematocrit 27.6 % (36.0-45.0); Lymphocytes % 24.7 % (15.3-44.8); MPV 9.2 fL (7.6-11.3); RBC Red Blood Cell Count 3.21 M/uL (3.86-4.86)
[2020-12-13 06:06] LABS: ALT/SGPT 76 U/L (12-78); AST/SGOT 64 U/L (15-37); Albumin 2.2 g/dL (3.4-5.0); Alkaline Phosphatase 188 U/L (45-117); BUN Blood Urea Nitrogen 22 mg/dL (7-18); Bicarbonate 16 mmol/L (21-32); Bilirubin Direct < 0.1 mg/dL (0-0.2); Bilirubin Total 0.1 mg/dL (0.2-1.0); Glucose Level 71 mg/dL (74-106); Phosphorus 1.8 mg/dL (2.5-4.9); Potassium 4.1 mmol/L (3.5-5.1); Protein, Total 4.4 g/dL (6.4-8.2); Sodium Level 146 mmol/L (136-145)
[2020-12-13 06:08] LABS: Magnesium 1.3 mg/dL (1.8-2.4)
[2020-12-13 06:54] LABS: Lipase 1423 U/L (73-393)
[2020-12-13] MEDS ORDERED: Magnesium Sulfate 2gm IVPB 2 G/50 ML BAG IV ONE (07:33)
[2020-12-13] MEDS ORDERED: MORPHINE 2 MG/ML SYR IV PRN (13:00)
[2020-12-13 13:03] LABS: Absolute Lymphocytes (CBC) 0.9 K/uL (0.7-4.9); Basophils % 0.2 % (0-1.3); Hematocrit 32.1 % (36.0-45.0); Lymphocytes % 30.5 % (15.3-44.8); MPV 9.1 fL (7.6-11.3); RBC Red Blood Cell Count 3.75 M/uL (3.86-4.86)
[2020-12-13] MEDS: D5 0.9 NS 1,000 ML IV SCH ×2 (13:47→23:29)
--- NOTE | 2020-12-13 15:46 | P.PN ---
Subjective Date of Service: 12/13/20 Chief Complaint: Acute recurrent idiopathic pancreatitis, hypoglycemia, thrombocytopenia Subjective: Improving (Lipase decreasing ~ 9K to 5K to 1K today. She has not experienced any abdominal pain with this bout of pancreatitis but had elevated lipase and positive CT abdomen revealing pancreatitis. Her symptoms were feeling shaky and some slurred speech only. Glucoses have been low requiring switch back), Other (from LR to D5NS. Not clear if liver issue with unexplained low plts or elevated insulin issue or other.) Review of Systems 10-point ROS is otherwise unremarkable General: Weakness (Improving. ) Physical Examination - Vital Signs Temperature: 94.7 F Blood Pressure: 136/68 Pulse: 60 Respirations: 18 Pulse Ox (%): 95 - Physical Exam General: Alert, In no apparent distress, Oriented x3, Cooperative HEENT: Atraumatic, Normocephalic, PERRLA, EOMI Neck: Supple Respiratory: Normal air movement Cardiovascular: Normal pulses Gastrointestinal: Soft and benign, No tenderness, No rebound, No guarding Neurological: Normal speech Assessment And Plan - Current Problems (Diagnosis) (1) Recurrent pancreatitis Current Visit: Yes Status: Acute (2) Abnormal CT of the abdomen Current Visit: Yes Status: Acute (3) Hypoglycemia Current Visit: Yes Status: Acute (4) Thrombocytopenia Current Visit: Yes Status: Acute - Plan REC: 1) EUS-endoscopic ultrasound possibly with ERCP 2) advance diet 3) monitor labs 4) check serum insulin level and other 5) check liver numbers again 6) check for HIT or other possible causes lower plts
[2020-12-13 17:51] LABS: Protime INR 0.93
[2020-12-13 18:00] LABS: ALT/SGPT 104 U/L (12-78); AST/SGOT 82 U/L (15-37); Alkaline Phosphatase 254 U/L (45-117); Bilirubin Direct < 0.1 mg/dL (0-0.2); Bilirubin Total 0.2 mg/dL (0.2-1.0); Protein, Total 6.2 g/dL (6.4-8.2)
--- NOTE | 2020-12-13 20:36 | PN ---
Date of Progress Note: 12/13/2020 The patient states she feels considerably better today. She is much more alert. Her lipase has drop ped to 1000 level. However, sugars have also been low. I switched her IVs to D5. Her problem is th e platelet count, not sure of the etiology here. I had also discussed with Dr. Quinones in regard to a n ultrasound, endoscopy, and as an outpatient she can be referred to [place] for this progress note. HR/MODL Voice ID: [id number] Report ID: [id number]
[2020-12-14] MEDS: D5 0.9 NS 1,000 ML IV SCH (12:19)
[2020-12-14 13:06] LABS: Absolute Lymphocytes (CBC) 0.9 K/uL (0.7-4.9); Hematocrit 31.1 % (36.0-45.0); Lymphocytes % 30.7 % (15.3-44.8); MPV 9.4 fL (7.6-11.3); RBC Red Blood Cell Count 3.65 M/uL (3.86-4.86)
[2020-12-14 13:26] LABS: Anisocytosis 3+; Blood Morphology Comment NOTED (NOT SEEN); Platelet Estimate DECR
[2020-12-14 13:38] LABS: ALT/SGPT 89 U/L (12-78); AST/SGOT 64 U/L (15-37); Albumin 2.9 g/dL (3.4-5.0); Alkaline Phosphatase 226 U/L (45-117); BUN Blood Urea Nitrogen 12 mg/dL (7-18); Bicarbonate 20 mmol/L (21-32); Bilirubin Direct < 0.1 mg/dL (0-0.2); Bilirubin Total 0.2 mg/dL (0.2-1.0); Glucose Level 130 mg/dL (74-106); Lipase 1588 U/L (73-393); Potassium 4.2 mmol/L (3.5-5.1); Protein, Total 6.2 g/dL (6.4-8.2); Sodium Level 149 mmol/L (136-145)
[2020-12-14 13:54] LABS: C.diff Antigen/Toxin Ag neg : Tox neg (NEG : NEG)
[2020-12-14] MEDS: D5W 1,000 ML IV SCH (14:00)
--- NOTE | 2020-12-14 15:02 | RAD REPORT ---
EXAM DESCRIPTION: RAD - Chest Single View - 12/14/2020 2:34 pm CLINICAL HISTORY: critical chloride Chest pain. COMPARISON: No comparisons FINDINGS: Portable technique limits examination quality. Mild opacity in the medial right lung base could be developing pneumonia or atelectasis. The heart is normal in size. Dual lead pacer device is present.Small to moderate hiatal hernia.
[2020-12-14 15:12] LABS: Arterial Blood Carboxyhemoglob 0.9 % (0-1.5); Blood Gas Oxyhemoglobin 91.6 % (94-97); Blood O2 Saturation 93.8 % (92-98.5)
--- NOTE | 2020-12-14 17:19 | P.PN ---
Subjective Date of Service: 12/14/20 Chief Complaint: Acute recurrent idiopathic pancreatitis, hypoglycemia, thrombocytopenia Subjective: New changes (Elevated chloride at 122, but Na elevated at 149 and CO2 low at 20. ABG consistent with this slightly low pH at 7.34. Also now opacity in right lung base ("atelectasis or early pneumonia") c/w poor respiratory fn / drive and possible mild resp acidosis with D5NS IVFs. Plts have stabilized at 73.), Other (Ate her sandwich today; now glucose > 110 on check. IVFs changed from D5NS to D5) Review of Systems 10-point ROS is otherwise unremarkable General: Weakness (Resolved. ) Physical Examination - Vital Signs Temperature: 96.1 F Blood Pressure: 105/59 Pulse: 68 Respirations: 17 Pulse Ox (%): 94 - Physical Exam General: Alert, In no apparent distress, Oriented x3, Cooperative HEENT: Atraumatic, Normocephalic, PERRLA, EOMI Neck: Supple Respiratory: Normal air movement Cardiovascular: Normal pulses Gastrointestinal: Soft and benign, No tenderness, No rebound, No guarding Neurological: Normal speech Assessment And Plan - Current Problems (Diagnosis) (1) Recurrent pancreatitis Current Visit: Yes Status: Acute (2) Abnormal CT of the abdomen Current Visit: Yes Status: Acute (3) Hypoglycemia Current Visit: Yes Status: Acute Comment: Etiology unclear. Insulin level and C-peptide pending. (4) Thrombocytopenia Current Visit: Yes Status: Acute Comment: Stabilizing. - Plan REC: 1) if glucoses remain > 110, decrease D5 IVF rate and encourage po intake (wanted her lettuce, tomato, onion today but did not get) 2) EUS-endoscopic ultrasound possibly with ERCP 3) advance diet 4) monitor labs 5) check serum insulin level and C-peptide 6) monitor liver chemistries 7) check for HIT or other possible causes lower plts 8) incentive spirometer
--- NOTE | 2020-12-14 18:21 | P.CNS ---
Chief Complaint: Acute recurrent idiopathic pancreatitis, hypoglycemia, thrombocytopenia History of Present Illness: Pt is a 75 y/o female with past medical hx of hypertension, HLD, DM, chronic pancreatitis presenting with complaints of abdominal pain and diarrhea. Pt was found to have acute pancreatitis on imaging and labs. Pt was maintained on pain meds and symptom control. Pt states she feels well but is still having diarrhea. She states she is ready to go home. No chest pain, shortness of breath. Nephrology has been consulted for management of hyperchloremia and hypernatremia. Allergies ertapenem Adverse Reaction (Verified 12/12/20 03:35) see comments Home Medications: Unobtainable 12/12/20 - Past Medical/Surgical History Diabetic: No -: Hyperlipidemia -: HTN -: Menopause -: Osteoarthritis -: Pacemaker -: Bladder Lift - Family History Mother Medical History: Cancer Father Medical History: Heart disease, Hypertension, Cancer - Social History Alcohol use: No CD- Drugs: No Caffeine use: Yes Place of Residence: Home Review of Systems 10-point ROS is otherwise unremarkable Physical Examination Temp Pulse Resp BP Pulse Ox 96.1 F L 68 17 105/59 L 94 12/14/20 17:39 12/14/20 17:39 12/14/20 17:39 12/14/20 17:39 12/14/20 17:39 General: Alert, In no apparent distress HEENT: Atraumatic, PERRLA, Mucous membr. moist/pink, EOMI, Sclerae nonicteric Neck: Supple, 2+ carotid pulse no bruit, No LAD, Without JVD or thyroid abnormality Cardiovascular: Regular rate/rhythm, Normal S1 S2 Capillary refill: <2 Seconds Gastrointestinal: Normal bowel sounds, No tenderness Musculoskeletal: No tenderness Integumentary: No rashes Neurological: Normal gait, Normal speech, Normal tone, Normal affect Lymphatics: No axilla or inguinal lymphadenopathy Physician Review Additional Text: Problems Hypernatremia secodanry to free water deficit from diarrhea Metabolic acidosis from GI lossed Hyperchloremia secondary to gi pathology of secretory diarrhea. Plan Agree with d5w Pt not adequately hydrating but encouraged to Pt encouraged to orally hydrate Consider measures to slow down diarrhea like lomotil Thank you for for this interesting consult. Will continue to follow.
--- NOTE | 2020-12-14 18:58 | PN ---
Date of Progress Note: 12/14/2020 The patient continues to have hypoglycemia relatively speaking as soon as her IV remained off which a pproximately an hours, so her blood sugar dropped to 49 level. Appetite is somewhat better. She was much more alert, however, due to her blood sugar, we did not feel comfortable sending her home obvio usly without continuing her IV and blood sugar monitoring. We will add a serum insulin to her blood work. Repeat a CBC in regard to the platelet count as well. HR/MODL Voice ID: [id number] Report ID: [id number]
[2020-12-15] MEDS: D5W 1,000 ML IV SCH ×3 (00:22→20:08)
[2020-12-15 04:16] LABS: Absolute Lymphocytes (CBC) 0.9 K/uL (0.7-4.9); Basophils % 0.2 % (0-1.3); Lymphocytes % 32.2 % (15.3-44.8); MPV 9.2 fL (7.6-11.3); RBC Red Blood Cell Count 3.39 M/uL (3.86-4.86)
[2020-12-15 04:41] LABS: BUN Blood Urea Nitrogen 9 mg/dL (7-18); Bicarbonate 20 mmol/L (21-32); Glucose Level 100 mg/dL (74-106); Potassium 3.7 mmol/L (3.5-5.1); Sodium Level 148 mmol/L (136-145)
[2020-12-15 05:10] LABS: Platelet Estimate DECR; White Blood Cell Scan OK (OK)
[2020-12-15 05:11] LABS: Anisocytosis 2+; Blood Morphology Comment NOTED (NOT SEEN); Macrocytosis 1+
[2020-12-15] MEDS: LORATADINE 10 MG TAB PO SCH (14:53)
--- NOTE | 2020-12-15 16:49 | P.PN ---
Subjective Date of Service: 12/15/20 Chief Complaint: Acute recurrent idiopathic pancreatitis, hypoglycemia, thrombocytopenia Subjective: Improving (Na and Cl down slightly with IVF change yesterday. She is still with episodes of hypoglycemia; insulin level and C-peptide still pending. Patient possibly not eating enough.) Physical Examination - Vital Signs Temperature: 98.0 F Blood Pressure: 134/68 Pulse: 78 Respirations: 17 Pulse Ox (%): 95 Assessment And Plan - Current Problems (Diagnosis) (1) Recurrent pancreatitis Current Visit: Yes Status: Acute (2) Abnormal CT of the abdomen Current Visit: Yes Status: Acute (3) Hypoglycemia Current Visit: Yes Status: Acute Comment: Etiology unclear. Insulin level and C-peptide pending. (4) Thrombocytopenia Current Visit: Yes Status: Acute Comment: Stabilizing. - Plan REC: 1) start calorie count 2) EUS-endoscopic ultrasound possibly with ERCP 3) advance diet 4) monitor labs 5) await serum insulin level and C-peptide 6) monitor liver chemistries 7) check for HIT or other possible causes lower plts 8) incentive spirometer
[2020-12-15] MEDS ORDERED: DIPHENOX/ATROP SULF 1 TAB PO ONE (18:42)
--- NOTE | 2020-12-15 19:11 | PN ---
Date of Progress Note: 12/15/2020 The patient states she is somewhat congested today however, it is possibly an allergy. We will repea t chest x-ray in the morning. She is orientated. Blood sugars are still an issue. She is encourage d to snack more frequently. Her chloride is still elevated at 120. We will repeat in the a.m. Repea t at 122. On last admission, took some time for blood sugars to stabilize as well and also chloride at that time was 118. Awaiting serum insulin level. HR/MODL Voice ID: [id number] Report ID: [id number]
[2020-12-15] MEDS ORDERED: LORAZEPAM 1 MG TABLET PO PRN (20:19)
[2020-12-15] MEDS: NA CIT/CITRIC AC 30 ML ORAL UDC PO SCH (21:00)
[2020-12-16] MEDS: D5W 1,000 ML IV SCH ×2 (06:31→16:00)
[2020-12-16 06:35] LABS: Absolute Lymphocytes (CBC) 1.1 K/uL (0.7-4.9); Basophils % 0.3 % (0-1.3); Hematocrit 30.9 % (36.0-45.0); Lymphocytes % 38.7 % (15.3-44.8); MPV 9.2 fL (7.6-11.3); RBC Red Blood Cell Count 3.62 M/uL (3.86-4.86)
[2020-12-16 07:35] LABS: Albumin 2.7 g/dL (3.4-5.0); BUN Blood Urea Nitrogen 7 mg/dL (7-18); Bicarbonate 21 mmol/L (21-32); Lipase 494 U/L (73-393); Magnesium 1.9 mg/dL (1.8-2.4); Potassium 3.6 mmol/L (3.5-5.1); Prealbumin 21.5 mg/dL (20-40); Sodium Level 146 mmol/L (136-145)
[2020-12-16 07:43] LABS: Glucose Level 43 mg/dL (74-106)
--- NOTE | 2020-12-16 07:47 | RAD REPORT ---
EXAM DESCRIPTION: Shiv Single View12/16/2020 5:00 am CLINICAL HISTORY: Chest pain COMPARISON: December 14 FINDINGS: Mild worsening in the mid right lung opacities. Opacity behind the left heart represents a hiatal hernia. Heart is mildly enlarged. Pacemaker leads in place. There may be small pleural effusions IMPRESSION: Mild worsening in the mid right lung opacities probably pneumonia
[2020-12-16] MEDS: LORATADINE 10 MG TAB PO SCH (08:16)
[2020-12-16] MEDS: NA CIT/CITRIC AC 30 ML ORAL UDC PO SCH ×2 (08:18→21:00)
--- NOTE | 2020-12-16 10:53 | P.PN ---
Subjective Date of Service: 12/16/20 Chief Complaint: Acute recurrent idiopathic pancreatitis, hypoglycemia, thrombocytopenia Pt seen and examined. Still having diarrhea Review of Systems 10-point ROS is otherwise unremarkable Physical Examination - Vital Signs Temperature: 97.5 F Blood Pressure: 141/88 Pulse: 79 Respirations: 18 Pulse Ox (%): 95 - Physical Exam General: Alert, In no apparent distress HEENT: Atraumatic, PERRLA, EOMI Neck: Supple, JVD not distended Respiratory: Clear to auscultation bilaterally, Normal air movement Cardiovascular: Regular rate/rhythm, Normal S1 S2 Capillary refill: <2 Seconds Gastrointestinal: Normal bowel sounds, No tenderness Musculoskeletal: No tenderness Integumentary: No rashes Neurological: Normal speech, Normal tone, Normal affect Assessment & Plan Physician Review Additional Text: Problems Hypernatremia secondary to free water deficit from diarrhea Metabolic acidosis from GI losses Hyperchloremia secondary to gi pathology of secretory diarrhea. Plan Agree with d5w Pt not adequately hydrating but encouraged to One dose of lomotil Will start on bicitra 30ml bid Replete electrolytes as needed Will continue to follow.
--- NOTE | 2020-12-16 10:54 | P.PN ---
Subjective Date of Service: 12/16/20 Chief Complaint: Acute recurrent idiopathic pancreatitis, hypoglycemia, thrombocytopenia Diarrhea is improved on lomotil. No furthe rdiarrhea since last night. No chest pain, shortness of breath, diarrhea. Review of Systems 10-point ROS is otherwise unremarkable Physical Examination - Vital Signs Temperature: 97.5 F Blood Pressure: 141/88 Pulse: 79 Respirations: 18 Pulse Ox (%): 95 - Physical Exam General: Alert, In no apparent distress HEENT: Atraumatic, PERRLA, EOMI Neck: Supple, JVD not distended Respiratory: Clear to auscultation bilaterally, Normal air movement Cardiovascular: Regular rate/rhythm, Normal S1 S2 Gastrointestinal: Normal bowel sounds, No tenderness Musculoskeletal: No tenderness Integumentary: No rashes Neurological: Normal speech, Normal tone, Normal affect Lymphatics: No axilla or inguinal lymphadenopathy Assessment & Plan Physician Review Additional Text: Problems Hypernatremia secondary to free water deficit from diarrhea-->improving Metabolic acidosis from GI losses Hyperchloremia secondary to gi pathology of secretory diarrhea. Plan Agree with d5w Pt not adequately hydrating but encouraged to One dose of lomotil given and with improvement in diarrhea. Consider given prn for diarrhea Continue bicitra 30ml bid. May be able to discontinue tommorrow given improvement in diarrhea. Replete electrolytes as needed Will continue to follow.
--- NOTE | 2020-12-16 19:48 | PN ---
Date of Progress Note: 12/16/2020 The patient continues to have leukopenia and low platelet count. Her blood sugars are still fluctuat ing. On the other hand, serum lipase has dropped considerably down in the 600 range. She states she is eating and drinking. She has a good output. She states the Lomotil has stopped the loose stools; however, since that time, she developed a sore throat and some wheezing. Chest x-ray shows question able progress on her possible pneumonitis. She has negative COVID. She has been vaccinated. Throat is sore. Cultures will be taken and consultation will be obtained with Infectious Disease. We will repeat the x-ray in the morning. HR/MODL Voice ID: [id number] Report ID: [id number]
[2020-12-16] MEDS: ALBUTEROL 2.5 MG/3 ML NEB SOL NEB SCH (20:50)
[2020-12-16] MEDS: IPRATROPIUM BROM 0.5MG/2.5ML NEB SCH (20:50)
[2020-12-17] MEDS: D5W 1,000 ML IV SCH ×4 (00:39→13:33)
[2020-12-17 00:44] LABS: Lactoferrin, Stool <30.0 mcg/mL (<30.0)
[2020-12-17 05:57] LABS: Absolute Lymphocytes (CBC) 1.1 K/uL (0.7-4.9); Basophils % 0.3 % (0-1.3); Hematocrit 31.5 % (36.0-45.0); Lymphocytes % 17.8 % (15.3-44.8); RBC Red Blood Cell Count 3.78 M/uL (3.86-4.86)
[2020-12-17 06:13] LABS: Potassium 3.7 mmol/L (3.5-5.1)
[2020-12-17] MEDS: LORATADINE 10 MG TAB PO SCH (07:49)
[2020-12-17] MEDS: ALBUTEROL 2.5 MG/3 ML NEB SOL NEB SCH ×2 (08:55→22:15)
[2020-12-17] MEDS: IPRATROPIUM BROM 0.5MG/2.5ML NEB SCH ×2 (08:55→22:15)
--- NOTE | 2020-12-17 08:55 | RAD REPORT ---
EXAM DESCRIPTION: RAD - Chest Single View - 12/17/2020 4:48 am CLINICAL HISTORY: wheezing Chest pain. COMPARISON: Chest Single View dated 12/16/2020; Chest Single View dated 12/14/2020 FINDINGS: Portable technique limits examination quality. Little overall change is seen in the appearance of the chest since yesterday's study. Mild right mid lung opacity appears stable. The heart is upper limit of normal in size with dual lead pacer device p resent.
[2020-12-17] MEDS: NA CIT/CITRIC AC 30 ML ORAL UDC PO SCH (09:00)
[2020-12-17] MEDS ORDERED: CEFTRIAXONE/SWI 1gm 1 GM/10 ML SYR IV SCH (09:00)
--- NOTE | 2020-12-17 11:40 | CON ---
History Of Present Illness: This is a 75-year-old female, coming in with acute pancreatitis, it is h er 1 after multiple admissions for pancreatitis. The patient came in with elevated lipase and amylas e and severe abdominal discomfort. The patient has first time pancreatitis 4 years ago and she had a cholecystectomy performed at that time in [place]. The patient is not a good historian. Most of th e history was obtained through medical records and staff. The patient complains of somewhat shakines s and not feeling well. Denies any diarrhea, nausea, vomiting. She does have cough and showed she h ad that right middle lobe infiltrate on the chest x-ray. Currently being treated with Rocephin. Ini tially, the patient came in with leukopenia, thrombocytopenia. Still has some sore throat. Past Medical History: Hypertension, cervical cancer, lymphoma, and pancreatitis. Past Surgical History: Cholecystectomy. Social History: Nonsmoker, nondrinker. Family History: Noncontributory. Medications: Rocephin. See MAR for other medications. Allergies: ERTAPENEM. Review of Systems: A 10-point review was performed. Physical Examination: General: This is a 75-year-old female, lying in bed, not in any acute cardiopulmonary distress. Vital Signs: Temperature 96, pulse 92, respirations 20, blood pressure 173/92. HEENT: Unremarkable. Neck: Supple. Lungs: Basal crackles. Heart: S1, S2. Regular. Abdomen: Soft. Bowel sounds present. Extremity: No edema. Laboratory Data: Shows sodium 145, potassium 3.7, chloride 115, bicarb 22, BUN 6, creatinine 0.7, gl ucose 104. WBC 6.1, up from 2.5 on admission, hemoglobin 10.6. Platelets are 75, up from 65,000. L ipase was 494 yesterday. Chest x-ray shows the patient has right middle lobe infiltrate. Assessment And Plan: A 75-year-old female, coming in with pancreatitis and pancytopenia possibly sec ondary to viral infection as the patient also has some sore throat, right middle lobe infiltrate, pos sibly secondary to aspiration. We will discontinue Rocephin and start the patient on Unasyn and also start the patient on probiotic, continue total course of 2 weeks. Can be switched to Augmentin on d ischarge. Continue hydration and monitor for signs of superinfection. We will follow the patient cl osely. Thank you Dr. Holm for consult. RONALD/RUTH ANN Voice ID: [id number] Report ID: [id number]
--- NOTE | 2020-12-17 13:55 | P.PN ---
Subjective Date of Service: 12/17/20 Chief Complaint: Acute recurrent idiopathic pancreatitis, hypoglycemia, thrombocytopenia Subjective: New changes (She notes coughing today, seems more than other days with some mild SOB. CXR today unchanged from yesterday. WBC has increased from 2.9 to 6.1, with polys from 46 to 75%. Tolerating po with Chick-samia-a and soda at bedside. She again denies abdominal pain, N/V/F/C.), Other (Unclear if she is using incentive spirometry.) Review of Systems 10-point ROS is otherwise unremarkable General: Weakness Respiratory: Cough, Shortness of Breath Physical Examination - Vital Signs Temperature: 96.4 F Blood Pressure: 132/68 Pulse: 102 Respirations: 20 Pulse Ox (%): 94 - Physical Exam General: Alert, Oriented x3, Cooperative, Disheveled (slightly ) HEENT: Atraumatic, Normocephalic, PERRLA, EOMI Neck: Supple Respiratory: Diminished Cardiovascular: Normal pulses Gastrointestinal: Soft and benign, No tenderness, No rebound, No guarding Neurological: Normal speech - Studies Microbiology Data (last 24 hrs): 12/11/20 21:00 Blood - Blood Aerobic Blood Culture - Final No growth in 5 days. 12/11/20 21:00 Blood - Blood Anaerobic Blood Culture - Final No growth in 5 days. 12/11/20 20:45 Blood - Blood Aerobic Blood Culture - Final No growth in 5 days. 12/11/20 20:45 Blood - Blood Anaerobic Blood Culture - Final No growth in 5 days. Assessment And Plan - Current Problems (Diagnosis) (1) Recurrent pancreatitis Current Visit: Yes Status: Acute (2) Abnormal CT of the abdomen Current Visit: Yes Status: Acute (3) Hypoglycemia Current Visit: Yes Status: Acute Comment: Etiology unclear. Insulin level and C-peptide pending. (4) Thrombocytopenia Current Visit: Yes Status: Acute Comment: Stabilizing. (5) Abnormal chest x-ray Current Visit: Yes Status: Acute (6) SOB (shortness of breath) Current Visit: Yes Status: Acute - Plan REC: 1) await calorie count 2) EUS-endoscopic ultrasound possibly with ERCP 3) continue po diet 4) monitor labs 5) await serum insulin level and C-peptide 6) monitor liver chemistries 7) check for HIT or other possible causes lower plts 8) RNs to go over incentive spirometer use again (RT as well) 9) physical therapy is to be by today 10) antibiotics & repeat CXR in AM
[2020-12-17] MEDS ORDERED: AMPICILLIN/SULBACT 1.5GM VIAL IVPB SCH (17:00)
--- NOTE | 2020-12-17 18:01 | PN ---
Date of Progress Note: 12/17/2020 The patient does seem to feel somewhat better today. Her blood work has been in the last few days with a white count of 6000 plus and her down to 115. She still had some alkalizi ng medications last night. Her sugars seem more stable. Appetite is still not where it needs to be. States she is moving around more. Therapy has been consulted. Has no change in chest x-ray. She was seen by Infectious Disease, suggested the addition of antibiotics, however it is also known that pancreatitis is associated with some lung injury, which pneumonia secondary to aspiration or the infectious process itself. We will monitor. Decrease her IVs and perhaps she may be ready fo r discharge tomorrow. HR/MODL Voice ID: [id number] Report ID: [id number]
[2020-12-17] MEDS: AMPICILLIN/SULBACT 1.5 GM in NA CHLORIDE 0.9% 100 ML IVPB SCH (18:24)
[2020-12-17 19:36] LABS: HBsAG Nonreactive (Nonreactive)
[2020-12-17] MEDS: LACTOBACILLUS/ACIDOPHILUS TAB PO SCH (22:44)
[2020-12-18] MEDS: AMPICILLIN/SULBACT 1.5 GM in NA CHLORIDE 0.9% 100 ML IVPB SCH ×3 (00:36→16:51)
[2020-12-18 06:19] LABS: Potassium 3.4 mmol/L (3.5-5.1)
[2020-12-18 06:30] LABS: Absolute Lymphocytes (CBC) 0.5 K/uL (0.7-4.9); Basophils % 0.3 % (0-1.3); Hematocrit 30.4 % (36.0-45.0); Lymphocytes % 9.5 % (15.3-44.8); MPV 9.7 fL (7.6-11.3); RBC Red Blood Cell Count 3.59 M/uL (3.86-4.86)
--- NOTE | 2020-12-18 06:45 | P.PN ---
Subjective Date of Service: 12/17/20 Chief Complaint: Acute recurrent idiopathic pancreatitis, hypoglycemia, thrombocytopenia No complaints this morning. Slightly short of breath this morning most especially when she eats. Review of Systems 10-point ROS is otherwise unremarkable Physical Examination - Vital Signs Temperature: 96.9 F Blood Pressure: 153/93 Pulse: 96 Respirations: 18 Pulse Ox (%): 96 - Physical Exam General: Alert, In no apparent distress HEENT: Atraumatic, PERRLA, EOMI Neck: Supple, JVD not distended Respiratory: Clear to auscultation bilaterally, Normal air movement Cardiovascular: Regular rate/rhythm, Normal S1 S2 Capillary refill: <2 Seconds Gastrointestinal: Normal bowel sounds, No tenderness Musculoskeletal: No tenderness Integumentary: No rashes Lymphatics: No axilla or inguinal lymphadenopathy Assessment & Plan Physician Review Additional Text: Problems Hypernatremia secondary to free water deficit from diarrhea-->improving Metabolic acidosis from GI losses Hyperchloremia secondary to gi pathology of secretory diarrhea. Plan Sodium improved. Will monitor on d5w for one more day and most likely discontinue tomorrow Suspect pt may be having micro-aspirations, consider speech eval or video swallow exam Continue bicitra 30ml bid. May be able to discontinue tommorrow given improvement in diarrhea. Replete electrolytes as needed Will continue to follow.
--- NOTE | 2020-12-18 07:18 | RAD REPORT ---
EXAM DESCRIPTION: RAD - Chest Pa And Lat (2 Views) - 12/18/2020 5:06 am CLINICAL HISTORY: increased SOB cough COMPARISON: Portable December 17, portable December 16 TECHNIQUE: Frontal and lateral views of the chest were obtained. FINDINGS: The lungs are similar volume to prior imaging. Right perihilar infiltrate changes are pres ent not substantially different from comparison when adjusting for technique differences. Left perihi lar infiltrate also persistent. Bilateral pleural effusions are present [id number] in size wit h left base atelectasis. Trachea is midline. Two lead pacemaker in place. No new tube or line. Heart size is normal and centra l vasculature is within normal limits. No pneumothorax. IMPRESSION: Bilateral perihilar infiltrate pattern similar to comparison. Mild to moderate bilateral pleural effusions with left base atelectasis.
[2020-12-18] MEDS: IPRATROPIUM BROM 0.5MG/2.5ML NEB SCH ×2 (09:00→22:10)
[2020-12-18] MEDS: ALBUTEROL 2.5 MG/3 ML NEB SOL NEB SCH (09:00)
[2020-12-18 09:15] LABS: White Blood Cell Scan OK (OK)
[2020-12-18] MEDS: LORATADINE 10 MG TAB PO SCH (09:15)
[2020-12-18] MEDS: LACTOBACILLUS/ACIDOPHILUS TAB PO SCH ×2 (09:15→21:00)
[2020-12-18 09:16] LABS: Anisocytosis 3+; Blood Morphology Comment NOTED (NOT SEEN); Platelet Estimate DECR; Platelets, Giant PRESENT
[2020-12-18] MEDS: D5W 1,000 ML IV SCH (09:44)
--- NOTE | 2020-12-18 12:43 | PN ---
Date of Progress Note: 12/18/2020 The patient continues to have a primary problem in the lungs and repeat chest x-ray still showed some infiltrate and some pleural effusion. She has a nonproductive cough and some laryngitis socially wi th this, now her throat is better. Her lab work is improved in regard to her lipase, which is now do wn to normal. Chloride is still elevated. White count is stabilizing at around 6. Her mental statu s is still somewhat variable for the most part, orientated. She is getting somewhat shaky after the inhalation therapy treatment. We will decrease the albuterol. Also, re-consult Dr. Cramer for her lung situation is concerned. Appetite has improved slightly and her blood sugars is starting to sta bilize as well. HR/MODL Voice ID: [id number] Report ID: [id number]
--- NOTE | 2020-12-18 13:52 | P.PN ---
Subjective Date of Service: 12/18/20 Chief Complaint: Acute recurrent idiopathic pancreatitis, hypoglycemia, thrombocytopenia Subjective: No new changes, Improving Patient's lipase level is within normal range. White blood cell counts also within normal range, platelet still low however is uptrending. Review of Systems 10-point ROS is otherwise unremarkable Physical Examination - Vital Signs Temperature: 96.0 F Blood Pressure: 133/79 Pulse: 97 Respirations: 19 Pulse Ox (%): 96 - Physical Exam General: Alert, In no apparent distress HEENT: Atraumatic, Normocephalic, PERRLA Neck: Supple, 2+ carotid pulse no bruit, JVD not distended Respiratory: Rhonchi/gurgles (improving ) Cardiovascular: No edema, Regular rate/rhythm Capillary refill: <2 Seconds Musculoskeletal: No clubbing, No swelling Integumentary: No rashes, No breakdown, No significant lesion Neurological: Normal speech - Studies Laboratory Last Values WBC 4.40 K/uL (4.3-10.9) 12/11/20 19:10 RBC 4.29 M/uL (3.86-4.86) 12/11/20 19:10 Hgb 11.7 g/dL (12.0-15.0) L 12/11/20 19:10 Hct 36.1 % (36.0-45.0) 12/11/20 19:10 MCV 84.2 fL (80-100) 12/11/20 19:10 MCH 27.2 pg (27.0-35.0) 12/11/20 19:10 MCHC 32.3 g/dL (32.0-36.0) 12/11/20 19:10 RDW 31.9 % (12.1-15.2) H 12/11/20 19:10 Plt Count 101 K/uL (152-406) L 12/11/20 19:10 MPV 9.2 fL (7.6-11.3) D 12/11/20 19:10 Neutrophils % 72.5 % (41.7-73.7) 12/11/20 19:10 Lymphocytes % 20.7 % (15.3-44.8) 12/11/20 19:10 Monocytes % 5.7 % (3.3-12.3) 12/11/20 19:10 Eosinophils % 0.9 % (0-4.4) 12/11/20 19:10 Basophils % 0.2 % (0-1.3) 12/11/20 19:10 Absolute Neutrophils 3.2 K/uL (1.8-8.0) 12/11/20 19:10 Absolute Lymphocytes 0.9 K/uL (0.7-4.9) 12/11/20 19:10 Absolute Monocytes 0.2 K/uL (0.1-1.3) 12/11/20 19:10 Absolute Eosinophils 0.0 K/uL (0-0.5) 12/11/20 19:10 Absolute Basophils 0.0 K/uL (0-0.5) 12/11/20 19:10 Sodium 143 mmol/L (136-145) 12/11/20 19:10 Potassium 4.9 mmol/L (3.5-5.1) 12/11/20 19:10 Chloride 114 mmol/L (98-107) H 12/11/20 19:10 Carbon Dioxide 19 mmol/L (21-32) L 12/11/20 19:10 BUN 52 mg/dL (7-18) H 12/11/20 19:10 Creatinine 1.79 mg/dL (0.55-1.3) H 12/11/20 19:10 Estimated GFR 27 mL/min (=/>90) L 12/11/20 19:10 Glucose 79 mg/dL (74-106) 12/11/20 19:10 Lactic Acid 0.5 mmol/L (0.4-2.0) 12/11/20 21:00 Calcium 9.3 mg/dL (8.5-10.1) 12/11/20 19:10 Total Bilirubin 0.2 mg/dL (0.2-1.0) 12/11/20 19:10 Direct Bilirubin < 0.1 mg/dL (0-0.2) 12/11/20 19:10 AST 58 U/L (15-37) H 12/11/20 19:10 ALT 90 U/L (12-78) H 12/11/20 19:10 Alkaline Phosphatase 181 U/L (45-117) H 12/11/20 19:10 Serum Total Protein 7.3 g/dL (6.4-8.2) 12/11/20 19:10 Albumin 3.6 g/dL (3.4-5.0) 12/11/20 19:10 Globulin 3.7 g/dL (2.3-3.5) H 12/11/20 19:10 Albumin/Globulin Ratio 1.0 (1.1-1.8) L 12/11/20 19:10 Triglycerides 254 mg/dL (<150) H 12/11/20 21:00 Cholesterol 157 mg/dL (<200) 12/11/20 21:00 LDL Cholesterol, Calc 62 (<130) 12/11/20 21:00 HDL Cholesterol 44 mg/dL (40-60) 12/11/20 21:00 Cholesterol/HDL Ratio 3.57 12/11/20 21:00 Lipase 9598 U/L (73-393) H 12/11/20 19:10 Procalcitonin < 0.05 ng/mL (<0.050) 12/11/20 21:00 Urine pH 5.0 (5.0-7.0) 12/11/20 19:14 Ur Specific [place] 1.020 (1.005-1.030) 12/11/20 19:14 Glucose (UA)(Auto) Negative (NEG) 12/11/20 19:14 Urine Ketones Negative (NEG) 12/11/20 19:14 Urine Blood Negative (NEG) 12/11/20 19:14 Urine Nitrite Negative (NEG) 12/11/20 19:14 Ur Leukocyte Esterase Negative (NEG) 12/11/20 19:14 Urine RBC <5 /HPF (NONE SEEN) 12/11/20 19:09 Urine WBC <5 /HPF (<5) 12/11/20 19:09 Ur Squamous Epith Cells <5 /HPF (NONE SEEN) 12/11/20 19:09 Urine Bacteria None seen /HPF (<20) 12/11/20 19:09 Urine Culture Reflexed Not needed 12/11/20 19:09 Urine Total Protein Negative (NEG) 12/11/20 19:14 Assessment And Plan - Plan Assessment: -pancreatitis -pancytopenia -possible pneumonia -lipase level now within normal range. Patient scheduled for an ERCP to palpation. -prep blood cell counts are trending down. Platelet count still low power is up trending as well will continue to monitor patient -patient is on empiric antibiotic therapy with Zosyn. Recommend p.o. Augmentin 7 day course after discharge. -medical management per primary team -continue monitor CBC and BMP -continue to monitor for signs of infection -plan of care discussed with Dr. Unger thank you for consultation
--- NOTE | 2020-12-18 14:58 | RAD REPORT ---
EXAM DESCRIPTION: CT - [facility] - 12/18/2020 2:23 pm CLINICAL HISTORY: sob COMPARISON: December 18, 2020 chest x-ray TECHNIQUE: Computed axial tomography of the chest was obtained. Contrast was not requested. All CT scans are performed using dose optimization technique as appropriate and may include automated exposure control or mA/KV adjustment according to patient size. FINDINGS: The evaluation of mediastinum, regina and vessels is limited secondary to lack of IV contras t administration. Mild to moderate patchy alveolar opacities are present within the right upper, right middle and right lower lobes. Mild patchy alveolar opacities within predominantly the left upper lobe. No mediastinal or hilar lymphadenopathy is seen. Small left and small to moderate right pleural effusions with bibasilar atelectasis. Moderate to large hernia. IMPRESSION: Mild to moderate right and mild left alveolar opacities probably pneumonia. Atypical marina earing pulmonary edema is another consideration Small to moderate right and small left pleural effusions
[2020-12-18] MEDS: METOPROLOL XL 50 MG TAB PO SCH (16:51)
[2020-12-18] MEDS ORDERED: ACETAMINOPHEN 325 MG TABLET PO PRN (17:29)
--- NOTE | 2020-12-18 17:32 | P.CNS ---
Date of Consult: 12/18/20 Reason for Consult: Pneumonia Chief Complaint: Acute recurrent idiopathic pancreatitis, hypoglycemia, thrombocytopenia History of Present Illness: Patient is 75 years of age admitted with recurrent pancreatitis was found to have bilateral pulmonary infiltrate he denies any shortness of breath perhaps a slight cough denies any abdominal pain with history of diarrhea lipase was over 9000 white count is normal Allergies ertapenem Adverse Reaction (Verified 12/12/20 03:35) see comments Home Medications: Amlodipine [Norvasc*] 10 mg PO DAILY 12/15/20 Estrogens, Conjugated [Premarin] 0.625 mg PO DAILY 12/15/20 Furosemide 20 mg PO DAILY 12/15/20 Metoprolol Succinate 150 mg PO DAILY 12/15/20 - Past Medical/Surgical History Diabetic: No -: Hyperlipidemia -: HTN -: Menopause -: Osteoarthritis -: Pacemaker -: Bladder Lift - Family History Mother Medical History: Cancer Father Medical History: Heart disease, Hypertension, Cancer - Social History Alcohol use: No CD- Drugs: No Caffeine use: Yes Place of Residence: Home Review of Systems General: Weakness Respiratory: Cough Physical Examination Temp Pulse Resp BP Pulse Ox 96.4 F L 97 H 20 180/90 H 94 12/18/20 16:00 12/18/20 16:51 12/18/20 16:00 12/18/20 16:51 12/18/20 16:00 General: Alert, In no apparent distress, Oriented x3 Neck: Supple Respiratory: Clear to auscultation bilaterally Cardiovascular: No edema, Normal S1 S2 Gastrointestinal: Normal bowel sounds, Soft and benign - Problems (1) Pneumonia Current Visit: Yes Status: Acute Plan: Patient is 75 years of age admitted with recurrent pancreatitis now has bilateral patchy infiltrates worse on the right side with some evidence of consolidation bilateral pleural effusion most likely has acute lung injury from pancreatitis there is no clinical evidence of sepsis is of white count is normal pro calcitonin level is also normal CRP is mildly elevated I suspect is from a pancreatitis blood cultures are also normal change to p.o. Augmentin on admission patient had mild abdominal pain elevated lipase CT scan shows a pancreatitis no evidence of any cysts chest x-ray on admission was clear she developed progressive pulmonary infiltrate continue monitoring will need follow- up chest x-ray Qualifiers: Laterality: bilateral
[2020-12-18] MEDS: AMOX/K CLAV 500 MG TAB PO SCH (21:01)
[2020-12-19 05:47] LABS: Absolute Lymphocytes (CBC) 1.1 K/uL (0.7-4.9); Basophils % 0.6 % (0-1.3); Hematocrit 31.7 % (36.0-45.0); Lymphocytes % 33.4 % (15.3-44.8); RBC Red Blood Cell Count 3.74 M/uL (3.86-4.86)
[2020-12-19] MEDS: METOPROLOL XL 50 MG TAB PO SCH ×2 (05:57→18:45)
[2020-12-19 06:12] LABS: Potassium 3.6 mmol/L (3.5-5.1)
[2020-12-19] MEDS: LACTOBACILLUS/ACIDOPHILUS TAB PO SCH ×2 (08:58→20:06)
[2020-12-19] MEDS: AMOX/K CLAV 500 MG TAB PO SCH ×2 (08:58→20:06)
[2020-12-19] MEDS: LORATADINE 10 MG TAB PO SCH (08:58)
[2020-12-19] MEDS: IPRATROPIUM BROM 0.5MG/2.5ML NEB SCH ×2 (09:07→19:30)
[2020-12-19 10:24] LABS: Blood Morphology Comment NOT SEEN (NOT SEEN); Platelet Estimate ADEQ
--- NOTE | 2020-12-19 14:30 | P.PN ---
Subjective Date of Service: 12/19/20 Chief Complaint: Acute recurrent idiopathic pancreatitis, hypoglycemia, thrombocytopenia Patient seen and examined at bedside-she si doing much better today. WBC has dropped again as well as platelet level, continue to monitor closely. Review of Systems 10-point ROS is otherwise unremarkable Physical Examination - Vital Signs Temperature: 96.5 F Blood Pressure: 133/86 Pulse: 81 Respirations: 16 Pulse Ox (%): 96 - Physical Exam Other Physical/Emotional Findings: General: Alert, In no apparent distress. HEENT: Atraumatic, Normocephalic, PERRLA. Neck: Supple, 2+ carotid pulse no bruit, JVD not distended. Respiratory: Rhonchi/gurgles (improving ). Cardiovascular: No edema, Regular rate/rhythm. Capillary refill: <2 Seconds. Musculoskeletal: No clubbing, No swelling. Integumentary: No rashes, No breakdown, No significant lesion. Neurological: Normal speech - Studies Laboratory Last Values WBC 4.40 K/uL (4.3-10.9) 12/11/20 19:10 RBC 4.29 M/uL (3.86-4.86) 12/11/20 19:10 Hgb 11.7 g/dL (12.0-15.0) L 12/11/20 19:10 Hct 36.1 % (36.0-45.0) 12/11/20 19:10 MCV 84.2 fL (80-100) 12/11/20 19:10 MCH 27.2 pg (27.0-35.0) 12/11/20 19:10 MCHC 32.3 g/dL (32.0-36.0) 12/11/20 19:10 RDW 31.9 % (12.1-15.2) H 12/11/20 19:10 Plt Count 101 K/uL (152-406) L 12/11/20 19:10 MPV 9.2 fL (7.6-11.3) D 12/11/20 19:10 Neutrophils % 72.5 % (41.7-73.7) 12/11/20 19:10 Lymphocytes % 20.7 % (15.3-44.8) 12/11/20 19:10 Monocytes % 5.7 % (3.3-12.3) 12/11/20 19:10 Eosinophils % 0.9 % (0-4.4) 12/11/20 19:10 Basophils % 0.2 % (0-1.3) 12/11/20 19:10 Absolute Neutrophils 3.2 K/uL (1.8-8.0) 12/11/20 19:10 Absolute Lymphocytes 0.9 K/uL (0.7-4.9) 12/11/20 19:10 Absolute Monocytes 0.2 K/uL (0.1-1.3) 12/11/20 19:10 Absolute Eosinophils 0.0 K/uL (0-0.5) 12/11/20 19:10 Absolute Basophils 0.0 K/uL (0-0.5) 12/11/20 19:10 Sodium 143 mmol/L (136-145) 12/11/20 19:10 Potassium 4.9 mmol/L (3.5-5.1) 12/11/20 19:10 Chloride 114 mmol/L (98-107) H 12/11/20 19:10 Carbon Dioxide 19 mmol/L (21-32) L 12/11/20 19:10 BUN 52 mg/dL (7-18) H 12/11/20 19:10 Creatinine 1.79 mg/dL (0.55-1.3) H 12/11/20 19:10 Estimated GFR 27 mL/min (=/>90) L 12/11/20 19:10 Glucose 79 mg/dL (74-106) 12/11/20 19:10 Lactic Acid 0.5 mmol/L (0.4-2.0) 12/11/20 21:00 Calcium 9.3 mg/dL (8.5-10.1) 12/11/20 19:10 Total Bilirubin 0.2 mg/dL (0.2-1.0) 12/11/20 19:10 Direct Bilirubin < 0.1 mg/dL (0-0.2) 12/11/20 19:10 AST 58 U/L (15-37) H 12/11/20 19:10 ALT 90 U/L (12-78) H 12/11/20 19:10 Alkaline Phosphatase 181 U/L (45-117) H 12/11/20 19:10 Serum Total Protein 7.3 g/dL (6.4-8.2) 12/11/20 19:10 Albumin 3.6 g/dL (3.4-5.0) 12/11/20 19:10 Globulin 3.7 g/dL (2.3-3.5) H 12/11/20 19:10 Albumin/Globulin Ratio 1.0 (1.1-1.8) L 12/11/20 19:10 Triglycerides 254 mg/dL (<150) H 12/11/20 21:00 Cholesterol 157 mg/dL (<200) 12/11/20 21:00 LDL Cholesterol, Calc 62 (<130) 12/11/20 21:00 HDL Cholesterol 44 mg/dL (40-60) 12/11/20 21:00 Cholesterol/HDL Ratio 3.57 12/11/20 21:00 Lipase 9598 U/L (73-393) H 12/11/20 19:10 Procalcitonin < 0.05 ng/mL (<0.050) 12/11/20 21:00 Urine pH 5.0 (5.0-7.0) 12/11/20 19:14 Ur Specific [place] 1.020 (1.005-1.030) 12/11/20 19:14 Glucose (UA)(Auto) Negative (NEG) 12/11/20 19:14 Urine Ketones Negative (NEG) 12/11/20 19:14 Urine Blood Negative (NEG) 12/11/20 19:14 Urine Nitrite Negative (NEG) 12/11/20 19:14 Ur Leukocyte Esterase Negative (NEG) 12/11/20 19:14 Urine RBC <5 /HPF (NONE SEEN) 12/11/20 19:09 Urine WBC <5 /HPF (<5) 12/11/20 19:09 Ur Squamous Epith Cells <5 /HPF (NONE SEEN) 12/11/20 19:09 Urine Bacteria None seen /HPF (<20) 12/11/20 19:09 Urine Culture Reflexed Not needed 12/11/20 19:09 Urine Total Protein Negative (NEG) 12/11/20 19:14 Assessment And Plan - Plan Assessment: -pancreatitis -pancytopenia -possible pneumonia Plan: -lipase level now within normal range. Patient scheduled for an ERCP after DC -Continue oral Augmentin -medical management per primary team -continue monitor CBC and BMP -continue to monitor for signs of infection -plan of care discussed with Dr. Unger thank you for consultation
--- NOTE | 2020-12-19 16:13 | P.PN ---
Subjective Date of Service: 12/19/20 Chief Complaint: Acute recurrent idiopathic pancreatitis, hypoglycemia, thrombocytopenia Subjective: New changes (Possible respiratory infection, improved on antibiotics. Lipase now normal.) Physical Examination - Vital Signs Temperature: 96.5 F Blood Pressure: 133/86 Pulse: 81 Respirations: 16 Pulse Ox (%): 96 - Physical Exam Other Physical/Emotional Findings: General: Alert, In no apparent distress. HEENT: Atraumatic, Normocephalic, PERRLA. Neck: Supple, 2+ carotid pulse no bruit, JVD not distended. Respiratory: Rhonchi/gurgles (improving ). Cardiovascular: No edema, Regular rate/rhythm. Capillary refill: <2 Seconds. Musculoskeletal: No clubbing, No swelling. Integumentary: No rashes, No breakdown, No significant lesion. Neurological: Normal speech Assessment And Plan - Current Problems (Diagnosis) (1) Recurrent pancreatitis Current Visit: Yes Status: Acute (2) Abnormal CT of the abdomen Current Visit: Yes Status: Acute (3) Hypoglycemia Current Visit: Yes Status: Acute Comment: Etiology unclear. Insulin level and C-peptide pending. (4) Thrombocytopenia Current Visit: Yes Status: Acute Comment: Stabilizing. (5) Abnormal chest x-ray Current Visit: Yes Status: Acute (6) SOB (shortness of breath) Current Visit: Yes Status: Acute - Plan REC: 1) await calorie count 2) EUS-endoscopic ultrasound possibly with ERCP 3) continue po diet 4) monitor labs 5) await serum insulin level and C-peptide 6) monitor liver chemistries 7) check for HIT or other possible causes lower plts 8) RNs to go over incentive spirometer use again (RT as well) 9) physical therapy is to be by today 10) continue antibiotics Physician Review Additional Text: Problems Hypernatremia secondary to free water deficit from diarrhea-->improving Metabolic acidosis from GI losses Hyperchloremia secondary to gi pathology of secretory diarrhea. Plan Sodium improved. Will monitor on d5w for one more day and most likely discontinue tomorrow Suspect pt may be having micro-aspirations, consider speech eval or video swallow exam Continue bicitra 30ml bid. May be able to discontinue tommorrow given improvement in diarrhea. Replete electrolytes as needed Will continue to follow.
--- NOTE | 2020-12-19 18:36 | PN ---
Date of Progress Note: 12/19/2020 The patient seems better today both clinically and symptomatically. She is confused. Her blood work continues to run better in regard to her electrolytes and her CBCs have dropped somewhat. However, there was no other evidence of chest infection. I suspect that the infiltrates are secondary to the pancreatic disease. She states and confirmed some by her family that she is eating and drinking bett er. Her sugars seem to have stabilized. If in fact they continue with this reading tomorrow, we miles l probably discharge her. Possibility of being scheduled for ERCP and endoscopic ultrasound next gabrielle bautista. The patient does state she has a slight cough and voice is still slightly raspy, but otherwise se ems physically okay. Minimal peripheral and ankle edema. Her blood pressure is stabilized on additi on of the beta-roxana. We will modify her medications prior to discharge. HR/MODL Voice ID: [id number] Report ID: [id number]
[2020-12-20] MEDS: METOPROLOL XL 50 MG TAB PO SCH ×2 (05:10→17:47)
--- NOTE | 2020-12-20 06:51 | P.PN ---
Subjective Date of Service: 12/19/20 Chief Complaint: Acute recurrent idiopathic pancreatitis, hypoglycemia, thrombocytopenia Still coughing when she eats. Not better. Review of Systems 10-point ROS is otherwise unremarkable Physical Examination - Vital Signs Temperature: 97.5 F Blood Pressure: 149/86 Pulse: 71 Respirations: 19 Pulse Ox (%): 97 - Physical Exam General: Alert, In no apparent distress HEENT: Atraumatic, PERRLA, EOMI Neck: Supple, JVD not distended Respiratory: Clear to auscultation bilaterally, Normal air movement Cardiovascular: Regular rate/rhythm, Normal S1 S2 Capillary refill: <2 Seconds Gastrointestinal: Normal bowel sounds, No tenderness Musculoskeletal: No tenderness Integumentary: No rashes Neurological: Normal speech, Normal tone, Normal affect Lymphatics: No axilla or inguinal lymphadenopathy Other Physical/Emotional Findings: General: Alert, In no apparent distress. HEENT: Atraumatic, Normocephalic, PERRLA. Neck: Supple, 2+ carotid pulse no bruit, JVD not distended. Respiratory: Rhonchi/gurgles (improving ). Cardiovascular: No edema, Regular rate/rhythm. Capillary refill: <2 Seconds. Musculoskeletal: No clubbing, No swelling. Integumentary: No rashes, No breakdown, No significant lesion. Neurological: Normal speech Assessment & Plan Physician Review Additional Text: Problems Hypernatremia secondary to free water deficit from diarrhea-->resolved Metabolic acidosis from GI losses-->resolved Hyperchloremia secondary to gi pathology of secretory diarrhea-->improved Coughing suspetc from microaspiration Plan Sodium improved. Suspect pt may be having micro-aspirations, consider speech eval or video swallow exam Speech therapy and swallow eval ordered. RN to notify Dr Mcmahan Replete electrolytes as needed Will continue to follow.
[2020-12-20 07:43] LABS: Absolute Lymphocytes (CBC) 1.1 K/uL (0.7-4.9); Basophils % 0.3 % (0-1.3); Hematocrit 29.3 % (36.0-45.0); Lymphocytes % 31.3 % (15.3-44.8); MPV 9.1 fL (7.6-11.3); RBC Red Blood Cell Count 3.48 M/uL (3.86-4.86)
[2020-12-20 07:54] LABS: Magnesium 1.5 mg/dL (1.8-2.4); Potassium 3.4 mmol/L (3.5-5.1)
[2020-12-20] MEDS: LORATADINE 10 MG TAB PO SCH (08:42)
[2020-12-20] MEDS: LACTOBACILLUS/ACIDOPHILUS TAB PO SCH ×2 (08:42→21:52)
[2020-12-20] MEDS: AMOX/K CLAV 500 MG TAB PO SCH ×2 (08:42→21:52)
[2020-12-20] MEDS: IPRATROPIUM BROM 0.5MG/2.5ML NEB SCH ×2 (10:39→19:50)
[2020-12-20] MEDS ORDERED: Magnesium Sulfate 2gm IVPB 2 G/50 ML BAG IV ONE (11:58)
[2020-12-20] MEDS: AMLODIPINE 10 MG TAB PO SCH (13:17)
--- NOTE | 2020-12-20 18:31 | PN ---
Date of Progress Note: 12/20/2020 The patient states she is feeling somewhat better today. She has been up and her intake is improved somewhat. The abnormality on her lab is serum magnesium, which will be replaced, but the protocol re quires IV. We will instruct the family on the use of glucometer and preparation for discharge in a.m . We will also start up her amlodipine. As blood pressure has somewhat elevated and she returns in normal status, her serum lipase has also dropped even further. Actually, this number is that she has had in some time. She probably will be ready to go to [place] for the procedure next week. She miles l be discharged tomorrow. HR/MODL Voice ID: [id number] Report ID: [id number]
[2020-12-20 23:15] VITALS: O2SAT 94
[2020-12-21] MEDS: METOPROLOL XL 50 MG TAB PO SCH (05:13)
[2020-12-21 06:01] LABS: Magnesium 1.9 mg/dL (1.8-2.4); Potassium 3.4 mmol/L (3.5-5.1)
[2020-12-21 06:02] LABS: Absolute Lymphocytes (CBC) 1.4 K/uL (0.7-4.9); Basophils % 0.4 % (0-1.3); Hematocrit 31.9 % (36.0-45.0); Lymphocytes % 30.2 % (15.3-44.8); MPV 8.8 fL (7.6-11.3); RBC Red Blood Cell Count 3.81 M/uL (3.86-4.86)
[2020-12-21] MEDS: AMLODIPINE 10 MG TAB PO SCH (08:48)
[2020-12-21] MEDS: LORATADINE 10 MG TAB PO SCH (08:49)
[2020-12-21] MEDS: AMOX/K CLAV 500 MG TAB PO SCH (08:49)
[2020-12-21] MEDS: LACTOBACILLUS/ACIDOPHILUS TAB PO SCH (08:49)
[2020-12-21 09:08] VITALS: TEMP 97
[2020-12-21 12:47] VITALS: BP 138/65
--- NOTE | 2020-12-21 16:36 | P.PN ---
Subjective Date of Service: 12/21/20 Chief Complaint: Acute recurrent idiopathic pancreatitis, hypoglycemia, thrombocytopenia Subjective: Improving (Much less SOB today. Sitting in chair. Tolerating regular diet. No abdominal pain, N/V/F/C. Glucose and plts increased. Insulin level normal and C-peptide low -> indicative of poor p.o. intake. Calorie counts not found.) Review of Systems 10-point ROS is otherwise unremarkable General: Weakness (Improved. No shaking) Physical Examination - Vital Signs Temperature: 97.0 F Blood Pressure: 138/65 Pulse: 66 Respirations: 18 Pulse Ox (%): 95 - Physical Exam General: Alert, In no apparent distress, Oriented x3, Cooperative HEENT: Atraumatic, Normocephalic, PERRLA, EOMI Neck: Supple Cardiovascular: Normal pulses Gastrointestinal: Soft and benign, No tenderness, No rebound, No guarding Neurological: Normal speech Other Physical/Emotional Findings: General: Alert, In no apparent distress. HEENT: Atraumatic, Normocephalic, PERRLA. Neck: Supple, 2+ carotid pulse no bruit, JVD not distended. Respiratory: Rhonchi/gurgles (improving ). Cardiovascular: No edema, Regular rate/rhythm. Capillary refill: <2 Seconds. Musculoskeletal: No clubbing, No swelling. Integumentary: No rashes, No breakdown, No significant lesion. Neurological: Normal speech Assessment And Plan - Current Problems (Diagnosis) (1) Recurrent pancreatitis Status: Acute (2) Abnormal CT of the abdomen Status: Acute (3) Hypoglycemia Status: Acute Comment: Etiology unclear. Insulin level and C-peptide pending. (4) Thrombocytopenia Status: Acute Comment: Stabilizing. (5) Abnormal chest x-ray Status: Acute (6) SOB (shortness of breath) Status: Acute - Plan REC: 1) await calorie count 2) EUS-endoscopic ultrasound possibly with ERCP 3) continue po diet 4) monitor labs 5) await serum insulin level and C-peptide 6) monitor liver chemistries 7) check for HIT or other possible causes lower plts 8) RNs to go over incentive spirometer use again (RT as well) 9) physical therapy is to be by today 10) continue antibiotics Physician Review Additional Text: Problems Hypernatremia secondary to free water deficit from diarrhea-->resolved Metabolic acidosis from GI losses-->resolved Hyperchloremia secondary to gi pathology of secretory diarrhea-->improved Coughing suspetc from microaspiration Plan Sodium improved. Suspect pt may be having micro-aspirations, consider speech eval or video swa llow exam Speech therapy and swallow eval ordered. RN to notify Dr Mcmahan Replete electrolytes as needed Will continue to follow.
--- NOTE | 2020-12-21 18:01 | PN ---
Subjective: The patient continues to improve both mentally and physically. Electrolytes stable. Ch loride is still slightly elevated. Her sugars remain low, however, this is baseline for her. The co ugh is improved. I see no reason why she cannot be discharged. To continue on her usual blood press ure medication, the Lasix on a p.r.n. basis with the addition of the antibiotic, chest issue and an i nhaler. She also been instructed and her family is learning to how to use the glucometer. Magnesium was added to her regimen over the counter medicine and she will be discharged to follow up with me jani henry 48 hours. HR/MODL Voice ID: [id number] Report ID: [id number]
--- NOTE | 2020-12-22 08:27 | ECHO ---
HEIGHT: 5 ft 1 in WEIGHT: 120 lb 12.8 oz DATE OF STUDY: 12/19/[address]: Brenton Holm MD 2-DIMENSIONAL: YES M.MODE: YES DOPPLER: YES COLOR FLOW: YES TDS: NO PORTABLE: NO DEFINITY: NO BUBBLE STUDY: NO DIAGNOSIS: HYPERTENSION CARDIAC HISTORY: CATHERIZATION: NO SURGERY: NO PROSTHETIC VALVE: NO PACEMAKER: YES MEASUREMENTS (cm) DIASTOLIC (NORMALS) SYSTOLIC (NORMALS) IVSd 0.9 (0.6-1.2) LA Diam 2.6 (1.9-4.0) LVEF 72% LVIDd 3.4 (3.5-5.7) LVIDs 2.1 (2.0-3.5) %FS 40% LVPWd 0.9 (0.6-1.2) Ao Diam 2.1 (2.0-3.7) 2 DIMENSIONAL ASSESSMENT: RIGHT ATRIUM: NORMAL LEFT ATRIUM: NORMAL RIGHT VENTRICLE: NORMAL LEFT VENTRICLE: NORMAL TRICUSPID VALVE: NORMAL MITRAL VALVE: NORMAL PULMONIC VALVE: NORMAL AORTIC VALVE: NORMAL PERICARDIAL EFFUSION: NONE AORTIC ROOT: NORMAL LEFT VENTRICULAR WALL MOTION: NORMAL DOPPLER/COLOR FLOW: MILD TRICUSPID REGURGITATION. COMMENTS: MILD TRICUSPID REGURGITATION. NORMAL RIGHT VENTRICULAR SYSTOLIC PRESSURE. NORMAL LEFT VENTRICULAR SIZE AND FUNCTION. NO WALL MOTION ABNORMALITY. NO EFFUSION. TECHNOLOGIST: Dilshad SUAREZ
== END 2020-12-21 14:10 | disposition home or self-care (01) | DRG 438 ==
LOC: ER 17:45 → ERHOLD 21:25 → MERGE 21:25 → 2ND 12-12 01:32
PROVIDERS: ADMIT Family Medicine; ATTEND Family Medicine
DX: K85.00 Idiopathic acute pancreatitis without necrosis or infection (principal); G93.41 Metabolic encephalopathy; J18.9 Pneumonia, unspecified organism; E87.0 Hyperosmolality and hypernatremia; E87.2 Acidosis; D61.818 Other pancytopenia; K85.80 Other acute pancreatitis without necrosis or infection; E16.2 Hypoglycemia, unspecified; E87.8 Other disorders of electrolyte and fluid balance, not elsewhere classified; D72.819 Decreased white blood cell count, unspecified; J02.9 Acute pharyngitis, unspecified; E78.5 Hyperlipidemia, unspecified; I10 Essential (primary) hypertension; R93.5 Abnormal findings on diagnostic imaging of other abdominal regions, including retroperitoneum; R93.89 Abnormal findings on diagnostic imaging of other specified body structures; R10.9 Unspecified abdominal pain; Z90.710 Acquired absence of both cervix and uterus; Z90.49 Acquired absence of other specified parts of digestive tract; Z95.0 Presence of cardiac pacemaker; Z85.41 Personal history of malignant neoplasm of cervix uteri; Z88.1 Allergy status to other antibiotic agents; Z79.899 Other long term (current) drug therapy; Z20.822 Contact with and (suspected) exposure to COVID-19
CPT/HCPCS: 36415; 71045; 71046; 71250; 74176; 76705; 80048; 80053; 80061; 80074; 80076; 81003; 81015; 82040; 82150; 82248; 82705; 82805; 82947; 83036; 83525; 83605; 83631; 83690; 83735; 84100; 84134; 84145; 84681; 85025; 85610; 85730; 86140; 86301; 87040; 87070; 87324; 87449; 93306; 94010; 94640; 96360; 96361; 97112; 97116; 97161; 99285; J0295; J0696; J3475; J7030; J7040; J7042; J7060; J7120; U0003

== ENCOUNTER 2021-01-02 05:50 | Day surgery (SDC) | payer OTHER ==
[2021-01-02] MEDS ORDERED: CEFAZOLIN/SWI 1gm 1 GM/10 ML SYR ONE (06:28)
[2021-01-02] MEDS ORDERED: Ringers Lactate 1,000 ML IV ONE (06:28)
[2021-01-02] MEDS ORDERED: LIDOCAINE 1% MPF 5 ML VIAL ONE (06:57)
[2021-01-02] MEDS ORDERED: propofoL 200 MG/20 ML VIAL IV ONE (06:57)
[2021-01-02] MEDS ORDERED: LIDOCAINE 1% MPF 30 ML VIAL ONE (07:04)
[2021-01-02] MEDS ORDERED: Phenylephrine HCl 10 MG/ML 1 ML VIAL ONE (07:28)
[2021-01-02] MEDS ORDERED: Mastisol Adhesive Liq ONE (08:07)
[2021-01-02 08:49] VITALS: BP 101/48; O2SAT 100
--- NOTE | 2021-01-02 09:50 | OP ---
Date of Procedure: 01/02/2021 Surgeon: Mariano Barlow MD Preoperative Diagnoses: Double vision in the right side, elevated CRP and sedimentation rate, rule o ut temporal arteritis. Postoperative Diagnoses: Double vision in the right side, elevated CRP and sedimentation rate, rule out temporal arteritis. Procedure: Right temporal artery biopsy and utilization of Doppler device to localized the branch of the temporal artery. Estimated Blood Loss: Minimal. Findings: As above. Anesthesia: General. Specimens: Piece of temporal artery. Complications: None. Disposition: The patient tolerated the procedure in stable condition and taken to Recovery in good g eneral condition. Procedure In Detail: The patient was brought to the OR, placed in supine position. General anesthes ia was begun. The patient was prepped and draped in the usual sterile fashion. Lidocaine 1% infiltr ated locally. Then, Doppler device used to isolate the branch of the temporal artery at the above an terior and superior to the right ear. A 4 cm incision made, subcutaneous tissue divided. Branch of the temporal artery identified, proximal and distal control obtained. 4-0 silk was used to tie off b oth ends and approximately 3.5 cm segment of the temporal artery excised and sent to Pathology. Woun d irrigated. Bleeding controlled with cautery. Then, 4-0 chromic was used to approximate the subcut aneous tissue and close the skin. Sterile dressing was applied. The patient was awakened and taken to Recovery in good general condition. Discharge Note: The patient will go to Day Surgery and home when stable. Disposition: Home. Condition: Stable. Discharge Instructions: Resume home medications and diet. Activity as tolerated. No heavy lifting. Remove outer dressing in 2 days. Shower. Keep Steri-Strips on at all times. Follow up in offi ce in 2 weeks, call for appointment. Follow up with Dr. Lancaster in 1 week, call for appointment. T ylenol No. 3 one tablet p.o. q.4 p.r.n. pain. /MODL Voice ID: [id number] Report ID: [id number]
[2021-01-02 09:56] VITALS: TEMP 97
== END 2021-01-02 09:55 | disposition home or self-care (01) ==
LOC: OR 05:50
PROVIDERS: ATTEND Surgery
PROC: 03BS0ZX Excision of Right Temporal Artery, Open Approach, Diagnostic (ICD-10-PCS; principal; 2021-01-02 07:00)
DX: H53.2 Diplopia (principal); Z20.822 Contact with and (suspected) exposure to COVID-19
CPT/HCPCS: 88305; 37609; U0003; J2704; J2370; J0690; J7120

== ENCOUNTER 2021-01-08 14:41 | Emergency (ER) | payer OTHER ==
--- OUTSIDE RECORDS SUMMARY | 2021-01-08 14:45 | XMS REPORT | Continuity of Care Document ---
:1945 Author Organization [facility] t Address [facility] [place] [facility] [address] [place] [address] Care Team Providers Name Role Phone REINA Attending Clinician Unavailable Varun Attending Clinician Varun Admitting Clinician Problems Condition Condition Condition Status Onset Resolution Last Treating Co mments Source Name Details Category Date Date Treatment Clinician Date FAINTED Diagnosis Active 2020-05-17 Me moria 05-17 13:13:00 l FAINTED 00:00: [place] 00 Active 05/17/2020 [facility] [place] HYPERKALEM Diagnosis Active 2020-05-19 Memoria IA, NEAR 05-17 10:52:00 l SYNCOPE 00:00: [place] HYPERKALEM 00 IA, NEAR SYNCOPE Active 05/17[facility] Active 2020-05-19 Memoria IA 10:52:00 l [place] HYPERKALEM IA Active [facility] SYNCOPE Diagnosis Active 2020-05-19 Me moria AND 10:52:00 l COLLAPSE SYNCOPE Jasmin nn AND COLLAPSE Active [facility] Allergies, Adverse Reactions, Alerts Allergy Allergy Status Severity Reaction(s) Onset Inactive Treating Comm ents Source Name Type Date Date Clinician No Known No Known Active Memori a Medicati Medicati l on on [place] Allergie Allergie s s Social History Smoking Status Start Date Stop Date Source Social History 2020-05-17 17:30:11 2020-05-17 17:30:11 [facility] Medications Ordered Filled Start Stop Current Ordering Indication Dosage Frequency Signature Comments Components Source Medication Medication Date Date Medication? Clinician (SIG) Name Name Norvasc No Notes: Memoria 8-10 (Same as: l 14:00: Norvasc) [place] 00 metoprolol No Notes: Memor ia tartrate 8-10 (Same as: l 02:00: Lopressor) [place] 00 amLODIPine Yes 10 mg = 2 Me moria 5 mg oral 09 tab, PO, l tablet 16:46: Daily, # [place] 00 60 tab, 0 Refill(s), Pharmacy: [facility] #[id number], 152.4, cm, 05/17/20 18:35:00 CDT, Height, 60.085, kg, 05/17/20 18:35:00 CDT, Weight cephalexin Yes 250 mg = 1 M emoria 250 mg oral 05-18 cap, PO, l capsule 16:46: BID, X 3 Ricco n 00 day, # 6 cap, 0 Refill(s), Pharmacy: [facility] #[id number], 152.4, cm, 05/17/20 18:35:00 CDT, Height, 60.085, kg, 05/17/20 18:35:00 CDT, Weight Estrogens, 0 Yes 0.625 mg = M emoria Conjugated 05-18 1 tab, PO, l (JAIL) 0.625 15:24: Daily, # He rmann MG Oral 00 30 tab, 0 Tablet Refill(s) [Premarin] metoprolol Yes 150 mg = Mem oria succinate 05-18 1.5 cap, l 100 mg oral 15:23: PO, Daily, [place] capsule, 00 0 extended Refill(s) release Water 1000 No Notes: Memor ia MG/ML 05-18 (sodium l Injectable 03:45: bicarb Jasmin nn Solution 00 8.4% (1 mEq/ml) 50 ml VL) montelukast 0 No Notes: Delano chavez 05-18 (Same l 02:00: as:Singula [place] 00 ir) Mupirocin 0 No 1 appl, Memor ia 0.02 MG/MG [...] Black; E - [facility] Cephalexin 0 No Notes: Memor ia 05-17 Take on l 22:00: empty stomach. (Same As: Keflex) NS 1,000 mL 0 No 1,000 mL, M emoria 05-17 Rate: 75 l 20:40: ml/hr, Infuse over: 13.3 hr, Route: IV, Dosing Weight 58.636 kg, Total Volume: 1,000, Start date: 05/17/20 15:40:00 CDT, Duration: 30 day, Stop date: 06/16/20 15:39:00 CDT, 1.68, m2, 0 Dextrose 2019-0 No 12.5 gm, Memor ia 50% Syringe 05-17 25 mL, l (D50W) 20:39: Route: IVP, Drug Form: INJ, Dosing Weight 58.636, kg, PRN, PRN Blood Glucose Results, Start date: 05/17/20 15:39:00 CDT, Duration: 30 day, Stop date: 06/16/20 15:38:00 CDT, 0 Glucagon No 1 mg, Memoria 05-17 Route: IM, l 20:39: Drug form: PDR/INJ, PRN, Dosing Weight 58.636, kg, PRN Blood Glucose Results, Start date: 05/17/20 15:39:00 CDT, Duration: 30 day, Stop date: 06/16/20 15:38:00 CDT, 0 Acetaminoph 2019-0 No Notes: Do Umesh emoria en 05-17 not exceed l 20:39: 4 gm/day. (Same as: Tylenol) Silver Yes 1 appl, Memoria Sulfadiazin 05-17 TOP, BID, l e 10 MG/ML 20:36: # 20 gm, 0 H ermann Topical 00 Refill(s) Cream [SSD] Fenofibrate 0 No 145 mg = 1 Memoria 145 [...] 6 l MG / 20:36: tab, 0 [place] Trimethopri 00 Refill(s) m 160 MG Oral Tablet montelukast 2019-0 Yes 10 mg = 1 M emoria 10 mg oral 8-08 tab, PO, l tablet 20:36: Bedtime, # Jasmin nn 00 30 tab, 0 Refill(s) Mupirocin 2020-0 Yes 1 appl, Memor ia 0.02 MG/MG 05-17 TOP, TID, l Topical 20:36: # 15 gm, 0 Herm isma Ointment 00 Refill(s) NS (Bolus) 2019-0 No 1,000 mL, Me moria IV 05-17 1,000 l 19:59: ml/hr, [place] 00 Infuse Over: 1 hr, Route: IV, 1,000, Drug form: INJ, ONCE, Priority: STAT, Dosing Weight 58.636 kg, Start date: 05/17/20 14:59:00 CDT, Stop date: 05/17/20 14:59:00 CDT, 0 Albuterol 2019-0 No Notes: SEE Me moria 0.83 MG/ML 08 RT l Inhalant 19:58: DOCUMENTAT Her dale Solution 00 ION (Same as: Proventil) Kayexalate 2019-0 No Notes: Memor ia 05-17 (sodium l 19:58: polystyren [place] 00 e sulfonate 15 gm/60 ml ALICIA) Shake well before use. (Same as: Kayexalate , SPS) Dextrose 2020-0 No 25 gm, 50 Delano chavez 50% Syringe 8-08 mL, Route: l (D50W) 19:57: IVP, Drug Ricco n 00 Form: INJ, Dosing Weight 58.636, kg, ONCE, STAT, Start date: 05/17/20 14:57:00 CDT, Stop date: 05/17/20 14:57:00 CDT, 0 Insulin 0 No Notes: Memoria regular 05-17 (Same as: l 19:57: Humulin R) [place] 00 Roll in palms of hands gently; [...] 0.9% 05-17 preservati l 17:53: ve free. [place] 00 Sodium No 1,000 mL, Memori a Chloride 05-17 1000 l 0.9% 17:53: ml/hr, [place] (Bolus) IV 00 Infuse Over: 1 hr, Route: IV, 1,000, Drug form: INJ, ONCE, Priority: STAT, Dosing Weight 58.636 kg, Start date: 05/17/20 12:53:00 CDT, Stop date: 05/17/20 12:53:00 CDT, 0 Vital Signs Vital Name Observation Time Observation Value Comments Source Temperature Oral (F) 2020-05-18 13:00:00 97.8 F [facility] [place] Heart Rate 2020-05-18 13:00:00 [facility] [place] Respitory Rate 2020-05-18 13:00:00 Memori al [place] Systolic (mm Hg) 2020-05-18 13:00:00 Delano rial [place] Diastolic (mm Hg) 2020-05-18 13:00:00 Mem orial [place] Temperature Oral (F) 2020-05-18 09:00:00 97.3 F [facility] [place] Heart Rate 2020-05-18 09:00:00 [facility] [place] Respitory Rate 2020-05-18 09:00:00 Memori al [place] Systolic (mm Hg) 2020-05-18 09:00:00 Delano rial [place] Diastolic (mm Hg) 2020-05-18 09:00:00 Mem orial [place] Temperature Oral (F) 2020-05-18 05:00:00 97.4 F [facility] [place] Heart Rate 2020-05-18 05:00:00 [facility] [place] Respitory Rate 2020-05-18 05:00:00 Memori al [place] Systolic (mm Hg) 2020-05-18 05:00:00 Delano rial [place] Diastolic (mm Hg) 2020-05-18 05:00:00 Mem orial [place] Height 2020-05-17 23:35:00 152.4 cm [facility] [place] Weight 2020-05-17 23:35:00 [facility] [place] BMI Calculated 2020-05-17 23:35:00 Memori al [place] Height 2020-05-17 17:15:00 172.72 cm [facility] [place] BMI Calculated 2020-05-17 17:15:00 Memori al [place] Weight 2020-05-17 17:15:00 [facility] [place] Procedures This patient has no known procedures. Encounters Start End Encounter Admission Attending Care Care Encounter Source Date/Time Date/Time Type Type Clinicians Facility Department ID 2020-06-10 2020-06-10 Outpatient [facility] [id number] [place] 00:00:00 00:00:00 RAYNA [address] 2020-05-17 2020-05-18 Outpatient Varun, [facility] [id number] 12:13:02 13:30:00 Earle 00 2020-05-17 2020-05-17 Inpatient E [facility] 7500 [facility] 15:14:00 12:13:00 Results Test Description Test Time Test Comments Results Result Comments Source CARDIAC ENZYMES 2020-05-18 <0.02 [facility] [place] 13:09:00 CARDIAC ENZYMES 2020-05-18 <0.02 [facility] [place] 07:33:00 CHEM PANEL 2020-05-18 96 [facility] Jasmin nn 07:33:00 CHEM PANEL 2020-05-18 27 [facility] Jasmin nn 07:33:00 CHEM PANEL 2020-05-18 1.58 [facility] Jasmin nn 07:33:00 CHEM PANEL 2020-05-18 139 [facility] Jasmin nn 07:33:00 CHEM PANEL 2020-05-18 4.8 [facility] [place] nn 07:33:00 CHEM PANEL 2020-05-18 116 [facility] Jas[place] nn 07:33:00 CHEM PANEL 2020-05-18 16 [facility] [place] nn 07:33:00 CHEM PANEL 2020-05-18 11.8 [facility] [place] nn 07:33:00 CHEM PANEL 2020-05-18 9.1 [facility] [place] nn 07:33:00 CHEM PANEL 2020-05-18 07:33:00 Test Item Value Reference Range Interpretation Comme nts B/C Ratio (test code = B/C Ratio) 17 1 6-25 [facility] [id number] 07:33:005.8[facility] PAN[facility] 2020-05-18 07:33:002.5[facility] [id number] 07:33:003.3[facility] [id number] 07:33:00 Test Item Value Reference Range Interpretation Comments A/G Ratio (test code = A/G Ratio) 0.8 1 0.7-1.6 [facility] [id number] 07:33:0017[facility] PANEL 2020-05-18 07:33:0025[facility] [id number] 07:33:0045[facility] [id number] 07:33:000.1[facility] [id number] 07:33:0031[facility] OibumccCFHQXUSQJSVK8030-81-50 07:33:004.8[facility] [id number] 03:01:78894Ysurfhvq [facility]CHEM [id number] 03:01:0030 [facility] [id number] 03:01:001.77[facility]annCHE[facility] PANEL 2020-05-18 03:01:28248Qtompnup [facility]CHEM [id number] 03:01:004.9[facility] [id number] 03:01:59160Zoqhpdka [facility]CHE[facility] [id number] 03:01:0017[facility] [id number] 03:01:0011.9[facility] [id number] 03:01:009.6[facility] [id number] 03:01:0027 [facility] [id number] 20:29:00Yellow *NA*(05/17/20 3:29 PM) [facility] [id number] 20:29:00Slight *ABN*(05/17/20 3:29 PM) [facility] [id number] 20:29:00 Test Item Value Reference Range Interpretation Comments UA Spec Grav (test code = UA Spec 1.014 1 Grav) [facility] [id number] 20:29:00 Test Item Value Reference Range Interpretation Comments UA pH (test code = UA pH) 5.0 1 5.0-8.0 [facility] [id number] 20:29:00Negative *NA*(05/17/20 3:29 PM) [facility] [id number] 20:29:00Negative (05/17/20 3:29 PM) [facility] [id number] 20:29:00Negative (05/17/20 3:29 PM) [facility] [id number] 20:29:00Negative (05/17/20 3:29 PM) [facility] [id number] 20:29:00<1[facility] [id number] 20:29:00<1[facility] [id number] 20:29:00 3[facility]CHE[facility] [id number] 18:33:0014.5[facility]annCHEM PANEL 2020-05-17 18:33:009.5[facility] [id number] 18:33:0019[facility] WudshzmOBPRDBNHMV0893-04-25 18:33:008.7[facility] PewizgcGNEEQPXIXW9802-01-72 18:33:003.54[facility] YpvpqwuFQVKBHKBMC7049-98-80 18:33:009.2[facility] [place] [id number] 18:33:0029.4[facility] TenplvuWGGLASJTBG1744-91-61 18:33:00 82.9[facility] UtreoggTMKDMMKNSN2379-61-83 18:33:00 Test Item Value Reference Range Interpretation Comments MCH (test code = MCH) 26.1 pg 27.0-31.0 [facility] AwsjtxnDVPEAFAAIT4354-83-36 18:33:0031.5[facility]annHEMATOLOGY 2020-05-17 18:33:0016.1[facility] EqoagecNCDXWFAYUP3561-34-89 18:33:57790Dvaaghym NlopypdMUHDURWHWB2759-81-11 18:33:008.9[facility] DrndufmNYWLUEEUWW9355-60-23 18:33:00 Test Item Value Reference Range Interpretation Comments PT (test code = PT) 13.4 s 12.0-14.7 [facility] [id number] 18:33:00 Test Item Value Reference Range Interpretation Comments INR (test code = INR) 1.02 1 0.85-1.17 [facility] [id number] 18:33:00 Test Item Value Reference Range Interpretation Comments PTT (test code = PTT) 28.1 s 22.9-35.8 [facility] FknfemyQYZCGFBHNG7846-36-61 18:33:0078.5[facility]annHEMATOLOGY 2020-05-17 18:33:0014.2[facility] XlzobwzTCJMRNAZOZ5593-59-25 18:33:005.8[facility] RsryhmmDHFWJYPSNZ8933-64-75 18:33:001.1[facility] AvzjdlkOYRZMHMSUN3573-63-23 18:33:000.4[facility] YghntcsNWSUKNKGQH0792-84-21 18:33:006.8[facility] [place] [id number] 18:33:001.2[facility] NwoipsrBUXZWIPXQG3945-91-37 18:33:000.5 [facility] LsdeumuKUWEOHJUML4053-83-56 18:33:000.1[facility]annBL[facility]OD BANK [id number] 18:33:00Negative (05/17/20 1:33 PM)[facility] HermannCARDIAC [id number] 18:33:00<0.02[facility]annCHEM [id number] 18:33:00 94[facility]annCHEM [id number] 18:33:0040[facility]annCHEM PANEL 2020-05-17 18:33:002.43[facility]annCHEM [id number] 18:33:37136Pbavmtgv HermannCHEM [id number] 18:33:01411Gmywzzny HermannCHEM [id number] 18:33:0017[facility] [place]
--- NOTE | 2021-01-08 15:13 | RAD REPORT ---
EXAM DESCRIPTION: CT - Ct Stroke Brain Wo Cont - 01/08/2021 3:02 pm CLINICAL HISTORY: APHASIA COMPARISON: Head Brain Wo Cont dated 09/30/2020 TECHNIQUE: Axial 5 millimeter thick images of the head were obtained without IV contrast. All CT scans are performed using dose optimization technique as appropriate and may include automated exposure control or mA/KV adjustment according to patient size. FINDINGS: No intracranial hemorrhage, mass, or cerebral edema. No acute cortical based infarction id entifiable. No cortical edema or sulcal effacement. Patient has atrophy changes are moderate in sever ity and similar to prior imaging. Ventricles are in proportion to the volume loss. Extensive chronic ischemic pattern seen throughout the cerebral white matter extending into each basal ganglia.Dense ar terial tree calcifications are present. No globe or orbital content abnormality seen. Visualized portions of the mastoid air cells, paranasal sinuses, and orbits are unremarkable. Findings telephoned to Jhonny Malhotra 3:08 p.m. IMPRESSION: No intracranial hemorrhage. No acute intracranial finding identifiable. Stable moderate severity atrophy. Advanced chronic ischemic pattern not substantially different from comparison. Chronic ischemic flores e can mask acute nonhemorrhagic CVA.
[2021-01-08] MEDS ORDERED: NA CHLORIDE 0.9% 1,000 ML ONE ×3 (15:25→16:28)
[2021-01-08 15:26] LABS: Absolute Lymphocytes (CBC) 1.3 K/uL (0.7-4.9); Basophils % 0.4 % (0-1.3); Hematocrit 33.1 % (36.0-45.0); Lymphocytes % 18.3 % (15.3-44.8); RBC Red Blood Cell Count 3.71 M/uL (3.86-4.86)
[2021-01-08 15:37] LABS: Protime INR 0.97
[2021-01-08 15:39] LABS: ALT/SGPT 112 U/L (12-78); AST/SGOT 112 U/L (15-37); Albumin 2.9 g/dL (3.4-5.0); Alkaline Phosphatase 270 U/L (45-117); BUN Blood Urea Nitrogen 63 mg/dL (7-18); Bicarbonate 20 mmol/L (21-32); Bilirubin Direct < 0.1 mg/dL (0-0.2); Bilirubin Total 0.3 mg/dL (0.2-1.0); Glucose Level 74 mg/dL (74-106); Magnesium 4.4 mg/dL (1.8-2.4); NT PRO-BNP 2370 pg/mL (<450); Protein, Total 6.1 g/dL (6.4-8.2); Sodium Level 138 mmol/L (136-145); Troponin (Emerg Dept Use Only) < 0.02 ng/mL (0.0-0.045)
[2021-01-08 15:45] LABS: Potassium 6.2 mmol/L (3.5-5.1)
[2021-01-08] MEDS ORDERED: GLUCAGON 1 MG/VIAL ONE (15:55)
[2021-01-08] MEDS ORDERED: ALBUTEROL 2.5 MG/3 ML NEB SOL ONE ×2 (16:08→16:09)
[2021-01-08] MEDS ORDERED: D50W 50 ML IV ONE (16:09)
[2021-01-08] MEDS ORDERED: CALCIUM GLUCONATE 1 GM IVPB 1 GM/50 ML BAG IV ONE (16:09)
[2021-01-08] MEDS ORDERED: INSULIN -REGULAR HUMAN 50 UNIT/0.5 ML ML ONE (16:09)
[2021-01-08] MEDS ORDERED: NOREPINEPHRINE 4mg/D5W 250mL 4 MG/250 ML BAG IV ONE ×3 (16:28→22:30)
[2021-01-08 17:24] LABS: Thyroid Stimulating Hormone 4.21 uIU/mL (0.360-3.740)
--- NOTE | 2021-01-08 17:30 | RAD REPORT ---
EXAM DESCRIPTION: Shiv Single View01/08/2021 3:19 pm CLINICAL HISTORY: Shortness of breath COMPARISON: October 2020 FINDINGS: The lungs appear clear of acute infiltrate. The heart is borderline enlarged. Small hiata l hernia IMPRESSION: No acute abnormalities displayed
--- NOTE | 2021-01-08 17:34 | EDPHYS ---
Physician Documentation [facility] Name: Geneva Starks Age: 75 yrs Sex: Female : 1945 Arrival Date: 01/08/2021 Time: 14:47 Bed 13 Private MD: ED Physician Rajiv Pemberton HPI: 01/08 14:59 This 75 yrs old Female presents to ER via Wheelchair with complaints of S/S jr8 of Possible Stroke. 14:59 The patient's problem is reported as altered mental status, decreased responsiveness, jr8 responds to to verbal stimuli, syncope, off balance, weakness, that is generalized. Onset: The symptoms/episode began/occurred suddenly. Daughter reports that she was driving with her mother and suddenly started to shake, tigist arms up, and began to drool on herself. She was not unresponsive but was staring and unable to communicate. . 16:59 Severity of symptoms: At their worst the symptoms were moderate in the emergency jr8 department the symptoms are unchanged. The patient has not experienced similar symptoms in the past. The patient has been recently seen by a physician: with different complaint(s). Historical: - Allergies: 14:54 Spironolactone; sv - PMHx: 14:54 Hypertension; sv - Immunization history:: Adult Immunizations up to date, Flu vaccine is up to date. - Social history:: Smoking status: Patient denies any tobacco usage or history of. ROS: 15:01 Respiratory: Negative for shortness of breath, cough, wheezing, and pleuritic chest jr8 pain, Abdomen/GI: Negative for abdominal pain, nausea, vomiting, diarrhea, and constipation, MS/Extremity: Negative for injury and deformity, Skin: Negative for injury, rash, and discoloration. 15:01 Cardiovascular: Positive for PM. 15:01 Neuro: Positive for altered mental status, speech changes, tremor, visual changes, Per daughter. Patient denies any issues at all. . 15:01 All other systems are negative. Exam: 15:04 Neuro: Orientation: to person, place, time, situation, Mentation: able to follow jr8 commands, slow to respond, Memory: immediate memory is intact, Motor: moves all fours, Sensation: no obvious gross deficits, no acute changes. 16:59 Radiologist reports: Negative for acute findings jr8 16:59 Eyes: Pupils equal round and reactive to light, extra-ocular motions intact. Lids and lashes normal. Conjunctiva and sclera are non-icteric and not injected. Cornea within normal limits. Periorbital areas with no swelling, redness, or edema. ENT: Nares patent. No nasal discharge, no septal abnormalities noted. Tympanic membranes are normal and external auditory canals are clear. Oropharynx with no redness, swelling, or masses, exudates, or evidence of obstruction, uvula midline. Mucous membranes moist. Neck: Trachea midline, no thyromegaly or masses palpated, and no cervical lymphadenopathy. Supple, full range of motion without nuchal rigidity, or vertebral point tenderness. No Meningismus. Cardiovascular: Regular rate and rhythm with a normal S1 and S2. No gallops, murmurs, or rubs. Normal PMI, no JVD. No pulse deficits. Respiratory: Lungs have equal breath sounds bilaterally, clear to auscultation and percussion. No rales, rhonchi or wheezes noted. No increased work of breathing, no retractions or nasal flaring. Abdomen/GI: Soft, non-tender, with normal bowel sounds. No distension or tympany. No guarding or rebound. No evidence of tenderness throughout. Back: No spinal tenderness. No costovertebral tenderness. Full range of motion. Skin: Warm, dry with normal turgor. Normal color with no rashes, no lesions, and no evidence of cellulitis. MS/ Extremity: Pulses equal, no cyanosis. Neurovascular intact. Full, normal range of motion. 17:12 ECG was reviewed by the Attending Physician. jr8 Vital Signs: 14:50 BP 79 / 63; Pulse 67; Resp 17 S; Pulse Ox 96% on R/A; Weight 53.52 kg (R); Height 5 ft. ca1 2 in. (157.48 cm) (R); 16:37 BP 76 / 60; Pulse 60; Resp 10; Pulse Ox 98% on R/A; bw 17:30 BP 112 / 66; Pulse 60; Resp 19; Temp 88.2; Pulse Ox 100% on 3 lpm NC; mw2 19:16 BP 89 / 47; Pulse 59; Resp 16; Temp 88.2; Pulse Ox 100% ; Pain 0/10; cr4 19:24 BP 109 / 98; Pulse 58; Resp 15; Temp 90.7; Pulse Ox 99% ; cr4 19:27 BP 90 / 77; Pulse 55; Resp 13; Temp 90.7; Pulse Ox 99% ; Pain 0/10; cr4 19:30 BP 86 / 70; Pulse 59; Resp 17; Temp 90.9; Pulse Ox 100% ; Pain 0/10; cr4 19:45 BP 88 / 67; Pulse 59; Resp 13; Temp 90.7; Pulse Ox 99% ; Pain 0/10; cr4 20:00 BP 97 / 55; Pulse 59; Resp 14; Temp 90.9; Pulse Ox 98% ; Pain 0/10; cr4 20:15 BP 91 / 63; Pulse 60; Resp 12; Temp 90.9; Pulse Ox 100% ; Pain 0/10; cr4 20:45 BP 98 / 64; Pulse 60; Resp 12; Temp 90.7; Pulse Ox 99% ; Pain 0/10; cr4 21:05 BP 86 / 67; Pulse 60; Resp 12; Temp 90.9; Pulse Ox 100% ; Pain 0/10; cr4 21:15 BP 98 / 62; Pulse 60; Resp 13; Temp 91.2; Pulse Ox 98% ; Pain 0/10; cr4 21:30 BP 87 / 66; Pulse 60; Resp 14; Temp 91.6; Pulse Ox 99% ; Pain 0/10; cr4 21:45 BP 88 / 75; Pulse 60; Resp 14; Temp 91.2; Pulse Ox 100% ; Pain 0/10; cr4 22:00 BP 105 / 81; Pulse 60; Resp 11; Temp 33.5; Pulse Ox 99% 2 lpm ; Pain 0/10; cr4 14:50 Body Mass Index 21.58 (53.52 kg, 157.48 cm) ca1 NIH Stroke Scale Scores: 14:50 NIHSS Score: 0 bw 16:59 NIHSS Score: 3 jr8 Procedures: 17:05 Central Line: the site was prepped with Betadine, in sterile fashion, a triple lumen jr8 catheter was inserted, in the right femoral vein, in 1 attempts. placement was verified, by blood return, the site was dressed with 4X4s, Tegaderm, foam tape, using sterile technique, the patient tolerated the procedure, well. MDM: 14:48 Patient medically screened. jr8 16:59 Data reviewed: vital signs, nurses notes, lab test result(s), EKG, radiologic studies, jr8 CT scan, plain films. Data interpreted: Pulse oximetry: on 3L(s) per nasal canula, is 95 %. Interpretation: acceptable. Counseling: I had a detailed discussion with the patient and/or guardian regarding: the historical points, exam findings, and any diagnostic results supporting the discharge/admit diagnosis, lab results, radiology results, the need to transfer to another facility. ED course: Patient had seizure in front of medical staff. Lasted about 30 seconds. Slightly postictal but coming around. Central line placed as patients pressure did not respond to two liter bolus. Discussed case with her PCP who at this time would feel better if we transferred for higher level of care. We subsequently also do not have ICU available at this time. Will attempt to transfer to [facility] first . 18:15 ED course: We have at this point tried [facility], [facility] and surrounding systems, [address], and [facility]. All without ICU beds. Family does not want to go to [facility] and at this point would rather stay here. Dr. Holm wants to defer to hospital team at this time . 20:23 ED course: Discovered patient has pancreatitis as well. Not substantially different jr8 from previous CT but lipase is elevated. Concern that she could evolve necrotizing pancreatitis. Discussed this with family and are ok with trying [facility] facility at this point which did accept at [facility]. 01/08 14:59 Order name: Basic Metabolic Panel; Complete Time: 15:47 01/08 14:59 Order name: CBC with Diff; Complete Time: 15:47 01/08 14:59 Order name: LFT's; Complete Time: 15:47 01/08 14:59 Order name: Magnesium; Complete Time: 15:47 01/08 14:59 Order name: NT PRO-BNP; Complete Time: 15:47 01/08 14:59 Order name: PT-INR; Complete Time: 15:47 01/08 14:59 Order name: Troponin (emerg Dept Use Only); Complete Time: 15:47 01/08 15:13 Order name: TS; Complete Time: 16:54 01/08 15:19 Order name: Glucose, Ancillary Testing; Complete Time: 15:21 EDMS 01/08 16:27 Order name: Procalcitonin; Complete Time: 18:24 [facility] 01/08 16:28 Order name: Lactate [facility] 01/08 16:28 Order name: Lactate; Complete Time: 16:59 EDMS 01/08 16:49 Order name: TSH; Complete Time: 17:27 [facility] 01/08 16:49 Order name: T4 Free; Complete Time: 17:27 [facility] 01/08 17:54 Order name: SARS-COV-2 RT PCR; Complete Time: 18:02 EDMS 01/08 18:28 Order name: Lipase la1 01/08 19:55 Order name: Lipase; Complete Time: 20:01 EDMS 01/08 20:16 Order name: Manual Differential; Complete Time: 20:55 EDMS 01/08 14:57 Order name: CT Stroke Brain w/o Contrast; Complete Time: 15:21 [facility] 01/08 14:59 Order name: XRAY Chest (1 view); Complete Time: 17:32 [facility] 01/08 14:59 Order name: EKG; Complete Time: 15:00 [facility] 01/08 14:59 Order name: Cardiac monitoring; Complete Time: 15:16 [facility] 01/08 14:59 Order name: EKG - Nurse/Tech; Complete Time: 17:26 [facility] 01/08 18:18 Order name: CT Abd/Pelvis - Without Contrast [facility] 01/08 19:21 Order name: CT; Complete Time: 19:24 EDMS 01/08 20:21 Order name: ABG Arterial Blood Gas; Complete Time: 21:02 EDMS 01/08 14:59 Order name: IV Saline Lock; Complete Time: 15:16 [facility] 01/08 14:59 Order name: Labs collected and sent; Complete Time: 15:16 [facility] 01/08 14:59 Order name: O2 Per Protocol; Complete Time: 15:17 [facility] 01/08 14:59 Order name: O2 Sat Monitoring; Complete Time: 15:17 [facility] 01/08 14:59 Order name: Urine Dipstick-Ancillary (obtain specimen) [facility] 01/08 15:50 Order name: Morse; Complete Time: 16:31 [facility] EC:12 Rate is 61 beats/min. Rhythm is regular, Paced. Left axis deviation noted. QRS interval jr8 is prolonged at 174 msec. QT interval is prolonged at 500 msec. T waves are Inverted in leads V1, V2. No ST changes noted. Clinical impression: Paced Rhythm. Interpreted by me. Reviewed by me. Administered Medications: 15:16 Drug: NS 0.9% 1000 ml Route: IV; Rate: 1000 ml; Site: right forearm; bw 15:47 CANCELLED (Physician Discretion): GlucaGen (glucagon) 2 mg IVP once jr8 15:50 Drug: NS 0.9% 1000 ml Route: IV; Rate: 1000 ml; Site: right antecubital; bw 16:10 Drug: D50W 50 ml Route: IVP; Site: right antecubital; bw 22:36 Follow up: Response: No adverse reaction cr4 16:12 Drug: Insulin Regular Human 10 units {Co-Signature: vg1 (Hazel Dickinson RN).} Route: bw IVP; Site: right antecubital; 16:20 Drug: Calcium Gluconate 1 grams Route: IVPB; Infused Over: 60 mins; Site: right bw antecubital; 22:36 Follow up: Response: No adverse reaction cr4 16:23 Drug: Levophed (4 mg/250 mL D5W 4 mcg/min {Note: started at 5 mcg/min.} Route: IV; sv Rate: calculated rate; Site: left femoral; 16:37 Follow up: Response: No adverse reaction; Rate change 10 calculated rate bw 17:29 Follow up: Response: No adverse reaction; Rate change 20 calculated rate bw 18:50 Follow up: Response: No adverse reaction; Rate change 25 calculated rate bw 20:48 Follow up: Rate change 22.5 calculated rate cr4 21:16 Follow up: Rate change 22 calculated rate cr4 22:35 Follow up: IV Status: Infusion continued upon transfer cr4 16:23 Drug: NS 0.9% 1000 ml Route: IV; Rate: 75 ml/hr; Site: left femoral; sv 22:36 Follow up: IV Status: Infusion continued upon transfer cr4 16:30 Drug: Albuterol 2.5 mg Route: Inhalation; bw 16:30 Drug: Albuterol 2.5 mg Route: Inhalation; bw 16:30 Drug: Albuterol 2.5 mg Route: Inhalation; bw 19:35 Drug: SOLU-Medrol 40 mg Route: IVP; Site: right antecubital; cr4 21:27 Follow up: Response: No adverse reaction cr4 19:37 Drug: Lasix (furosemide) 60 mg Route: IVP; Site: right antecubital; cr4 21:27 Follow up: Response: No adverse reaction cr4 19:45 Drug: SOLU-Medrol 210 mg Route: IVP; Site: right antecubital; cr4 21:22 Follow up: Response: No adverse reaction cr4 20:00 Drug: Zosyn 3.375 grams Route: IVPB; Infused Over: 60 mins; Site: right femoral; cr4 21:28 Follow up: Response: No adverse reaction; IV Status: Completed infusion; IV Intake: cr4 100ml Point of Care Testing: Blood Glucose: 15:04 Blood Glucose: 72 mg/dL; sv Guaiac: 15:36 Stool Guaiac: Positive; Stool Hemoccult Control: Pass; jr8 Ranges: Critical Glucose Levels:Adult <50 mg/dl or >400 mg/dl <40 mg/dl or >180 mg/dl Disposition: 01/09 08:20 Co-signature as Attending Physician, Rajiv Pemberton MD I agree with the assessment and kdr plan of care. Disposition: 01/08/21 20:29 Transfer ordered to Other Acute Care Facility. Diagnosis are Acute kidney failure, Hypotension, Acute pancreatitis, Other giant cell arteritis, Hyperkalemia. - Reason for transfer: Higher level of care. - Accepting physician is Dr. Castaneda. - Condition is Serious. - Problem is new. - Symptoms have improved. NIH Stroke Scale - NIH Stroke Score Date: 01/08/2021 Time: 14:50 Total Score = 0 1a. Level of Consciousness (LOC) - 0(Alert) 1b. Level of Consciousness (LOC) (Year \T\ Age) - 0(Both) 1c. LOC Commands (Open \T\ Closes Eyes/Electronic Repair Troubleshooter) - 0(Both) 2. Best Gaze (Lateral Gaze Paresis) - 0(Normal) 3. Visual Field Loss - 0(No visual loss) 4. Facial Palsy - 0(Normal) 5a. Left Arm: Motor (10-second hold) - 0(No drift) 5b. Right Arm: Motor (10-second hold) - 0(No drift) 6a. Left Leg: Motor (5-second hold - always test supine) - 0(No drift) 6b. Right Leg: Motor (5-second hold - always test supine) - 0(No drift) 7. Limb Ataxia (finger/nose \T\ heel/bird - test with eyes open) - 0(Absent) 8. Sensory Loss (pinprick arms/legs/face) - 0(Normal) 9. Best Language: Aphasia (description/naming/reading) - 0(No aphasia) 10. Dysarthria (speech clarity - read or repeat words) - 0(Normal) 11. Extinction and Inattention (visual/tactile/auditory/spatial/personal) - 0(No abnormality) Initials: NIH Stroke Scale - NIH Stroke Score Date: 01/08/2021 Time: 16:59 Total Score = 3 1a. Level of Consciousness (LOC) - 0(Alert) 1b. Level of Consciousness (LOC) (Year \T\ Age) - 0(Both) 1c. LOC Commands (Open \T\ Closes Eyes/Electronic Repair Troubleshooter) - 0(Both) 2. Best Gaze (Lateral Gaze Paresis) - 0(Normal) 3. Visual Field Loss - 0(No visual loss) 4. Facial Palsy - 0(Normal) 5a. Left Arm: Motor (10-second hold) - 0(No drift) 5b. Right Arm: Motor (10-second hold) - 0(No drift) 6a. Left Leg: Motor (5-second hold - always test supine) - 0(No drift) 6b. Right Leg: Motor (5-second hold - always test supine) - 0(No drift) 7. Limb Ataxia (finger/nose \T\ heel/bird - test with eyes open) - 2(Present in two limbs) 8. Sensory Loss (pinprick arms/legs/face) - 0(Normal) 9. Best Language: Aphasia (description/naming/reading) - 0(No aphasia) 10. Dysarthria (speech clarity - read or repeat words) - 1(Mild to Moderate) 11. Extinction and Inattention (visual/tactile/auditory/spatial/personal) - 0(No abnormality) Initials: jr8 Signatures: Dispatcher [employer] Monique Terrazas RN RN sv Rittger, Kevin, MD MD kdr Ruiz, Claudia, RN RN cr4 Roszak, Josh, PA PA jr8 Yamila Donnelly, RN RN ca1 Jessica Miramontes RN RN Hazel Dickinson RN vg1 Corrections: (The following items were deleted from the chart) 04 15:47 15:42 GlucaGen (glucagon) 2 mg IVP once ordered. jr8 jr8 17:03 15:04 Neuro: Orientation: to person, place, time, situation, Mentation: able to jr8 follow commands, slow to respond, Memory: immediate memory is intact, Motor: moves all fours, Sensation: no obvious gross deficits, no acute changes, jr8 17:03 15:04 NIHSS Score: 4 jr8 jr8 17:06 16:51 CORONAVIRUS+MR.LAB.BRZ ordered. EDVA EDMS 18:16 17:33 01/08/2021 17:33 Transfer ordered to [facility]. Diagnosis jr8 is Seizures; Hypermagnesemia; Acute kidney failure; Hypotension; Hyperkalemia. Reason for transfer: Higher level of care. Accepting physician is Unknown. Condition is Fair. Problem is new. Symptoms have improved. jr8 18:37 18:18 Hospitalization Ordered by Dariusz Bird MD for Inpatient Admission. jr8 Preliminary diagnosis is Acute kidney failure; Hypermagnesemia; Hyperkalemia; Seizures; Hypotension. Bed requested for Intensive Care Unit. Status is Inpatient Admission. Condition is Fair. Problem is new. Symptoms are unchanged. jr8 19:47 18:37 01/08/2021 18:18 Hospitalization Ordered by Dave Underwood DO for jr8 Inpatient Admission. Preliminary diagnosis is Acute kidney failure; Hypermagnesemia; Hyperkalemia; Seizures; Hypotension. Bed requested for Intensive Care Unit. Status is Inpatient Admission. Condition is Fair. Problem is new. Symptoms are unchanged. jr8 20:23 19:47 01/08/2021 18:18 Hospitalization Ordered by Dave Underwood DO for jr8 Inpatient Admission. Preliminary diagnosis is Acute kidney failure; Hypermagnesemia; Hyperkalemia; Seizures; Hypotension; Acute pancreatitis. Bed requested for Intensive Care Unit. Status is Inpatient Admission. Condition is Fair. Problem is new. Symptoms are unchanged. jr8 20:34 20:29 01/08/2021 20:29 Transfer ordered to Other Acute Care Facility. Diagnosis jr8 is Acute kidney failure; Hypotension; Acute pancreatitis; Other giant cell arteritis; Hyperkalemia. Reason for transfer: Higher level of care. [place]. Condition is Serious. Problem is new. Symptoms have improved. jr8 22:17 20:21 UR POTASSIUM ordered. EDMS EDMS 22:17 20:21 Phosphorus ordered. EDMS EDMS 22:17 20:21 Uric Acid ordered. EDMS EDMS 22:17 20:21 Magnesium ordered. EDMS EDMS 22:17 20:21 Renal Panel ordered. EDMS EDMS 22:17 20:21 Hep B Core Ab, Tot/reflex IgM ordered. EDMS EDMS 22:17 20:21 Hep B Surface AG w/ Confirm ordered. EDMS EDMS 22:17 20:22 JUSTINE IFA Screen w/Reflex ordered. EDMS EDMS 22:17 20:22 C-ANCA Anti-Proteinase 3 ordered. EDMS EDMS 22:17 20:22 P-ANCA Anti-Myeloperoxidase Ab ordered. EDMS EDMS 22:17 20:22 Rheumatoid Factor ordered. EDMS EDMS 22:17 20:22 Miscellaneous Test Lab ordered. EDMS EDMS 22:17 20:22 Miscellaneous Test Lab ordered. EDMS EDMS 22:17 20:22 HCV w/reflex PCR ordered. EDMS EDMS 22:18 20:21 Hepatitis B Surface Antibody ordered. EDMS EDMS 22:27 20:16 Creatine Phosphokinase ordered. EDMS EDMS 22:27 20:16 Haptoglobin ordered. EDMS EDMS 22:27 20:16 Lactic Dehydrogenase ordered. EDMS EDMS 22:33 20:34 01/08/2021 20:29 Transfer ordered to Other Acute Care Facility. Diagnosis cr4 is Acute kidney failure; Hypotension; Acute pancreatitis; Other giant cell arteritis; Hyperkalemia. Reason for transfer: Higher level of care. Accepting physician is Dr. Castaneda. Condition is Serious. Problem is new. Symptoms have improved. jr8
--- NOTE | 2021-01-08 17:34 | ER ---
Nurse's Notes [facility] Name: Geneva Starks Age: 75 yrs Sex: Female : 1945 Arrival Date: 01/08/2021 Time: 14:47 Bed 13 Private MD: Diagnosis: Acute kidney failure;Hypotension;Acute pancreatitis;Other giant cell arteritis;Hyperkalemia Presentation: 01/08 14:50 Method Of Arrival: Wheelchair ca1 14:50 Coronavirus screen: Client denies travel out of the [place] in the last 14 days. At this ca1 time, the client does not indicate any symptoms associated with coronavirus-19. Ebola Screen: Patient negative for fever greater than or equal to 101.5 degrees Fahrenheit, and additional compatible Ebola Virus Disease symptoms Patient denies exposure to infectious person. Patient denies travel to an Ebola-affected area in the 21 days before illness onset. No symptoms or risks identified at this time. Initial Sepsis Screen:. Risk Assessment: Do you want to hurt yourself or someone else? Patient reports no desire to harm self or others. Onset of symptoms was January 08, 2021 at 14:35. 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 5 minutes later she returned to normal and talked to me again. Since a month ago, she's been having episodes of confusion and weakness that would resolve. Pt A\T\Ox3, Van Negative. Negative slurring. Negative facial droop. 14:50 Chief complaint:. ca1 14:50 Chief complaint: Patient's son or daughter states: daughter: before the eye doctor's ca1 appointment she tripped and fell and landed on her L side but she said she's okay. Denies LOC. Denies hitting head. 14:50 Acuity: ROSALIND 2 bw 16:56 Initial Sepsis Screen: Does the patient meet any 2 criteria?. sv Triage Assessment: 14:50 The onset of the patients symptoms was January 08, 2021 at 14:35. ca1 Stroke Activation: Symptom onset < 3 hours Physician: Stroke Attending; Name: ; Notified At: ; Arrived At: Physician: Chief Stroke Resident; Name: ; Notified At: ; Arrived At: Physician: Stroke Resident; Name: ; Notified At: ; Arrived At: Physician: ED Attending; Name: Dr Pemberton; Notified At: 14:53; Arrived At: Physician: ED Resident; Name: ; Notified At: ; Arrived At: Historical: - Allergies: 14:54 Spironolactone; sv - PMHx: 14:54 Hypertension; sv - Immunization history:: Adult Immunizations up to date, Flu vaccine is up to date. - Social history:: Smoking status: Patient denies any tobacco usage or history of. Screenin:26 Abuse screen: no signs of abuse note. Patient with some confusion. Nutritional cr4 screening: No deficits noted. Tuberculosis screening: No symptoms or risk factors identified. Fall Risk Secondary diagnosis (15 points) seizures, impaired mobility, IV access (20 points). Ambulatory Aid- None/Bed Rest/Nurse Assist (0 pts). Gait- Mental Status-. Assessment: 01/07 19:30 Pain: Denies pain. : Morse in place. Derm: Skin is Skin temperature is cool. cr4 01/08 09:30 Musculoskeletal: patient able to move extremities but has generalized weakness. cr4 15:00 VAN Scoring: Arm Drift: Patients demonstrates NO arm weakness. Patient is VAN Negative. bw The patient has not been NPO before screening. The patient is currently on the following diet: regular The patient is alert, and able to follow commands. The patient does not exhibit slurred or garbled speech. The patient is not exhibiting difficulty speaking. The patient is exhibiting difficulty understanding words. The patient is unable to swallow own secretions without drooling or the need for suction. Patient tolerated one teaspoon of water. No drooling, immediate coughing, gurgling, or clearing of the throat was noted. The patient did not tolerate 90mL of water. Drooling, immediate coughing, gurgling, or clearing of the throat was noted. Bedside swallow screening discontinued. Patient kept NPO until cleared by Speech Therapy or Physician. pt states she was not thirsty and couldn't finish drink. Pt became critical. 15:00 T-PA (Activase) Screening: Indications: Contraindications: Seizure at onset of stroke bw or other uncontrolled chronic seizure disorder:. Pain: Denies pain. Neuro: Level of Consciousness is awake, Oriented to person, place, time, Right Of Way Buyer are equal bilaterally Moves all extremities. Gait is unsteady, Speech is normal, Facial symmetry appears normal, Pupils are PERRLA, Intact Babinski Reports blurred vision weakness Denies difficulty swallowing, numbness Seizure activity reported prior to arrival. Cardiovascular: pt bp hypotensive. MD aware. Skin is cool and dry. . Rhythm is with capture. Respiratory: No deficits noted. GI: Reports rectal bleeding, bloody stool. : Reports urgency, urinary frequency. EENT: No deficits noted. Derm: Skin is dusky, Skin temperature is cool. 15:45 Reassessment: Critical labs reported to Jhonny GARCIA Of potassium 6.4 and magnesium bw of 4.4. 16:30 Reassessment: pt began to have seizure. MD called to bedside. Pt temperature 88.2 bw degrees. Bear hugger applied. Levophed drip and Central line placed by MD. Pt tolerated procedure well. Pt drowsy but aroused by voice command at this time. Pt condition became critical. Decision to transfer. Pt placed on seizure precautions. 17:30 Reassessment: Patient appears in no apparent distress at this time. Patient and/or bw family updated on plan of care and expected duration. Pain level reassessed. 18:30 Reassessment: Patient appears in no apparent distress at this time. No changes from bw previously documented assessment. 19:30 General: Appears comfortable, well groomed, Behavior is calm, cooperative. Neuro: Level cr4 of Consciousness is awake, alert, Oriented to person, place, Right Of Way Buyer are weak bilaterally Reports blurred vision Denies difficulty swallowing, headache Seizure activity CONDENSER TUBE TENDER and while placing Femoral line. Cardiovascular: Denies chest pain, shortness of breath, Capillary refill < 3 seconds Rhythm is regular. Respiratory: Airway is patent Breath sounds with crackles bilaterally. Onset: The symptoms/episode began/occurred GI: Abdomen is non-distended, Bowel sounds present X 4 quads. EENT: No deficits noted. 20:45 Reassessment: Patient and/or family updated on plan of care and expected duration. Pain cr4 level reassessed. patient now confused to self.. Reassessment: family updated on need to transfer. 21:45 Neuro: Level of Consciousness is awake, confused, Oriented to person. Respiratory: cr4 Airway Respiratory effort is even, unlabored, on 2L NC 21:47 Reassessment: attempted to call report for the third time. Report called to Penny SETH.. cr4 22:31 Reassessment: Daughter notified she was being transfred.. cr4 Vital Signs: 14:50 BP 79 / 63; Pulse 67; Resp 17 S; Pulse Ox 96% on R/A; Weight 53.52 kg (R); Height 5 ft. ca1 2 in. (157.48 cm) (R); 16:37 BP 76 / 60; Pulse 60; Resp 10; Pulse Ox 98% on R/A; bw 17:30 BP 112 / 66; Pulse 60; Resp 19; Temp 88.2; Pulse Ox 100% on 3 lpm NC; mw2 19:16 BP 89 / 47; Pulse 59; Resp 16; Temp 88.2; Pulse Ox 100% ; Pain 0/10; cr4 19:24 BP 109 / 98; Pulse 58; Resp 15; Temp 90.7; Pulse Ox 99% ; cr4 19:27 BP 90 / 77; Pulse 55; Resp 13; Temp 90.7; Pulse Ox 99% ; Pain 0/10; cr4 19:30 BP 86 / 70; Pulse 59; Resp 17; Temp 90.9; Pulse Ox 100% ; Pain 0/10; cr4 19:45 BP 88 / 67; Pulse 59; Resp 13; Temp 90.7; Pulse Ox 99% ; Pain 0/10; cr4 20:00 BP 97 / 55; Pulse 59; Resp 14; Temp 90.9; Pulse Ox 98% ; Pain 0/10; cr4 20:15 BP 91 / 63; Pulse 60; Resp 12; Temp 90.9; Pulse Ox 100% ; Pain 0/10; cr4 20:45 BP 98 / 64; Pulse 60; Resp 12; Temp 90.7; Pulse Ox 99% ; Pain 0/10; cr4 21:05 BP 86 / 67; Pulse 60; Resp 12; Temp 90.9; Pulse Ox 100% ; Pain 0/10; cr4 21:15 BP 98 / 62; Pulse 60; Resp 13; Temp 91.2; Pulse Ox 98% ; Pain 0/10; cr4 21:30 BP 87 / 66; Pulse 60; Resp 14; Temp 91.6; Pulse Ox 99% ; Pain 0/10; cr4 21:45 BP 88 / 75; Pulse 60; Resp 14; Temp 91.2; Pulse Ox 100% ; Pain 0/10; cr4 22:00 BP 105 / 81; Pulse 60; Resp 11; Temp 33.5; Pulse Ox 99% 2 lpm ; Pain 0/10; cr4 14:50 Body Mass Index 21.58 (53.52 kg, 157.48 cm) ca1 NIH Stroke Scale Scores: 14:50 NIHSS Score: 0 bw 16:59 NIHSS Score: 3 jr8 ED Course: 14:47 Patient arrived in ED. em1 14:48 Jhonny Malhotra PA is PHCP. jr8 14:48 Rajiv Pemberton MD is Attending Physician. jr8 14:50 Arm band placed on. ca1 14:59 Triage completed. ca1 15:01 CT Stroke Brain w/o Contrast In Process Unspecified. EDMS 15:03 Patient moved back from CT. sv 15:04 Patient has correct armband on for positive identification. Bed in low position. Call sv light in reach. Side rails up X2. residential monitor on. Pulse ox on. NIBP on. Door closed. Head of bed elevated. 15:04 Inserted saline lock: 20 gauge in right antecubital area, using aseptic technique. sv Blood collected. Flushed right antecubital with 5 ml normal saline. 15:16 Jessica Miramontes, RN is Primary Nurse. bw 15:19 XRAY Chest (1 view) In Process Unspecified. EDMS 16:20 Assisted provider with central line placement. Set up central line tray. Triple lumen sv line placed in left femoral. Line placed by Jhonny LUQUE Placement verified by blood return, Dressed with Tegaderm, Blood was collected. Patient tolerated well. Before procedure, did Practitioner(s) obtain informed consent? No. Patient \T\ family education about procedure, CLABSI prevention and S/S of infection? Yes. Time-out/Briefing performed prior to start of procedure? Yes. Was handwashing/sanitizing done immediately prior to procedure? Yes. Was patient positioned to in a way to prevent air embolism? Yes. Was procedure site sterilized? Yes, with chlorhexidine. Was the site allowed to dry? Yes. Was local anesthetic and/or sedation utilized? Yes. During the procedure, did the Practitioner(s) maintain a sterile field? Yes. Were unused ports clamped during insertion? Yes. Was a 2nd qualified MD obtained after 3 unsuccessful insertion attempts? Yes. Was blood aspirated from each lumen? Yes. After the procedure, did the Practitioner(s) clean the site and apply a sterile dressing? Yes. 16:31 Lactate Sent. sv 16:55 Thermoregulation: [place] blanket applied. sv 16:56 Transfer initiated with [facility]; transfer denied due to capacity. em1 17:06 Transfer initiated with [facility]; transfer denied due to capacity. em1 18:17 Dariusz Bird MD is Hospitalizing Provider. jr8 18:34 Triage completed. bw 18:37 Dave Underwood DO is Hospitalizing Provider. jr8 19:43 initiated transfer with [facility] from [facility]. mw2 20:16 Nurse Practitioner and/or Physician Health And Safety Advisor to see patient. cr4 20:16 Notified ED physician of other patient with increased confusion and daughter is worried.cr4 20:16 doc to doc with the Physician from [facility]. mw2 20:19 administrative approval given by Abimbola Brandt/ patient has been accepted to [place] [id number] [address]/ Dr. Castaneda has accepted the patient in transfer/ report to be called to [phone]. 21:27 Lipase Sent. cr4 21:30 Notified Nurse Practitioner and/or Physician Health And Safety Advisor of a critical lab result(s), PH cr4 7.26, C02 37, PO2 101, Bicarb 16. 21:46 Awaiting transportation. cr4 22:26 Patient transferred, IV remains in place. cr4 Administered Medications: 15:16 Drug: NS 0.9% 1000 ml Route: IV; Rate: 1000 ml; Site: right forearm; bw 15:47 CANCELLED (Physician Discretion): GlucaGen (glucagon) 2 mg IVP once jr8 15:50 Drug: NS 0.9% 1000 ml Route: IV; Rate: 1000 ml; Site: right antecubital; bw 16:10 Drug: D50W 50 ml Route: IVP; Site: right antecubital; bw 22:36 Follow up: Response: No adverse reaction cr4 16:12 Drug: Insulin Regular Human 10 units {Co-Signature: vg1 (Hazel Dickinson RN).} Route: bw IVP; Site: right antecubital; 16:20 Drug: Calcium Gluconate 1 grams Route: IVPB; Infused Over: 60 mins; Site: right bw antecubital; 22:36 Follow up: Response: No adverse reaction cr4 16:23 Drug: Levophed (4 mg/250 mL D5W 4 mcg/min {Note: started at 5 mcg/min.} Route: IV; sv Rate: calculated rate; Site: left femoral; 16:37 Follow up: Response: No adverse reaction; Rate change 10 calculated rate bw 17:29 Follow up: Response: No adverse reaction; Rate change 20 calculated rate bw 18:50 Follow up: Response: No adverse reaction; Rate change 25 calculated rate bw 20:48 Follow up: Rate change 22.5 calculated rate cr4 21:16 Follow up: Rate change 22 calculated rate cr4 22:35 Follow up: IV Status: Infusion continued upon transfer cr4 16:23 Drug: NS 0.9% 1000 ml Route: IV; Rate: 75 ml/hr; Site: left femoral; sv 22:36 Follow up: IV Status: Infusion continued upon transfer cr4 16:30 Drug: Albuterol 2.5 mg Route: Inhalation; bw 16:30 Drug: Albuterol 2.5 mg Route: Inhalation; bw 16:30 Drug: Albuterol 2.5 mg Route: Inhalation; bw 19:35 Drug: SOLU-Medrol 40 mg Route: IVP; Site: right antecubital; cr4 21:27 Follow up: Response: No adverse reaction cr4 19:37 Drug: Lasix (furosemide) 60 mg Route: IVP; Site: right antecubital; cr4 21:27 Follow up: Response: No adverse reaction cr4 19:45 Drug: SOLU-Medrol 210 mg Route: IVP; Site: right antecubital; cr4 21:22 Follow up: Response: No adverse reaction cr4 20:00 Drug: Zosyn 3.375 grams Route: IVPB; Infused Over: 60 mins; Site: right femoral; cr4 21:28 Follow up: Response: No adverse reaction; IV Status: Completed infusion; IV Intake: cr4 100ml Point of Care Testing: Blood Glucose: 15:04 Blood Glucose: 72 mg/dL; sv Guaiac: 15:36 Stool Guaiac: Positive; Stool Hemoccult Control: Pass; jr8 Ranges: Intake: 21:28 IV: 100ml; Total: 100ml. cr4 Outcome: 17:33 ER care complete, transfer ordered by MD. jr8 18:18 Decision to Hospitalize by Provider. jr8 20:29 ER care complete, transfer ordered by MD. jr8 22:26 Transferred by ground EMS to other acute care facility: [facility]. Transfer form cr4 completed. X-rays sent w/ patient. 22:26 Condition: stable 22:26 Discharge instructions given to family, Instructed on the need for transfer. 22:33 Patient left the ED. cr4 NIH Stroke Scale - NIH Stroke Score Date: 01/08/2021 Time: 14:50 Total Score = 0 1a. Level of Consciousness (LOC) - 0(Alert) 1b. Level of Consciousness (LOC) (Year \T\ Age) - 0(Both) 1c. LOC Commands (Open \T\ Closes Eyes/Construction Electrician) - 0(Both) 2. Best Gaze (Lateral Gaze Paresis) - 0(Normal) 3. Visual Field Loss - 0(No visual loss) 4. Facial Palsy - 0(Normal) 5a. Left Arm: Motor (10-second hold) - 0(No drift) 5b. Right Arm: Motor (10-second hold) - 0(No drift) 6a. Left Leg: Motor (5-second hold - always test supine) - 0(No drift) 6b. Right Leg: Motor (5-second hold - always test supine) - 0(No drift) 7. Limb Ataxia (finger/nose \T\ heel/bird - test with eyes open) - 0(Absent) 8. Sensory Loss (pinprick arms/legs/face) - 0(Normal) 9. Best Language: Aphasia (description/naming/reading) - 0(No aphasia) 10. Dysarthria (speech clarity - read or repeat words) - 0(Normal) 11. Extinction and Inattention (visual/tactile/auditory/spatial/personal) - 0(No abnormality) Initials: NIH Stroke Scale - NIH Stroke Score Date: 01/08/2021 Time: 16:59 Total Score = 3 1a. Level of Consciousness (LOC) - 0(Alert) 1b. Level of Consciousness (LOC) (Year \T\ Age) - 0(Both) 1c. LOC Commands (Open \T\ Closes Eyes/Construction Electrician) - 0(Both) 2. Best Gaze (Lateral Gaze Paresis) - 0(Normal) 3. Visual Field Loss - 0(No visual loss) 4. Facial Palsy - 0(Normal) 5a. Left Arm: Motor (10-second hold) - 0(No drift) 5b. Right Arm: Motor (10-second hold) - 0(No drift) 6a. Left Leg: Motor (5-second hold - always test supine) - 0(No drift) 6b. Right Leg: Motor (5-second hold - always test supine) - 0(No drift) 7. Limb Ataxia (finger/nose \T\ heel/bird - test with eyes open) - 2(Present in two limbs) 8. Sensory Loss (pinprick arms/legs/face) - 0(Normal) 9. Best Language: Aphasia (description/naming/reading) - 0(No aphasia) 10. Dysarthria (speech clarity - read or repeat words) - 1(Mild to Moderate) 11. Extinction and Inattention (visual/tactile/auditory/spatial/personal) - 0(No abnormality) Initials: jr8 Signatures: Dispatcher [employer] Monique Terrazas RN ROLO Wendy Apple, RN RN cr4 Frankie Ceballos em1 Jhonny Malhotra PA PA jr8 Diego Dorsey mw2 Yamila Donnelly RN RN ca1 Jessica Miramontes RN RN Hazel Dickinson RN vg1 Corrections: (The following items were deleted from the chart) 14:59 14:50 Method Of Arrival: Wheelchair ca1 ca1 15:08 14:50 Pulse 67bpm; Resp 17bpm; Spontaneous; Pulse Ox 96% RA; Temp 98.3F ca1 Temporal; 53.52 kg Reported; Height 5 ft. 2 in. Reported; BMI: 21.5; ca1 17:39 16:30 Reassessment: Critical labs reported to Jhonny LUQUE. Of potassium 6.4 bw and magnesium of 4.4. bw 18:32 17:30 Reassessment: Patient appears in no apparent distress at this time. No bw changes from previously documented assessment. bw 19:48 17:30 BP 112 / 66; Pulse 19bpm; Resp 19bpm; Pulse Ox 100% 3 lpm Nasal Cannula; mw2 Temp 88.2F; bw 21:15 20:45 BP 98 / 64; Pulse 60bpm; Resp 12bpm; Pulse Ox 99%; Temp 32.6F; Pain 0/10; cr4 cr4
--- NOTE | 2021-01-08 19:21 | RAD REPORT ---
EXAM DESCRIPTION: CT - Abdomen Pelvis Wo Contrast - 01/08/2021 6:48 pm CLINICAL HISTORY: rectal bleeding COMPARISON: Abdomen Pelvis W Contrast dated 10/04/2020; Abdomen Pelvis W Contrast dated 09/28/20 20 TECHNIQUE: Axial [address] imaging of the abdomen and pelvis was performed without IV contrast. No IV contrast was given because of allergy, abnormal renal function, patient refusal or physician re quest. All CT scans are performed using dose optimization technique as appropriate and may include automated exposure control or mA/KV adjustment according to patient size. FINDINGS: A small to moderate size right pleural effusion is present with partial atelectasis of the right lower lobe. There is trace amount of pleural effusion on the left. Heart size is upper normal. No pericardial effusion. A 3.5 centimeter oval subcapsular cystic mass posteromedial right lobe liver has not change from prio r imaging. No other significant liver parenchymal finding. No splenomegaly or focal splenic finding. Cholecystectomy clips are present. No biliary tree dilatation. No focal mass within the pancreatic parenchyma seen. There is stranding and edema in the peripancreat ic fat. The parker of the second- fourth portions of the duodenum show some edema and stranding as wel l. Minimal free fluid extends from the pancreatic tail region around the spleen. No hydronephrosis or suspicious renal mass. No significant adrenal finding. Isodense renal masses an d pyelonephritis cannot be excluded in the absence of IV contrast. Urinary bladder is fully contracte d around a Morse catheter. Uterus is absent. Ovaries are absent or atrophic. Patient has a prominent hiatal hernia or Bochdalek's hernia with approximately 1/3 of the stomach int rathoracic. The herniation distorts the contour of the gastric parker. There is respiratory motion acc entuating wall thickness of the antrum and duodenal bulb. No dilated small bowel loops. Sigmoid diver ticulosis is present. A colon mass or focal acute colon process is not identifiable. No appendicitis findings. No free air or pneumatosis. No hernia, mass or bulky lymphadenopathy. No suspicious bony findings. IMPRESSION: Pancreatitis findings are seen as peripancreatic edematous/inflammatory stranding and se condary involvement of the second- fourth portions of the duodenum. No solid or cystic mass component . Findings are not substantially different from September 2020. Moderate-sized right pleural effusion with atelectasis. Trace left pleural effusions seen. Colonic diverticulosis without diverticulitis. No colon mass or acute colon process identifiable. Gastric antrum and duodenal bulb or accentuated by motion. A mild component of antritis or bulb duode nitis cannot be excluded. Full assessment is limited is the absence of IV contrast.
--- NOTE | 2021-01-08 19:24 | P.PN ---
Date of Service: 01/08/21 I received phone call regarding 75F w/ PMHx of CKD3a (baseline SCr 1.0-1.2), Hypertension, history of acute pancreatitis, CHF, cardiac arrhythmia s/p ppm, and recently diagnosed temporal arteritis, who presented with generalized tonic- clonic seizure earlier today. Head CT is unremarkable. She was noted to have a KI with serum creatinine of 2.89. She has hyperkalemia and acidosis and hypomagnesemia and was also noted to be hypotensive with initial SBP in the 60s- 70s mmHg. She is currently anuric. Recs: 1. Oliguric DAVIE - unclear etio. Partly hypoperfusionl. R/o arteritis/glomerulonephritis. May need a renal biopsy. Start pulse IV steroids as below. monitor renal panel. Strict I&O. 2. Temporal arteritis w/ possible secondary COUNSELOR/ART THERAPIST involvement. Given the possible involvement of at least 2 organs for vasculitis, including brain and kidneys, start pulse IV steroids Via Solu-Medrol to 50 mg IV every 6 hours 12 doses, f ollowed by slow taper. 3. Seizure, unclear etio, possible COUNSELOR/ART THERAPIST involvement from arteritis. IV pulse steroids as above. 4. Anemia,thrombocytopenia, renal failure, seizure. Rule out TTP. Follow-up C BC manual differential, serum haptoglobin, & LDH. 5. No acute indication yet for plasmapheresis. 6. Hypotension. Unclear etio. Started on IV pressor. MAP goal > 65. 7. Hyperkalemia. Give IV lasix 60 mg stat. F/u serum CK level. If no increase in the urine output by 2 hrs after IV dose, will need hemodialysis, for hyperK & hyperMg. Recheck renal panel & serum Mg at 10 pm. 8. HyperMg. Lasix as above. May need HD tonight. 9. CHF. BNP high. Avoid IV fluids. IV lasix stat as above. HD if no diuresis. 10. Acidosis. Monitor. 11. Admit to ICU Full consult to follow. Thank you very much for this referral. I will follow closely.
[2021-01-08] MEDS ORDERED: METHYLPREDNISOLONE 40 MG INJ ONE (19:37)
[2021-01-08] MEDS ORDERED: FUROSEMIDE 40 MG/4 ML VIAL ONE (19:37)
[2021-01-08] MEDS ORDERED: FUROSEMIDE 20 MG/ 2ML VIAL ONE (19:37)
[2021-01-08] MEDS ORDERED: METHYLPREDNISOLONE 125 MG INJ ONE (19:55)
[2021-01-08] MEDS ORDERED: PIPER/TAZO/NS 3.375gm 3.375 GM/100 ML BAG ONE (20:11)
[2021-01-08 20:36] LABS: Anisocytosis 3+; Blood Morphology Comment NOTED (NOT SEEN); Platelet Estimate DECR
[2021-01-08 20:48] LABS: Arterial Blood Carboxyhemoglob 0.8 % (0-1.5); Blood Gas Oxyhemoglobin 93.9 % (94-97); Blood O2 Saturation 95.9 % (92-98.5)
[2021-01-08 20:51] LABS: Hypochromasia 1+
[2021-01-09 17:22] VITALS: BP 105/81; TEMP 33.5; O2SAT 99
== END 2021-01-08 22:33 ==
LOC: ER 14:41
PROC: 06HM33Z Insertion of Infusion Device into Right Femoral Vein, Percutaneous Approach (ICD-10-PCS; principal; 2021-01-08)
DX: N17.9 Acute kidney failure, unspecified (principal); I95.9 Hypotension, unspecified; K85.90 Acute pancreatitis without necrosis or infection, unspecified; M31.6 Other giant cell arteritis; E87.5 Hyperkalemia; I10 Essential (primary) hypertension; I50.9 Heart failure, unspecified; Z20.822 Contact with and (suspected) exposure to COVID-19; Z88.8 Allergy status to other drugs, medicaments and biological substances
CPT/HCPCS: 93005; 85025; 80048; 36415; 86900; 83735; 86850; 85610; 86901; 82947; 80076; 83605; 84443; 84484; 84439; 83690; 84145; 83880; 74176; 70450; 71045; 82805; 99291; 99292; 36556; U0003; J1940 ×2; J2543; J0610; J7030 ×3; J2930; J2920; J1610